=== PATIENT | male | born 1960 | race Caucasian/White ===

== ENCOUNTER 2017-05-22 03:53 | Emergency (ER) | payer MEDICAID, SELFPAY ==
[2017-05-22 03:54] VITALS: BP 126/88; PULSE 89; RESP 18; TEMP 36.8; O2SAT 95; BMI 26.9
--- NOTE | 2017-05-22 04:06 | CT_ITS ---
CT head/brain wo con HISTORY: Altered mental status, altered level consciousness, confusion ITS.REASON: ALTERED MENTAL STATUS ORDERING PHYSICIAN: Arthur Baker MD PATIENT AGE: 56 years COMPARISON: None TECHNIQUE: Axial images obtained without contrast. Brain and bone windows reviewed. FINDINGS: No midline shift, mass effect, intracranial hemorrhage, hydrocephalus, or extra-axial fluid collection is evident. The calvarium has an unremarkable appearance. No mastoid effusion. The visualized paranasal sinuses are unremarkable. IMPRESSION: Negative CT head without contrast. No acute finding.
--- NOTE | 2017-05-22 04:30 | PC.NURSE ---
PT TO CT
--- NOTE | 2017-05-22 05:09 | HMH.EDSEIZ ---
ED Disposition Clinical Impression: Mental status change resolved, Schizo-affective schizophrenia Disposition: Home, Self-Care Condition on Discharge: Good Instructions: DI for Seizure Disorder -- Adult Additional Instructions: resume meds Referrals: Arthur Baker MD [Primary Care Provider] - - Critical Care Critical Care Time: No Attestation: On 05/22/17, the high probability of a clinically significant, sudden or life threatening deterioration of the following system(s) required my full and direct attention, intervention and personal management. The time I documented below is in addition to time spent performing reported procedures but includes the following listed in this critical care notation. Medical Decision Making - Medical Records Medical records reviewed: Yes: I reviewed the patient's medical records. Vital Signs: 05/22/17 03:54 Temperature 98.2 F Temperature Source Oral Pulse Rate [Right Radial] 89 Respiratory Rate 18 Blood Pressure [Right Arm] 126/88 Blood Pressure Mean [Right Arm] 100 Blood Pressure Source [Right Arm] Automatic Cuff Blood Pressure Position [Right Arm] Supine 02 Sat by Pulse Oximetry 95 Oxygen Delivery Method Room Air - Lab Data Lab results reviewed: Yes: I reviewed the patient's lab results. Lab Results 05/22/17 04:06: Urine Color Yellow, Urine Appearance Clear, Urine pH 6.5, Ur Specific [place] 1.015, Urine Protein Negative, Urine Glucose (UA) Negative, Urine Ketones Trace, Urine Blood Negative, Urine Nitrate Negative, Urine Bilirubin Negative, Urine Urobilinogen 0.2, Ur Leukocyte Esterase Negative 05/22/17 05:15: WBC 4.9, RBC 4.37 L, Hgb 12.7 L, Hct 38.9 L, MCV 89.1, MCH 29.0, MCHC 32.5, RDW 13.9, Plt Count 238, MPV 7.4, Neut % (Auto) 51.5, Lymph % (Auto) 31.4, [place] % (Auto) 11.4 H, Eos % (Auto) 5.1, Baso % (Auto) 0.6, Neut # (Auto) 2.5, Lymph # (Auto) 1.6, [place] # (Auto) 0.6, Eos # (Auto) 0.3, Baso # (Auto) 0.0 05/22/17 05:15: Sodium 142, Potassium 3.5, Chloride 109 H, Carbon Dioxide 28, Anion Gap 8.5, BUN 11, Creatinine 0.77, Estimated Creat Clear 144, Estimated GFR > 60, Est GFR ( Amer) > 60, Glucose 92, Calcium 8.3 L, Total Bilirubin 0.4, AST 26, ALT 35, Alkaline Phosphatase 51, Total Protein 6.1 L, Albumin 2.6 L, Globulin 3.5 H, Albumin/Globulin Ratio 0.7 L 05/22/17 05:30: Urine Opiates Screen Negative, Ur Barbituates Screen Negative, Ur Phencyclidine Scrn Negative, Ur Amphetamines Screen Negative, U Methamphetamines Scrn Negative, U Benzodiazepines Scrn Positive H, Urine Cocaine Screen Negative, U Marijuana (THC) Screen Negative Result diagrams: 05/22/17 05:15 05/22/17 05:15 Orders (Tests/Meds): ED MEDICATIONS Generic Name Dose Route Start Last Admin Trade Name Freq PRN Reason Stop Dose Admin Sodium Chloride 10 ml 05/22/17 05:37 Saline Flush 10ml Syringe IV 06/21/17 05:36 NEEDED PRN Maintain IV Site ORDERS Category Date Time Status CMP [Comprehensive Metabolic Panel] Stat Lab 05/22/17 05:15 Results Urinalysis and Microscopic Stat Lab 05/22/17 04:06 Results Valproic Acid, (Depakene) Stat Lab 05/22/17 05:15 Results - CT Data CT Scan: Head Time Received: 06:[address] Reviewed: Yes: I have viewed the radiologist's interpretation Preliminary Findings: Normal/NAD - Garcia Inquiry Pt receiving controlled substance: No Seizures HPI - General Chief Complaint: Seizure Stated Complaint: seizure Time Seen by Provider: 05/22/17 05:09 Mode of Arrival: EMS Source of Information: Patient, EMS, Medical Record Limitations: Altered Mental Status Description of Symptoms (Recalled from ER Triage Doc. by RN): QIANA REPORTED ALTERED MENTAL STATUS S/P SEIZURE - History of Present Illness HPI Narrative: this pt was sent from halfway for eval as he had change in mental status with no fever/trauma and no observed sz MD complaint: possible seizure Onset (ago): hour(s) Witnessed: no Seizure History: known seiz
[2017-05-22 05:56] LABS: Microscopic, Urine URINE MICROSCOPIC (MICROSCOPIC)
[2017-05-22 05:58] LABS: Basophils % 0.6 % (0.1-2.0); Eosinophils # 0.3 K/mm3 (0.0-0.4); Eosinophils % 5.1 % (0.1-12.0); Hematocrit 38.9 % (42.0-52.0); Hemoglobin 12.7 g/dL (14.1-18.0); Lymphocytes # 1.6 K/mm3 (0.7-4.5); Lymphocytes % 31.4 K/mm3 (10-50); Mean Corpuscular HGB Conc 32.5 g/dL (31.8-35.4); Mean Corpuscular Volume 89.1 fl (80-94); Mean Platelet Volume 7.4 fl (7.4-10.4); Monocytes # 0.6 K/mm3 (0.1-1.0); Monocytes % 11.4 % (1.7-9.3); Neutrophils # 2.5 K/mm3 (1.8-7.8); Neutrophils % 51.5 % (37.0-80.0); Platelet Count 238 K/mm3 (142-424); Red Blood Count 4.37 M/mm3 (4.60-6.20); Red Cell Distribution Width 13.9 % (11.5-17.5); White Blood Count 4.9 K/mm3 (4.8-10.8)
[2017-05-22 06:08] LABS: Appearance,Urine CLEAR (Clear); Bilirubin,Urine Negative (Negative); Blood, Urine Negative (Negative); Color,Urine YELLOW (Yellow); Glucose,Urine (UA) Negative (Negative); Ketones,Urine TRACE (Negative); Leukocyte Esterase,Urine Negative (Negative); Nitrate,Urine Negative (Negative); PH,Urine 6.5 (5.0-8.5); Protein,Urine Negative (Negative); Specific Gravity, Urine 1.015 (1.005-1.030); Urobilinogen,Urine 0.2 EU/dl (0.2)
[2017-05-22 06:13] LABS: Alanine Aminotransferase 35 U/L (12-78); Albumin Level 2.6 gm/dL (3.4-5.0); Albumin/Globulin Ratio 0.7 (1.1-1.8); Alkaline Phosphatase 51 U/L (46-116); Anion Gap 8.5 mEq/L (5-15); Aspartate Amino Transferase 26 U/L (15-37); Bilirubin,Total 0.4 mg/dL (0.2-1.0); Blood Urea Nitrogen 11 mg/dL (7-18); Calcium 8.3 mg/dL (8.5-10.1); Carbon Dioxide 28 mmol/L (21.0-32.0); Chloride 109 mmol/L (98-107); Creatinine Clearance Estimated 144 mg/ml (0-300); Creatinine,Serum 0.77 mg/dL (0.70-1.30); Estimated Glomerular Filt Rate > 60 ml/min (>60); GFR (African American) > 60 ML/MIN (>60); Globulin 3.5 gm/dl (1.3-3.2); Glucose 92 mg/dL (74-106); Potassium 3.5 mmoL/L (3.5-5.1); Sodium 142 mmol/L (136-145); Total Protein,Serum 6.1 gm/dL (6.4-8.2)
--- NOTE | 2017-05-22 06:39 | PC.NURSE ---
F/C DC'D PER MD ORDER
[2017-05-22 06:41] LABS: Amphetamine/Metha Screen,Urine Negative ng/mL (<1000); Barbiturates Screen,Urine Negative ng/mL (<200); Benzodiazepines Screen,Urine Positive ng/mL (200); Cannabinoid Screen,Urine Negative ng/mL (<50); Cocaine Screen,Urine Negative ng/g (<300); Methadone Screen,Urine Negative ng/mL (<300); Opiate Screen,Urine Negative ng/mL (<300); Phencyclidine Screen,Urine Negative ng/mL (<25)
[2017-05-22 06:44] VITALS: BP 145/82; PULSE 86; RESP 18; TEMP 36.8; O2SAT 96
[2017-05-22 06:52] LABS: Bacteria,Urine Trace /lpf; Squamous Epithelial Cell,Urine Occasional #/hpf (0-5)
[2017-05-22 08:42] LABS: Valproic Acid, (Depakene) 45.4 ug/mL (50-100)
== END 2017-05-22 07:09 | disposition home or self-care (01) ==
PROVIDERS: Emergency Provider Emergency Medicine; PCP Emergency Medicine
DX: R56.9 Unspecified convulsions (principal); F25.0 Schizoaffective disorder, bipolar type; E11.9 Type 2 diabetes mellitus without complications; Z79.82 Long term (current) use of aspirin
CPT/HCPCS: 70450; 80053; 80164; 80305; 81001; 85025; 99284

== ENCOUNTER 2018-09-12 17:03 | Observation (INO) ==
--- NOTE | 2018-09-12 17:44 | Emergency Department Note ---
ED Disposition Clinical Impression: CAD (coronary artery disease), S/P CABG (coronary artery bypass graft), Venous stasis, Schizophrenia, Atypical chest pain Disposition: Still a Patient Condition on Discharge: Fair Referrals: Provider,Referral, [Referring] - - Critical Care Critical Care Time: No Attestation: On 09/12/18, the high probability of a clinically significant, sudden or life threatening deterioration of the following system(s) required my full and direct attention, intervention and personal management. The time I documented below is in addition to time spent performing reported procedures but includes the following listed in this critical care notation. Medical Decision Making - Medical Records Medical records reviewed: Yes: I reviewed the patient's medical records. - Garcia Inquiry Pt receiving controlled substance: No Garcia was queried for this patient: No Vital Signs: 09/12/18 17:03 09/12/18 17:49 09/12/18 18:52 Temperature 98 F Temperature Source Oral Pulse Rate [Left Radial] 85 122 H 77 Respiratory Rate 16 16 Blood Pressure [Right Arm] 106/62 L 118/66 121/77 Blood Pressure Mean [Right Arm] 76 83 91 Blood Pressure Source [Right Arm] Automatic Cuff Automatic Cuff Automatic Cuff Blood Pressure Position [Right Arm] Sitting Sitting Sitting 02 Sat by Pulse Oximetry 98 96 97 Oxygen Delivery Method Room Air Room Air Room Air 09/12/18 19:55 09/12/18 20:01 Temperature Temperature Source Pulse Rate [Left Radial] 118 H 72 Respiratory Rate 16 16 Blood Pressure [Right Arm] 135/74 130/70 Blood Pressure Mean [Right Arm] 94 90 Blood Pressure Source [Right Arm] Automatic Cuff Blood Pressure Position [Right Arm] Sitting 02 Sat by Pulse Oximetry 97 99 Oxygen Delivery Method Room Air Room Air - Lab Data Lab Results 09/12/18 17:43: WBC 7.3, RBC 4.60, Hgb 15.0, Hct 43.4, MCV 94.4 H, MCH 32.6 H, MCHC 34.5, RDW 12.7, Plt Count 203, MPV 7.2 L, Neut % (Auto) 59.7, Lymph % (Auto) 27.5, [place] % (Auto) 9.2, Eos % (Auto) 3.2, Baso % (Auto) 0.5, Neut # (Auto) 4.4, Lymph # (Auto) 2.0, [place] # (Auto) 0.7, Eos # (Auto) 0.2, Baso # (Auto) 0.0 09/12/18 17:43: Sodium 143, Potassium 4.1, Chloride 108 H, Carbon Dioxide 29, Anion Gap 10.1, BUN 13, Creatinine 1.03, Estimated Creat Clear 93, Estimated GFR 74, Est GFR ( Amer) 90, Glucose 89, Calcium 8.6, Troponin I < 0.02, Amylase 25 09/12/18 17:43: Total Bilirubin 0.3, Direct Bilirubin 0.1, Indirect Bilirubin 0. 2, AST 10 L, ALT 21, Alkaline Phosphatase 66, Total Protein 6.5, Albumin 3.1 L, Lipase 82 09/12/18 19:20: Troponin I < 0.02 Result diagrams: 09/12/18 17:43 09/12/18 17:43 Orders (Tests/Meds): ED MEDICATIONS Generic Name Dose Route Start Last Admin Trade Name Freq PRN Reason Stop Dose Admin Sodium Chloride 1,000 mls @ 999 mls/hr 09/12/18 19:15 09/12/18 19:04 Sod Chlor 0.9% 1000ml Bag IV 09/12/18 20:15 999 mls/hr .Q1H1M FERNANDA Administration Discontinued Medications Generic Name Dose Route Start Last Admin Trade Name Freq PRN Reason Stop Dose Admin Belladonna Alkaloids 60 ml 09/12/18 17:49 09/12/18 18:15 Gi Cocktail 60ml Udc PO 09/12/18 17:50 60 ml ONCE ONE Administration Diatrizoate Meglum/Diatrizoate Sod 30 ml 09/12/18 17:48 09/12/18 18:11 Gastrografin 66%-10% 30ml PO 09/12/18 17:49 30 ml ONCE ONE Administration Ioversol 100 ml 09/12/18 19:07 09/12/18 19:10 Rad-Optiray 350 100ml Vial IV 09/12/18 19:08 100 ml ONCE ONE Administration Protocol Nitroglycerin 0.4 mg 09/12/18 19:54 09/12/18 19:55 Nitrostat 0.4mg Sl Tablet SL 09/12/18 19:55 0.4 mg ONCE ONE Administration Sodium Chloride 50 ml 09/12/18 19:07 09/12/18 19:10 Rad-Ns 50ml Vial IV 09/12/18 19:08 50 ml ONCE ONE Administration ORDERS Category Date Time Status CT abdomen pelvis w con Stat Cat Scan 09/12/18 17:[address] chest w con Stat Cat Scan 09/12/18 17:48 Taken Chest XR -- portable [XR chest portable] Stat Exams 09/12/18 17:05 Taken - Radiology Data #1 Image(s): Chest Image Reviewed: Yes I reviewed the patient's radiology image Preliminary Findings: Normal/NAD Chest x-ray: Postop changes no acute findings. - CT Data CT Scan: Abdomen, Chest Time Received: 20:[address] Reviewed: Yes: I have viewed the radiologist's interpretation Preliminary Findings: Abnormal Findings Narrative: CT Chest and Abdomen: Copd and atlectasis negative for aneurysm. - ECG Data Tracing #1 Normal sinus rhythm 72/min baseline artifact, poor R wave progression, normal ST segments and T waves. No acute findings. ECG initial impression date: 09/12/18 ECG initial impression time: 17:05 Medical Decision Narrative: The patient was given GI cocktail and continued to have pain. He felt the pain is moving to his chest on the left side. He was given nitroglycerin with no relief. His second set of troponin was negative and a second EKG was a stable.. 1999 due to the patient ongoing chest pain I called Dr frausto for observation admission to rule out NC protocol. General Adult HPI - General Chief complaint: PAIN Stated complaint: chest pain Time Seen by Provider: 09/12/18 17:10 Mode of Arrival: EMS Limitations: No Limitations Description of Symptoms (Recalled from ER Triage Doc. by RN): to ed per squad reports of chest pain pt pointing to epigastric area starting approx 1hr ago c/o sob. denies any radiation of pain, nausea, vomiting, fever. cpta asa 324mg - History of Present Illness HPI narrative: 58 years old white male with a history of coronary artery disease, peripheral vascular disease and diabetes. He is from [facility] and he underwent a CABG in 2008. Today 30 minutes after he ate supper he developed sudden onset of sharp epigastric pain radiating to his back. EMS was called he was given aspirin with no relief. He denies vomiting or diarrhea. He denies having shortness of breath or palpitations. He denies having hematemesis coffee-ground emesis melanotic stool or bleeding per rectum. He denies having hemoptysis dysuria hematuria or frequency. Onset (ago): hour(s) Location: abdomen Radiation: back Severity: moderate Severity scale (1-10): 7 Quality: sharp Consistency: constant Relieving factors: none Exacerbating factors: none Associated symptoms: denies other symptoms Treatments prior to arrival: none - Related Data Home Medications Medication Instructions Recorded Confirmed Aspirin [Aspir 81] 81 mg PO DAILY 05/22/17 09/12/18 Atorvastatin Calcium [Atorvastatin 40 mg PO HS 05/22/17 09/12/18 40mg Tab] Divalproex Sodium [Depakote] 500 mg PO BID 05/22/17 09/12/18 Ipratropium/Albuterol Sulfate 1 puff IH DAILY 05/22/17 09/12/18 [Combivent Respimat Inh] Metoprolol Tartrate [Lopressor 25 mg PO DAILY 05/22/17 09/12/18 25mg tablet] Mometasone/Formoterol [Dulera 100 8.8 gm IH DAILY 05/22/17 09/12/18 Mcg/5 Mcg Inhaler] raNITIdine HCl [Ranitidine HCl] 150 mg PO BID 05/22/17 09/12/18 benzonatate 100 mg capsule 100 mg PO TID PRN 08/10/18 09/12/18 benztropine 0.5 mg tablet 0.5 mg PO BID 08/10/18 09/12/18 diazepam 5 mg tablet 5 mg PO BID tab 08/10/18 09/12/18 haloperidol 5 mg tablet 5 mg PO TID 08/10/18 09/12/18 lorazepam 1 mg tablet 1 mg PO Q6H PRN tab 08/10/18 09/12/18 sertraline 25 mg tablet 25 mg PO DAILY 08/10/18 09/12/18 Allergies Allergy/AdvReac Type Severity Reaction Status Date / Time No Known Allergies Allergy Verified 08/10/18 10:09 [facility] History - Hepatitis A Screen Drug use history?: No High risk sexual behaviors?: No History of sexually transmitted infection?: No Currently employed?: No Childcare worker?: No Do you have indoor plumbing?: Yes Do you have electricity?: Yes Attestation statement:: This patient has been screened for Hepatitis A risk factors. I have reviewed the patient's past medical history: Yes Medical History: Reports:: Diabetes Mellitus Type 2 Amputation: No Fractures: No - Social History Smoking Status: Current some day smoker Tobacco Type: cigars # Packs/Day (cigarettes): 0 Alcohol Intake: never Occupational Status: disabled Household Members: other - Psychiatric History Expresses thoughts of harming self/others: None Suicide Plan Description: No Plan ROS Obtained: Yes All systems reviewed & no additional complaints Physical Exam - General General appearance: alert, in no apparent distress - Head Head exam: atraumatic, normocephalic, normal inspection - Eye Eye exam: Present: normal appearance, PERRL, EOMI - ENT ENT exam: Present: normal exam, normal oropharynx, mucous membranes moist, TM's normal bilaterally, normal external ear exam - Neck Neck exam: Present: normal inspection, full ROM, trachea midline. Absent: tenderness, meningismus, lymphadenopathy - Chest Chest inspection: Present: normal inspection, symmetric chest wall rise. Absent: tenderness - Respiratory Respiratory exam: Present: normal lung sounds bilaterally. Absent: respiratory distress, wheezes - Cardiovascular Cardiovascular exam: Present: regular rate, normal rhythm, normal heart sounds. Absent: JVD - Abdominal Exam Abdominal exam: Present: soft, tenderness, normal bowel sounds, other (Abdomen is soft, with epigastric tenderness without rigidity, no guarding no cross tenderness, no rebound.). Absent: distention, guarding, rebound, rigidity, Navarro's sign, tenderness at McBurney's Point - Extremities Exam Extremities exam: Present: normal inspection, full ROM, normal capillary refill, other (Has venous stasis that is worse on the left leg.). Absent: tenderness, pedal edema, calf tenderness - Back Exam Back exam: Present: normal inspection. Absent: tenderness - Neurological Exam Neurological exam: Present: alert, oriented X3, CN II-XII intact, motor sensory deficit, reflexes normal - Psychiatric Psychiatric exam: Present: normal affect, normal mood - Skin Skin exam: Present: warm, dry, intact, normal color - Lymphatic Lymphatic Findings: no adenopathy
[2018-09-12 17:52] LABS: Basophils % 0.5 % (0.1-2.0); Eosinophils # 0.2 K/mm3 (0.0-0.4); Eosinophils % 3.2 % (0.1-12.0); Hematocrit 43.4 % (42.0-52.0); Lymphocytes % 27.5 % (10-50); Mean Corpuscular HGB Conc 34.5 g/dL (31.8-35.4); Mean Corpuscular Hemoglobin 32.6 pg (27.0-31.2); Mean Corpuscular Volume 94.4 fl (80-94); Mean Platelet Volume 7.2 fl (7.4-10.4); Monocytes # 0.7 K/mm3 (0.1-1.0); Monocytes % 9.2 % (1.7-9.3); Neutrophils # 4.4 K/mm3 (1.8-7.8); Neutrophils % 59.7 % (37.0-80.0); Platelet Count 203 K/mm3 (142-424); Red Cell Distribution Width 12.7 % (11.5-17.5); White Blood Count 7.3 K/mm3 (4.8-10.8)
[2018-09-12 18:10] LABS: Albumin Level 3.1 gm/dL (3.4-5.0); Bilirubin,Direct 0.1 mg/dL (0.0-0.2); Bilirubin,Indirect 0.2 mg/dL (0.0-0.9); Bilirubin,Total 0.3 mg/dL (0.2-1.0); Total Protein,Serum 6.5 gm/dL (6.4-8.2)
[2018-09-12 18:12] LABS: Amylase 25 U/L (25-115); Anion Gap 10.1 mEq/L (5-15); Blood Urea Nitrogen 13 mg/dL (7-18); Calcium 8.6 mg/dL (8.5-10.1); Carbon Dioxide 29 mmol/L (21.0-32.0); Chloride 108 mmol/L (98-107); Glucose 89 mg/dL (74-106); Potassium 4.1 mmoL/L (3.5-5.1); Sodium 143 mmol/L (136-145)
--- NOTE | 2018-09-13 12:03 | Pharmacy Consult Notes ---
[facility] Pharmacy VTE Monitoring - Patient Demographics Admission date: 09/13/18 Report Date: 09/13/18 Time: 12:03 Allergies/Adverse Reactions: Patient Allergies No Known Allergies Allergy (Verified 08/10/18 10:09) Height: 1.75 m Weight: 84.056 kg Patient Problems: Current Active Problems (Updated 09/12/18 @ 20:04 by Jovana Silva MD) CAD (coronary artery disease) (Acute) S/P CABG (coronary artery bypass graft) (Acute) Venous stasis (Acute) Schizophrenia (Acute) Atypical chest pain (Acute) - VTE Risk Labs: VTE Related Lab Results Hgb 15.0 g/dL (14.1-18.0) 09/12/18 17:43 Hct 43.4 % (42.0-52.0) 09/12/18 17:43 Plt Count 203 K/mm3 (142-424) 09/12/18 17:43 BUN 13 mg/dL (7-18) 09/12/18 17:43 Creatinine 1.03 mg/dL (0.70-1.30) 09/12/18 17:43 Estimated Creat Clear 93 mL/min (50-200) 09/12/18 17:43 VTE Score: 2 - Prophylaxis Types of VTE Prophylaxis: TEDS Knee High (HERNAN HOSE ORDER PLACED)
--- NOTE | 2018-09-13 12:13 | History & Physical Report ---
*Admission Date: 09/13/18 *Chief complaint: chest pain *History of present illness: 58 years old male with a history of cad, pvd and diabetes with CABG in 2008. pt presented to ed from personal [facility] with c/o after he ate supper he developed sudden onset of sharp epigastric pain radiating to his back. Asa given. He denies vomiting or diarrhea, shortness of breath or palpitations. Pt admitted for cardiology consult and work up. [facility] History I have reviewed the patient's past medical history: Yes Medical History: Reports:: Hyperlipidemia, Hypertension, Myocardial Infarction Denies:: Diabetes Mellitus Type 1, Diabetes Mellitus Type 2 *Have you ever received a pneumonia vaccine?: Yes *Have you received a flu vaccine this season?: Yes Other Surgeries: Yes: Appendectomy, Cholecystectomy Amputation: No Fractures: No - *Social History Smoking Status: Current every day smoker Tobacco Type: cigarettes, cigars # Packs/Day (cigarettes): 1 Alcohol Intake: never *Occupational Status:: disabled Housing: other Household Members: other *Travel in the last 8 weeks: None - Psychiatric History Expresses thoughts of harming self/others: None Suicide Plan Description: No Plan Family Hx:: Unable to obtain, No significant family history Review of Systems - Review of Systems Review of systems:: pertinent systems reviewed and negative unless documented below - Constitutional Denies fever(s) - Eyes Denies change in vision - ENT Denies change in voice - *Cardiovascular Reports chest pain, Reports chest pain at rest, Reports chest pain with activity, Denies shortness of breath with activity, Denies generalized swelling - *Respiratory Denies chest congestion - *Gastrointestinal Denies bloating - *Genitourinary Denies urinary frequency - *Musculoskeletal Denies body aches - Integumentary/Breasts Denies rash - *Neurologic Denies headache(s) - Psychiatric Denies anxiety - Endocrine Denies flushing - Hematologic/Lymphatic Denies enlarged lymph nodes - Allergic/Immunologic Denies itchy eyes Meds Home Medications Medication Instructions Recorded Confirmed Type Aspirin [Aspir 81] 81 mg PO DAILY 05/22/17 09/13/18 History Atorvastatin Calcium [Atorvastatin 40 mg PO HS 05/22/17 09/13/18 History 40mg Tab] Divalproex Sodium [Depakote] 500 mg PO BID 05/22/17 09/13/18 History Ipratropium/Albuterol Sulfate 1 puff IH QID 05/22/17 09/13/18 History [Combivent Respimat Inh] Metoprolol Tartrate [Lopressor 25 mg PO DAILY 05/22/17 09/13/18 History 25mg tablet] Mometasone/Formoterol [Dulera 100 8.8 gm IH BID 05/22/17 09/13/18 History Mcg/5 Mcg Inhaler] raNITIdine HCl [Ranitidine HCl] 150 mg PO BID 05/22/17 09/13/18 History benzonatate 100 mg capsule 100 mg PO TID PRN 08/10/18 09/13/18 History benztropine 0.5 mg tablet 0.5 mg PO BID 08/10/18 09/13/18 History diazepam 5 mg tablet 5 mg PO BID tab 08/10/18 09/13/18 History haloperidol 5 mg tablet 5 mg PO TID 08/10/18 09/13/18 History lorazepam 1 mg tablet 1 mg PO Q6HP PRN tab 08/10/18 09/13/18 History sertraline 25 mg tablet 25 mg PO DAILY 08/10/18 09/13/18 History Acetaminophen [Tylenol 325mg 650 mg PO Q6HP PRN 09/13/18 09/13/18 History Tablet] Ibuprofen [Ibuprofen 800mg 800 mg PO Q8HP PRN 09/13/18 09/13/18 History Tablet] Allergies Allergy/AdvReac Type Severity Reaction Status Date / Time No Known Allergies Allergy Verified 08/10/18 10:09 Exam Vital signs and Labs for Last 24 Hours: Temp Pulse Resp BP Pulse Ox 99.8 F H 51 L 17 107/66 L 93 L 09/13/18 08:00 09/13/18 08:35 09/13/18 08:35 09/13/18 08:00 09/13/18 08:35 Laboratory Results - last 24 hr 09/12/18 17:43: WBC 7.3, RBC 4.60, Hgb 15.0, Hct 43.4, MCV 94.4 H, MCH 32.6 H, MCHC 34.5, RDW 12.7, Plt Count 203, MPV 7.2 L, Neut % (Auto) 59.7, Lymph % (Auto) 27.5, [place] % (Auto) 9.2, Eos % (Auto) 3.2, Baso % (Auto) 0.5, Neut # (Auto) 4.4, Lymph # (Auto) 2.0, [place] # (Auto) 0.7, Eos # (Auto) 0.2, Baso # (Auto) 0.0 09/12/18 17:43: Sodium 143, Potassium 4.1, Chloride 108 H, Carbon Dioxide 29, Anion Gap 10.1, BUN 13, Creatinine 1.03, Estimated Creat Clear 93, Estimated GFR 74, Est GFR ( Amer) 90, Glucose 89, Calcium 8.6, Troponin I < 0.02, Amylase 25 09/12/18 17:43: Total Bilirubin 0.3, Direct Bilirubin 0.1, Indirect Bilirubin 0.2, AST 10 L, ALT 21, Alkaline Phosphatase 66, Total Protein 6.5, Albumin 3.1 L , Lipase 82 09/12/18 19:20: Troponin I < 0.02 09/12/18 23:50: Troponin I < 0.02 09/13/18 05:45: Troponin I 0.02 I & O for Last 24 hours: Intake & Output 09/11/18 09/12/18 09/13/18 09/14/18 11:59 11:59 11:59 11:59 Intake Total 313 / 313 Output Total 1100 / 1100 Balance -787 / -787 Weight 185 lb 5 oz - Constitutional no acute distress - *Routine HEENT Exam Head: Present: normocephalic Eye: Present: PERRL ENT: Present: mucous membranes moist - *Routine Neck Exam Present: supple. Absent: lymphadenopathy - *Routine Respiratory Exam Present: CTA bilaterally - *Routine Cardiovascular Exam Present: RRR Comments: scar to chest - *Routine Abdominal Exam Present: soft, normoactive bowel sounds. Absent: tenderness - *Routine Extremities Exam Absent: cyanosis, clubbing, edema - *Routine Skin Exam Present: warm. Absent: rash - *Routine Neurological Exam Present: alert, oriented X3 - Routine Psychiatric Exam Present: normal affect Assessment and Plan (1) Diabetes Current visit: Yes Status: Acute Qualifiers: Diabetes mellitus type: type 2 Diabetes mellitus shelter insulin use: without selling specialist use Diabetes mellitus complication status: with circulatory complication Diabetes mellitus complication detail: with other circulatory complications Qualified Code(s): E11.59 - Type 2 diabetes mellitus with other circulatory complications Category: Medical Code(s): E11.9 - Type 2 diabetes mellitus without complications (2) Diabetes Current visit: Yes Status: Acute Qualifiers: Diabetes mellitus type: type 2 Diabetes mellitus complication status: with circulatory complication Diabetes mellitus complication detail: with other circulatory complications Category: Medical Code(s): E11.9 - Type 2 diabetes mellitus without complications (3) Atypical chest pain Current visit: Yes Status: Acute Category: Medical Code(s): R07.89 - Other chest pain (4) CAD (coronary artery disease) Current visit: Yes Status: Acute Qualifiers: Coronary Disease-Associated Artery/Lesion type: bypass graft [place] vs. transplanted heart: [place] heart Associated angina: without angina Qualified Code(s): I25.810 - Atherosclerosis of coronary artery bypass graft(s) without angina pectoris Category: Medical Code(s): I25.10 - Atherosclerotic heart disease of [place] coronary artery without angina pectoris (5) S/P CABG (coronary artery bypass graft) Current visit: Yes Status: Acute Category: Surgical Code(s): Z95.1 - Presence of aortocoronary bypass graft (6) Schizophrenia Current visit: Yes Status: Acute Qualifiers: Schizophrenia type: other Qualified Code(s): F20.89 - Other schizophrenia; F20.8 - Other schizophrenia Category: Medical Code(s): F20.9 - Schizophrenia, unspecified (7) Schizo-affective schizophrenia Current visit: No Status: Acute Category: Medical Code(s): F25.0 - Schizoaffective disorder, bipolar type - Assessment and plan all Dx Assessment and Plan for all problems:: nina will round later discussed with nina all orders per nina cardology and echo in am
[2018-09-14 06:52] LABS: Basophils # 0.1 K/mm3 (0-0.2); Basophils % 0.7 % (0.1-2.0); Eosinophils # 0.2 K/mm3 (0.0-0.4); Eosinophils % 3.5 % (0.1-12.0); Hematocrit 45.1 % (42.0-52.0); Hemoglobin 15.6 g/dL (14.1-18.0); Lymphocytes # 2.3 K/mm3 (0.7-4.5); Lymphocytes % 35.3 % (10-50); Mean Corpuscular HGB Conc 34.5 g/dL (31.8-35.4); Mean Corpuscular Hemoglobin 32.4 pg (27.0-31.2); Mean Corpuscular Volume 93.8 fl (80-94); Mean Platelet Volume 8.1 fl (7.4-10.4); Monocytes # 0.7 K/mm3 (0.1-1.0); Monocytes % 10.6 % (1.7-9.3); Neutrophils # 3.3 K/mm3 (1.8-7.8); Platelet Count 167 K/mm3 (142-424); Red Blood Count 4.81 M/mm3 (4.60-6.20); Red Cell Distribution Width 12.5 % (11.5-17.5); White Blood Count 6.6 K/mm3 (4.8-10.8)
[2018-09-14 07:06] LABS: Albumin/Globulin Ratio 0.9 (1.1-1.8); Anion Gap 11.1 mEq/L (5-15); Bilirubin,Total 0.5 mg/dL (0.2-1.0); Calcium 8.8 mg/dL (8.5-10.1); Globulin 3.5 gm/dl (1.3-3.2); Potassium 4.1 mmoL/L (3.5-5.1); Total Protein,Serum 6.5 gm/dL (6.4-8.2)
--- NOTE | 2018-09-14 09:23 | Consult Report ---
History of Present Illness Consult date: 09/14/18 Requesting physician: Arthur Baker Consult reason: chest pain Chief complaint: chest pain Additional Medical History:: 1. Coronary artery disease A. Coronary artery bypass grafting, 2008 2. Diabetis mellitus 3. Hypertension 4. Hyperlipidemia 5. Poor historian 6. Schizophrenia and schizo-affective disorder History of present illness: 58 years old male with a history of cad, pvd and diabetes with CABG in 2008. pt presented [facility] ed from [facility] with c/o after he ate supper he developed sudden onset of sharp epigastric pain radiating to his back. Asa given. He denies vomiting or diarrhea, shortness of breath or palpitations. Pt admitted for cardiology consult and work up. The above per Carlos Walden APRN for Dr. Baker Difficult historian but relates impending concern for surrounding his chest pain over the weekend and last evening. Telemetry shows heart rates in the 40s on beta-hellen therapy. Blood pressure well controlled. Patient is now 10 years out from bypass surgery and relates his last cardiac cath is proximally 3 years ago with no need for intervention at that time. Troponins normal x3 and EKG is sinus with no acute ST segment changes. [facility] History Medical History: Reports:: Hyperlipidemia, Hypertension, Myocardial Infarction Denies:: Diabetes Mellitus Type 1, Diabetes Mellitus Type 2 *Have you ever received a pneumonia vaccine?: Yes *Have you received a flu vaccine this season?: Yes Other Surgeries: Yes: Appendectomy, Cholecystectomy Amputation: No Fractures: No - *Social History Smoking Status: Current every day smoker Tobacco Type: cigarettes, cigars # Packs/Day (cigarettes): 1 Alcohol Intake: never *Occupational Status:: disabled Housing: other Household Members: other *Travel in the last 8 weeks: None - Psychiatric History Expresses thoughts of harming self/others: None Suicide Plan Description: No Plan Family Hx:: Unable to obtain, No significant family history Meds Home Medications Medication Instructions Recorded Confirmed Type Aspirin [Aspir 81] 81 mg PO DAILY 05/22/17 09/13/18 History Atorvastatin Calcium [Atorvastatin 40 mg PO HS 05/22/17 09/13/18 History 40mg Tab] Divalproex Sodium [Depakote] 500 mg PO BID 05/22/17 09/13/18 History Ipratropium/Albuterol Sulfate 1 puff IH QID 05/22/17 09/13/18 History [Combivent Respimat Inh] Metoprolol Tartrate [Lopressor 25 mg PO DAILY 05/22/17 09/13/18 History 25mg tablet] Mometasone/Formoterol [Dulera 100 8.8 gm IH BID 05/22/17 09/13/18 History Mcg/5 Mcg Inhaler] raNITIdine HCl [Ranitidine HCl] 150 mg PO BID 05/22/17 09/13/18 History benzonatate 100 mg capsule 100 mg PO TID PRN 08/10/18 09/13/18 History benztropine 0.5 mg tablet 0.5 mg PO BID 08/10/18 09/13/18 History diazepam 5 mg tablet 5 mg PO BID tab 08/10/18 09/13/18 History haloperidol 5 mg tablet 5 mg PO TID 08/10/18 09/13/18 History lorazepam 1 mg tablet 1 mg PO Q6HP PRN tab 08/10/18 09/13/18 History sertraline 25 mg tablet 25 mg PO DAILY 08/10/18 09/13/18 History Acetaminophen [Tylenol 325mg 650 mg PO Q6HP PRN 09/13/18 09/13/18 History Tablet] Ibuprofen [Ibuprofen 800mg 800 mg PO Q8HP PRN 09/13/18 09/13/18 History Tablet] Allergies Allergy/AdvReac Type Severity Reaction Status Date / Time No Known Allergies Allergy Verified 08/10/18 10:09 Review of Systems - *Cardiovascular Reports chest pain, Reports shortness of breath with activity - *Respiratory Reports shortness of breath with activity, Denies cough - *Gastrointestinal Denies abdominal pain, Denies change in stools, Denies loose stools - *Genitourinary Denies side pain, Denies blood in urine - *Musculoskeletal Denies joint pain, Denies back pain - *Neurologic Denies headache(s) Exam Vital signs and Labs for Last 24 Hours: Temp Pulse Resp BP Pulse Ox 98.0 F 51 L 16 113/68 98 09/14/18 08:00 09/14/18 08:00 09/14/18 08:00 09/14/18 08:00 09/14/18 08:00 Laboratory Results - last 24 hr 09/14/18 05:46: WBC 6.6, RBC 4.81, Hgb 15.6, Hct 45.1, MCV 93.8, MCH 32.4 H, MCHC 34.5, RDW 12.5, Plt Count 167, MPV 8.1, Neut % (Auto) 50.0, Lymph % (Auto) 35.3, [place] % (Auto) 10.6 H, Eos % (Auto) 3.5, Baso % (Auto) 0.7, Neut # (Auto) 3.3, Lymph # (Auto) 2.3, [place] # (Auto) 0.7, Eos # (Auto) 0.2, Baso # (Auto) 0.1 09/14/18 05:46: Sodium 141, Potassium 4.1, Chloride 107, Carbon Dioxide 27, Anion Gap 11.1, BUN 10, Creatinine 0.79 D, Estimated Creat Clear 119, Estimated GFR 101, Est GFR ( Amer) 122 D, Glucose 77, Calcium 8.8, Total Bilirubin 0.5, AST 11 L, ALT 20, Alkaline Phosphatase 64, Total Protein 6.5, Albumin 3.0 L , Globulin 3.5 H, Albumin/Globulin Ratio 0.9 L I & O for Last 24 hours: Intake & Output 09/11/18 09/12/18 09/13/18 09/14/18 11:59 11:59 11:59 11:59 Intake Total 313 / 313 1954 / 1954 Output Total 1100 / 1100 700 / 700 Balance -787 / -787 1254 / 1254 Weight 185 lb 5 oz 181 lb 7 oz - *Routine HEENT Exam Head: Present: normocephalic Eye: Present: EOMI, PERRL ENT: Present: mucous membranes moist - *Routine Neck Exam Present: supple. Absent: JVD, carotid bruit - *Routine Respiratory Exam Present: decreased breath sounds, diminished air movement. Absent: accessory muscle use, rales, rhonchi, wheezes - *Routine Cardiovascular Exam Present: RRR. Absent: murmur, gallop, rubs - *Routine Abdominal Exam Present: soft. Absent: tenderness, distended, guarding - *Routine Extremities Exam Absent: edema, calf tenderness - *Routine Neurological Exam Present: alert, oriented X3, moving all extremities Assessment and Plan (1) Diabetes Current visit: Yes Status: Acute Qualifiers: Diabetes mellitus type: type 2 Diabetes mellitus complication status: with circulatory complication Diabetes mellitus complication detail: with other circulatory complications Category: Medical Code(s): E11.9 - Type 2 diabetes mellitus without complications (2) Atypical chest pain Current visit: Yes Status: Acute Category: Medical Code(s): R07.89 - Other chest pain (3) CAD (coronary artery disease) Current visit: Yes Status: Acute Qualifiers: Coronary Disease-Associated Artery/Lesion type: bypass graft [place] vs. transplanted heart: [place] heart Associated angina: without angina Qualified Code(s): I25.810 - Atherosclerosis of coronary artery bypass graft(s) without angina pectoris Category: Medical Code(s): I25.10 - Atherosclerotic heart disease of [place] coronary artery without angina pectoris (4) S/P CABG (coronary artery bypass graft) Current visit: Yes Status: Acute Category: Surgical Code(s): Z95.1 - Presence of aortocoronary bypass graft (5) Schizophrenia Current visit: Yes Status: Acute Qualifiers: Schizophrenia type: other Qualified Code(s): F20.89 - Other schizophrenia; F20.8 - Other schizophrenia Category: Medical Code(s): F20.9 - Schizophrenia, unspecified (6) Schizo-affective schizophrenia Current visit: No Status: Acute Category: Medical Code(s): F25.0 - Schizoaffective disorder, bipolar type - Assessment and plan all Dx Assessment and Plan for all problems:: 1. In light of the patient's chest pain, diabetes mellitus and 10 years out from bypass surgery, recommend proceeding with left heart catheterization today. We are unable to increase the patient's antianginal medication due to his borderline low blood pressure and significant bradycardia. He continues on aspirin therapy 2. Preliminary echocardiogram shows ejection fraction approximately 50% with no significant valvular abnormalities. 3. Further recommendations to follow pending above results.
--- NOTE | 2018-09-14 12:53 | Progress Note ---
Internal Medicine - PN: Subj *Date: 09/14/18 *Time: 12:50 Interval history: pt doing better but still with some chest pain - will see card today - Exam Vital signs and Labs for Last 24 Hours: Temp Pulse Resp BP Pulse Ox 98.0 F 78 18 143/77 H 96 09/14/18 08:00 09/14/18 12:20 09/14/18 12:20 09/14/18 12:20 09/14/18 12:20 Laboratory Results - last 24 hr 09/14/18 05:46: WBC 6.6, RBC 4.81, Hgb 15.6, Hct 45.1, MCV 93.8, MCH 32.4 H, MCHC 34.5, RDW 12.5, Plt Count 167, MPV 8.1, Neut % (Auto) 50.0, Lymph % (Auto) 35.3, [place] % (Auto) 10.6 H, Eos % (Auto) 3.5, Baso % (Auto) 0.7, Neut # (Auto) 3.3, Lymph # (Auto) 2.3, [place] # (Auto) 0.7, Eos # (Auto) 0.2, Baso # (Auto) 0.1 09/14/18 05:46: Sodium 141, Potassium 4.1, Chloride 107, Carbon Dioxide 27, Anion Gap 11.1, BUN 10, Creatinine 0.79 D, Estimated Creat Clear 119, Estimated GFR 101, Est GFR ( Amer) 122 D, Glucose 77, Calcium 8.8, Total Bilirubin 0.5, AST 11 L, ALT 20, Alkaline Phosphatase 64, Total Protein 6.5, Albumin 3.0 L , Globulin 3.5 H, Albumin/Globulin Ratio 0.9 L I & O for Last 24 hours: Intake & Output 09/12/18 09/13/18 09/14/18 09/15/18 11:59 11:59 11:59 11:59 Intake Total 313 / 313 1953 / 195 Output Total 1100 / 1100 700 / 700 Balance -787 / -787 1254 / 1254 Weight 185 lb 5 oz 181 lb 7 oz - Constitutional no acute distress - *Routine HEENT Exam Head: Present: normocephalic Eye: Present: EOMI, PERRL ENT: Present: mucous membranes dry - *Routine Neck Exam Absent: JVD - *Routine Respiratory Exam Present: CTA bilaterally - *Routine Cardiovascular Exam Present: RRR, murmur - *Routine Abdominal Exam Present: soft - *Routine Extremities Exam Absent: calf tenderness - *Routine Skin Exam Present: intact - *Routine Neurological Exam Present: alert, oriented X3, CN II-XII intact - Routine Psychiatric Exam Present: normal affect Assessment and Plan (1) Diabetes Current visit: Yes Status: Acute Qualifiers: Diabetes mellitus type: type 2 Diabetes mellitus complication status: with circulatory complication Diabetes mellitus complication detail: with other circulatory complications Category: Medical Code(s): E11.9 - Type 2 diabetes mellitus without complications (2) Atypical chest pain Current visit: Yes Status: Acute Category: Medical Code(s): R07.89 - Other chest pain (3) CAD (coronary artery disease) Current visit: Yes Status: Acute Qualifiers: Coronary Disease-Associated Artery/Lesion type: bypass graft [place] vs. transplanted heart: [place] heart Associated angina: without angina Qualified Code(s): I25.810 - Atherosclerosis of coronary artery bypass graft(s) without angina pectoris Category: Medical Code(s): I25.10 - Atherosclerotic heart disease of [place] coronary artery without angina pectoris (4) S/P CABG (coronary artery bypass graft) Current visit: Yes Status: Acute Category: Surgical Code(s): Z95.1 - Presence of aortocoronary bypass graft (5) Schizophrenia Current visit: Yes Status: Acute Qualifiers: Schizophrenia type: other Qualified Code(s): F20.89 - Other schizophrenia; F20.8 - Other schizophrenia Category: Medical Code(s): F20.9 - Schizophrenia, unspecified (6) Schizo-affective schizophrenia Current visit: No Status: Acute Category: Medical Code(s): F25.0 - Schizoaffective disorder, bipolar type (7) Coronary artery disease Current visit: Yes Status: Acute Qualifiers: Coronary Disease-Associated Artery/Lesion type: [place] artery [place] vs. transplanted heart: [place] heart Associated angina: with unstable angina Qualified Code(s): I25.110 - Atherosclerotic heart disease of [place] coronary artery with unstable angina pectoris Category: Medical Code(s): I25.10 - Atherosclerotic heart disease of [place] coronary artery without angina pectoris
--- NOTE | 2018-09-14 18:36 | Cardiology Report ---
PROCEDURE: 2-D M-mode and color Doppler study INDICATIONS FOR THE TEST: Chest pain COPD Heart Murmur Tobacco Smoking+ Palpitations Fatigue Syncope Edema Hypertension+Diabetes Mellitus+ Rheumatic Fever SOB HANNA Obesity Hyperlipidemia+ Family History HD Additional History cabg, old mi,pvd PATIENT INFORMATION HEIGHT: 69 WEIGHT:185 GENDER: Male B/P:107/66 2-D/M-MODE INTERPRETATION: 2-D MEASUREMENTS OBSERVED VALUES IN CMS Right Ventricular Dimension (RVDd) 3.5 Interventricular Septum (Thickness)(IVsd) 1.4 Left Ventricular Internal Dimensions(LVIDd) 5.6 Left Ventricular Posterior Wall (Thickness)(LVPWd) 0.7 Aortic Root 3.3 Aortic Cusp Separation 2.0 Left Atrial Dimensions (LAD) 3.3 2D 1. Left atrium is mildly enlarged, left ventricle is normal size, mild concentric hypertrophy, visually estimated ejection fraction of 55% with no regional wall motion abnormality, endocardial surfaces are poorly visualized. 2. The right atrium and right ventricle are mildly enlarged with normal contractility. 3. The aortic valve is thickened and calcified leaflet continue to display good mobility. 4. The mitral and tricuspid valve leaflets are minimally thickened. 5. The pulmonic valve is poorly visualized. 6. No significant pericardial effusion noted. DOPPLER INTERROGATION: Doppler interrogation of the aortic, mitral and tricuspid valvular presence of mild mitral and tricuspid regurgitation, tricuspid regurgitation jet velocity is inadequate for calculation of the right ventricular systolic pressure, grade 1 diastolic dysfunction seen without tissue Doppler evidence of raised left atrial pressure. CONCLUSION: 1. Mild biatrial enlargement, normal left ventricular size, mild concentric left ventricular hypertrophy, visually estimated ejection fraction 55% with no regional wall motion abnormality, endocardial subsequent poorly visualized. 2. Mildly enlarged right ventricle with normal contractility. 3. Thickened and calcified aortic valve without aortic stenosis aortic insufficiency. 4. Mild mitral and tricuspid regurgitation 5. No significant pericardial effusion noted.
[2018-09-15 07:16] LABS: Basophils # 0.1 K/mm3 (0-0.2); Basophils % 0.8 % (0.1-2.0); Eosinophils # 0.2 K/mm3 (0.0-0.4); Eosinophils % 3.2 % (0.1-12.0); Hematocrit 45.7 % (42.0-52.0); Hemoglobin 15.5 g/dL (14.1-18.0); Lymphocytes # 2.3 K/mm3 (0.7-4.5); Lymphocytes % 33.9 % (10-50); Mean Corpuscular HGB Conc 34.1 g/dL (31.8-35.4); Mean Corpuscular Hemoglobin 31.9 pg (27.0-31.2); Mean Corpuscular Volume 93.8 fl (80-94); Mean Platelet Volume 7.4 fl (7.4-10.4); Monocytes # 0.7 K/mm3 (0.1-1.0); Monocytes % 10.1 % (1.7-9.3); Neutrophils # 3.5 K/mm3 (1.8-7.8); Platelet Count 183 K/mm3 (142-424); Red Blood Count 4.87 M/mm3 (4.60-6.20); Red Cell Distribution Width 12.5 % (11.5-17.5); White Blood Count 6.7 K/mm3 (4.8-10.8)
[2018-09-15 07:27] LABS: Calcium 8.6 mg/dL (8.5-10.1)
[2018-09-15 07:52] VITALS: BP 112/65
--- NOTE | 2018-09-15 08:29 | Discharge Summary ---
General - General Admission date:: 09/12/18 Discharge date: 09/15/18 HPI HPI: 58 years old male with a history of cad, pvd and diabetes with CABG in 2008. pt presented to ed from [facility] [place] [facility] with c/o after he ate supper he developed sudden onset of sharp epigastric pain radiating to his back. Asa given. He denies vomiting or diarrhea, shortness of breath or palpitations. Pt admitted for cardiology consult and work up. Hospital Course Hospital Course: echo:DOPPLER INTERROGATION: Doppler interrogation of the aortic, mitral and tricuspid valvular presence of mild mitral and tricuspid regurgitation, tricuspid regurgitation jet velocity is inadequate for calculation of the right ventricular systolic pressure, grade 1 diastolic dysfunction seen without tissue Doppler evidence of raised left atrial pressure. CONCLUSION: 1. Mild biatrial enlargement, normal left ventricular size, mild concentric left ventricular hypertrophy, visually estimated ejection fraction 55% with no regional wall motion abnormality, endocardial subsequent poorly visualized. 2. Mildly enlarged right ventricle with normal contractility. 3. Thickened and calcified aortic valve without aortic stenosis aortic insufficiency. 4. Mild mitral and tricuspid regurgitation 5. No significant pericardial effusion noted. cardiology recommendations:1. In light of the patient's chest pain, diabetes mellitus and 10 years out from bypass surgery, recommend proceeding with left heart catheterization today. We are unable to increase the patient's antianginal medication due to his borderline low blood pressure and significant bradycardia. He continues on aspirin therapy 2. Preliminary echocardiogram shows ejection fraction approximately 50% with no significant valvular abnormalities. 3. Further recommendations to follow pending above results. . IMPRESSION: ... CT chest,/ abdomen/pelvis...... 1. No aortic dissection. No aneurysm.Very minor dilatation of lower abdominal aorta ( up to 2.3 cm from 1.8 above this.) Minimal atheromatous & calcified plaque distal aorta and common iliac arteries. No flow-limiting stenosis. Specifically note the left common and external iliac artery are widely patent 2. fairly pronounced Emphysematous changes at lungs. .... Bilateral bleb formation most evident along posterior lower lobes ... Linear scarring & atelectasis accounts for appearance lung lung bases bilateral.. Question scant wispy infiltrate left base but favor more likely is atelectasis .... GI observations:... 3.... Small hiatal hernia & likely GE reflux ( noting Enteric contrast within esophagus).. Upper normal wall thickness distal esophagus. 4. . Small fat-containing umbilical hernia. Small bowel bowel loop extends towards its mouth but there is no inflammation or significant bowel involvement 5. Mild constipation. - generous solid stool throughout the colon, most evident right colon and rectum Discharged today back to [place] with follow-up with Dr. Baker. Will follow up with Kirsten next week. Objective Vital signs: Temp Pulse Resp BP Pulse Ox 97.7 F 69 17 112/65 93 L 09/15/18 07:51 09/15/18 07:51 09/15/18 07:51 09/15/18 07:51 09/15/18 08:12 no acute distress - *Routine HEENT Exam Head: Present: normocephalic Eye: Present: PERRL ENT: Present: mucous membranes moist - *Routine Respiratory Exam Present: CTA bilaterally - *Routine Cardiovascular Exam Present: RRR Comments: scar to chest - *Routine Abdominal Exam Present: soft, normoactive bowel sounds - *Routine Extremities Exam Present: full ROM - *Routine Skin Exam Present: intact - *Routine Neurological Exam Present: alert, oriented X3 - Routine Psychiatric Exam Present: normal affect Results Labs on day of discharge: Labs from last 24 hours 09/15/18 09/15/18 05:45 05:45 WBC 6.7 RBC 4.87 Hgb 15.5 Hct 45.7 MCV 93.8 MCH 31.9 H MCHC 34.1 RDW 12.5 Plt Count 183 MPV 7.4 Neut % (Auto) 52.0 Lymph % (Auto) 33.9 [place] % (Auto) 10.1 H Eos % (Auto) 3.2 Baso % (Auto) 0.8 Neut # (Auto) 3.5 Lymph # (Auto) 2.3 [place] # (Auto) 0.7 Eos # (Auto) 0.2 Baso # (Auto) 0.1 Sodium 142 Potassium 4.0 Chloride 107 Carbon Dioxide 26 Anion Gap 13.0 BUN 15 D Creatinine 0.85 Estimated Creat Clear 109 Estimated GFR 93 Est GFR ( Amer) 112 Glucose 71 L Calcium 8.6 - Additional Comments Rounded with Dr. Baker all orders per Olivia DS: Diagnosis - Discharge Diagnosis (1) Diabetes Status: Acute (2) Atypical chest pain Status: Acute (3) CAD (coronary artery disease) Status: Acute (4) S/P CABG (coronary artery bypass graft) Status: Acute (5) Schizophrenia Status: Acute (6) Schizo-affective schizophrenia Status: Acute (7) Coronary artery disease Status: Acute Discharge Plan - Patient Discharge Instructions ACTIVITY: Continue current activity DIET: continue same diet - Follow up Plan Disposition: Home, Self-Prison Medications: Home Medications Medication Instructions Recorded Confirmed Type Aspirin [Aspir 81] 81 mg PO DAILY 05/22/17 09/13/18 History Divalproex Sodium [Depakote] 500 mg PO BID 05/22/17 09/13/18 History Ipratropium/Albuterol Sulfate 1 puff IH QID 05/22/17 09/13/18 History [Combivent Respimat Inh] Mometasone/Formoterol [Dulera 100 8.8 gm IH BID 05/22/17 09/13/18 History Mcg/5 Mcg Inhaler] raNITIdine HCl [Ranitidine HCl] 150 mg PO BID 05/22/17 09/13/18 History benzonatate 100 mg capsule 100 mg PO TID PRN 08/10/18 09/13/18 History benztropine 0.5 mg tablet 0.5 mg PO BID 08/10/18 09/13/18 History diazepam 5 mg tablet 5 mg PO BID tab 08/10/18 09/13/18 History haloperidol 5 mg tablet 5 mg PO TID 08/10/18 09/13/18 History lorazepam 1 mg tablet 1 mg PO Q6HP PRN tab 08/10/18 09/13/18 History sertraline 25 mg tablet 25 mg PO DAILY 08/10/18 09/13/18 History Acetaminophen [Tylenol 325mg 650 mg PO Q6HP PRN 09/13/18 09/13/18 History Tablet] Ibuprofen [Ibuprofen 800mg 800 mg PO Q8HP PRN 09/13/18 09/13/18 History Tablet] Atorvastatin Calcium [Atorvastatin 40 mg PO HS 30 Days #30 tab 09/15/18 Rx 40mg Tab] Isosorbide Mononitrate [Imdur 30mg 30 mg PO DAILY 30 Days #30 tab 09/15/18 Rx ER tablet] Metoprolol Tartrate [Lopressor 25 mg PO DAILY 30 Days #30 tab 09/15/18 Rx 25mg tablet] Prescriptions/Medication Reconciliation: New Isosorbide Mononitrate [Imdur 30mg ER tablet] 30 mg PO DAILY 30 Days #30 tab Atorvastatin Calcium [Atorvastatin 40mg Tab] 40 mg PO HS 30 Days #30 tab Metoprolol Tartrate [Lopressor 25mg tablet] 25 mg PO DAILY 30 Days #30 tab Continued diazepam 5 mg tablet 5 mg PO BID tab haloperidol 5 mg tablet 5 mg PO TID sertraline 25 mg tablet 25 mg PO DAILY benztropine 0.5 mg tablet 0.5 mg PO BID lorazepam 1 mg tablet 1 mg PO Q6HP PRN tab PRN Reason: anxiety benzonatate 100 mg capsule 100 mg PO TID PRN PRN Reason: Cough raNITIdine HCl [Ranitidine HCl] 150 mg PO BID Mometasone/Formoterol [Dulera 100 Mcg/5 Mcg Inhaler] 8.8 gm IH BID Ipratropium/Albuterol Sulfate [Combivent Respimat Inh] 1 puff IH QID Divalproex Sodium [Depakote] 500 mg PO BID Acetaminophen [Tylenol 325mg Tablet] 650 mg PO Q6HP PRN PRN Reason: As Needed For Fever Or Pain Aspirin [Aspir 81] 81 mg PO DAILY Ibuprofen [Ibuprofen 800mg Tablet] 800 mg PO Q8HP PRN PRN Reason: Moderate Pain
== END 2018-09-15 10:28 | disposition home or self-care (01) ==
LOC: ER 17:03 → 2ND 17:03
PROVIDERS: ADMIT Internal Medicine Adolescent Medicine; ATTEND Emergency Medicine
CPT/HCPCS: 36415; 71010; 71045; 71260; 74177; 80048; 80053; 80076; 82150; 83690; 84484; 85025; 93005; 93306; 93459; 94640; 96365; 99152; 99153; 99284; C1725; C1769; C1894; G0378; J1644; Q9967

== ENCOUNTER 2018-09-26 21:40 | Observation (INO) ==
--- NOTE | 2018-09-26 22:05 | Emergency Department Note ---
ED Disposition Clinical Impression: Cellulitis Qualifiers: Site of cellulitis: extremity Site of cellulitis of extremity: lower extremity Laterality: left Qualified Code(s): L03.116 - Cellulitis of left lower limb Disposition: Admitted as Observation Condition on Discharge: Fair - Critical Care Critical Care Time: No Attestation: On 09/26/18, the high probability of a clinically significant, sudden or life threatening deterioration of the following system(s) required my full and direct attention, intervention and personal management. The time I documented below is in addition to time spent performing reported procedures but includes the following listed in this critical care notation. Medical Decision Making - Garcia Inquiry Pt receiving controlled substance: No Vital Signs: 09/26/18 21:42 Temperature 97.8 F Temperature Source Oral Pulse Rate [Right Brachial] 72 Respiratory Rate 18 Blood Pressure [Right Arm] 106/69 L Blood Pressure Mean [Right Arm] 81 Blood Pressure Source [Right Arm] Automatic Cuff Blood Pressure Position [Right Arm] Sitting 02 Sat by Pulse Oximetry 97 Oxygen Delivery Method Room Air - Lab Data Lab Results 09/26/18 22:10: WBC 8.0, RBC 4.32 L, Hgb 14.1, Hct 40.8 L, MCV 94.4 H, MCH 32.6 H, MCHC 34.5, RDW 12.8, Plt Count 191, MPV 7.3 L, Neut % (Auto) 58.5, Lymph % (Auto) 29.6, [place] % (Auto) 9.5 H, Eos % (Auto) 2.0, Baso % (Auto) 0.5, Neut # (Auto) 4.7, Lymph # (Auto) 2.4, [place] # (Auto) 0.8, Eos # (Auto) 0.2, Baso # (Auto) 0.0 09/26/18 22:10: Sodium 138, Potassium 3.8, Chloride 103, Carbon Dioxide 26, Anion Gap 12.8, BUN 13, Creatinine 1.06, Estimated Creat Clear 90, Estimated GFR 72, Est GFR ( Amer) 87, Glucose 103, Calcium 8.1 L, Total Bilirubin 0.4, AST 11 L, ALT 21, Alkaline Phosphatase 64, C-Reactive Protein 0.9, Total Protein 6.6, Albumin 3.2 L, Globulin 3.4 H, Albumin/Globulin Ratio 0.9 L 09/26/18 22:10: ESR 10 09/26/18 22:10: D-Dimer 127 09/26/18 22:46: Lactate 1.1 Result diagrams: 09/26/18 22:10 09/26/18 22:10 Orders (Tests/Meds): ED MEDICATIONS Generic Name Dose Route Start Last Admin Trade Name Hermes PRN Reason Stop Dose Admin Clindamycin Phosphate 900 mg/ 106 mls @ 100 mls/hr 09/26/18 23:30 Sodium Chloride IV 10/10/18 23:29 Q8H [facility] Protocol Miscellaneous 1 each 09/26/18 23:30 Vancomycin Consult Request * 10/26/18 23:29 CONSULT PHARMACY [facility] - Physician Consults Physician Consulted: La Baker Time: 23:22 Reason -: Admission, Pt condition Comment/Response: We discussed the patient's clinical information, including history, exam, laboratory and radiology results and ED course. Prefers patient be admitted. Per hospital procedure, I will write temporary bridge inpatient orders on the patient. Specific orders requested by the admitting physician: IV vancomycin and clindamycin, elevate leg General Adult HPI - General Chief complaint: Extremity Problem,Nontraumatic Stated complaint: Leg Pain Time Seen by Provider: 09/26/18 22:04 Mode of Arrival: EMS Limitations: No Limitations Description of Symptoms (Recalled from ER Triage Doc. by RN): Pt states his left lower leg hurts, he states he had a heart cath 2 weeks ago, and it has been red and swollen since then. - History of Present Illness HPI narrative: Patient is a poor historian. Brought in from [facility] home for redness, pain, swelling left leg. Report is that he had a heart cath 2 weeks ago and has had the symptoms since then. Patient seems confused about having had a heart cath. When I questioned him about this he starts pointing to a scar on his left thigh which is obviously quite old. I informed him that the heart cath was accessed from his right groin. Initially he argues with me about that and says it was his left thigh where the scar is. He says that his left thigh scar is from "heart attack". Record indicates there is a history of leg surgery for "staph infection". He denies having a fever. He says he is not able to move his left foot. - Related Data Home Medications Medication Instructions Recorded Confirmed Aspirin [Aspir 81] 81 mg PO DAILY 05/22/17 09/26/18 Divalproex Sodium [Depakote] 500 mg PO BID 05/22/17 09/26/18 Ipratropium/Albuterol Sulfate 1 puff IH QID 05/22/17 09/26/18 [Combivent Respimat Inh] raNITIdine HCl [Ranitidine HCl] 150 mg PO BID 05/22/17 09/26/18 benzonatate 100 mg capsule 100 mg PO TID PRN 08/10/18 09/26/18 benztropine 0.5 mg tablet 0.5 mg PO BID 08/10/18 09/26/18 diazepam 5 mg tablet 5 mg PO BID tab 08/10/18 09/26/18 haloperidol 5 mg tablet 5 mg PO TID 08/10/18 09/26/18 lorazepam 1 mg tablet 1 mg PO Q6HP PRN tab 08/10/18 09/26/18 sertraline 25 mg tablet 25 mg PO DAILY 08/10/18 09/26/18 Acetaminophen [Tylenol 325mg 650 mg PO Q6HP PRN 09/13/18 09/26/18 Tablet] Ibuprofen [Ibuprofen 800mg 800 mg PO Q8HP PRN 09/13/18 09/26/18 Tablet] Isosorbide Mononitrate [Imdur 30mg 30 mg PO DAILY 09/26/18 09/26/18 ER tablet] Previous Rx's Medication Instructions Recorded Atorvastatin Calcium [Atorvastatin 40 mg PO HS 30 Days #30 tab 09/15/18 40mg Tab] Metoprolol Tartrate [Lopressor 25 mg PO DAILY 30 Days #30 tab 09/15/18 25mg tablet] Allergies Allergy/AdvReac Type Severity Reaction Status Date / Time No Known Allergies Allergy Verified 09/26/18 21:48 [facility] History - Hepatitis A Screen Drug use history?: No High risk sexual behaviors?: No History of sexually transmitted infection?: No Currently employed?: No Childcare worker?: No Do you have indoor plumbing?: Yes Do you have electricity?: Yes Attestation statement:: This patient has been screened for Hepatitis A risk factors. I have reviewed the patient's past medical history: Yes Medical History: Reports:: Hyperlipidemia, Hypertension, Myocardial Infarction Denies:: Diabetes Mellitus Type 1, Diabetes Mellitus Type 2 Other Surgeries: Yes: Appendectomy, Cholecystectomy Amputation: No Fractures: No - Social History Smoking Status: Current every day smoker Tobacco Type: cigarettes, cigars # Packs/Day (cigarettes): 1 Alcohol Intake: never Occupational Status: disabled Housing: other Household Members: other - Psychiatric History Expresses thoughts of harming self/others: None Suicide Plan Description: No Plan Family Hx:: Unable to obtain, No significant family history ROS Obtained: Yes unobtainable due to mental condition Physical Exam - General General appearance: alert, in no apparent distress - Head Head exam: atraumatic, normocephalic - Eye Eye exam: Present: normal appearance, EOMI - ENT ENT exam: Present: mucous membranes moist - Neck Neck exam: Present: normal inspection, trachea midline - Chest Chest inspection: Present: normal inspection, symmetric chest wall rise - Respiratory Respiratory exam: Present: normal lung sounds bilaterally. Absent: respiratory distress - Cardiovascular Cardiovascular exam: Present: regular rate, normal rhythm, normal heart sounds - Abdominal Exam Abdominal exam: Present: soft. Absent: distention, tenderness - Extremities Exam Extremities exam: Present: normal capillary refill - Neurological Exam Neurological exam: Present: alert - Psychiatric Psychiatric exam: Present: normal affect, normal mood - Skin Skin exam: Present: warm - Other Other exam information: Left lower extremity shows erythema, warmth, mild edema from the mid calf down to the tips of his toes. Tenderness of distal lower leg, ankle, foot. Normal pedal pulses and capillary refill. He is able to wiggle his toes. He has ve nous stasis changes of his pretibial area distally where the erythema is. There is a 2 cm diameter hyperkeratotic lesion on the plantar aspect of his forefoot which she says is a plantar wart. Findings are consistent with a plantar wart. It is not tender and there is no sign of abscess at that location. No other skin lesions seen.
[2018-09-26 22:22] LABS: Basophils % 0.5 % (0.1-2.0); Eosinophils # 0.2 K/mm3 (0.0-0.4); Hematocrit 40.8 % (42.0-52.0); Hemoglobin 14.1 g/dL (14.1-18.0); Lymphocytes # 2.4 K/mm3 (0.7-4.5); Lymphocytes % 29.6 % (10-50); Mean Corpuscular HGB Conc 34.5 g/dL (31.8-35.4); Mean Corpuscular Hemoglobin 32.6 pg (27.0-31.2); Mean Corpuscular Volume 94.4 fl (80-94); Mean Platelet Volume 7.3 fl (7.4-10.4); Monocytes # 0.8 K/mm3 (0.1-1.0); Monocytes % 9.5 % (1.7-9.3); Neutrophils # 4.7 K/mm3 (1.8-7.8); Neutrophils % 58.5 % (37.0-80.0); Platelet Count 191 K/mm3 (142-424); Red Blood Count 4.32 M/mm3 (4.60-6.20); Red Cell Distribution Width 12.8 % (11.5-17.5)
[2018-09-26 22:41] LABS: Albumin Level 3.2 gm/dL (3.4-5.0); Albumin/Globulin Ratio 0.9 (1.1-1.8); Anion Gap 12.8 mEq/L (5-15); Bilirubin,Total 0.4 mg/dL (0.2-1.0); C-Reactive Protein 0.9 mg/L (0.0-0.9); Calcium 8.1 mg/dL (8.5-10.1); Globulin 3.4 gm/dl (1.3-3.2); Potassium 3.8 mmoL/L (3.5-5.1); Total Protein,Serum 6.6 gm/dL (6.4-8.2)
--- NOTE | 2018-09-27 09:00 | Pharmacy Consult Notes ---
- Pharmacy Consult Date: 09/27/18 Time: 08:59 Referring provider: DR. ANAND Reason for Consult:: VANCOMYCIN DOSING Allergies and ADEs:: Allergies Allergy/AdvReac Type Severity Reaction Status Date / Time No Known Allergies Allergy Verified 09/26/18 21:48 Home Medications:: Home Medications Medication Instructions Recorded Confirmed Type Aspirin [Aspir 81] 81 mg PO DAILY 05/22/17 09/26/18 History Divalproex Sodium [Depakote] 500 mg PO BID 05/22/17 09/26/18 History Ipratropium/Albuterol Sulfate 1 puff IH QID 05/22/17 09/26/18 History [Combivent Respimat Inh] raNITIdine HCl [Ranitidine HCl] 150 mg PO BID 05/22/17 09/26/18 History benzonatate 100 mg capsule 100 mg PO TID PRN 08/10/18 09/26/18 History benztropine 0.5 mg tablet 0.5 mg PO BID 08/10/18 09/26/18 History diazepam 5 mg tablet 5 mg PO BID tab 08/10/18 09/26/18 History haloperidol 5 mg tablet 5 mg PO TID 08/10/18 09/26/18 History lorazepam 1 mg tablet 1 mg PO Q6HP PRN tab 08/10/18 09/26/18 History sertraline 25 mg tablet 25 mg PO DAILY 08/10/18 09/26/18 History Acetaminophen [Tylenol 325mg 650 mg PO Q6HP PRN 09/13/18 09/26/18 History Tablet] Ibuprofen [Ibuprofen 800mg 800 mg PO Q8HP PRN 09/13/18 09/26/18 History Tablet] Atorvastatin Calcium [Atorvastatin 40 mg PO HS 30 Days #30 tab 09/15/18 09/26/18 Rx 40mg Tab] Metoprolol Tartrate [Lopressor 25 mg PO DAILY 30 Days #30 tab 09/15/18 09/26/18 Rx 25mg tablet] Isosorbide Mononitrate [Imdur 30mg 30 mg PO DAILY 09/26/18 09/26/18 History ER tablet] Height: 1.75 m Weight: 84.595 kg Laboratory Results:: Laboratory Results - last 24 hr 09/26/18 22:10: WBC 8.0, RBC 4.32 L, Hgb 14.1, Hct 40.8 L, MCV 94.4 H, MCH 32.6 H, MCHC 34.5, RDW 12.8, Plt Count 191, MPV 7.3 L, Neut % (Auto) 58.5, Lymph % (Auto) 29.6, [place] % (Auto) 9.5 H, Eos % (Auto) 2.0, Baso % (Auto) 0.5, Neut # (Auto) 4.7, Lymph # (Auto) 2.4, [place] # (Auto) 0.8, Eos # (Auto) 0.2, Baso # (Auto) 0.0 09/26/18 22:10: Sodium 138, Potassium 3.8, Chloride 103, Carbon Dioxide 26, Anion Gap 12.8, BUN 13, Creatinine 1.06, Estimated Creat Clear 90, Estimated GFR 72, Est GFR ( Amer) 87, Glucose 103, Calcium 8.1 L, Total Bilirubin 0.4, AST 11 L, ALT 21, Alkaline Phosphatase 64, C-Reactive Protein 0.9, Total Protein 6.6, Albumin 3.2 L, Globulin 3.4 H, Albumin/Globulin Ratio 0.9 L 09/26/18 22:10: ESR 10 09/26/18 22:10: D-Dimer 127 09/26/18 22:46: Lactate 1.1 Medical History: Reports:: Hyperlipidemia, Hypertension, Myocardial Infarction Denies:: Diabetes Mellitus Type 1, Diabetes Mellitus Type 2 Assessment and Plan - Assessment and plan all Dx Assessment and Plan for all problems:: BASED ON PATIENT FACTORS, RECOMMEND VANCOMYCIN 1500 MG IV ONCE, FOLLOWED BY VANCOMYCIN 1250 MG IV Q12H. WILL OBTAIN VANCOMYCIN TROUGH LEVEL TOMORROW PRIOR TO 4TH DOSE. PHARMACY WILL FOLLOW DAILY AND ADJUST APPROPRIATE.
--- NOTE | 2018-09-27 09:33 | History & Physical Report ---
*Chief complaint: cellulitis *History of present illness: 58 yr old male presents to ed with c/o of infection to left leg.Patient is a poor historian. Brought in from personal snf [place] for redness, pain, swelling left leg. Report is that he had a heart cath 2 weeks ago and has had the symptoms since then. Patient seems confused about having had a heart cath but pointed to rt groin when asked. Pt talking about scar to left leg. Heart cath was accessed from his right groin bruising noted. Pt states his pain has increased over the last two days. Admitted for cellulitis and placed on IV antibiotics. [facility] History I have reviewed the patient's past medical history: Yes Medical History: Reports:: Hyperlipidemia, Hypertension, Myocardial Infarction Denies:: Diabetes Mellitus Type 1, Diabetes Mellitus Type 2 *Have you ever received a pneumonia vaccine?: No *Have you received a flu vaccine this season?: No Other Surgeries: Yes: Appendectomy, Cholecystectomy Amputation: No Fractures: No - *Social History Educational Level: Completed High School Smoking Status: Current every day smoker Tobacco Type: cigarettes # Packs/Day (cigarettes): 1 Alcohol Intake: never *Occupational Status:: disabled Housing: other Household Members: other *Travel in the last 8 weeks: None - Psychiatric History Expresses thoughts of harming self/others: None Suicide Plan Description: No Plan Family Hx:: Unable to obtain Review of Systems - Review of Systems Review of systems:: pertinent systems reviewed and negative unless documented below - Constitutional Denies chills - Eyes Denies change in vision - ENT Denies change in voice - *Cardiovascular Reports leg swelling, Denies chest pain with activity, Denies generalized swelling - *Respiratory Denies chest congestion - *Gastrointestinal Denies bloating - *Genitourinary Denies difficulty urinating, Denies difficulty with ejaculations - *Musculoskeletal Denies decreased muscle mass - Integumentary/Breasts Reports change in skin color, Reports redness, Reports wounds - *Neurologic Denies dizziness - Psychiatric Denies lack of enjoyment - Endocrine Denies excessive sweating - Hematologic/Lymphatic Denies enlarged lymph nodes - Allergic/Immunologic Denies lip swelling Meds Home Medications Medication Instructions Recorded Confirmed Type Aspirin [Aspir 81] 81 mg PO DAILY 05/22/17 09/26/18 History Divalproex Sodium [Depakote] 500 mg PO BID 05/22/17 09/26/18 History Ipratropium/Albuterol Sulfate 1 puff IH QID 05/22/17 09/26/18 History [Combivent Respimat Inh] raNITIdine HCl [Ranitidine HCl] 150 mg PO BID 05/22/17 09/26/18 History benzonatate 100 mg capsule 100 mg PO TID PRN 08/10/18 09/26/18 History benztropine 0.5 mg tablet 0.5 mg PO BID 08/10/18 09/26/18 History diazepam 5 mg tablet 5 mg PO BID tab 08/10/18 09/26/18 History haloperidol 5 mg tablet 5 mg PO TID 08/10/18 09/26/18 History lorazepam 1 mg tablet 1 mg PO Q6HP PRN tab 08/10/18 09/26/18 History sertraline 25 mg tablet 25 mg PO DAILY 08/10/18 09/26/18 History Acetaminophen [Tylenol 325mg 650 mg PO Q6HP PRN 09/13/18 09/26/18 History Tablet] Ibuprofen [Ibuprofen 800mg 800 mg PO Q8HP PRN 09/13/18 09/26/18 History Tablet] Atorvastatin Calcium [Atorvastatin 40 mg PO HS 30 Days #30 tab 09/15/18 09/26/18 Rx 40mg Tab] Metoprolol Tartrate [Lopressor 25 mg PO DAILY 30 Days #30 tab 09/15/18 09/26/18 Rx 25mg tablet] Isosorbide Mononitrate [Imdur 30mg 30 mg PO DAILY 09/26/18 09/26/18 History ER tablet] Allergies Allergy/AdvReac Type Severity Reaction Status Date / Time No Known Allergies Allergy Verified 09/26/18 21:48 Exam Vital signs and Labs for Last 24 Hours: Temp Pulse Resp BP Pulse Ox 98.4 F 59 L 16 118/79 95 09/27/18 07:53 09/27/18 07:53 09/27/18 07:53 09/27/18 07:53 09/27/18 07:53 Laboratory Results - last 24 hr 09/26/18 22:10: WBC 8.0, RBC 4.32 L, Hgb 14.1, Hct 40.8 L, MCV 94.4 H, MCH 32.6 H, MCHC 34.5, RDW 12.8, Plt Count 191, MPV 7.3 L, Neut % (Auto) 58.5, Lymph % (Auto) 29.6, [place] % (Auto) 9.5 H, Eos % (Auto) 2.0, Baso % (Auto) 0.5, Neut # (Auto) 4.7, Lymph # (Auto) 2.4, [place] # (Auto) 0.8, Eos # (Auto) 0.2, Baso # (Auto) 0.0 09/26/18 22:10: Sodium 138, Potassium 3.8, Chloride 103, Carbon Dioxide 26, Anion Gap 12.8, BUN 13, Creatinine 1.06, Estimated Creat Clear 90, Estimated GFR 72, Est GFR ( Amer) 87, Glucose 103, Calcium 8.1 L, Total Bilirubin 0.4, AST 11 L, ALT 21, Alkaline Phosphatase 64, C-Reactive Protein 0.9, Total Protein 6.6, Albumin 3.2 L, Globulin 3.4 H, Albumin/Globulin Ratio 0.9 L 09/26/18 22:10: ESR 10 09/26/18 22:10: D-Dimer 127 09/26/18 22:46: Lactate 1.1 I & O for Last 24 hours: Intake & Output 09/24/18 09/25/18 09/26/18 09/27/18 11:59 11:59 11:59 11:59 Intake Total 1370 / 1370 Balance 1370 / 1370 Weight 186 lb 8 oz - Constitutional no acute distress - *Routine HEENT Exam Head: Present: normocephalic Eye: Present: PERRL ENT: Present: mucous membranes moist - *Routine Neck Exam Present: supple. Absent: lymphadenopathy - *Routine Respiratory Exam Present: CTA bilaterally - *Routine Cardiovascular Exam Present: RRR - *Routine Abdominal Exam Present: soft, normoactive bowel sounds. Absent: tenderness - *Routine Extremities Exam Present: full ROM, normal capillary refill. Absent: cyanosis, clubbing, edema, calf tenderness, tenderness, extremity cold to touch - *Routine Skin Exam Present: warm. Absent: rash Comments: lower ext bee, slight redness, scabs present - *Routine Neurological Exam Present: alert - Routine Psychiatric Exam Present: cooperative Assessment and Plan (1) Cellulitis Current visit: Yes Status: Acute Qualifiers: Site of cellulitis: extremity Site of cellulitis of extremity: lower extremity Laterality: left Qualified Code(s): L03.116 - Cellulitis of left lower limb Category: Medical Code(s): L03.90 - Cellulitis, unspecified (2) CAD (coronary artery disease) Current visit: No Status: Acute Qualifiers: Coronary Disease-Associated Artery/Lesion type: bypass graft [place] vs. transplanted heart: [place] heart Associated angina: without angina Qualified Code(s): I25.810 - Atherosclerosis of coronary artery bypass graft(s) without angina pectoris Category: Medical Code(s): I25.10 - Atherosclerotic heart disease of [place] coronary artery without angina pectoris (3) Diabetes Current visit: No Status: Acute Qualifiers: Diabetes mellitus type: type 2 Diabetes mellitus [facility] insulin use: without [facility] use Diabetes mellitus complication status: with circulatory complication Diabetes mellitus complication detail: with other circulatory complications Qualified Code(s): E11.59 - Type 2 diabetes mellitus with other circulatory complications Category: Medical Code(s): E11.9 - Type 2 diabetes mellitus without complications (4) Venous stasis Current visit: No Status: Acute Category: Medical Code(s): I87.8 - Other specified disorders of veins - Assessment and plan all Dx Assessment and Plan for all problems:: discussed pt with , all orders per nina
--- NOTE | 2018-09-27 12:00 | Pharmacy Consult Notes ---
[facility] Pharmacy VTE Monitoring - Patient Demographics Admission date: 09/27/18 Report Date: 09/27/18 Time: 11:59 Allergies/Adverse Reactions: Patient Allergies No Known Allergies Allergy (Verified 09/26/18 21:48) Height: 1.75 m Weight: 84.595 kg Patient Problems: Current Active Problems (Updated 09/27/18 @ 09:00 by Lizett Banerjee, PHARMD) Cellulitis (Acute) - VTE Risk Labs: VTE Related Lab Results Hgb 14.1 g/dL (14.1-18.0) 09/26/18 22:10 Hct 40.8 % (42.0-52.0) L 09/26/18 22:10 Plt Count 191 K/mm3 (142-424) 09/26/18 22:10 BUN 13 mg/dL (7-18) 09/26/18 22:10 Creatinine 1.06 mg/dL (0.70-1.30) 09/26/18 22:10 Estimated Creat Clear 90 mL/min (50-200) 09/26/18 22:10 Was VTE Risk Assessment Performed: Yes VTE Score: 6 VTE Risk Level: Moderate Risk - Prophylaxis VTE Prophylaxis Ordered?: Yes Types of VTE Prophylaxis: TEDS Knee High Location of Applied Device: Bilateral Lower Extremeties
[2018-09-28 06:06] LABS: Basophils % 0.7 % (0.1-2.0); Eosinophils # 0.2 K/mm3 (0.0-0.4); Hematocrit 43.1 % (42.0-52.0); Hemoglobin 14.5 g/dL (14.1-18.0); Lymphocytes # 2.1 K/mm3 (0.7-4.5); Lymphocytes % 37.8 % (10-50); Mean Corpuscular HGB Conc 33.7 g/dL (31.8-35.4); Mean Corpuscular Hemoglobin 32.2 pg (27.0-31.2); Mean Corpuscular Volume 95.7 fl (80-94); Mean Platelet Volume 7.2 fl (7.4-10.4); Monocytes # 0.5 K/mm3 (0.1-1.0); Neutrophils # 2.7 K/mm3 (1.8-7.8); Neutrophils % 49.5 % (37.0-80.0); Platelet Count 162 K/mm3 (142-424); Red Cell Distribution Width 12.7 % (11.5-17.5); White Blood Count 5.5 K/mm3 (4.8-10.8)
[2018-09-28 06:20] LABS: Anion Gap 12.3 mEq/L (5-15); Calcium 8.3 mg/dL (8.5-10.1); Potassium 4.3 mmoL/L (3.5-5.1)
--- NOTE | 2018-09-28 07:14 | Non-Invasive Vascular Report ---
"Venous Exam Indications: 729.5 Pain in limb. IMPRESSIONS 1. There is no evidence of significant Reflux. 2. No evidence of deep or superficial vein thrombosis involving the left lower extremity History: Thrombophlebitis involving the left lower extremity. GSV harvested for CABG Risk factors: Current tobacco use. Left lower extremity venous duplex evaluation. Doppler flow study including spectral analysis, color and cuenca scale imaging. Tables: Venous flow and imaging: + + + + |Location |Overall |Flow properties | + + + + |Left common femoral |Patent |Normal phasicity; | | | |spontaneous; normal | | | |augmentation; compressible| + + + + |Left saphenofemoral junction|Patent |Compressible | + + + + |Left profunda femoral |Patent |Compressible | + + + + |Left femoral |Patent |Normal phasicity; | | | |spontaneous; normal | | | |augmentation; compressible| + + + + |Left greater saphenous |Patent |Normal phasicity; | | | |spontaneous; normal | | | |augmentation; compressible| + + + + |Left popliteal |Patent |Normal phasicity; | | | |spontaneous; normal | | | |augmentation; compressible| + + + + |Left posterior tibial |Patent |Compressible | + + + + |Left peroneal |Difficult study| | + + + + |Left gastrocnemius |Patent |Compressible | + + + + |Left soleal |Patent |Compressible | + + + + (Report amended ) Electronically signed by: Albino Lopez [id number]"
--- NOTE | 2018-09-28 11:20 | Progress Note ---
Internal Medicine - PN: Subj *Date: 09/28/18 *Time: 11:00 Interval history: pt laying in bed, cellulitis improving Exam Vital signs and Labs for Last 24 Hours: Temp Pulse Resp BP Pulse Ox 98.7 F 74 20 135/96 H 97 09/28/18 08:00 09/28/18 08:00 09/28/18 08:00 09/28/18 08:00 09/28/18 08:00 Laboratory Results - last 24 hr 09/28/18 05:35: WBC 5.5 D, RBC 4.50 L, Hgb 14.5, Hct 43.1, MCV 95.7 H, MCH 32.2 H, MCHC 33.7, RDW 12.7, Plt Count 162, MPV 7.2 L, Neut % (Auto) 49.5, Lymph % (Auto) 37.8, [place] % (Auto) 9.0, Eos % (Auto) 3.0, Baso % (Auto) 0.7, Neut # (Auto) 2.7, Lymph # (Auto) 2.1, [place] # (Auto) 0.5, Eos # (Auto) 0.2, Baso # (Auto) 0.0 09/28/18 05:35: Sodium 144, Potassium 4.3, Chloride 109 H, Carbon Dioxide 27, Anion Gap 12.3, BUN 10, Creatinine 0.95, Estimated Creat Clear 101, Estimated GFR 81, Est GFR ( Amer) 99, Glucose 78, Calcium 8.3 L I & O for Last 24 hours: Intake & Output 09/25/18 09/26/18 09/27/18 09/28/18 11:59 11:59 11:59 11:59 Intake Total 1370 / 1370 1080 / 1080 Output Total 300 / 300 1650 / 1650 Balance 1070 / 1070 -570 / -570 Weight 186 lb 8 oz 186 lb 9 oz - Constitutional no acute distress - *Routine HEENT Exam Head: Present: normocephalic Eye: Present: PERRL ENT: Present: mucous membranes moist - *Routine Neck Exam Present: supple. Absent: lymphadenopathy - *Routine Respiratory Exam Present: CTA bilaterally - *Routine Cardiovascular Exam Present: RRR - *Routine Abdominal Exam Present: soft, normoactive bowel sounds. Absent: tenderness - *Routine Extremities Exam Present: full ROM, pulses intact, normal capillary refill. Absent: cyanosis, clubbing, edema Comments: left lower ext bee noted, slight redness noted - *Routine Skin Exam Present: warm, wounds. Absent: rash Comments: redness to left lower ext with scattered scabbed areas - *Routine Neurological Exam Present: alert Assessment and Plan (1) Cellulitis Current visit: Yes Status: Acute Qualifiers: Site of cellulitis: extremity Site of cellulitis of extremity: lower extremity Laterality: left Qualified Code(s): L03.116 - Cellulitis of left lower limb Category: Medical Code(s): L03.90 - Cellulitis, unspecified (2) CAD (coronary artery disease) Current visit: No Status: Acute Qualifiers: Coronary Disease-Associated Artery/Lesion type: bypass graft [place] vs. 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: without shelter use Diabetes mellitus complication status: with circulatory complication Diabetes mellitus complication detail: with other circulatory complications Qualified Code(s): E11.59 - Type 2 diabetes mellitus with other circulatory complications Category: Medical Code(s): E11.9 - Type 2 diabetes mellitus without complications (4) Venous stasis Current visit: No Status: Acute Category: Medical Code(s): I87.8 - Other specified disorders of veins - Assessment and plan all Dx Assessment and Plan for all problems:: discussed pt with Dr wood,all orders per nina will have pt eval and dc home in am
--- NOTE | 2018-09-28 14:36 | Pharmacy Consult Notes ---
- Pharmacy Consult Date: 09/28/18 Time: 14:36 Referring provider: DR. ANAND Reason for Consult:: VANCOMYCIN LEVEL Allergies and ADEs:: Allergies Allergy/AdvReac Type Severity Reaction Status Date / Time No Known Allergies Allergy Verified 09/26/18 21:48 Home Medications:: Home Medications Medication Instructions Recorded Confirmed Type Aspirin [Aspir 81] 81 mg PO DAILY 05/22/17 09/26/18 History Divalproex Sodium [Depakote] 500 mg PO BID 05/22/17 09/26/18 History Ipratropium/Albuterol Sulfate 1 puff IH QID 05/22/17 09/26/18 History [Combivent Respimat Inh] raNITIdine HCl [Ranitidine HCl] 150 mg PO BID 05/22/17 09/26/18 History benzonatate 100 mg capsule 100 mg PO TID PRN 08/10/18 09/26/18 History benztropine 0.5 mg tablet 0.5 mg PO BID 08/10/18 09/26/18 History diazepam 5 mg tablet 5 mg PO BID tab 08/10/18 09/26/18 History haloperidol 5 mg tablet 5 mg PO TID 08/10/18 09/26/18 History lorazepam 1 mg tablet 1 mg PO Q6HP PRN tab 08/10/18 09/26/18 History sertraline 25 mg tablet 25 mg PO DAILY 08/10/18 09/26/18 History Acetaminophen [Tylenol 325mg 650 mg PO Q6HP PRN 09/13/18 09/26/18 History Tablet] Ibuprofen [Ibuprofen 800mg 800 mg PO Q8HP PRN 09/13/18 09/26/18 History Tablet] Atorvastatin Calcium [Atorvastatin 40 mg PO HS 30 Days #30 tab 09/15/18 09/26/18 Rx 40mg Tab] Metoprolol Tartrate [Lopressor 25 mg PO DAILY 30 Days #30 tab 09/15/18 09/26/18 Rx 25mg tablet] Isosorbide Mononitrate [Imdur 30mg 30 mg PO DAILY 09/26/18 09/26/18 History ER tablet] Height: 1.75 m Weight: 84.623 kg Laboratory Results:: Laboratory Results - last 24 hr 09/28/18 05:35: WBC 5.5 D, RBC 4.50 L, Hgb 14.5, Hct 43.1, MCV 95.7 H, MCH 32.2 H, MCHC 33.7, RDW 12.7, Plt Count 162, MPV 7.2 L, Neut % (Auto) 49.5, Lymph % (Auto) 37.8, [place] % (Auto) 9.0, Eos % (Auto) 3.0, Baso % (Auto) 0.7, Neut # (Auto) 2.7, Lymph # (Auto) 2.1, [place] # (Auto) 0.5, Eos # (Auto) 0.2, Baso # (Auto) 0.0 09/28/18 05:35: Sodium 144, Potassium 4.3, Chloride 109 H, Carbon Dioxide 27, Anion Gap 12.3, BUN 10, Creatinine 0.95, Estimated Creat Clear 101, Estimated GFR 81, Est GFR ( Amer) 99, Glucose 78, Calcium 8.3 L 09/28/18 12:25: Vancomycin Trough 12.7 Medical History: Reports:: Hyperlipidemia, Hypertension, Myocardial Infarction Denies:: Diabetes Mellitus Type 1, Diabetes Mellitus Type 2 Assessment and Plan (1) Cellulitis Current visit: Yes Status: Acute Qualifiers: Site of cellulitis: extremity Site of cellulitis of extremity: lower extremity Laterality: left Qualified Code(s): L03.116 - Cellulitis of left lower limb Category: Medical Code(s): L03.90 - Cellulitis, unspecified (2) CAD (coronary artery disease) Current visit: No Status: Acute Qualifiers: Coronary Disease-Associated Artery/Lesion type: bypass graft [place] vs. 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7 MCG/ML, RECOMMEND PATIENT CONTINUE AT THIS TIME WITH VANCOMYCIN 1250 MG Q12H AT THIS TIME. PHARMACY WILL FOLLOW DAILY AND ADJUST APPROPRIATE. LUCIA JENKINS, PHARMD
[2018-09-29 06:33] LABS: Hematocrit 45.4 % (42.0-52.0); Hemoglobin 15.4 g/dL (14.1-18.0); Mean Corpuscular Volume 95.4 fl (80-94); Red Blood Count 4.76 M/mm3 (4.60-6.20); White Blood Count 5.6 K/mm3 (4.8-10.8)
[2018-09-29 06:34] LABS: Basophils % 0.6 % (0.1-2.0); Lymphocytes % 37.7 % (10-50); Mean Corpuscular HGB Conc 33.9 g/dL (31.8-35.4); Mean Corpuscular Hemoglobin 32.3 pg (27.0-31.2); Mean Platelet Volume 7.2 fl (7.4-10.4); Monocytes % 9.6 % (1.7-9.3); Neutrophils # 2.7 K/mm3 (1.8-7.8); Neutrophils % 48.1 % (37.0-80.0); Platelet Count 193 K/mm3 (142-424); Red Cell Distribution Width 12.8 % (11.5-17.5)
[2018-09-29 06:35] LABS: Eosinophils # 0.2 K/mm3 (0.0-0.4); Lymphocytes # 2.1 K/mm3 (0.7-4.5); Monocytes # 0.5 K/mm3 (0.1-1.0)
[2018-09-29 06:38] LABS: Anion Gap 11.3 mEq/L (5-15); Calcium 8.4 mg/dL (8.5-10.1); Potassium 4.3 mmoL/L (3.5-5.1)
--- NOTE | 2018-09-29 08:39 | Discharge Summary ---
General - General Admission date:: 09/27/18 Discharge date: 09/29/18 HPI HPI: PT walking in room in no apparent distress. States he is ready to leave. Denies any concerns/needs. 58 yr old male presents to ed with c/o of infection to left leg.Patient is a poor historian. Brought in from personal assisted [facility] for redness, pain, swelling left leg. Report is that he had a heart cath 2 weeks ago and has had the symptoms since then. Patient seems confused about having had a heart cath but pointed to rt groin when asked. Pt talking about scar to left leg. Heart cath was accessed from his right groin bruising noted. Pt states his pain has i ncreased over the last two days. Admitted for cellulitis and placed on IV antibiotics. Hospital Course Hospital Course: 09/28 Venous Doppler: IMPRESSIONS 1. There is no evidence of significant Reflux. 2. No evidence of deep or superficial vein thrombosis involving the left lower extremity 09/29/2018 58-year-old male patient was brought in from [facility] for redness, pain, swelling left leg. Report is that he had a heart cath 2 weeks ago and has had the symptoms since then. During his stay he is been on clindamycin IV, he will be discharged back to [facility] on p.o. clindamycin. During his stay he has had negative venous Dopplers and also negative blood cultures x2. Outpatient he will need appointment with Dr. Curtis for venous insufficiency he will also need to be seen outpatient podiatry. Objective Vital signs: Temp Pulse Resp BP Pulse Ox 97.7 F 70 18 128/75 94 L 09/29/18 08:00 09/29/18 08:00 09/29/18 08:00 09/29/18 08:00 09/29/18 08:00 no acute distress - *Routine HEENT Exam Eye: Present: EOMI, PERRL ENT: Present: mucous membranes moist - *Routine Neck Exam Present: supple, full ROM - *Routine Respiratory Exam Present: decreased breath sounds, CTA bilaterally - *Routine Cardiovascular Exam Present: RRR, Normal S1 - *Routine Abdominal Exam Present: soft, normoactive bowel sounds. Absent: tenderness - *Routine Extremities Exam Present: edema, pulses intact - Routine Back/Spine/Pelvis Exam Back/Spine: Present: full ROM - *Routine Skin Exam Present: cyanosis, erythema, dry, scars, wounds - *Routine Neurological Exam Present: alert, oriented X3, CN II-XII intact - Routine Psychiatric Exam Present: normal affect, cooperative Results Labs on day of discharge: Labs from last 24 hours 09/29/18 09/29/18 09/28/18 06:04 06:04 12:25 WBC 5.6 RBC 4.76 Hgb 15.4 Hct 45.4 MCV 95.4 H MCH 32.3 H MCHC 33.9 RDW 12.8 Plt Count 193 MPV 7.2 L Neut % (Auto) 48.1 Lymph % (Auto) 37.7 [place] % (Auto) 9.6 H Eos % (Auto) 4.0 Baso % (Auto) 0.6 Neut # (Auto) 2.7 Lymph # (Auto) 2.1 [place] # (Auto) 0.5 Eos # (Auto) 0.2 Baso # (Auto) 0.0 Sodium 144 Potassium 4.3 Chloride 109 H Carbon Dioxide 28 Anion Gap 11.3 BUN 12 Creatinine 0.89 Estimated Creat Clear 106 Estimated GFR 88 Est GFR ( Amer) 106 Glucose 79 Calcium 8.4 L Vancomycin Trough 12.7 Preliminary micro results at discharge 09/27/18 02:50 Blood Culture - Preliminary Blood NO GROWTH AFTER 48 HOURS 09/27/18 02:45 Blood Culture - Preliminary Blood NO GROWTH AFTER 48 HOURS - Additional Comments Rounded with Dr. Baker all orders per Dr. Baker DS: Diagnosis - Discharge Diagnosis (1) Cellulitis Status: Acute (2) CAD (coronary artery disease) Status: Acute (3) Diabetes Status: Acute (4) Venous stasis Status: Acute Discharge Plan - Patient Discharge Instructions ACTIVITY: Continue current activity DIET: continue same diet Patient Instructions: Cellulitis, Coronary Artery Disease - Follow up Plan Follow up with: Arthur Baker MD [Primary Care Provider] - 1 week Rajesh Curtis MD [Staff Physician] - 2 weeks (Venous Insuff) Disposition: Home, [facility] Medications: Home Medications Medication Instructions Recorded Confirmed Type Aspirin [Aspir 81] 81 mg PO DAILY 05/22/17 09/26/18 History Divalproex Sodium [Depakote] 500 mg PO BID 05/22/17 09/26/18 History Ipratropium/Albuterol Sulfate 1 puff IH QID 05/22/17 09/26/18 History [Combivent Respimat Inh] raNITIdine HCl [Ranitidine HCl] 150 mg PO BID 05/22/17 09/26/18 History benzonatate 100 mg capsule 100 mg PO TID PRN 08/10/18 09/26/18 History benztropine 0.5 mg tablet 0.5 mg PO BID 08/10/18 09/26/18 History diazepam 5 mg tablet 5 mg PO BID tab 08/10/18 09/26/18 History haloperidol 5 mg tablet 5 mg PO TID 08/10/18 09/26/18 History lorazepam 1 mg tablet 1 mg PO Q6HP PRN tab 08/10/18 09/26/18 History sertraline 25 mg tablet 25 mg PO DAILY 08/10/18 09/26/18 History Acetaminophen [Tylenol 325mg 650 mg PO Q6HP PRN 09/13/18 09/26/18 History Tablet] Ibuprofen [Ibuprofen 800mg 800 mg PO Q8HP PRN 09/13/18 09/26/18 History Tablet] Atorvastatin Calcium [Atorvastatin 40 mg PO HS 30 Days #30 tab 09/15/18 09/26/18 Rx 40mg Tab] Metoprolol Tartrate [Lopressor 25 mg PO DAILY 30 Days #30 tab 09/15/18 09/26/18 Rx 25mg tablet] Isosorbide Mononitrate [Imdur 30mg 30 mg PO DAILY 09/26/18 09/26/18 History ER tablet] Clindamycin HCl [Clindamycin HCl 300 mg PO Q8 7 Days #21 cap 09/29/18 Rx 300mg Cap] Sulfamethoxazole/Trimethoprim 1 each PO BID 7 Days #14 tab 09/29/18 Rx [Bactrim DS tablet] Prescriptions/Medication Reconciliation: New Sulfamethoxazole/Trimethoprim [Bactrim DS tablet] 1 each PO BID 7 Days #14 tab Clindamycin HCl [Clindamycin HCl 300mg Cap] 300 mg PO Q8 7 Days #21 cap Continued diazepam 5 mg tablet 5 mg PO BID tab haloperidol 5 mg tablet 5 mg PO TID sertraline 25 mg tablet 25 mg PO DAILY benztropine 0.5 mg tablet 0.5 mg PO BID lorazepam 1 mg tablet 1 mg PO Q6HP PRN tab PRN Reason: anxiety benzonatate 100 mg capsule 100 mg PO TID PRN PRN Reason: Cough raNITIdine HCl [Ranitidine HCl] 150 mg PO BID Ipratropium/Albuterol Sulfate [Combivent Respimat Inh] 1 puff IH QID Divalproex Sodium [Depakote] 500 mg PO BID Acetaminophen [Tylenol 325mg Tablet] 650 mg PO Q6HP PRN PRN Reason: As Needed For Fever Or Pain Atorvastatin Calcium [Atorvastatin 40mg Tab] 40 mg PO HS 30 Days #30 tab Metoprolol Tartrate [Lopressor 25mg tablet] 25 mg PO DAILY 30 Days #30 tab Aspirin [Aspir 81] 81 mg PO DAILY Ibuprofen [Ibuprofen 800mg Tablet] 800 mg PO Q8HP PRN PRN Reason: Moderate Pain Isosorbide Mononitrate [Imdur 30mg ER tablet] 30 mg PO DAILY
== END 2018-09-29 11:02 | disposition home or self-care (01) ==
LOC: 2ND 21:40 → ER 21:40 → 2ND 09-27 00:54
PROVIDERS: ADMIT Emergency Medicine; ATTEND Emergency Medicine
CPT/HCPCS: 36415; 80048; 80053; 80202; 83605; 85025; 85378; 85651; 86140; 87040; 93971; 94640; 96365; 97161; 99284; G0378; J3370

== ENCOUNTER → 2019-03-19 11:18 | Outpatient (CLI) | payer BC, SELFPAY ==
--- NOTE | 2019-03-19 | CA_ITS ---
APPROVED REPORT Exam: Pharmacologic Technologist: Tonja Chávez, Ht: 5 ft 9 in Wt: 190 lbs BSA: 2.02 m2 HR: 65 bpm BP: 111/66 mmHg Rhythm: NSR,INF.NSSTW CHANGES Medical History Medical History: Hyperlipidemia, Hyperlipidemia, Smoking Medications: Metoprolol,,,,, Asa,,,,, Diazepam,,,,, Atorvastatin,,,,, Combivent,,,,, Dulera,,,,, BenzONATATE,,,,, HALoperidol,,,,, Cardiac Risk Factors: HTN, Hyperlipidemia, Smoking, Smoking Stress Test Details Test: LEXISCAN HR Resting HR: 64 bpm Max Heart Rate (APMHR): 162 bpm Max HR Achieved: 79 bpm Target HR (85% APMHR): 137 bpm % of APMHR: 48 Recovery HR: 75 bpm BP Resting BP: 111.0/66.0 mmHg Max BP: 127.0/1.0 mmHg Recovery BP: 118.0/69.0 mmHg ECG Resting ECG: NSR,INF NSSTW CHANGES Clinical Reason for Termination: Completed Protocol Exercise duration: 04:20 min Highest Stage Achieved: Exercise capacity: 1.0 METs Stress ECG Conclusion DURING INFUSION OF LEXISCAN PATIENT HAD NO SYMPTOMS. NO ARRHYTHMIAS/ECTOPY. <1.5MM ST SEGMENT CHANGES. NON-DIAGNOSTIC Electronically signed by : Rajesh Curtis, 03/19/2019 15:29:41
--- NOTE | 2019-03-19 11:19 | NM_ITS ---
APPROVED REPORT Exam: Nuclear Stress Test Indication: CAD, H/O DEE, CABG, HTN, HYPERLIPIDEMIA, TOB USE, C.P., SOB, SYNCOPE, FATIQUE Patient Location: Outpatient Stress Tech: Yelena Kyler [place] Tech:Chayo NanceANDRE lopez RT (R)(N)(M) Ht: 5 ft 9 in Wt: 190 lbs HR: 65 bpm BP: 111/66 mmHg BSA: 2.02 m2 BMI: 28.0 History: CAD, H/O DEE, CABG, HTN, HYPERLIPIDEMIA, TOB USE, C.P., SOB, SYNCOPE, FATIQUE Procedure: Patient received a 0.4 mg of intravenous Lexiscan, resting heart rate 65 bpm, resting blood pressure 111/66 mmHg, with Lexiscan maximum heart rate achived was 70 bpm which is % of the maximum predicted heart rate and blood pressure was 121/55 mmHg. With Lexiscan, patient denied any complaint of chest pain. Cardiac Stress and Resting SPECT Images: Cardiac Stress and Resting SPECT images were obtained using technetium 99m Myoview 30.6 mCi stress and 10.02 mCi at rest. EF very low at 24% with global hypokinesia Fixed defect at the apex consistent with an area of infarction Reversible defect at the lateral wall near rthe apex consistent with a small area of ischemia Conclusion: EF very low at 24% with global hypokinesia Fixed defect at the apex consistent with an area of infarction Reversible defect at the lateral wall near rthe apex consistent with a small area of ischemia Electronically signed by : Albino Lopez MD 03/19/2019 18:19:15
--- NOTE | 2019-03-19 13:21 | HMH.ITSHM ---
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 []
--- NOTE | 2019-03-19 13:21 | HMH.ITSHM ---
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 []asa, atorvastatin benzonatate benztropine combivent diazepam dulera diralproex haloperidol invega metoprolol ranitidine sertraline
== END ==
PROVIDERS: PCP Emergency Medicine; Visit Provider Urology
DX: I25.10 Atherosclerotic heart disease of native coronary artery without angina pectoris (principal); F25.0 Schizoaffective disorder, bipolar type; F17.200 Nicotine dependence, unspecified, uncomplicated; Z95.1 Presence of aortocoronary bypass graft
CPT/HCPCS: 78452; 93017; A9502; J2785

== ENCOUNTER 2019-04-10 15:02 | Observation (INO) ==
--- NOTE | 2019-04-10 15:16 | Emergency Department Note ---
ED Disposition Clinical Impression: ST elevation [place] (STEMI) Qualifiers: Involved coronary artery: unspecified coronary artery Qualified Code(s): I21.3 - ST elevation (STEMI) myocardial infarction of unspecified site Disposition: Still a Patient Condition on Discharge: Serious - Critical Care Critical Care Time: Yes Attestation: On , the high probability of a clinically significant, sudden or life threatening deterioration of the following system(s) required my full and direct attention, intervention and personal management. The time I documented below is in addition to time spent performing reported procedures but includes the following listed in this critical care notation. Total Critical Care Time: 20 Vital system(s) involved:: Circulatory Failure My critical care processes included: Assessment & monitoring of V/S, Initial and Re-exams, Data Review/Interpretation, Coordinating Care, Medication Orders and management, Documentation Medical Decision Making - Garcia Inquiry Pt receiving controlled substance: No Vital Signs: 04/10/19 15:02 04/10/19 15:56 04/10/19 16:01 Temperature 98.6 F Temperature Source Oral Pulse Rate Pulse Rate [Right Brachial] 79 130 H 134 H Respiratory Rate 15 23 Blood Pressure [Right Arm] 101/58 L 130/76 128/53 L Blood Pressure Mean [Right Arm] 72 94 78 Blood Pressure Source [Right Arm] Automatic Cuff Automatic Cuff Blood Pressure Position [Right Arm] Supine Sitting 02 Sat by Pulse Oximetry 98 97 96 Oxygen Delivery Method Room Air Nasal Cannula Room Air Oxygen Flow Rate (LPM) 2 04/10/19 16:40 04/10/19 16:43 04/10/19 16:45 Temperature 97.7 F Temperature Source Temporal Artery Scan Pulse Rate 75 Pulse Rate [Right Brachial] 75 70 75 Respiratory Rate 20 20 20 Blood Pressure [Right Arm] 101/63 L 101/63 L 108/70 L Blood Pressure Mean [Right Arm] 75 75 82 Blood Pressure Source [Right Arm] Automatic Cuff Automatic Cuff Automatic Cuff Blood Pressure Position [Right Arm] Supine Supine Supine 02 Sat by Pulse Oximetry 93 L 93 L 91 L Oxygen Delivery Method Room Air Room Air Room Air Oxygen Flow Rate (LPM) 04/10/19 16:50 04/10/19 17:04 04/10/19 17:16 Temperature 98.0 F Temperature Source Oral Pulse Rate Pulse Rate [Right Brachial] 70 63 Respiratory Rate 20 17 Blood Pressure [Right Arm] 109/66 L 102/65 L Blood Pressure Mean [Right Arm] 80 77 Blood Pressure Source [Right Arm] Automatic Cuff Automatic Cuff Blood Pressure Position [Right Arm] Supine Supine 02 Sat by Pulse Oximetry 91 L 93 L Oxygen Delivery Method Room Air Room Air Room Air Oxygen Flow Rate (LPM) - Lab Data Lab Results 04/10/19 15:30: WBC 8.2, RBC 4.50 L, Hgb 15.0, Hct 44.6, MCV 99.2 H, MCH 33.3 H, MCHC 33.6, RDW 12.2, Plt Count 128 L, MPV 9.4, Neut % (Auto) 62.5, Lymph % (Auto) 24.3, [place] % (Auto) 8.8, Eos % (Auto) 3.9, Baso % (Auto) 0.5, Neut # (Auto) 5.1, Lymph # (Auto) 2.0, [place] # (Auto) 0.7, Eos # (Auto) 0.3, Baso # (Auto) 0.0 04/10/19 15:30: Sodium 140, Potassium 4.5, Chloride 106, Carbon Dioxide 21, Anion Gap 17.5 H, BUN 13, Creatinine 0.94, Estimated Creat Clear 107, Estimated GFR 82, Est GFR ( Amer) 100, Glucose 97, Calcium 8.1 L, Troponin I < 0.02 Result diagrams: 04/10/19 15:30 04/10/19 15:30 Orders (Tests/Meds): ED MEDICATIONS Generic Name Dose Route Start Last Admin Trade Name Freq PRN Reason Stop Dose Admin Diphenhydramine HCl 50 mg 04/10/19 15:57 04/10/19 17:19 Benadryl 50mg/1ml Vial IV 04/10/19 15:58 Not Given ONCE ONE Fentanyl Citrate 50 mcg 04/10/19 15:57 04/10/19 16:30 Fentanyl 100mcg/2ml Vial IV 04/11/19 15:57 75 mcg Q3MINP PRN Administration Moderate to Severe Pain Fentanyl Citrate 25 mcg 04/10/19 15:57 Fentanyl 100mcg/2ml Vial IV 04/11/19 15:57 Q3MINP PRN Moderate to Severe Pain Flumazenil 0.2 mg 04/10/19 15:57 Romazicon 0.1mg/Ml 5ml Vial IV 04/10/19 23:00 NEEDED PRN Sedation Heparin Sodium (Porcine) 10,000 unit 04/10/19 15:57 Heparin 1,000 Units/Ml 10ml Vial (English Language Learner Tutor) IV 04/10/19 19:57 NEEDED PRN Emergency Box Pitching Coach Heparin Sodium/Sodium Chloride 3,000 unit 04/10/19 15:57 04/10/19 16:29 Heparin 1000 Units/500ml Ns (English Language Learner Tutor) IV 04/10/19 15:58 3,000 unit ONCE ONE Administration Sodium Chloride 1,000 mls @ 25 mls/hr 04/10/19 16:00 04/10/19 16:29 Sod Chlor 0.9% 1000ml Bag IV 04/11/19 15:57 25 mls/hr .Q25H FERNANDA Administration Ioversol 125 ml 04/10/19 16:46 04/10/19 17:19 Rad-Optiray 350 150ml Vial IV 04/10/19 16:47 Not Given ONCE ONE Lidocaine HCl 20 ml 04/10/19 15:57 04/10/19 17:07 Lidocaine 1% 5ml Pf Vial IJ 04/10/19 15:58 10 ml ONCE ONE Administration Midazolam HCl 1 mg 04/10/19 15:57 Midazolam 2mg/2ml Vial IV 04/11/19 15:57 Q3MINP PRN Sedation Midazolam HCl 1 mg 04/10/19 15:57 04/10/19 16:30 Midazolam 1mg/Ml 5ml Vial IV 04/11/19 15:57 3 mg Q3MINP PRN Administration Sedation Naloxone HCl 0.4 mg 04/10/19 15:57 Narcan 0.4mg/Ml Vial IV 04/11/19 15:57 Q5MINP PRN Decreased Respirations Nitroglycerin 800 mcg 04/10/19 15:57 Nitroglycerin 800mcg/8ml Syr (English Language Learner Tutor) IV 04/11/19 15:57 NEEDED PRN Emergency Box Pitching Coach Verapamil HCl 2.5 mg 04/10/19 15:57 04/10/19 17:19 Verapamil 2.5mg/Ml 2ml Vial IV 04/10/19 15:58 Not Given ONCE ONE Discontinued Medications Generic Name Dose Route Start Last Admin Trade Name Freq PRN Reason Stop Dose Admin Aspirin 324 mg 04/10/19 15:06 04/10/19 15:21 Aspirin 81mg Chewable Tablet PO 04/10/19 15:07 324 mg ONCE ONE Administration Morphine Sulfate 2 mg 04/10/19 15:48 04/10/19 15:49 Morphine 4mg/Ml Syringe IV 04/10/19 15:49 2 mg ONCE ONE Administration Ondansetron HCl 4 mg 04/10/19 15:48 04/10/19 15:49 Zofran 4mg/2ml Vial IV 04/10/19 15:49 4 mg ONCE ONE Administration ORDERS Category Date Time Status XR chest 2V Stat Exams 04/10/19 15:05 Taken Troponin I Q3H Lab 04/10/19 18:15 Ordered Troponin I Q3H Lab 04/10/19 21:15 Ordered - ECG Data Tracing #1 EKG interpreted by Henri Jeter MD: Rhythm: sinus Rate: 67 [place]: normal Ectopy: none Conduction: normal ST Segment Changes: ST elevation only in lead V2, but appearance is coved. Finding is new compared to previous EKG. T Wave Changes: none Q Waves: none Low voltage QRS - MECHE Score for Stemi Age of Patient: 50-59 years old Heart Rate: 70-89 bpm Systolic Blood Pressure: 140-159 mmHg Serum Creatinine: 0.80-1.19 mg/dl CHF [place] Class: I-No CHF Other Risk Factors: ST Segment Deviation Stemi Risk Score: 109 General Adult HPI - General Chief complaint: Chest Pain Stated complaint: chest pain Time Seen by Provider: 04/10/19 15:22 Mode of Arrival: EMS Limitations: No Limitations Description of Symptoms (Recalled from ER Triage Doc. by RN): Brought in by EMS for reports of chest pain that started this morning, but got worse an hour ago. Denies any other symptoms - History of Present Illness HPI narrative: The patient is a poor historian. Reportedly has schizophrenia. Complains of chest pain along with shortness of breath, nausea, diaphoresis, headache which she says has been coming and going all day today, but constant for the past 2 and half hours. Review of his records shows that he has been undergoing recent evaluation for chest pain. Had a stress test reported as abnormal. Appears to have been done on 03/19/2019. Was in the emergency room here on 04/06/2019 for chest pain. And there is a insole cementer visit yesterday at which time it appears that cardiac cath was going to be scheduled. Has a prior history of coronary artery disease, myocardial infarction, coronary artery bypass surgery. He does not remember when his bypass surgery was. He also does not remember when he is supposed to have a cardiac cath. - Related Data Home Medications Medication Instructions Recorded Confirmed Aspirin [Aspir 81] 81 mg PO DAILY 05/22/17 04/10/19 Divalproex Sodium [Depakote] 500 mg PO BID 05/22/17 04/10/19 Ipratropium/Albuterol Sulfate 1 puff IH QID 05/22/17 04/10/19 [Combivent Respimat Inh] raNITIdine HCl [Ranitidine HCl] 150 mg PO BID 05/22/17 04/10/19 benzonatate 100 mg capsule 100 mg PO TID PRN 08/10/18 04/10/19 benztropine 0.5 mg tablet 0.5 mg PO BID 08/10/18 04/10/19 diazepam 5 mg tablet 5 mg PO BID tab 08/10/18 04/10/19 haloperidol 5 mg tablet 5 mg PO TID 08/10/18 04/10/19 sertraline 25 mg tablet 25 mg PO DAILY 08/10/18 04/10/19 Acetaminophen [Tylenol 325mg 325 mg PO Q6HP PRN 09/13/18 04/10/19 Tablet] atorvastatin 40 mg tablet 40 mg PO DAILY 11/10/18 04/10/19 loperamide 2 mg capsule 2 mg PO Q4H PRN 02/10/19 04/10/19 metoprolol tartrate 25 mg tablet 12.5 mg PO BID tab 02/10/19 04/10/19 diphenhydramine 25 mg tablet 25 mg PO QHS PRN 03/08/19 04/10/19 ipratropium 20 mcg-albuterol 100 1 puff INHALATION Q6H 03/26/19 04/10/19 mcg/actuation mist for inhalation mometasone-formoterol HFA 100 2 puff INHALATION BID 03/26/19 04/10/19 mcg-5 mcg/actuation aerosol inhaler ondansetron HCl 4 mg tablet 4 mg PO TID PRN 04/09/19 04/10/19 paliperidone ER 6 mg 6 mg PO DAILY 04/09/19 04/10/19 tablet,extended release 24 hr Amlodipine Besylate 2.5 mg PO DAILY 04/10/19 04/10/19 Ranolazine [Ranolazine ER] 500 mg PO BID 04/10/19 04/10/19 Previous Rx's Medication Instructions Recorded Ibuprofen [Motrin 800mg Tab] 800 mg PO Q8HP PRN 5 Days #15 tab 04/06/19 Allergies Allergy/AdvReac Type Severity Reaction Status Date / Time No Known Allergies Allergy Verified 04/09/19 10:00 [facility] History - Hepatitis A Screen Drug use history?: No High risk sexual behaviors?: No History of sexually transmitted infection?: No Currently employed?: No Childcare worker?: No Do you have indoor plumbing?: Yes Do you have electricity?: Yes Attestation statement:: This patient has been screened for Hepatitis A risk factors. I have reviewed the patient's past medical history: Yes Medical History: Reports:: Coronary Artery Disease, Diabetes Mellitus Type 2, Hyperlipidemia, Hypertension, Myocardial Infarction Denies:: Diabetes Mellitus Type 1 Other Surgeries: Yes: No Previous Surgery, Appendectomy, CABG, Cardiac Catheterization, Cholecystectomy Amputation: No Fractures: No - Social History Smoking Status: Current every day smoker Tobacco Type: cigarettes # Packs/Day (cigarettes): 1 Alcohol Intake: never Substance Use Type: denies use Occupational Status: disabled Housing: assisted living facility Household Members: other Family Hx:: Unable to obtain ROS Obtained: Yes All systems reviewed & no additional complaints - Constitutional Constitutional: Denies fever(s) - Cardiovascular Cardiovascular: Reports chest pain, Reports diaphoresis - Respiratory Respiratory: Yes dyspnea - Gastrointestinal Gastrointestingal: Reports: nausea - Neurologic Neurologic: Reports headache(s) Physical Exam - General General appearance: alert, in no apparent distress - Head Head exam: atraumatic, normocephalic - Eye Eye exam: Present: normal appearance, EOMI - ENT ENT exam: Present: mucous membranes moist - Neck Neck exam: Present: normal inspection, trachea midline - Chest Chest inspection: Present: normal inspection, symmetric chest wall rise - Respiratory Respiratory exam: Present: normal lung sounds bilaterally. Absent: respiratory distress - Cardiovascular Cardiovascular exam: Present: regular rate, normal rhythm, normal heart sounds - Abdominal Exam Abdominal exam: Present: soft. Absent: distention - Extremities Exam Extremities exam: Present: normal inspection - Neurological Exam Neurological exam: Present: alert - Psychiatric Psychiatric exam: Present: normal affect, normal mood - Skin Skin exam: Present: warm, dry
[2019-04-10 15:36] LABS: Basophils % 0.5 % (0.1-2.0); Eosinophils # 0.3 K/mm3 (0.0-0.4); Eosinophils % 3.9 % (0.1-12.0); Hematocrit 44.6 % (42.0-52.0); Lymphocytes % 24.3 % (10-50); Mean Corpuscular HGB Conc 33.6 g/dL (31.8-35.4); Mean Corpuscular Volume 99.2 fl (80-94); Mean Platelet Volume 9.4 fl (7.4-10.4); Monocytes # 0.7 K/mm3 (0.1-1.0); Monocytes % 8.8 % (1.7-9.3); Neutrophils # 5.1 K/mm3 (1.8-7.8); Neutrophils % 62.5 % (37.0-80.0); Platelet Count 128 K/mm3 (142-424); Red Cell Distribution Width 12.2 % (11.5-17.5); White Blood Count 8.2 K/mm3 (4.8-10.8)
[2019-04-10 16:08] LABS: Anion Gap 17.5 mEq/L (5-15); Blood Urea Nitrogen 13 mg/dL (7-18); Calcium 8.1 mg/dL (8.5-10.1); Carbon Dioxide 21 mmol/L (21.0-32.0); Chloride 106 mmol/L (98-107); Glucose 97 mg/dL (74-106); Sodium 140 mmol/L (136-145)
[2019-04-11 06:42] LABS: Basophils % 0.5 % (0.1-2.0); Eosinophils # 0.3 K/mm3 (0.0-0.4); Eosinophils % 4.4 % (0.1-12.0); Hematocrit 47.7 % (42.0-52.0); Hemoglobin 15.7 g/dL (14.1-18.0); Lymphocytes # 2.3 K/mm3 (0.7-4.5); Lymphocytes % 30.2 % (10-50); Mean Corpuscular HGB Conc 32.9 g/dL (31.8-35.4); Mean Corpuscular Volume 100.3 fl (80-94); Monocytes # 0.6 K/mm3 (0.1-1.0); Monocytes % 8.3 % (1.7-9.3); Neutrophils # 4.2 K/mm3 (1.8-7.8); Neutrophils % 56.6 % (37.0-80.0); Platelet Count 170 K/mm3 (142-424); Red Blood Count 4.76 M/mm3 (4.60-6.20); Red Cell Distribution Width 12.5 % (11.5-17.5); White Blood Count 7.5 K/mm3 (4.8-10.8)
[2019-04-11 06:54] LABS: Anion Gap 15.7 mEq/L (5-15); Calcium 8.2 mg/dL (8.5-10.1)
--- NOTE | 2019-04-11 08:19 | Pharmacy Consult Notes ---
[facility] Pharmacy VTE Monitoring - Patient Demographics Admission date: 04/10/19 Report Date: 04/11/19 Time: 08:18 Allergies/Adverse Reactions: Patient Allergies No Known Allergies Allergy (Verified 04/09/19 10:00) Height: 1.73 m Weight: 89.074 kg Patient Problems: Current Active Problems ST elevation [place] (STEMI) (Acute) - VTE Risk Labs: VTE Related Lab Results Hgb 15.7 g/dL (14.1-18.0) 04/11/19 06:33 Hct 47.7 % (42.0-52.0) 04/11/19 06:33 Plt Count 170 K/mm3 (142-424) D 04/11/19 06:33 BUN 11 mg/dL (7-18) 04/11/19 06:33 Creatinine 0.89 mg/dL (0.70-1.30) 04/11/19 06:33 Estimated Creat Clear 114 mL/min (50-200) 04/11/19 06:33 VTE Score: 6 VTE Risk Level: Moderate Risk - Prophylaxis VTE Prophylaxis Ordered?: Yes Types of VTE Prophylaxis: TEDS Knee High Location of Applied Device: Bilateral Lower Extremeties - VTE Diagnosis Confirmed Treatment or plan recommended: Continue Current Treatment
--- NOTE | 2019-04-11 09:18 | History & Physical Report ---
*Admission Date: 04/10/19 *Chief complaint: chest pain *History of present illness: this wm who is resident of [facility] developed chest pain and has hx of cad - he was sent to the ed -rought in by EMS for reports of chest pain that started this morning, but got worse an hour ago The patient is a poor historian. Reportedly has schizophrenia. Complains of chest pain along with shortness of breath, nausea, diaphoresis, headache which she says has been coming and going all day today, but constant for the past 2 and half hours. Review of his records shows that he has been undergoing recent evaluation for chest pain. Had a stress test reported as abnormal. Appears to have been done on 03/19/2019. Was in the emergency room here on 04/06/2019 for chest pain. And there is a equine breeder visit yesterday at which time it appears that cardiac cath was going to be scheduled. Has a prior history of coronary artery disease, myocardial infarction, coronary artery bypass surgery. He does not remember when his bypass surgery was. he had abn ekg and was taken to oil laboratory analyst-he left main artery Is a small caliber vessel with no angiographic stenosis The left anterior descending artery Is proximally subtotally occluded. There is evidence of competitive flow from a vein graft The circumflex artery Is a nondominant vessel and has proximal and mid vessel 7050 and 70% stenoses. The first obtuse marginal artery has a vein graft which is patent and provides antegrade flow down the vein graft The right coronary artery Is a dominant vessel and occluded proximal The BURGESS ventriculogram reveals Normal ejection fraction 65% The left ventricular end-diastolic pressure Elevated at 20 mmHg Left internal mammary artery is proximally occluded The saphenous vein graft supplying the LAD is widely patent with mild 20 and 30% diffuse stenoses. The anastomosis appears to be at the junction of the proximal LAD and the first diagonal artery. Both diagonal artery and LAD receives excellent SHARRON-3 flow. The caliber of the vein graft is large while the caliber of the LAD and diagonal arteries are both approximately 2 mm in diameter The saphenous vein graft supplying the first obtuse marginal artery has an ostial proximal 30% [id number] stenosis. There is excellent retrograde filling from the first obtuse marginal artery back into the second obtuse marginal artery The saphenous vein graft supplying the right coronary artery has a mid vessel eccentric 30% stenosis. The vein graft makes its anastomosis onto the distal right coronary artery and then provides antegrade flow to the posterior lateral branch and posterior descending artery. The posterior descending artery has a long mid vessel diffuse 50% stenosis at an area less than 2 mm in diameter IMPRESSION Adequate coronary artery revascularization as described above Normal ejection fraction Mildly elevated LVEDP PLAN 1. Medical management. Patient does have an abnormal EKG with ST elevation in lead V2. This appears to be a false positive and patient is not experiencing an acute ST elevation myocardial infarction 2. Ongoing medical management 3. Evaluation of noncardiac chest pain 4. Risk factor modification Electronically signed by : Rajesh Curtis, 04/10/2019 16:35:52 pt was admitted for continued eval [facility] History I have reviewed the patient's past medical history: Yes Medical History: Reports:: Coronary Artery Disease, Diabetes Mellitus Type 2, Hyperlipidemia, Hypertension, Myocardial Infarction Denies:: Diabetes Mellitus Type 1 *Have you ever received a pneumonia vaccine?: Yes *Have you received a flu vaccine this season?: Yes Other Surgeries: Yes: No Previous Surgery, Appendectomy, CABG, Cardiac Cathete rization, Cholecystectomy Amputation: No Fractures: No - *Social History Educational Level: Completed High School Smoking Status: Current every day smoker Tobacco Type: cigarettes # Packs/Day (cigarettes): 1 Alcohol Intake: never Substance Use Type: denies use *Occupational Status:: disabled Housing: assisted living facility Household Members: other *Travel in the last 8 weeks: None Family Hx:: Unable to obtain Review of Systems - Review of Systems Review of systems:: pertinent systems reviewed and negative unless documented below - Constitutional Reports fatigue, Denies fever(s) - Eyes Denies change in vision - ENT Denies sore throat - *Cardiovascular Reports chest pain at rest, Reports shortness of breath - *Respiratory Reports shortness of breath, Denies cough, Denies coughing up blood - *Gastrointestinal Denies abdominal pain, Denies vomiting - *Genitourinary Denies blood in urine - *Musculoskeletal Denies joint pain, Denies joint swelling - Integumentary/Breasts Denies rash - *Neurologic Reports headache(s), Denies seizure-like activity - Psychiatric Denies anxiety Meds Home Medications Medication Instructions Recorded Confirmed Type Aspirin [Aspir 81] 81 mg PO DAILY 05/22/17 04/10/19 History Divalproex Sodium [Depakote] 500 mg PO BID 05/22/17 04/10/19 History Ipratropium/Albuterol Sulfate 1 puff IH QID 05/22/17 04/10/19 History [Combivent Respimat Inh] raNITIdine HCl [Ranitidine HCl] 150 mg PO BID 05/22/17 04/10/19 History benzonatate 100 mg capsule 100 mg PO TID PRN 08/10/18 04/10/19 History benztropine 0.5 mg tablet 0.5 mg PO BID 08/10/18 04/10/19 History diazepam 5 mg tablet 5 mg PO BID tab 08/10/18 04/10/19 History haloperidol 5 mg tablet 5 mg PO TID 08/10/18 04/10/19 History sertraline 25 mg tablet 25 mg PO DAILY 08/10/18 04/10/19 History Acetaminophen [Tylenol 325mg 325 mg PO Q6HP PRN 09/13/18 04/10/19 History Tablet] atorvastatin 40 mg tablet 40 mg PO HS 11/10/18 04/10/19 History loperamide 2 mg capsule 2 mg PO Q3H PRN 02/10/19 04/10/19 History metoprolol tartrate 25 mg tablet 12.5 mg PO BID tab 02/10/19 04/10/19 History diphenhydramine 25 mg tablet 25 mg PO Q8 PRN 03/08/19 04/10/19 History ipratropium 20 mcg-albuterol 100 1 puff INHALATION Q6H 03/26/19 04/10/19 History mcg/actuation mist for inhalation mometasone-formoterol HFA 100 2 puff INHALATION BID 03/26/19 04/10/19 History mcg-5 mcg/actuation aerosol inhaler Ibuprofen [Motrin 800mg Tab] 800 mg PO Q8HP PRN 5 Days #15 tab 04/06/19 04/10/19 Rx ondansetron HCl 4 mg tablet 4 mg PO QID PRN 04/09/19 04/10/19 History paliperidone ER 6 mg 6 mg PO DAILY 04/09/19 04/10/19 History tablet,extended release 24 hr Amlodipine Besylate 2.5 mg PO HS 04/10/19 04/10/19 History Ranolazine [Ranolazine ER] 500 mg PO BID 04/10/19 04/10/19 History guaiFENesin [Robafen] 10 ml PO Q4HP PRN 04/10/19 04/10/19 History Allergies Allergy/AdvReac Type Severity Reaction Status Date / Time No Known Allergies Allergy Verified 04/09/19 10:00 Exam Vital signs and Labs for Last 24 Hours: Temp Pulse Resp BP Pulse Ox 98.0 F 73 17 114/71 93 L 04/11/19 07:40 04/11/19 07:40 04/11/19 07:40 04/11/19 07:40 04/11/19 07:40 Laboratory Results - last 24 hr 04/10/19 15:30: WBC 8.2, RBC 4.50 L, Hgb 15.0, Hct 44.6, MCV 99.2 H, MCH 33.3 H, MCHC 33.6, RDW 12.2, Plt Count 128 L, MPV 9.4, Neut % (Auto) 62.5, Lymph % (Auto) 24.3, Adams % (Auto) 8.8, Eos % (Auto) 3.9, Baso % (Auto) 0.5, Neut # (Auto) 5.1, Lymph # (Auto) 2.0, Adams # (Auto) 0.7, Eos # (Auto) 0.3, Baso # (Auto) 0.0 04/10/19 15:30: Sodium 140, Potassium 4.5, Chloride 106, Carbon Dioxide 21, Anion Gap 17.5 H, BUN 13, Creatinine 0.94, Estimated Creat Clear 107, Estimated GFR 82, Est GFR ( Amer) 100, Glucose 97, Calcium 8.1 L, Troponin I < 0.02 04/10/19 18:15: Troponin I < 0.02 04/10/19 21:15: Troponin I < 0.02 04/11/19 06:33: WBC 7.5, RBC 4.76, Hgb 15.7, Hct 47.7, MCV 100.3 H, MCH 33.0 H, MCHC 32.9, RDW 12.5, Plt Count 170 D, MPV 9.0, Neut % (Auto) 56.6, Lymph % (Auto) 30.2, Adams % (Auto) 8.3, Eos % (Auto) 4.4, Baso % (Auto) 0.5, Neut # (Auto) 4.2, Lymph # (Auto) 2.3, Adams # (Auto) 0.6, Eos # (Auto) 0.3, Baso # (Auto) 0.0 04/11/19 06:33: Sodium 141, Potassium 4.7, Chloride 106, Carbon Dioxide 24, Anion Gap 15.7 H, BUN 11, Creatinine 0.89, Estimated Creat Clear 114, Estimated GFR 88, Est GFR ( Amer) 106, Glucose 92, Calcium 8.2 L I & O for Last 24 hours: Intake & Output 04/08/19 04/09/19 04/10/19 04/11/19 11:59 11:59 11:59 11:59 Intake Total 1810 / 1810 Output Total 2875 / 2875 Balance -1065 / -1065 Weight 196 lb 6 oz - Constitutional no acute distress, obese - *Routine HEENT Exam Head: Present: normocephalic Eye: Present: EOMI, PERRL ENT: Present: mucous membranes dry - *Routine Neck Exam Absent: JVD - *Routine Respiratory Exam Present: CTA bilaterally - *Routine Cardiovascular Exam Present: RRR, murmur, S4 - *Routine Abdominal Exam Present: soft - *Routine Extremities Exam Absent: calf tenderness - *Routine Skin Exam Present: intact - *Routine Neurological Exam Present: alert, CN II-XII intact. Absent: altered mental status - Routine Psychiatric Exam Absent: good insight Assessment and Plan (1) Abnormal stress test Current visit: No Status: Acute Category: Medical Code(s): R94.39 - Abnormal result of other cardiovascular function study (2) Schizophrenia Current visit: No Status: Acute Qualifiers: Schizophrenia type: other Qualified Code(s): F20.89 - Other schizophrenia; F20.8 - Other schizophrenia Category: Medical Code(s): F20.9 - Schizophrenia, unspecified (3) CAD (coronary artery disease) Current visit: No Status: Chronic Qualifiers: Coronary Disease-Associated Artery/Lesion type: bypass graft [place] vs. transplanted heart: [place] heart Associated angina: without angina Qualified Code(s): I25.810 - Atherosclerosis of coronary artery bypass graft(s) without angina pectoris Category: Medical Code(s): I25.10 - Atherosclerotic heart disease of [place] coronary artery without angina pectoris (4) S/P CABG (coronary artery bypass graft) Current visit: No Status: Chronic Category: Surgical Code(s): Z95.1 - Presence of aortocoronary bypass graft (5) Tobacco dependence syndrome Current visit: No Status: Chronic Category: Medical Code(s): F17.200 - Nicotine dependence, unspecified, uncomplicated (6) Overweight (BMI 25.0-29.9) Current visit: Yes Status: Acute Category: Medical Code(s): E66.3 - Overweight (7) HTN (hypertension) Current visit: Yes Status: Acute Qualifiers: Hypertension type: essential hypertension Qualified Code(s): I10 - Essential (primary) hypertension Category: Medical Code(s): I10 - Essential (primary) hypertension (8) Hypokinesia Current visit: Yes Status: Acute Category: Medical Code(s): R68.89 - Other general symptoms and signs
--- NOTE | 2019-04-12 07:22 | Consult Report ---
History of Present Illness Consult date: 04/12/19 Requesting physician: Arthur Baker Consult reason: chest pain Chief complaint: chest pain Additional Medical History:: 1. Coronary artery disease A. Coronary artery bypass grafting, 2008 B. [facility], 08/2018, adequately revascularized with normal LVEF. C. [facility], 03/2019, ANGIOGRAPHIC RESULTS The left main artery Is a small caliber vessel with no angiographic stenosis The left anterior descending artery Is proximally subtotally occluded. There is evidence of competitive flow from a vein graft The circumflex artery Is a nondominant vessel and has proximal and mid vessel 7050 and 70% stenoses. The first obtuse marginal artery has a vein graft which is patent and provides antegrade flow down the vein graft The right coronary artery Is a dominant vessel and occluded proximal The BURGESS ventriculogram reveals Normal ejection fraction 65% The left ventricular end-diastolic pressure Elevated at 20 mmHg Left internal mammary artery is proximally occluded The saphenous vein graft supplying the LAD is widely patent with mild 20 and 30% diffuse stenoses. The anastomosis appears to be at the junction of the proximal LAD and the first diagonal artery. Both diagonal artery and LAD receives excellent SHARRON-3 flow. The caliber of the vein graft is large while the caliber of the LAD and diagonal arteries are both approximately 2 mm in diameter The saphenous vein graft supplying the first obtuse marginal artery has an ostial proximal 30% [id number] stenosis. There is excellent retrograde filling from the first obtuse marginal artery back into the second obtuse marginal artery The saphenous vein graft supplying the right coronary artery has a mid vessel eccentric 30% stenosis. The vein graft makes its anastomosis onto the distal right coronary artery and then provides antegrade flow to the posterior lateral branch and posterior descending artery. The posterior descending artery has a long mid vessel diffuse 50% stenosis at an area less than 2 mm in diameter IMPRESSION Adequate coronary artery revascularization as described above Normal ejection fraction Mildly elevated LVEDP 2. Diabetis mellitus 3. Hypertension 4. Hyperlipidemia 5. Poor historian 6. Schizophrenia and schizo-affective disorder History of present illness: 58-year-old white male resident of [facility] who is history of coronary disease with history of bypass surgery and schizophrenia presented to for evaluation of chest pain. Patient is a poor historian and is states that the chest pain came on him but cannot elaborate on aggravating or alleviating factors. Patient had an abnormal EKG and was felt to be having a ST elevation [place]. He was seen in the cardiology clinic last week for abnormal stress test and was scheduled to have C this week. He was taken to the cardiac Press Reader over the weekend at which time his coronary arteries were found to be adequately revascularized through his bypass grafts with no need for intervention. It was felt that the EKG was a false positive. His troponins have returned normal x5 over the weekend. This a.m. patient is sitting in bed eating breakfast and anxious to go home. [facility] History Medical History: Reports:: Coronary Artery Disease, Diabetes Mellitus Type 2, Hyperlipidemia, Hypertension, Myocardial Infarction Denies:: Diabetes Mellitus Type 1 *Have you ever received a pneumonia vaccine?: Yes *Have you received a flu vaccine this season?: Yes Other Surgeries: Yes: No Previous Surgery, Appendectomy, CABG, Cardiac Catheterization, Cholecystectomy Amputation: No Fractures: No - *Social History Educational Level: Completed High School Smoking Status: Current every day smoker Tobacco Type: cigarettes # Packs/Day (cigarettes): 1 Alcohol Intake: never Substance Use Type: denies use *Occupational Status:: disabled Housing: assisted living facility Household Members: other *Travel in the last 8 weeks: None Family Hx:: Unable to obtain Med Home Medications Medication Instructions Recorded Confirmed Type Aspirin [Aspir 81] 81 mg PO DAILY 05/22/17 04/10/19 History Divalproex Sodium [Depakote] 500 mg PO BID 05/22/17 04/10/19 History raNITIdine HCl [Ranitidine HCl] 150 mg PO BID 05/22/17 04/10/19 History benzonatate 100 mg capsule 100 mg PO TID 08/10/18 04/10/19 History benztropine 0.5 mg tablet 0.5 mg PO BID 08/10/18 04/10/19 History diazepam 5 mg tablet 5 mg PO BID tab 08/10/18 04/10/19 History haloperidol 5 mg tablet 5 mg PO TID 08/10/18 04/10/19 History sertraline 25 mg tablet 25 mg PO DAILY 08/10/18 04/10/19 History Acetaminophen [Tylenol 325mg 325 mg PO Q6HP PRN 09/13/18 04/10/19 History Tablet] atorvastatin 40 mg tablet 40 mg PO HS 11/10/18 04/10/19 History loperamide 2 mg capsule 2 mg PO Q3HP PRN 02/10/19 04/11/19 History metoprolol tartrate 25 mg tablet 12.5 mg PO BID tab 02/10/19 04/10/19 History diphenhydramine 25 mg tablet 25 mg PO Q8HP PRN 03/08/19 04/11/19 History ipratropium 20 mcg-albuterol 100 1 puff INHALATION QID 03/26/19 04/11/19 History mcg/actuation mist for inhalation mometasone-formoterol HFA 100 2 puff INHALATION BID 03/26/19 04/10/19 History mcg-5 mcg/actuation aerosol inhaler Ibuprofen [Motrin 800mg Tab] 800 mg PO Q8HP PRN 5 Days #15 tab 04/06/19 04/10/19 Rx ondansetron HCl 4 mg tablet 4 mg PO Q6HP PRN 04/09/19 04/11/19 History paliperidone ER 6 mg 6 mg PO DAILY 04/09/19 04/10/19 History tablet,extended release 24 hr Amlodipine Besylate 2.5 mg PO HS 04/10/19 04/10/19 History Ranolazine [Ranolazine ER] 500 mg PO BID 04/10/19 04/10/19 History guaiFENesin [Robafen] 10 ml PO Q4HP PRN 04/10/19 04/10/19 History Allergies Allergy/AdvReac Type Severity Reaction Status Date / Time No Known Allergies Allergy Verified 04/09/19 10:00 Review of Systems - Review of Systems Review of systems:: pertinent systems reviewed and negative unless documented below - *Cardiovascular Reports chest pain, Denies shortness of breath - *Respiratory Denies cough, Denies shortness of breath - *Gastrointestinal Denies loose stools, Denies nausea, Denies vomiting - *Genitourinary Denies blood in urine - *Musculoskeletal Denies joint pain, Denies back pain - *Neurologic Reports headache(s), Denies seizure-like activity, Denies fainting, Denies tingling Exam Vital signs and Labs for Last 24 Hours: Temp Pulse Resp BP Pulse Ox 97.9 F 61 17 125/89 96 04/12/19 04:00 04/12/19 04:00 04/12/19 04:00 04/12/19 04:00 04/12/19 04:00 I & O for Last 24 hours: Intake & Output 04/09/19 04/10/19 04/11/19 04/12/19 11:59 11:59 11:59 11:59 Intake Total 1810 / 1810 1929 Output Total 2875 / 2875 Balance -1065 / -1065 1929 Weight 196 lb 6 oz 189 lb 9 oz - *Routine HEENT Exam Head: Present: normocephalic Eye: Present: EOMI, PERRL ENT: Present: mucous membranes moist - *Routine Neck Exam Present: supple. Absent: JVD, carotid bruit - *Routine Respiratory Exam Present: CTA bilaterally. Absent: accessory muscle use, rales, rhonchi, wheezes - *Routine Cardiovascular Exam Present: RRR. Absent: murmur, gallop, rubs - *Routine Abdominal Exam Present: soft. Absent: tenderness, distended, guarding - *Routine Extremities Exam Absent: edema, calf tenderness - *Routine Neurological Exam Present: alert, oriented X3, moving all extremities Assessment and Plan (1) Abnormal stress test Current visit: No Status: Acute Category: Medical Code(s): R94.39 - Abnormal result of other cardiovascular function study (2) Schizophrenia Current visit: No Status: Acute Qualifiers: Schizophrenia type: other Qualified Code(s): F20.89 - Other schizophrenia; F20.8 - Other schizophrenia Category: Medical Code(s): F20.9 - Schizophrenia, unspecified (3) CAD (coronary artery disease) Current visit: No Status: Chronic Qualifiers: Coronary Disease-Associated Artery/Lesion type: bypass graft [place] vs. transplanted heart: [place] heart Associated angina: without angina Qualified Code(s): I25.810 - Atherosclerosis of coronary artery bypass graft(s) without angina pectoris Category: Medical Code(s): I25.10 - Atherosclerotic heart disease of [place] coronary artery without angina pectoris (4) S/P CABG (coronary artery bypass graft) Current visit: No Status: Chronic Category: Surgical Code(s): Z95.1 - Presence of aortocoronary bypass graft (5) Tobacco dependence syndrome Current visit: No Status: Chronic Category: Medical Code(s): F17.200 - Nicotine dependence, unspecified, uncomplicated (6) Overweight (BMI 25.0-29.9) Current visit: Yes Status: Acute Category: Medical Code(s): E66.3 - Overweight (7) HTN (hypertension) Current visit: Yes Status: Acute Qualifiers: Hypertension type: essential hypertension Qualified Code(s): I10 - Essential (primary) hypertension Category: Medical Code(s): I10 - Essential (primary) hypertension (8) Hypokinesia Current visit: Yes Status: Acute Category: Medical Code(s): R68.89 - Other general symptoms and signs - Assessment and plan all Dx Assessment and Plan for all problems:: 1. Abnormal EKG in setting of chest pain and recent abnormal stress test. Patient did undergo cardiac catheterization with no need for intervention. He is adequately revascularized through his bypass grafts. Continue medical thera py with further evaluation of noncardiac chest pain recommended. 2. Patient clinically is stable from a cardiac standpoint for discharge home. Home medication recommendations: Aspirin 81 mg daily, atorvastatin 40 mg daily, Ranexa 500 mg twice daily for endothelial dysfunction, metoprolol 12.5 mg twice daily (as long as heart rate is consistently above 50 bpm and blood pressure systolic is above 100 mmHg). Would recommend stopping amlodipine at this time. 3. Follow up in our office in 1-2 wks.
--- NOTE | 2019-04-12 12:27 | Discharge Summary ---
General - General Admission date:: 04/10/19 Discharge date: 04/12/19 HPI HPI: this wm who is resident of [facility] developed chest pain and has hx of cad - he was sent to the ed -rought in by EMS for reports of chest pain that started this morning, but got worse an hour ago The patient is a poor historian. Reportedly has schizophrenia. Complains of chest pain along with shortness of breath, nausea, diaphoresis, headache which she says has been coming and going all day today, but constant for the past 2 and half hours. Review of his records shows that he has been undergoing recent evaluation for chest pain. Had a stress test reported as abnormal. Appears to have been done on 03/19/2019. Was in the emergency room here on 04/06/2019 for chest pain. And there is a sugar cane farm manager visit yesterday at which time it appears that cardiac cath was going to be scheduled. Has a prior history of coronary artery disease, myocardial infarction, coronary artery bypass surgery. He does not remember when his bypass surgery was. he had abn ekg and was taken to laborer tin can-he left main artery Is a small caliber vessel with no angiographic stenosis The left anterior descending artery Is proximally subtotally occluded. There is evidence of competitive flow from a vein graft The circumflex artery Is a nondominant vessel and has proximal and mid vessel 7050 and 70% stenoses. The first obtuse marginal artery has a vein graft which is patent and provides antegrade flow down the vein graft The right coronary artery Is a dominant vessel and occluded proximal The BURGESS ventriculogram reveals Normal ejection fraction 65% The left ventricular end-diastolic pressure Elevated at 20 mmHg Left internal mammary artery is proximally occluded The saphenous vein graft supplying the LAD is widely patent with mild 20 and 30% diffuse stenoses. The anastomosis appears to be at the junction of the proximal LAD and the first diagonal artery. Both diagonal artery and LAD receives excellent SHARRON-3 flow. The caliber of the vein graft is large while the caliber of the LAD and diagonal arteries are both approximately 2 mm in diameter The saphenous vein graft supplying the first obtuse marginal artery has an ostial proximal 30% hxo-tabs-twpairde stenosis. There is excellent retrograde filling from the first obtuse marginal artery back into the second obtuse marginal artery The saphenous vein graft supplying the right coronary artery has a mid vessel eccentric 30% stenosis. The vein graft makes its anastomosis onto the distal right coronary artery and then provides antegrade flow to the posterior lateral branch and posterior descending artery. The posterior descending artery has a long mid vessel diffuse 50% stenosis at an area less than 2 mm in diameter IMPRESSION Adequate coronary artery revascularization as described above Normal ejection fraction Mildly elevated LVEDP PLAN 1. Medical management. Patient does have an abnormal EKG with ST elevation in lead V2. This appears to be a false positive and patient is not experiencing an acute ST elevation myocardial infarction 2. Ongoing medical management 3. Evaluation of noncardiac chest pain 4. Risk factor modification Electronically signed by : Rajesh Curtis, 04/10/2019 16:35:52 pt was admitted for continued eval Hospital Course Hospital Course: pt has did well and had echo this am and was seen by card with no pain and tolerating diet and activity level- 1. Coronary artery disease A. Coronary artery bypass grafting, 2008 B. [facility], 08/2018, adequately revascularized with normal LVEF. C. [facility], 03/2019, ANGIOGRAPHIC RESULTS The left main artery Is a small caliber vessel with no angiographic stenosis The left anterior descending artery Is proximally subtotally occluded. There is evidence of competitive flow from a vein graft The circumflex artery Is a nondominant vessel and has proximal and mid vessel 7050 and 70% stenoses. The first obtuse marginal artery has a vein graft which is patent and provides antegrade flow down the vein graft The right coronary artery Is a dominant vessel and occluded proximal The BURGESS ventriculogram reveals Normal ejection fraction 65% The left ventricular end-diastolic pressure Elevated at 20 mmHg Left internal mammary artery is proximally occluded The saphenous vein graft supplying the LAD is widely patent with mild 20 and 30% diffuse stenoses. The anastomosis appears to be at the junction of the proximal LAD and the first diagonal artery. Both diagonal artery and LAD receives excellent SHARRON-3 flow. The caliber of the vein graft is large while the caliber of the LAD and diagonal arteries are both approximately 2 mm in diameter The saphenous vein graft supplying the first obtuse marginal artery has an ostial proximal 30% fem-bfgs-ighvrqza stenosis. There is excellent retrograde filling from the first obtuse marginal artery back into the second obtuse marginal artery The saphenous vein graft supplying the right coronary artery has a mid vessel eccentric 30% stenosis. The vein graft makes its anastomosis onto the distal right coronary artery and then provides antegrade flow to the posterior lateral branch and posterior descending artery. The posterior descending artery has a long mid vessel diffuse 50% stenosis at an area less than 2 mm in diameter IMPRESSION Adequate coronary artery revascularization as described above Normal ejection fraction Mildly elevated LVEDP 2. Diabetis mellitus 3. HypertensionHyperlipidemia 5. Poor historian 6. Schizophrenia and schizo-affective disorder History of present illness: 58-year-old white male resident of [facility] who is history of coronary disease with history of bypass surgery and schizophrenia presented to for evaluation of chest pain. Patient is a poor historian and is states that the chest pain came on him but cannot elaborate on aggravating or alleviating factors. Patient had an abnormal EKG and was felt to be having a ST elevation [place]. He was seen in the cardiology clinic last week for abnormal stress test and was scheduled to have LHC this week. He was taken to the cardiac Coding Clerk over the weekend at which time his coronary arteries were found to be adequately revascularized through his bypass grafts with no need for intervention. It was felt that the EKG was a false positive. His troponins have returned normal x5 over the weekend. This a.m. patient is sitting in bed eating breakfast and anxious to go home. card recommendations 1. Abnormal EKG in setting of chest pain and recent abnormal stress test. Patient did undergo cardiac catheterization with no need for intervention. He is adequately revascularized through his bypass grafts. Continue medical therapy with further evaluation of noncardiac chest pain recommended. 2. Patient clinically is stable from a cardiac standpoint for discharge home. Home medication recommendations: Aspirin 81 mg daily, atorvastatin 40 mg daily, Ranexa 500 mg twice daily for endothelial dysfunction, metoprolol 12.5 mg twice daily (as long as heart rate is consistently above 50 bpm and blood pressure systolic is above 100 mmHg). Would recommend stopping amlodipine at this time. 3. Follow up in our office in 1-2 wks. Objective Vital signs: Temp Pulse Resp BP Pulse Ox 97.4 F L 69 18 116/85 96 04/12/19 08:00 04/12/19 08:00 04/12/19 08:00 04/12/19 08:00 04/12/19 08:00 no acute distress - *Routine HEENT Exam Head: Present: normocephalic Eye: Present: EOMI, PERRL ENT: Present: mucous membranes moist - *Routine Neck Exam Present: supple. Absent: JVD - *Routine Respiratory Exam Present: CTA bilaterally - *Routine Cardiovascular Exam Present: RRR, murmur - *Routine Abdominal Exam Present: soft - *Routine Extremities Exam Absent: calf tenderness - *Routine Skin Exam Present: intact - *Routine Neurological Exam Present: alert, oriented X3, CN II-XII intact - Routine Psychiatric Exam Present: normal affect DS: Diagnosis - Discharge Diagnosis (1) Abnormal stress test Status: Acute (2) Schizophrenia Status: Acute (3) CAD (coronary artery disease) Status: Chronic (4) S/P CABG (coronary artery bypass graft) Status: Chronic (5) Tobacco dependence syndrome Status: Chronic (6) Overweight (BMI 25.0-29.9) Status: Acute (7) HTN (hypertension) Status: Acute (8) Hypokinesia Status: Acute Discharge Plan - Patient Discharge Instructions ACTIVITY: Continue current activity DIET: continue same diet Patient Instructions: Cardiac Catheterization, Heart-Healthy Diet, DI for Cardiac Catheterization, DI for Surgical Site Infection, How to Quit Smoking - Follow up Plan Follow up with: Arthur Baker MD [Staff Physician] - Rajesh Curtis MD [Staff Physician] - Provider,MD Mehrdad [Primary Care Provider] - Disposition: Home, Self-Alf Medications: Home Medications Medication Instructions Recorded Confirmed Type Aspirin [Aspir 81] 81 mg PO DAILY 05/22/17 04/10/19 History Divalproex Sodium [Depakote] 500 mg PO BID 05/22/17 04/10/19 History raNITIdine HCl [Ranitidine HCl] 150 mg PO BID 05/22/17 04/10/19 History benzonatate 100 mg capsule 100 mg PO TID 08/10/18 04/10/19 History benztropine 0.5 mg tablet 0.5 mg PO BID 08/10/18 04/10/19 History diazepam 5 mg tablet 5 mg PO BID tab 08/10/18 04/10/19 History haloperidol 5 mg tablet 5 mg PO TID 08/10/18 04/10/19 History sertraline 25 mg tablet 25 mg PO DAILY 08/10/18 04/10/19 History Acetaminophen [Tylenol 325mg 325 mg PO Q6HP PRN 09/13/18 04/10/19 History Tablet] atorvastatin 40 mg tablet 40 mg PO HS 11/10/18 04/10/19 History loperamide 2 mg capsule 2 mg PO Q3HP PRN 02/10/19 04/11/19 History metoprolol tartrate 25 mg tablet 12.5 mg PO BID tab 02/10/19 04/10/19 History diphenhydramine 25 mg tablet 25 mg PO Q8HP PRN 03/08/19 04/11/19 History ipratropium 20 mcg-albuterol 100 1 puff INHALATION QID 03/26/19 04/11/19 History mcg/actuation mist for inhalation mometasone-formoterol HFA 100 2 puff INHALATION BID 03/26/19 04/10/19 History mcg-5 mcg/actuation aerosol inhaler Ibuprofen [Motrin 800mg Tab] 800 mg PO Q8HP PRN 5 Days #15 tab 04/06/19 04/10/19 Rx ondansetron HCl 4 mg tablet 4 mg PO Q6HP PRN 04/09/19 04/11/19 History paliperidone ER 6 mg 6 mg PO DAILY 04/09/19 04/10/19 History tablet,extended release 24 hr Amlodipine Besylate 2.5 mg PO HS 04/10/19 04/10/19 History Ranolazine [Ranolazine ER] 500 mg PO BID 04/10/19 04/10/19 History guaiFENesin [Robafen] 10 ml PO Q4HP PRN 04/10/19 04/10/19 History Prescriptions/Medication Reconciliation: New Metoprolol Tartrate [Lopressor 25mg tablet] 12.5 mg PO BID tablet Continued diazepam 5 mg tablet 5 mg PO BID tab haloperidol 5 mg tablet 5 mg PO TID sertraline 25 mg tablet 25 mg PO DAILY benztropine 0.5 mg tablet 0.5 mg PO BID atorvastatin 40 mg tablet 40 mg PO HS loperamide 2 mg capsule 2 mg PO Q3HP PRN PRN Reason: Diarrhea ipratropium 20 mcg-albuterol 100 mcg/actuation mist for inhalation 1 puff INHALATION QID mometasone-formoterol HFA 100 mcg-5 mcg/actuation aerosol inhaler 2 puff INHALATION BID benzonatate 100 mg capsule 100 mg PO TID metoprolol tartrate 25 mg tablet 12.5 mg PO BID tab diphenhydramine 25 mg tablet 25 mg PO Q8HP PRN PRN Reason: Allergic Reaction ondansetron HCl 4 mg tablet 4 mg PO Q6HP PRN PRN Reason: Nausea raNITIdine HCl [Ranitidine HCl] 150 mg PO BID Divalproex Sodium [Depakote] 500 mg PO BID Acetaminophen [Tylenol 325mg Tablet] 325 mg PO Q6HP PRN PRN Reason: As Needed For Fever Or Pain Ranolazine [Ranolazine ER] 500 mg PO BID Aspirin [Aspir 81] 81 mg PO DAILY guaiFENesin [Robafen] 10 ml PO Q4HP PRN PRN Reason: Cough Discontinued paliperidone ER 6 mg tablet,extended release 24 hr 6 mg PO DAILY Amlodipine Besylate 2.5 mg PO HS Ibuprofen [Motrin 800mg Tab] 800 mg PO Q8HP PRN 5 Days #15 tab PRN Reason: Moderate Pain - Problem Reconciliation Problems Reviewed?: Yes
--- OUTSIDE RECORDS SUMMARY | 2019-04-12 15:25 | External Medical Summary | Continuity of Care Document ---
:1960 Author Organization [facility] Address [address] [facility] [address] ARMANI Rodriguez Phone Care Team Providers Name Role Phone John Baker Primary Care Provider John Baker Attending Provider Eneida Medina Attending Provider Provider Primary Care Provider Unavailable Sanjiv Attending Provider Kirsten Primary Care Provider Kirsten Attending Provider Lindsey Attending Provider Allergies, Adverse Reactions, Alerts No known allergies. Medications Medication Status Dose Units Route Sig Qty Days Start End Instruct ions Date Date Atorvastatin Active 40 MG Oral At October bedtime , nightly 2018 10:18am Loperamide Hcl Active 2 MG Oral Every 3 January, as 2019 needed 11:34am Metoprolol Active 12.5 MG Oral Twice a January Tartrate 2018 11:37am Ipratropium/Alb Active 1 PUFF Inhalatio March uterol Sulfate n times a 2018 day 9:34am Mometasone/Form Active 2 PUFF Inhalatio Twice a March oterol n 2018 9:35am Haloperidol Active 5 MG Oral Three July 10:33am Sertraline Hcl Active 25 MG Oral Daily August 10, 2018 10:33am Benzonatate Active 100 MG Oral Three July times 2018 10:33am Benztropine Active 0.5 MG Oral Twice a July Mesylate 2018 10:34am Diphenhydramine Active 25 MG Oral Every 8 February hours , 2018 needed 9:26am Ondansetron Hcl Active 4 MG Oral Every 6 March, 2018 needed 10:05am Acetaminophen Active 325 MG Oral Every 6 August, 2018 needed 6:40am Aspirin Active 81 MG Oral Daily May 22, 2017 4:25am Divalproex Active 500 MG Oral Twice a May Sodium 2017 4:25am Ranitidine Hcl Active 150 MG Oral Twice a May 4:25am Diazepam Active 5 MG Oral Twice a July 10:30am Ranolazine Active 500 MG Oral Twice a March 3:09pm Guaifenesin Active 10 ML Oral Every 4 March, 2018 needed 6:20pm Metoprolol Active 12.5 MG Oral Twice a March Tartrate 2018 12:31pm Problems Active Problems Medical Problem Onset Date Status Tobacco dependence syndrome Active Dizziness Active Diabetes Active Diabetes Active CAD (coronary artery disease) Active Coronary artery disease Active Cellulitis Active Dyspnea Active Headache Active Atypical chest pain Active ST elevation GA (STEMI) Active Abnormal stress test Active Schizophrenia Active S/P CABG (coronary artery bypass Active graft) Hypokinesia Active Typical angina Active Bilateral leg pain Active Overweight (BMI 25.0-29.9) Active Venous stasis Active Schizo-affective schizophrenia Active Chest pain Active HTN (hypertension) Active Mental status change resolved Active Pneumonia Active Procedures Procedure Date Performed Status XR chest 2V April 10, 2019 completed ECG initial Abelardo April 10, 2019 completed Cardiac Cath April 10, 2019 4:00pm completed XR chest portable April 06, 2019 completed ECG initial Besson April 06, 2019 completed NM romeo perf SPECT rest & str March 19, 2019 completed XR chest portable March 14, 2019 completed ECG initial Abelardo March 14, 2019 completed XR chest portable March 06, 2019 completed ECG initial Besson March 06, 2019 completed Relevant Diagnostic Tests and/or Laboratory Data Laboratory Results Test Date/Time Result Interpretation Reference Result Perfo rming Range Comment Site White Blood Count February 6.3 4.8-10.8 [facility], [address] [place] [address], 2019 K/mm3 Jennifer LOMELI [address] 4:00pm White Blood Count February 6.8 4.8-10.8 [facility], [address] [place] [address] E 2018 K/mm3 Jennifer LOM[place] [address]852 10:30am White Blood Count March 6.5 4.8-10.8 [facility], [address] [place] [address] 2018 K/mm3 Jennifer LOMELI 23404 3:13pm White Blood Count March 7.5 4.8-10.8 [facility], [address] [place] [address] 36 E 2018 K/mm3 Jennifer LOMELI [address]61 6:33am Red Blood Count February 4.47 4.60-6.20 [facility], [address] [place] [address] 2018 M/mm3 Jennifer LOMELI 10967 4:00pm Red Blood Count February 4.83 4.60-6.20 [facility], [address] [place] [address] 2018 M/mm3 Jennifer LOMELI 23953 10:30am Red Blood Count March 4.41 4.60-6.20 [facility], [address] [place] [address] 2018 M/mm3 Jennifer LOMELI 95368 3:13pm Red Blood Count March 4.76 4.60-6.20 [facility], [address] [place] [address] 2018 M/mm3 Jennifer LOMELI 96264 6:33am Hemoglobin February 14.7 14.1-18.0 [facility], [address] [place] [address] 2018 g/dL Jennifer LOMELI 43174 4:00pm Hemoglobin February 16.0 14.1-18.0 [facility], [address] [place] [address] 2018 g/[place] [address] 10:30am Hemoglobin March 14.9 14.1-18.0 [facility], [address] [place] [address] 2018 g/dL Jennifer LOMELI 99389 3:13pm Hemoglobin March 15.7 14.1-18.0 [facility], [address] [place] [address] 2018 g/[place] [address] 6:33am Hematocrit February 44.8 % 42.0-52.0 [facility], [address] [place] [address] 36 E 2018 [place] [address] 4:00pm Hematocrit October 48.1 % 42.0-52.0 [facility], [address] [place] [address] 36 E 2018 [place] [address] 10:30am Hematocrit November 44.9 % 42.0-52.0 [facility], [address] [place] [address] 36 E 2018 [place] [address] 3:13pm Hematocrit November 47.7 % 42.0-52.0 [facility], [address] [place] [address] 36 E 2018 [place] [address] 6:33am Mean Corpuscular October 100.2 80-94 [facility], [address] [place] [address] E Volume 2018 [place] [address] 4:00pm Mean Corpuscular October 99.6 fl 80-94 [facility], [address] [place] [address] E Volume 2018 [place] [address] 10:30am Mean Corpuscular November 101.8 80-94 [facility], [address] [place] [address] E Volume 2018 [place] [address] 3:13pm Mean Corpuscular November 100.3 80-94 [facility], [address] [place] [address] E Volume 2018 [place] [address] 6:33am Mean Corpuscular February 32.8 pg 27.0-31.2 [facility], [address] [place] [address] E Hemoglobin 2018 [place] [address] 4:00pm Mean Corpuscular February 33.1 pg 27.0-31.2 [facility], [address] [place] [address] 36 E Hemoglobin 2018 [place] [address] 10:30am Mean Corpuscular March 33.8 pg 27.0-31.2 [facility], [address] [place] [address] 36 E Hemoglobin 2018 [place] [address] 3:13pm Mean Corpuscular November 33.0 pg 27.0-31.2 [facility], [address] [place] [address] 36 E Hemoglobin 2018 [place] [address] 6:33am Mean Corpuscular October 32.7 31.8-35.4 [facility], [address] [place] [address] E Hemoglobin Concent 2018 g/[place] [address] 4:00pm Mean Corpuscular October 33.3 31.8-35.4 [facility], [address] [place] [address] 36 E Hemoglobin Concent 2018 g/[place] [address] 10:30am Mean Corpuscular November 33.2 31.8-35.4 [facility], [address] [place] [address] E Hemoglobin Concent 2018 g/[place] [address] 3:13pm Mean Corpuscular November 32.9 31.8-35.4 [facility], [address] [place] [address] E Hemoglobin Concent 2018 g/[place] [address] 6:33am Red Cell February 12.8 % 11.5-17.5 [facility], [address] [place] [address] E Distribution Width 2018 [place] [address] 4:00pm Red Cell February 13.0 % 11.5-17.5 [facility], [address] [place] [address] E Distribution Width 2018 [place] [address] 10:30am Red Cell March 12.9 % 11.5-17.5 [facility], [address] [place] [address] E Distribution Width 2018 [place] [address] 3:13pm Red Cell March 12.5 % 11.5-17.5 [facility], [address] [place] [address] E Distribution Width 2018 [place] [address] 6:33am Platelet Count February 156 142-424 [facility], [address] [place] [address] E 2018 K/[place] [address] 4:00pm Platelet Count February 193 142-424 [facility], [address] [place] [address] E 2018 K/[place] [address] 10:30am Platelet Count March 172 142-424 [facility], [address] [place] [address] 36 E 2018 K/[place] [address] 3:13pm Platelet Count March 170 142-424 Delta: 128 on [facility], [address] [place] [address] 36 E 2018 K/mm3 04/10/19-1530 Cyn silvestre LOMELI [address] 6:33am Mean Platelet February 7.9 fl 7.4-10.4 [facility], [address] [place] [address] E Volume 2018 [place] [address] 4:00pm Mean Platelet February 7.9 fl 7.4-10.4 [facility], [address] [place] [address] E Volume 2018 [place] [address] 10:30am Mean Platelet March 7.8 fl 7.4-10.4 [facility], [address] [place] [address] E Volume 2018 [place] [address] 3:13pm Mean Platelet March 9.0 fl 7.4-10.4 [facility], [address] [place] [address] E Volume 2018 Jennifer LOMELI 92804 6:33am Neutrophils (%) February 53.7 % 37.0-80.0 [facility], [address] [place] [address] E (Auto) 2018 Jennifer LOMELI 26836 4:00pm Neutrophils (%) February 59.7 % 37.0-80.0 [facility], [address] [place] [address] E (Auto) 2018 Jennifer LOMELI [address] 10:30am Neutrophils (%) March 52.8 % 37.0-80.0 [facility], [address] [place] [address] E (Auto) 2018 Jennifer LOMELI [address] 3:13pm Neutrophils (%) March 56.6 % 37.0-80.0 [facility], [address] [place] [address] E (Auto) 2018 [place] [address] 6:33am Lymphocytes (%) February 32.5 % 10-50 [facility], [address] [place] [address] E (Auto) 2018 [place] [address] 4:00pm Lymphocytes (%) February 25.9 % 10-50 [facility], [address] [place] [address] E (Auto) 2018 [place] [address] 10:30am Lymphocytes (%) March 36.2 % 10-50 [facility], [address] [place] [address] E (Auto) 2018 [place] [address] 3:13pm Lymphocytes (%) March 30.2 % 10-50 [facility], [address] [place] [address] E (Auto) 2018 [place] [address] 6:33am Monocytes (%) February 9.3 % 1.7-9.3 [place] [facility], [address] [place] [address] E (Auto) 2018 [place] [address] 4:00pm Monocytes (%) February 10.0 % 1.7-9.3 [place] [facility], [address] [place] [address] E (Auto) 2018 [place] [address] 10:30am Monocytes (%) March 7.9 % 1.7-9.3 [place] [facility], [address] [place] [address] E (Auto) 2018 [place] [address] 3:13pm Monocytes (%) March 8.3 % 1.7-9.3 [facility], [address] [place] [address] E (Auto) 2018 [place] [address] 6:33am Eosinophils (%) February 3.6 % 0.1-12.0 [facility], [address] [place] [address] E (Auto) 2018 [place] [address] 4:00pm Eosinophils (%) February 3.8 % 0.1-12.0 [facility], [address] [place] [address] E (Auto) 2018 [place] [address] 10:30am Eosinophils (%) March 2.5 % 0.1-12.0 [facility], [address] [place] [address] E (Auto) 2018 [place] [address] 3:13pm Eosinophils (%) March 4.4 % 0.1-12.0 [facility], [address] [place] [address] E (Auto) 2018 [place] [address] 6:33am Basophils (%) February 1.0 % 0.1-2.0 [facility], [address] [place] [address] E (Auto) 2018 [place] [address] 4:00pm Basophils (%) February 0.6 % 0.1-2.0 [facility], [address] [place] [address] E (Auto) 2018 [place] [address] 10:30am Basophils (%) March 0.7 % 0.1-2.0 [place] [facility], [address] [place] [address] 36 E (Auto) 2018 [place] [address] 3:13pm Basophils (%) March 0.5 % 0.1-2.0 [place] [facility], [address] [place] [address] 36 E (Auto) 2018 [place] [address] 6:33am Neutrophils # February 3.4 1.8-7.8 [place] [facility], [address] [place] [address] E (Auto) 2018 K/[place] [address] 4:00pm Neutrophils # February 4.0 1.8-7.8 [place] [facility], [address] [place] [address] E (Auto) 2018 K/mm3 Jennifer LOMELI [address] 10:30am Neutrophils # March 3.4 1.8-7.8 [place] [facility], [address] [place] [address] E (Auto) 2018 K/mm3 Jennifer LOMELI 75346 3:13pm Neutrophils # March 4.2 1.8-7.8 [place] [facility], [address] [place] [address] E (Auto) 2018 K/mm3 Jennifer LOMELI 64415 6:33am Lymphocytes # February 2.1 0.7-4.5 [place] [facility], [address] [place] [address] E (Auto) 2018 K/[place] [address] 4:00pm Lymphocytes # February 1.8 0.7-4.5 [place] [facility], [address] [place] [address] E (Auto) 2018 K/[place] [address] 10:30am Lymphocytes # March 2.4 0.7-4.5 [place] [facility], [address] [place] [address] 36 E (Auto) 2018 K/[place] [address] 3:13pm Lymphocytes # March 2.3 0.7-4.5 [place] [facility], [address] [place] [address] E (Auto) 2018 K/[place] [address] 6:33am Monocytes # (Auto) February 0.6 0.1-1.0 [facility], [address] [place] [address] 36 E 2018 K/[place] [address] 4:00pm Monocytes # (Auto) October 0.7 0.1-1.0 [facility], [address] [place] [address] 36 E 2018 K/mm3 [place] [address] 10:30am Monocytes # (Auto) November 0.5 0.1-1.0 [facility], [address] [place] [address] 36 E 2018 K/mm3 [place] [address] 3:13pm Monocytes # (Auto) November 0.6 0.1-1.0 [facility], [address] [place] [address] 36 E 2018 K/mm3 [place] [address] 6:33am Eosinophils # February 0.2 0.0-0.4 [facility], [address] [place] [address] E (Auto) 2018 K/mm3 [place] [address] 4:00pm Eosinophils # February 0.3 0.0-0.4 [facility], [address] [place] [address] E (Auto) 2018 K/mm3 [place] [address] 10:30am Eosinophils # March 0.2 0.0-0.4 [facility], [address] [place] [address] E (Auto) 2018 K/mm3 [place] [address] 3:13pm Eosinophils # November 0.3 0.0-0.4 [facility], [address] [place] [address] E (Auto) 2018 K/mm3 [place] [address] 6:33am Basophils # (Auto) February 0.1 0-0.2 [facility], [address] [place] [address] 36 E 2018 K/mm3 Jennifer LOMELI [address] 4:00pm Basophils # (Auto) October 0.0 0-0.2 [facility], [address] [place] [address] 36 E 2018 K/mm3 [place] [facility] 10:30am Basophils # (Auto) November 0.1 0-0.2 [facility], [address] [place] [address] 36 E 2018 K/mm3 [place] [address] 3:13pm Basophils # (Auto) November 0.0 0-0.2 [facility], [address] [place] [address] 36 E 2018 K/mm3 [place] [address] 6:33am Troponin I October < 0.02 0.00-0.06 *ALERT* [facility], [address] [place] [address] 36 E 2018 ng/[place] [address] 4:00pm Biotin can falsely depress Troponin results.Many dietary supplements promoted for hair,skin, and nail benefits contain biotin levels up to 650 times the recommended daily intake of biotin. In additon to dietary supplements, Biotin is occasionally prescribed for medical conditions. Troponin I February < 0.02 0.00-0.06 *ALERT* [facility], [address] [place] [address] 36 E 2018 ng/[place] [address] 12:41pm Biotin can falsely depress Troponin results.Many dietary supplements promoted for hair,skin, and nail benefits contain biotin levels up to 650 times the recommended daily intake of biotin. In additon to dietary supplements, Biotin is occasionally prescribed for medical conditions. Troponin I March 0.02 0.00-0.06 *ALERT* [facility], [address] [place] [address] 2018 ng/[place] [address] 5:20pm Biotin can falsely depress Troponin results.Many dietary supplements promoted for hair,skin, and nail benefits contain biotin levels up to 650 times the recommended daily intake of biotin. In additon to dietary supplements, Biotin is occasionally prescribed for medical conditions. Troponin I March < 0.02 0.00-0.06 *ALERT* [facility], [address] [place] [address] 36 E 2018 ng/[place] [address] 9:15pm Biotin can falsely depress Troponin results.Many dietary supplements promoted for hair,skin, and nail benefits contain biotin levels up to 650 times the recommended daily intake of biotin. In additon to dietary supplements, Biotin is occasionally prescribed for medical conditions. Sodium Level February 143 136-145 [facility], [address] [place] [address] 2018 mmol/[place] [address] 4:00pm Sodium Level February 140 136-145 [facility], [address] [place] [address] 2018 mmol/[place] [address] 10:30am Sodium Level March 140 136-145 [facility], [address] [place] [address] E 2018 mmol/[place] [address] 3:13pm Sodium Level March 141 136-145 [facility], [address] [place] [address] 36 E 2018 mmol/[place] [address] 6:33am Potassium Level February 4.1 3.5-5.1 [facility], [address] [place] [address] 36 E 2018 mmoL/[place] [address] 4:00pm Potassium Level February 4.4 3.5-5.1 [facility], [address] [place] [address] 36 E 2018 mmoL/[place] [address] 10:30am Potassium Level March 4.3 3.5-5.1 [facility], [address] [place] [address] 36 E 2018 mmoL/[place] [address] 3:13pm Potassium Level March 4.7 3.5-5.1 [facility], [address] [place] [address] 36 E 2018 mmoL/[place] [address] 6:33am Chloride Level February 110 98-107 [facility], [address] [place] [address] 36 E 2018 mmol/[place] [address] 4:00pm Chloride Level February 108 98-107 [facility], [address] [place] [address] 36 E 2018 mmol/[place] [address] 10:30am Chloride Level March 108 98-107 [facility], [address] [place] [address] 36 E 2018 mmol/[place] [address] 3:13pm Chloride Level March 106 98-107 [facility], [address] [place] [address] 36 E 2018 mmol/[place] [address] 6:33am Carbon Dioxide March 12 21.0-32.0 [facility], [address] [place] [address] E Level 2018 mmol/[place] [address] 4:00pm Carbon Dioxide March 13 21.0-32.0 [facility], [address] [place] [address] E Level 2018 mmol/[place] [address] 10:30am Carbon Dioxide April 14 21.0-32.0 [facility], [address] [place] [address] E Level 2018 mmol/[place] [address] 3:13pm Carbon Dioxide April 11 21.0-32.0 [facility], [address] [place] [address] 36 E Level , 2018 mmol/[place] [address] 6:33am Anion Gap February 12.1 09-30 [facility], [address] [place] [address] 36 E , 2018 mEq/[place] [address] 4:00pm Anion Gap February 10.4 09-30 [facility], [address] [place] [address] 36 E , 2018 mEq/[place] [address] 10:30am Anion Gap March 9.3 09-30 [facility], [address] [place] [address] 36 E , 2018 mEq/[place] [address] 3:13pm Anion Gap March 15.7 09-30 [facility], [address] [place] [address] 36 E , 2018 mEq/[place] [address] 6:33am Blood Urea February 16 12-03 [facility], [address] [place] [address] 36 E Nitrogen , 2018 mg/[place] [address] 4:00pm Blood Urea February 2612-03 [facility], [address] [place] [address] 36 E Nitrogen , 2018 mg/[place] [address] 10:30am Blood Urea March 3112-03 [facility], [address] [place] [address] 36 E Nitrogen 2018 mg/[place] [address] 3:13pm Blood Urea March 2912-03 [facility], [address] [place] [address] 36 E Nitrogen , 2018 mg/[place] [address] 6:33am Creatinine February 1.12 0.70-1.30 [facility], [address] [place] [address] 36 E 2018 mg/[place] [address] 4:00pm Creatinine February 0.93 0.70-1.30 [facility], [address] [place] [address] 36 E 2018 mg/[place] [address] 10:30am Creatinine March 0.88 0.70-1.30 [facility], [address] [place] [address] 36 E 2018 mg/[place] [address] 3:13pm Creatinine March 0.89 0.70-1.30 [facility], [address] [place] [address] 36 E 2018 mg/[place] [address] 6:33am Estimated February 0-300 [facility], [address] [facility] 36 E Creatinine 2018 mL/[place] [address] Clearance 4:00pm Estimated February 103 0-300 [facility], [address] [facility] 36 E Creatinine 2018 mL/[place] [address] Clearance 10:30am Estimated March 123 0-300 [facility], [address] [facility] 36 E Creatinine 2018 mL/[place] [address] Clearance 3:13pm Estimated March 114 0-300 [facility], [address] [facility] 36 E Creatinine 2018 mL/[place] [address] Clearance 6:33am Estimated GFR February 81 >59 [facility], [address] [place] [address] E () 2018 ML/[place] [address] 4:00pm Estimated GFR February 101 >59 [facility], [address] [place] [address] E () 2018 ML/[place] [address] 10:30am Estimated GFR March 108 >59 [facility], [address] [place] [address] E () 2018 ML/[place] [address] 3:13pm Estimated GFR March 106 >59 [facility], [address] [place] [address] E () 2018 ML/[place] [address] 6:33am Estimat Glomerular February 67 >59 [facility], [address] [place] [address] E Filtration Rate 2018 ml/[place] [address] 4:00pm Estimat Glomerular February 83 >59 [facility], [address] [place] [address] 36 E Filtration Rate 2018 ml/[place] [address] 10:30am Estimat Glomerular March >59 [facility], [address] [place] [address] E Filtration Rate 2018 ml/[place] [address] 3:13pm Estimat Glomerular March >59 [facility], [address] [place] [address] E Filtration Rate 2018 ml/[place] [address] 6:33am Glucose Level February 74-106 [facility], [address] [place] [address] 36 E 2018 mg/[place] [address] 4:00pm Glucose Level February 87 74-106 [facility], [address] [place] [address] 36 E 2018 mg/[place] [address] 10:30am Glucose Level March 124 74-106 [facility], [address] [place] [address] 36 E 2018 mg/[place] [address] 3:13pm Glucose Level March 74-106 [facility], [address] [place] [address] 36 E 2018 mg/[place] [address] 6:33am Calcium Level February 8.1 8.5-10.1 [facility], [address] [place] [address] 36 E 2018 mg/[place] [address] 4:00pm Calcium Level February 8.5 8.5-10.1 [facility], [address] [place] [address] 36 E 2018 mg/[place] [address] 10:30am Calcium Level March 8.6 8.5-10.1 [facility], [address] [place] [address] 36 E 2018 mg/[place] [address] 3:13pm Calcium Level March 8.2 8.5-10.1 [facility], [address] [place] [address] 36 E 2018 mg/[place] [address] 6:33am Total Bilirubin March 0.4 0.2-1.0 [facility], [address] [place] [address] 36 E 2018 mg/[place] [address] 3:13pm Aspartate Amino November 15 U/L 15-37 [facility], [address] [place] [address] 36 E Transf (AST/SGOT) 2018 [place] [address] 3:13pm Alanine March 20 U/L 12-78 [facility], [address] [place] [address] 36 E Aminotransferase 2018 [place] [address] (ALT/SGPT) 3:13pm Total Protein March 6.2 6.4-8.2 [facility], [address] [place] [address] 36 E 2018 gm/[place] [address] 3:13pm Albumin March 3.2 3.4-5.0 [facility], [address] [place] [address] 36 E 2018 gm/dL [place] [address] 3:13pm Globulin March 3.0 1.3-3.2 [facility], [address] [place] [address] E 2018 gm/dl [place] [address] 3:13pm Albumin/Globulin March 1.1 1.1-1.8 [facility], [address] Ratio 2018 [place] [address] 3:13pm Alkaline March 47 U/L 46-116 [facility], [facility] E Phosphatase 2018 Doris ovidio LOMELI [address] 3:13pm Lipase February 91 u/L 73-393 [facility], [address] [place], [place] [address]way 36 E 2018 [place] [address] 4:00pm Diagnostic Imaging Reports Report Dictated Date/Time Dictated By Status Radiology Report March 06, 2019 Hollis Mccray completed 4:10pm [address] [place] [address] XRay R eport Sig trinity Patient: Yaniv Muro MR#: [id number] : 1960 Acct:[id number] Age/Sex: 58 / M ADM Date: 9 Loc: ER Attending Dr: Ordering Physician: Arthur Vasquez MD Date of Service: 03/06/19 Procedure(s): XR chest portable Accession Number(s): [id number] cc: Hollis Mccray ; Provider,Cassie varghese MD~ PROCEDURE: XR CHEST PORTABLE CLINICAL HISTORY: CP COMPARISON: CXR1VP XR chest portable f rom 07/08/[address] chest w con from 09/12/2018 FINDINGS: The cardiomediastinal silhouette and pu lmonary vascularity are within normal limits. Sternal wire sutures an d surgical clips are seen from a previous CABG. The lungs are clear without infiltrates , suspicious nodules, or pleural effusions. No acute bony abnormalities. IMPRESSION: No acute findings. Dictated by: Dr. Ghassan Mccray MD 2018 17:[address] Austyn Mccray MD in [place] 03/06/2019 17:06 Radiology Report March 14, 2019 Albino Lopez MD completed 11:01am [facility] [address] [place] [facility] [address] [place] [address] XRay R eport Sig trinity Patient: Yaniv Muro MR#: [id number] : 1960 Acct:[id number] Age/Sex: 58 / M ADM Date: 9 Loc: ER Attending Dr: Ordering Physician: Brittany Morris MD Date of Service: 03/14/19 Procedure(s): XR chest portable Accession Number(s): [id number] cc: Albino Lopez MD; Arthur Baker MD~ PROCEDURE: XR CHEST PORTABLE CLINICAL HISTORY: chest pain Mid-sternal chest pain, smoker COMPARISON: CXR1VP XR chest portable f rom 07/08/[address] chest w con from 09/12/2018 XR CHEST PORTABLE from 03/06/2019 FINDINGS: Prior CABG. Left hemidiaphragm is elev ated. No lobar consolidation or collapse. There is some vascular cr owding in the lung bases. There is some patchy density in the rig ht lung base which could be due to an area of atelectasis or infilt rate. IMPRESSION: Right basilar atelectasis or infiltrate Dictated by: Albino Lopez MD 03/14/2019 14:19 Electronically signed by Albino Lopez in [place] 03/14/2019 14:19 Radiology Report March 19, 2019 Albino Lopez MD completed 2:37pm [place] [id number] [place] [facility] [address] [place] [address] Nuclear Medi cine Report Sig trinity Patient: Yaniv Muro MR#: [id number] : 1960 Acct:[id number] Age/Sex: 58 / M ADM Date: 9 Loc: RAD Attending Dr: Ruthann REGAN Ordering Physician: Raúl Medina Date of Service: 03/19/19 Procedure(s): NM romeo perf SPECT rest & s tr Accession Number(s): [id number] cc: Albino Lopez MD; Arthur Baker MD~ APPROVED REPORT -------- ------ Exam: Nuclear Stress Test Indication: CAD, H/O DEE, CABG, HTN, HY PERLIPIDEMIA, TOB USE, C.P., SOB, SYNCOPE, FATIQUE Patient Location: Outpatient Stress Tech: Yelena Kyler CT Tech:Chayo Stokes ENRIQUECecil RT (R)(N)(M) Ht: 5 ft 9 in Wt: 190 lbs HR: 65 bpm BP: 111/66 mmHg BSA: 2.02 m2 BMI: 28.0 History: CAD, H/O DEE, CABG, HTN, HYPERLIPIDEMIA , TOB USE, C.P., SOB, SYNCOPE, FATIQUE Procedure: Patient received a 0.4 mg of intravenou s Lexiscan, resting heart rate 65 bpm, resting blood pressure 111/66 m mHg, with Lexiscan maximum heart rate achived was 70 bpm which is % of the maximum predicted heart rate and blood pressure was 121/5 5 mmHg. With Lexiscan, patient denied any compl aint of chest pain. Cardiac Stress and Resting SPECT Images : Cardiac Stress and Resting SPECT images were obtained using technetium 99m Myoview 30.6 mCi stress and 10.02 mCi at rest. EF very low at 24% with global hypokine tao Fixed defect at the apex consistent wi th an area of infarction Reversible defect at the lateral wall n ear rthe apex consistent with a small area of ischemia Conclusion: EF very low at 24% with global hypokine tao Fixed defect at the apex consistent wi th an area of infarction Reversible defect at the lateral wall n ear rthe apex consistent with a small area of ischemia Electronically signed by : Albino Lopez MD 03/19/2019 18:19:15 Radiology Report April 06, 2019 Albino Lopez MD completed 3:17pm [facility] [address] [place] [facility] [address], [place] [address] XRay R eport Sig trinity Patient: Yaniv Muro MR#: [id number] : 1960 Acct:[id number] Age/Sex: 58 / M ADM Date: 9 Loc: ER Attending Dr: Ordering Physician: Arthur Vasquez MD Date of Service: 04/06/19 Procedure(s): XR chest portable Accession Number(s): [id number] cc: Albino Lopez MD; Arthur Baker MD~ PROCEDURE: XR CHEST PORTABLE CLINICAL HISTORY: chest pain Chest pain, current smoker COMPARISON: CXR1VP XR chest portable f rom 07/08/[address] chest w con from 09/12/2018 XR CHEST PORTABLE from 03/06/2019 XR CHEST PORTABLE from 03/14/2019 the FINDINGS: There has been a prior CABG with normal heart size. There is increased density in the lung bases on both sides suspicious for bibasilar atelectasis and/or infilt rate. Surgical clips are present in the left upper lobe. No acute bony abnormalities. IMPRESSION: Bibasilar atelectasis and/or infiltrate Dictated by: Albino Lopez MD 04/06/2019 15:40 Electronically signed by Albino Lopez in [place] 04/06/2019 15:40 Interventional Radiology April 10, 2019 Rajesh Curtis , completed Report 4:00pm [place] [address] [facility] [address] [address] Interventional Radiology Rpt Sig trinity Patient: Yaniv Muro MR#: [id number] : 1960 Acct:[id number] Age/Sex: 58 / M ADM Date: 9 Loc: ER Attending Dr: Ordering Physician: Rajesh Curtis MD Date of Service: 04/10/19 Procedure(s): CL c w ventricle and gra fts Accession Number(s): [id number] cc: Provider,Referral ; Bridgette Curtis MD~ APPROVED REPORT -------- ------ PROCEDURES Left heart catheterization Left ventric ulogram Selective coronary angiogram Left internal mammary angiogr aphy Selective engagement of the saphenous vein graft to the LAD Tanisha ective engagement of the saphenous vein graft to the right coron sandra artery Selective engagement of the saphenous vein graft to the circumflex artery INDICATION Suspected acute ST elevation myocardial infarction, Coronary artery disease, History of coronary bypass alla owen Informed consent was obtained prior to the procedure. COMPLICATIONS None Estimated Blood Loss: less than 10ml TECHNIQUE One percent lidocaine used to anestheti ze the right groin. The right femoral artery was accessed via the Tanisha mckay technique and a 6 Georgian sheath was placed in the right f emoral artery. A JL 4, JR4 catheter were used to perform left hear t catheterization, left ventriculogram selective coronary angio graphy as well as selective engagement of the 3 vein grafts and the left internal mammary artery. At the end of the procedure the groin w as reprepped gloves were changed the sheath was removed good hem ostasis was achieved using Perclose device patient was transferred to the postop holding her in stable condition ANGIOGRAPHIC RESULTS The left main artery Is a small caliber vessel with no angiographic stenosis The left anterior descending artery Is proximally subtotally occluded. There is evidence of competi tive flow from a vein graft The circumflex artery Is a nondominant vessel and has proximal and mid vessel 7050 and 70% stenoses. The first obtuse marginal artery has a vein graft which is patent and pr ovides antegrade flow down the vein graft The right coronary artery Is a dominant vessel and occluded proximal The BURGESS ventriculogram reveals Normal e jection fraction 65% The left ventricular end-diastolic pres sure Elevated at 20 mmHg Left internal mammary artery is proxima lly occluded The saphenous vein graft supplying the LAD is widely patent with mild 20 and 30% diffuse stenoses. The anast omosis appears to be at the junction of the proximal LAD and the fi rst diagonal artery. Both diagonal artery and LAD receives excell ent SHARRON-3 flow. The caliber of the vein graft is large while the ca liber of the LAD and diagonal arteries are both approximately 2 mm in diameter The saphenous vein graft supplying the first obtuse marginal artery has an ostial proximal 30% toi-monc-kdj iting stenosis. There is excellent retrograde filling from the f irst obtuse marginal artery back into the second obtuse marginal ar ravinder The saphenous vein graft supplying the right coronary artery has a mid vessel eccentric 30% stenosis. The vein graft makes its anastomosis onto the distal right coron sandra artery and then provides antegrade flow to the posterior lateral branch and posterior descending artery. The posterior desce nding artery has a long mid vessel diffuse 50% stenosis at an area less than 2 mm in diameter IMPRESSION Adequate coronary artery revascularizat ion as described above Normal ejection fraction Mildly elevated LVEDP PLAN 1. Medical management. Patient does boswell ve an abnormal EKG with ST elevation in lead V2. This appears to be a false positive and patient is not experiencing an acute ST elevation myocardial infarction 2. Ongoing medical management 3. Evaluation of noncardiac chest pain 4. Risk factor modification Electronically signed by : Rajesh Callahan esteban, 04/10/2019 16:35:52 Radiology Report April 10, 2019 Albino Lopez MD completed 3:33pm [place] [address] [facility] [address] [place] [address] XRay R eport Sig trinity Patient: Yaniv Muro MR#: [id number] : 1960 Acct:[id number] Age/Sex: 58 / M ADM Date: 9 Loc: 2ND 215-[address]: Arthur Baker MD Ordering Physician: Henri Jeter MD Date of Service: 04/10/19 Procedure(s): XR chest 2V Accession Number(s): [id number] cc: Albino Lopez MD; Provider,Referral MD~ PROCEDURE: XR CHEST 2V CLINICAL HISTORY: chest pain COMPARISON: CHESTW CT chest w con from 09/12/2018 XR CHEST PORTABLE from 03/06/2019 XR CHEST PORTABLE from 03/14/2019 XR CHEST PORTABLE from 04/06/2019 FINDINGS: Prior CABG. Normal heart size. Parenchymal opacity is present in both lower lobes and may be due to bibasilar atelectasis and/or infiltrate . This is slightly worse. Upper lobes are clear. No acute bony f indings. No acute bony abnormalities. IMPRESSION: Slight worsening bibasilar atelectasis and/or infiltrate Dictated by: Albino Lopez MD 04/11/2019 20:15 Electronically signed by Albino Lopez in [place] 04/11/2019 20:15 Health Concerns Concerns CHEST PAIN Chief Complaint and Reason for Visit Chief Complaint Monthly Check-up 3 mo fu chest pain er walk in chest pain CAD gxt test f/u Chest pain 2 weeks Acute Coronary Syndrome cath Reason for Visit HTN (hypertension) Hypokinesia Overweight (BMI 25.0-29.9) ST elevation [place] (STEMI) Encounters Encounter Location(s) Arrival/Admit Date Discharge/Depart Date Provider(s) Registered [facility] Physician January 15, 2019 Arthur Lopez Inpatient Group-Ambulatory 11:59pm MD Luis Baker Departed [facility] Physician February 10, February 10, 2019 Nithin Medina , Physician/[facility]-Cardiology 2018 11:21am 12:01pm [facility] Office -Cardinal Visit Departed [facility] Physician March 06, 2019 March 06, 2019 nu ll Emergency Group-Emergency 3:44pm 5:40pm Room Departed [facility] Physician March 08, 2019 March 08, 2019 Heidi Medina Physician/[facility]-Cardiology 9:14am 10:09am [facility] Office -Cardinal Visit Departed [facility] Physician March 14, 2019 March 14, 2019 nu ll Emergency Group-Emergency 10:33am 2:24pm Room Registered [facility] Physician March 19, 2019 Ruthann [facility]-Radiology 11:18am Juan Jose mc APRN Registered [facility] Physician March 19, 2019 Rajesh Inpatient Group-Cardiology 11:59pm MD Harriet Curtis Departed [facility] Physician March 26, 2019 March 26, 2019 Zaid Portillo Physician/[facility]-Cardiology 8:54am 9:44am MD short Office -Cardinal Visit Departed [facility] Physician April 06, April 06, 2019 aleksey Emergency Group-Emergency 2018 3:15pm 7:08pm Room Departed [facility] Physician April 09, April 09, 2019 Alex martinez Physician/[facility]-Cardiology 2018 9:50am 10:40am MD han Office -Cardinal Visit Discharged [facility] Physician April 10, April 12, 2019 Fidel Lopez Inpatient Group-Second 2019 4:47pm 2:03pm MD Olivia Floor Registered [facility] Physician April 10, Rajesh Inpatient Group-Cardiology 2018 11:59pm MD Kirsten -Jennifer Registered [facility] Physician April 12, Arthur Lopez Inpatient Group- 2018 3:18pm MD Olivia Recent Diagnosis Onset Date HTN (hypertension) Hypokinesia Overweight (BMI 25.0-29.9) ST elevation [place] (STEMI) Assessments See care plan goals Functional Status Observation Response Date Recorded Oral Care Ability Independent April 10, 2019 5:11pm Bathing Ability Assistance x1 April 12, 2019 5:15am Eating (Feeding) Ability Independent April 10, 2019 5:11pm Toileting Ability Independent April 10, 2019 5:11pm Ambulation Ability Independent April 12, 2019 1:14pm Functional status ambulatory April 09, 2019 1:41pm Functional status ambulatory March 08, 2019 1 1:21am Functional status ambulatory March 26, 2019 9 :52am Functional status ambulatory February 10, 2019 12:43pm Goals Acute Goals Nursing Diagnosis: Knowledge Deficit D isease/Condition Goal(s): Education of di sease process Instruction(s): Follow provider p wil/instructions (See attached discharge education) Follow/up with primary care provider as instructed in discharge packet Ambulatory Goals Patient verbalizes understanding of dise ase process/healthy behaviors. Patient to follow plan of care. Education provid ed. Immunizations Immunization Event Date Not Given Dose Paid Search Marketing Strategist Lot Vac cine Reason Number Number Informatio n Statement (VIS) Deta il Fluzone February High-Dose 65YR+ 2017 Mental Status Observation Response Date Recorded Comprehension Ability No Impairment April 12 9 1:00pm Able to Read Yes April 10, 2019 5:11pm Able to Write Yes April 10, 2019 5:11pm Ability to Follow Directions Good April 102018 5:11pm Oral Expression Ability Mild Impairment April 10 019 5:11pm Medical Equipment No Medical Equipment Information available Insurance Providers Guarantor Yaniv Muro Address [address] [place] Contact Info. Home Phone: Payer Policy Id Coverage Id Subscriber's Subscriber Effective Expi ration Name Id Date Date [place] Claims Medicaid [id number] Yaniv Muro [id number] Passport [id number] Yaniv Muro [id number] Health Plan Self Pay Self N/A Plan of Treatment Follow up as ordered by PCP Future Tests Future scheduled test information is unavailable Pending Tests Pending diagnostic test information is unavailable Future Visits Future appointment information is unavailable Referrals to Other Providers Reason for Referral Start Provider Provider Contact Provider Address Referral Date Information Admission to [facility] April 122018 [facility] Rajesh Curtis Work Phone: [phone] [place] Referral Provider Future Procedures Future procedure information is unavailable Future Medications Future medication information is unavailable Patient Instructions Coronary Artery Disease DI for Atypical Chest Pain Coronary Artery Disease DI for Chest Pain How to Quit Tobacco Products DI for Atypical Chest Pain Coronary Artery Disease DI for Shortness of Breath DI for Chest Pain DI for Atypical Chest Pain Type 2 Diabetes Coronary Artery Disease DI for Shortness of Breath DI for Chest Pain How to Quit Tobacco Products Cardiac Catheterization Heart-Healthy Diet DI for Cardiac Catheterization DI for Surgical Site Infection How to Quit Smoking Social History Assigned Sex Male Vital Signs Vital Reading Result Reference Range Collection Date/ Time Height 175.26 cm February 10, 2019 11:28am Weight 87.08 kg February 10, 2019 11:28am Heart Rate 69 /min 60-90 February 10, 2019 11:28am Oxygen saturation by 98 % 95-100 January 182018 Pulse oximetry 11:28am BP Systolic 121 mm[Hg] 110-140 February 10, 2019 11:28am BP Diastolic 73 mm[Hg] 60-90 February 10, 2019 11:28am BMI (Body Mass Index) 28.3 kg/m2 February 10, 2019 11:28am Height 172.72 cm March 06 3:07pm Weight 81.64 kg March 06 3:07pm Body Temperature 98.1 [degF] 97.6-99.6 March 06, 019 5:32pm Heart Rate 62 /min -March 06 5:32pm Respiratory rate 18 /min -March 06, 019 5:32pm Oxygen saturation by 97 % 95-100 February Pulse oximetry 5:17pm BP Systolic 126 mm[Hg] 110-140 March 06 5:32pm BP Diastolic 72 mm[Hg] 60-90 March 06 5:32pm BMI (Body Mass Index) 27.3 kg/m2 March 062018 3:07pm Height 175.26 cm March 08 9:19am Weight 87.99 kg March 08 9:19am Heart Rate 71 /min 60-90 March 08 9:19am Oxygen saturation by 97 % 95-100 February Pulse oximetry 9:19am BP Systolic 120 mm[Hg] 110-140 March 08 9:19am BP Diastolic 78 mm[Hg] 60-90 March 08 9:19am BMI (Body Mass Index) 28.6 kg/m2 March 082018 9:19am Height 172.72 cm March 14 10:35am Weight 83.91 kg March 14 10:35am Body Temperature 98.2 [degF] 97.6-99.6 March 14, 2 019 2:21pm Heart Rate 78 /min 60-90 March 14 2:21pm Respiratory rate 16 /min -March 14, 2 019 2:21pm Oxygen saturation by 98 % 95-100 February Pulse oximetry 11:28am BP Systolic 132 mm[Hg] 110-140 March 14 2:21pm BP Diastolic 87 mm[Hg] 60-90 March 14 2:21pm BMI (Body Mass Index) 28.1 kg/m2 March 142018 10:35am Height 175.26 cm March 26 9:10am Weight 87.99 kg March 26 9:10am Heart Rate 69 /min 60-90 March 26 9:10am Oxygen saturation by 97 % 95-100 March Pulse oximetry 9:10am BP Systolic 100 mm[Hg] 110-140 March 26 9:10am BP Diastolic 64 mm[Hg] 60-90 March 26 9:10am BMI (Body Mass Index) 28.6 kg/m2 March 262018 9:10am Height 182.88 cm April 06, 2 019 3:07pm Weight 95.25 kg April 06, 2 019 3:07pm Body Temperature 98 [degF] 97.6-99.6 April 06, 2019 7:07pm Heart Rate 74 /min 60-April 06, 2 019 7:07pm Respiratory rate 18 /min -April 06, 2019 7:07pm Oxygen saturation by 94 % 95-100 April 062018 Pulse oximetry 3:41pm BP Systolic 133 mm[Hg] 110-140 April 06, 2 019 7:07pm BP Diastolic 74 mm[Hg] 60-90 April 06, 2 019 7:07pm BMI (Body Mass Index) 28.5 kg/m2 March 192018 3:07pm Height 175.26 cm April 09, 2 019 10:03am Weight 87.99 kg April 09, 2 019 10:03am Heart Rate 66 /min 60-90 April 09, 2 019 10:03am Oxygen saturation by 96 % 95-100 April 092018 Pulse oximetry 10:03am BP Systolic 107 mm[Hg] 110-140 April 09, 2 019 10:03am BP Diastolic 74 mm[Hg] 60-90 April 09, 2 019 10:03am BMI (Body Mass Index) 28.6 kg/m2 March 202018 10:03am Height 173 cm April 12, 2 019 11:14am Weight 85.98 kg April 12, 2 019 11:14am Body Temperature 97.4 [degF] 97.6-99.6 April 12, 2019 8:00am Heart Rate 69 /min -April 12, 019 8:00am Respiratory rate 18 /min -April 12, 2019 8:00am Oxygen saturation by 96 % 95-100 April 122018 Pulse oximetry 8:00am BP Systolic 116 mm[Hg] 110-140 April 12, 019 8:00am BP Diastolic 85 mm[Hg] 60-90 April 12, 2 019 8:00am BMI (Body Mass Index) 28.7 kg/m2 March 202018 11:14am
--- NOTE | 2019-04-12 16:52 | Electrocardiograph Report ---
APPROVED REPORT Exam: Resting ECG HR:67 bpm ECG Measurements Heart Rate 67 AXES MI 148 P 48 QRSd 86 QRS -19 QT 378 T67 QTc 399 <Conclusion> Normal sinus rhythm Low voltage QRS Borderline ECG Electronically signed by : Julián Zhou, 04/12/2019 16:51:54
--- NOTE | 2019-04-12 20:02 | Cardiology Report ---
APPROVED REPORT EXAM: Comprehensive 2D, Doppler, and color-flow Echocardiogram [employer] Yard Worker: Rosaline Montoya RDCS Ht: 5 ft 8 in Wt: 196lbs BSA: 2.03 BP: 114/71 mmHg Indications: Chest Pain, CAD, Hyperlipidemia, Hypertension/HDD,CABG 2D Dimensions LVOT 2.10 cm (M/F) 1.5-2.5 M-Mode Dimensions RVDd 2.70 cm (0.9-2.6)LVDd 5.59 cm (3.5-5.7) LVDs 4.71 cm (3.5-5.7)IVSd 0.99 cm (0.6-1.1) PWd 1.48 cm (0.6-1.1)EF (Teich) 32.70% FS 15.70% EDV (Teich) 153.00 mL ESV (Teich) 102.90 mL LV Diastology E/A Ratio 0.87 Mitral Valve MV A Velocity 61.00 (40-130 cm/s) Left Ventricle Left atrium is mildly enlarged, left ventricle is normal size, mild concentric left ventricular hypertrophy, visually estimated ejection fraction 45%, there is moderate hypokinesis involving the distal septum and apical wall. Grade 1 diastolic dysfunction seen without tissue Doppler evidence of raise left atrial pressure. Right Ventricle Right atrium and right ventricular normal size and contractility. Aortic Valve Aortic valve is thickened and calcified leaflet continue to display good mobility. There is no aortic stenosis aortic insufficiency. Mitral Valve Mitral valve is grossly normal, there is mild mitral regurgitation. Tricuspid Valve Tricuspid valve is grossly normal, there is mild tricuspid regurgitation, tricuspid regurgitation jet velocity is inadequate for calculation of the right ventricular systolic pressure. Pulmonic Valve Pulmonic valve is poorly visualized. Great Vessels Aortic root is normal size. Pericardium No significant pericardial effusion noted. Conclusion 1. Mildly enlarged left atrium, normal left ventricular size, mild concentric left ventricular hypertrophy, visually estimated ejection fraction 45% with segmental wall motion abnormality described above, grade 1 diastolic dysfunction seen without tissue Doppler evidence of raise left atrial pressure. 2. Mild mitral and tricuspid regurgitation. 3. No significant pericardial effusion noted. Electronically signed by : Alex Portillo, 04/12/2019 20:02:14
== END 2019-04-12 14:03 | disposition home or self-care (01) ==
LOC: ER 15:02 → SDC 16:37 → INTOOBSV 16:47 → 2ND 16:47
PROVIDERS: ADMIT Emergency Medicine; ATTEND Emergency Medicine
CPT/HCPCS: 36415; 71020; 71046; 80048; 84484; 85025; 93005; 93306; 93459; 96374; 96375; 99152; 99284; C1725; C1760; C1769; C1894; G0378; J1644; J2405

== ENCOUNTER 2019-09-28 13:08 | Emergency (ER) | payer BC, SELFPAY ==
--- NOTE | 2019-09-28 13:05 | ECG_ITS ---
APPROVED REPORT Exam: Resting ECG HR:66 bpm ECG Measurements Heart Rate 66 AXES ID 154 P 74 QRSd 88 QRS -46 QT 402 T 44 QTc 421 <Conclusion> Normal sinus rhythm Left axis deviation Septal infarct, age undetermined Abnormal ECG Electronically signed by : Tenzin Tovar, 09/30/2019 05:56:48
[2019-09-28 13:09] VITALS: BP 117/69; PULSE 75; RESP 16; TEMP 37.3; O2SAT 94; BMI 27.1
--- NOTE | 2019-09-28 13:19 | XR_ITS ---
PROCEDURE: XR CHEST PORTABLE CLINICAL HISTORY: CP Chest pain and COMPARISON: CHESTW CT chest w con from 09/12/2018 XR CHEST PORTABLE from 04/17/2019 XR CHEST 2V from 05/12/2019 XR CHEST PORTABLE from 07/10/2019 FINDINGS: Prior CABG. Normal heart size. There remains increased density in the left lung base consistent with infiltrate similar to the previous exam. Right basilar airspace disease has shown some improvement with some residual in the right lung base.. Upper lobes are clear. No acute bony abnormalities. IMPRESSION: Persistent bibasilar airspace disease slightly improved on the right and unchanged on the left suggesting bibasilar infiltrates and/or chronic change Dictated by: Albino Lopez MD 09/28/2019 13:58 Electronically signed by Albino Lopez MD in [place] 09/28/2019 13:58
[2019-09-28 13:35] LABS: Chloride 109 mmol/L (98-107); Potassium 4.4 mmoL/L (3.5-5.1); Sodium 138 mmol/L (136-145)
[2019-09-28 13:38] LABS: Blood Urea Nitrogen 9 mg/dl (9-20); Creatinine Clearance Estimated 128 mL/min (50-200); Estimated Glomerular Filt Rate 99 ml/min (>60); GFR (African American) 120 ML/MIN (>60)
[2019-09-28 13:39] LABS: Anion Gap 6.4 mEq/L (5-15); Calcium 8.7 mg/dl (8.4-10.2); Carbon Dioxide 27 mmol/L (22.0-30.0); Glucose 101 mg/dl (74-100)
[2019-09-28 13:52] LABS: Troponin I < 0.01 ng/ml (0.00-0.034)
[2019-09-28 14:01] LABS: Basophils # 0.1 K/mm3 (0-0.2); Basophils % 2.2 % (0.1-2.0); Eosinophils # 0.2 K/mm3 (0.0-0.4); Eosinophils % 3.5 % (0.1-12.0); Hematocrit 48.1 % (42.0-52.0); Hemoglobin 15.9 g/dL (14.1-18.0); Lymphocytes # 1.8 K/mm3 (0.7-4.5); Lymphocytes % 27.6 % (10-50); Mean Corpuscular HGB Conc 32.9 g/dL (31.8-35.4); Mean Corpuscular Hemoglobin 32.3 pg (27.0-31.2); Mean Platelet Volume 8.5 fl (7.4-10.4); Monocytes # 0.7 K/mm3 (0.1-1.0); Monocytes % 10.1 % (1.7-9.3); Neutrophils # 3.7 K/mm3 (1.8-7.8); Neutrophils % 56.7 % (37.0-80.0); Platelet Count 169 K/mm3 (142-424); Red Blood Count 4.91 M/mm3 (4.60-6.20); Red Cell Distribution Width 13.2 % (11.5-17.5); White Blood Count 6.4 K/mm3 (4.8-10.8)
--- NOTE | 2019-09-28 14:37 | HMH.EDGENADL ---
ED Disposition Clinical Impression: Dehydration, Pneumonia Disposition: Home, Self-Care Condition on Discharge: Good Instructions: Pneumonia-Adult Prescriptions: Azithromycin 250 mg PO DAILY 5 Days #6 tab Prescription Printed Referrals: Arthur Baker MD [Primary Care Provider] - - Critical Care Critical Care Time: No Attestation: On 09/28/19, the high probability of a clinically significant, sudden or life threatening deterioration of the following system(s) required my full and direct attention, intervention and personal management. The time I documented below is in addition to time spent performing reported procedures but includes the following listed in this critical care notation. Medical Decision Making - Medical Records Medical records reviewed: Yes: I reviewed the patient's medical records. - Garcia Inquiry Pt receiving controlled substance: No Vital Signs: 09/28/19 13:09 Temperature 99.1 F Temperature Source Oral Pulse Rate [Right Radial] 75 Respiratory Rate 16 Blood Pressure [Right Arm] 117/69 Blood Pressure Mean [Right Arm] 85 Blood Pressure Source [Right Arm] Automatic Cuff Blood Pressure Position [Right Arm] Sitting 02 Sat by Pulse Oximetry 94 L Oxygen Delivery Method Room Air - Lab Data Lab results reviewed: Yes: I reviewed the patient's lab results. Lab Results 09/28/19 13:25: Sodium 138, Potassium 4.4, Chloride 109 H, Carbon Dioxide 27, Anion Gap 6.4, BUN 9, Creatinine 0.80, Estimated Creat Clear 128, Estimated GFR 99, Est GFR ( Amer) 120, Glucose 101 H, Calcium 8.7, Troponin I < 0.01 09/28/19 13:45: WBC 6.4, RBC 4.91, Hgb 15.9, Hct 48.1, MCV 98.0 H, MCH 32.3 H, MCHC 32.9, RDW 13.2, Plt Count 169, MPV 8.5, Neut % (Auto) 56.7, Lymph % (Auto) 27.6, [place] % (Auto) 10.1 H, Eos % (Auto) 3.5, Baso % (Auto) 2.2 H, Neut # (Auto) 3.7, Lymph # (Auto) 1.8, [place] # (Auto) 0.7, Eos # (Auto) 0.2, Baso # (Auto) 0.1 Result diagrams: 09/28/19 13:45 09/28/19 13:25 Orders (Tests/Meds): ORDERS Category Date Time Status Troponin I Q3H Lab 09/28/19 16:30 Ordered Troponin I Q3H Lab 09/28/19 19:30 Ordered - Radiology Data #2 Image(s): Chest Preliminary Findings: Normal/NAD (Possibly developing left lower lobe infiltrate nothing overt), Abnormal - ECG Data Tracing #1 I reviewed this ECG and interpreted as documented below: Normal Sinus Rhythm: Yes General Adult HPI - General Chief complaint: Weakness Stated complaint: ams/cp Time Seen by Provider: 09/28/19 14:37 Mode of Arrival: Ambulatory Source of Information: Patient Limitations: No Limitations Description of Symptoms (Recalled from ER Triage Doc. by RN): PT BROUGHT IN BY EMS AFTER FACILITY STAFF REPORTED PT WAS HAVING CP AND LETHARGY. UPON ARRIVAL TO ED, PT DENIES CP AT THIS TIME AND STATES THAT IT IS ONLY BODYACHES THAT HE HAS ALL OVER. PT IS LETHARGIC UPON ARRIVAL. - History of Present Illness HPI narrative: 59[facility] [place] Patient is complaining of just some generalized pain but otherwise has no other acute issues. He was sent over because they said he was unresponsive however here in the ED he answers questions appropriately he is he is overly tired he states he states that after he smoked a cigarette today he just 1 to go to bed but they called the EMS to come to get him evaluated. Patient denies any recent fever shakes or chills. Patient denies any cough or shortness of breath. Patient denies any chest pain. - Related Data Home Medications Medication Instructions Recorded Confirmed Aspirin [Aspir 81] 81 mg PO DAILY 05/22/17 04/26/19 Divalproex Sodium [Depakote] 500 mg PO BID 05/22/17 04/26/19 raNITIdine HCL [Ranitidine HCl] 150 mg PO BID 05/22/17 04/26/19 benzonatate 100 mg capsule 100 mg PO TID 08/10/18 04/26/19 benztropine 0.5 mg tablet 0.5 mg PO BID 08/10/18 04/26/19 diazepam 5 mg tablet 5 mg PO BID tab
[2019-09-28 15:44] VITALS: BP 117/69; PULSE 75; RESP 16; TEMP 37.3; O2SAT 94
[2019-10-20 15:41] LABS: POC Glucose,Bedside 92 (70-110)
== END 2019-09-28 15:46 | disposition home or self-care (01) ==
PROVIDERS: Emergency Provider Family Medicine; PCP Emergency Medicine
DX: E86.0 Dehydration (principal); J18.9 Pneumonia, unspecified organism; I25.10 Atherosclerotic heart disease of native coronary artery without angina pectoris; E11.9 Type 2 diabetes mellitus without complications; E78.5 Hyperlipidemia, unspecified; I10 Essential (primary) hypertension; I25.2 Old myocardial infarction; F17.210 Nicotine dependence, cigarettes, uncomplicated; Z79.899 Other long term (current) drug therapy
CPT/HCPCS: 36415; 71045; 80048; 82962; 84484; 85025; 93005; 99283

== ENCOUNTER 2019-12-01 13:40 | Emergency (ER) | payer BC, SELFPAY ==
[2019-12-01 13:24] VITALS: BP 100/59; PULSE 64; RESP 21; TEMP 36.7; O2SAT 99; BMI 35.9
--- NOTE | 2019-12-01 13:33 | XR_ITS ---
PROCEDURE: XR CHEST PORTABLE CLINICAL INDICATION: sob COMPARISON: CHESTW CT chest w con from 09/12/2018 XR CHEST 2V from 05/12/2019 XR CHEST PORTABLE from 07/10/2019 XR CHEST PORTABLE from 09/28/2019 FINDINGS: Prior CABG. Patchy density noted in the left lung base may be due to an area of atelectasis or infiltrate not significantly changed. Chronic changes noted on the right.. Upper lobes are clear. Mild thoracic curvature convex right IMPRESSION: No change mild left basilar airspace disease Dictated by: Albino Lopez MD 12/01/2019 16:22 Electronically signed by Albino Lopez MD in [place] 12/01/2019 16:22
[2019-12-01 13:44] LABS: Basophils % 0.5 % (0.1-2.0); Eosinophils # 0.2 K/mm3 (0.0-0.4); Eosinophils % 2.6 % (0.1-12.0); Hematocrit 41.6 % (42.0-52.0); Hemoglobin 14.2 g/dL (14.1-18.0); Lymphocytes # 2.4 K/mm3 (0.7-4.5); Lymphocytes % 30.3 % (10-50); Mean Corpuscular HGB Conc 34.2 g/dL (31.8-35.4); Mean Corpuscular Hemoglobin 33.9 pg (27.0-31.2); Mean Corpuscular Volume 99.1 fl (80-94); Mean Platelet Volume 8.1 fl (7.4-10.4); Monocytes # 0.5 K/mm3 (0.1-1.0); Monocytes % 6.6 % (1.7-9.3); Neutrophils # 4.7 K/mm3 (1.8-7.8); Platelet Count 188 K/mm3 (142-424); Red Cell Distribution Width 13.2 % (11.5-17.5); White Blood Count 7.8 K/mm3 (4.8-10.8)
[2019-12-01 13:46] LABS: Chloride 105 mmol/L (98-107); Potassium 4.2 mmoL/L (3.5-5.1); Sodium 137 mmol/L (136-145)
[2019-12-01 13:48] LABS: Alanine Aminotransferase 14 U/L (12-78); Blood Urea Nitrogen 11 mg/dl (9-20); Creatinine Clearance Estimated 128 mL/min (50-200); Estimated Glomerular Filt Rate 76 ml/min (>60); GFR (African American) 93 ML/MIN (>60)
[2019-12-01 13:49] LABS: Albumin Level 3.3 g/dl (3.5-5.0); Albumin/Globulin Ratio 1.3 (1.1-1.8); Alkaline Phosphatase 52 U/L (38-126); Anion Gap 11.2 mEq/L (5-15); Aspartate Amino Transferase 21 U/L (17-59); Bilirubin,Total 0.5 mg/dl (0.2-1.3); Calcium 8.2 mg/dl (8.4-10.2); Carbon Dioxide 25 mmol/L (22.0-30.0); Globulin 2.5 g/dL (1.3-3.2); Glucose 134 mg/dl (74-100); Total Protein,Serum 5.8 g/dl (6.3-8.2)
[2019-12-01 14:10] VITALS: BP 93/59; PULSE 63; O2SAT 96
--- NOTE | 2019-12-01 14:12 | CT_ITS ---
PROCEDURE: CT HEAD/BRAIN WO CON CLINICAL INDICATION: Altered mental status Altered mental status, altered level of consciousness, confusion, disorientation COMPARISON: HEADWO CT head/brain wo con from 05/22/2017 TECHNIQUE: Axial images obtained. All CT scans at the facility use one or more dose reduction, viz: automated exposure control, ma/kV adjustment per patient size (including targeted exams where dose is matched to indication, i.e. head), or iterative reconstruction technique. FINDINGS: No midline shift, mass effect, intracranial hemorrhage, hydrocephalus, or extra-axial fluid collection is evident. The calvarium has an unremarkable appearance. No mastoid effusion. No sinus air-fluid level. IMPRESSION: No acute intracranial finding Dictated by: Albino Lopez MD 12/01/2019 15:58 Electronically signed by Albino Lopez MD in [place] 12/01/2019 15:58
--- NOTE | 2019-12-01 14:13 | CT_ITS ---
PROCEDURE: CT CHEST WO CON CLINICAL INDICATION: Obtunded Weakness COMPARISON: CHESTW CT chest w con from 09/12/2018 TECHNIQUE: Axial images obtained with sagittal and coronal reformats. All CT scans at the facility use one or more dose reduction, viz: automated exposure control, ma/kV adjustment per patient size (including targeted exams where dose is matched to indication, i.e. head), or iterative reconstruction technique. FINDINGS: HEART AND MEDIASTINAL STRUCTURES: Prior CABG. Small nodes are present in the mediastinum with no dominant adenopathy. Precarinal node measures up to 1.5 cm. Coronary artery calcifications present. There is nonspecific thickening of the distal esophagus LUNGS AND PLEURAL SPACES: Fibronodular changes in the right lung apex. Atelectatic change in the right upper lobe laterally. Bilateral lower lobe atelectasis. There are paraseptal emphysematous changes in the lung bases posteriorly and in the perihilar regions on both sides with areas of pulmonary fibrosis. Stable 3 mm nodule left upper lobe posteriorly image 33 series 3. No change 4 mm nodule left lower lobe image 38 series 3 BONY STRUCTURES: No acute bony abnormalities apparent. UPPER ABDOMEN: Thickened distal esophagus ADDITIONAL FINDINGS: No other significant abnormalities. IMPRESSION: 1. Paraseptal emphysema in the lower lobes posteriorly appears somewhat worse with atelectasis or infiltrate in the lung bases posteriorly with pulmonary fibrotic change. Scattered atelectatic changes noted in the upper lobes and lingula 2. Stable pulmonary nodules. 3. Nonspecific thickening of the distal esophagus Dictated by: Albino Lopez MD 12/01/2019 16:06 Electronically signed by Albino Lopez MD in [place] 12/01/2019 16:06
--- NOTE | 2019-12-01 14:16 | ECG_ITS ---
APPROVED REPORT Exam: Resting ECG HR:60 bpm ECG Measurements Heart Rate 60 AXES GA 150 P 40 QRSd 84 QRS -26 QT 412 T 45 QTc 412 <Conclusion> Normal sinus rhythm Low voltage QRS Septal infarct, age undetermined Abnormal ECG Electronically signed by : Tenzin Tovar, 12/03/2019 17:08:55
[2019-12-01 14:57] VITALS: BP 98/60; PULSE 60; O2SAT 96
--- NOTE | 2019-12-01 15:22 | PC.NURSE ---
PT to rad.
[2019-12-01 16:01] VITALS: BP 112/76; PULSE 61; O2SAT 96
--- NOTE | 2019-12-01 16:35 | HMH.EDWEAK ---
ED Disposition Clinical Impression: Pneumonia Disposition: Home, Self-Care Condition on Discharge: Good Instructions: Pneumonia-Adult Additional Instructions: Please follow-up with Dr. Baker in the next 3 days. Prescriptions: Cefdinir [Omnicef 300mg Capsule] 300 mg PO BID 10 Days #20 cap Prescription Printed Referrals: Arthur Baker MD [Primary Care Provider] - - Critical Care Critical Care Time: No Attestation: On 12/01/19, the high probability of a clinically significant, sudden or life threatening deterioration of the following system(s) required my full and direct attention, intervention and personal management. The time I documented below is in addition to time spent performing reported procedures but includes the following listed in this critical care notation. Medical Decision Making - Medical Records Medical records reviewed: Yes: I reviewed the patient's medical records. - Garcia Inquiry Pt receiving controlled substance: No Vital Signs: 12/01/19 13:24 12/01/19 14:10 12/01/19 14:57 Temperature 98.1 F Temperature Source Oral Pulse Rate [Radial] 64 63 60 Respiratory Rate 21 Blood Pressure [Right Arm] 100/59 L 93/59 L 98/60 L Blood Pressure Mean [Right Arm] 72 70 72 Blood Pressure Source [Right Arm] Automatic Cuff Automatic Cuff Automatic Cuff Blood Pressure Position [Right Arm] Sitting Sitting Sitting 02 Sat by Pulse Oximetry 99 96 96 Oxygen Delivery Method Room Air Room Air 12/01/19 16:01 Temperature Temperature Source Pulse Rate [Radial] 61 Respiratory Rate Blood Pressure [Right Arm] 112/76 Blood Pressure Mean [Right Arm] 88 Blood Pressure Source [Right Arm] Automatic Cuff Blood Pressure Position [Right Arm] Sitting 02 Sat by Pulse Oximetry 96 Oxygen Delivery Method Room Air - Lab Data Lab results reviewed: Yes: I reviewed the patient's lab results. Lab Results 12/01/19 13:24: WBC 7.8, RBC 4.20 L, Hgb 14.2, Hct 41.6 L, MCV 99.1 H, MCH 33.9 H, MCHC 34.2, RDW 13.2, Plt Count 188, MPV 8.1, Neut % (Auto) 60.0, Lymph % (Auto) 30.3, [place] % (Auto) 6.6, Eos % (Auto) 2.6, Baso % (Auto) 0.5, Neut # (Auto) 4.7, Lymph # (Auto) 2.4, [place] # (Auto) 0.5, Eos # (Auto) 0.2, Baso # (Auto) 0.0 12/01/19 13:24: Sodium 137, Potassium 4.2, Chloride 105, Carbon Dioxide 25, Anion Gap 11.2, BUN 11, Creatinine 1.00, Estimated Creat Clear 128, Estimated GFR 76, Est GFR ( Amer) 93, Glucose 134 H, Calcium 8.2 L, Total Bilirubin 0.5, AST 21, ALT 14, Alkaline Phosphatase 52, Total Protein 5.8 L, Albumin 3.3 L, Globulin 2.5, Albumin/Globulin Ratio 1.3 Result diagrams: 12/01/19 13:24 12/01/19 13:24 Orders (Tests/Meds): ED MEDICATIONS Discontinued Medications Generic Name Dose Route Start Last Admin Trade Name Freq PRN Reason Stop Dose Admin Sodium Chloride 1,000 mls @ 999 mls/hr 12/01/19 13:45 12/01/19 14:15 Sod Chlor 0.9% 1000ml Bag IV 12/01/19 14:45 999 mls/hr .Q1H1M FERNANDA Administration ORDERS Category Date Time Status SARS-CoV-2, FERNANDO Stat Lab 12/01/19 13:30 Received - CT Data CT Scan: Head, Chest Time Received: 14:00 Preliminary Findings: Abnormal (CT the head is normal: Chest possible bilateral infiltrate lower lobes very small.) Weakness HPI - General Chief complaint: Weakness Stated complaint: weakness Time Seen by Provider: 12/01/19 16:00 Mode of Arrival: EMS Source of Information: Patient Limitations: No Limitations Description of Symptoms (Recalled from ER Triage Doc. by RN): Per EMS patient was on the floor unresponsive. States he came around when given ammonia. - History of Present Illness HPI Narrative: 59-year-old male was supposedly found at [facility] on the floor unresponsive. When EMS got there they did urine some moaning sounds patient became alert and oriented x3. Here in the ED he is alert answering questions appropriately he is alert and oriented x4. He states that he is hurting all over however this is his baselin
[2019-12-01 16:41] VITALS: BP 155/75; PULSE 93; O2SAT 99
[2019-12-01 17:29] VITALS: BP 117/79; PULSE 63; RESP 16; TEMP 36.6; O2SAT 100
[2019-12-02 14:41] LABS: Covid-19 Nasal PCR Sendout Lex Not Detected
== END 2019-12-01 17:30 | disposition home or self-care (01) ==
PROVIDERS: Emergency Provider Family Medicine; PCP Emergency Medicine
DX: R55 Syncope and collapse (principal); E11.9 Type 2 diabetes mellitus without complications; E78.5 Hyperlipidemia, unspecified; I10 Essential (primary) hypertension; I25.2 Old myocardial infarction; F17.210 Nicotine dependence, cigarettes, uncomplicated; Z79.899 Other long term (current) drug therapy
CPT/HCPCS: 70450; 71045; 71250; 80053; 85025; 93005; 96365; 99284; U0004

== ENCOUNTER 2019-12-23 12:51 | Emergency (ER) | payer BC, SELFPAY ==
[2019-12-23 12:53] VITALS: BP 92/63; PULSE 66; RESP 18; O2SAT 96; BMI 23.7
--- NOTE | 2019-12-23 13:19 | CT_ITS ---
PROCEDURE: CT HEAD/BRAIN WO CON CLINICAL INDICATION: weakness/lethargy COMPARISON: CT CT HEAD/BRAIN WO CON from 12/01/2019 TECHNIQUE: Axial images obtained. All CT scans at the facility use one or more dose reduction, viz: automated exposure control, ma/kV adjustment per patient size (including targeted exams where dose is matched to indication, i.e. head), or iterative reconstruction technique. FINDINGS: No midline shift, mass effect, intracranial hemorrhage, hydrocephalus, or extra-axial fluid collection is evident. There is generalized atrophy with periventricular ischemic gliotic change. The calvarium has an unremarkable appearance. No mastoid effusion. No sinus air-fluid level. IMPRESSION: No acute intracranial finding Dictated b Albino Lopez MD 12/23/2019 14:28 Albino Lopez MD in [place] 12/23/2019 14:28
[2019-12-23 13:22] VITALS: BP 143/72; PULSE 79; O2SAT 97
--- NOTE | 2019-12-23 13:24 | ECG_ITS ---
APPROVED REPORT Exam: Resting ECG HR:62 bpm ECG Measurements Heart Rate 62 AXES RI 148 P 53 QRSd 86 QRS -39 QT 418 T 62 QTc 424 <Conclusion> Normal sinus rhythm Left axis deviation Anteroseptal change previously noted Abnormal ECG Electronically signed by : Tenzin Tovar, 12/25/2019 08:28:55
[2019-12-23 13:39] VITALS: BP 94/67; PULSE 131; RESP 11; O2SAT 96
--- NOTE | 2019-12-23 13:39 | PC.NURSE ---
Pt IV started but would not draw blood. Notified lab to come draw blood.
[2019-12-23 14:10] LABS: Basophils # 0.1 K/mm3 (0-0.2); Eosinophils # 0.2 K/mm3 (0.0-0.4); Eosinophils % 3.4 % (0.1-12.0); Hematocrit 44.1 % (42.0-52.0); Hemoglobin 14.8 g/dL (14.1-18.0); Lymphocytes # 1.8 K/mm3 (0.7-4.5); Lymphocytes % 33.9 % (10-50); Mean Corpuscular HGB Conc 33.6 g/dL (31.8-35.4); Mean Corpuscular Hemoglobin 33.7 pg (27.0-31.2); Mean Corpuscular Volume 100.4 fl (80-94); Mean Platelet Volume 7.2 fl (7.4-10.4); Monocytes # 0.4 K/mm3 (0.1-1.0); Monocytes % 8.3 % (1.7-9.3); Neutrophils # 2.8 K/mm3 (1.8-7.8); Neutrophils % 53.4 % (37.0-80.0); Platelet Count 168 K/mm3 (142-424); Red Blood Count 4.39 M/mm3 (4.60-6.20); Red Cell Distribution Width 12.6 % (11.5-17.5); White Blood Count 5.3 K/mm3 (4.8-10.8)
[2019-12-23 14:17] LABS: Alanine Aminotransferase 13 U/L (12-78); Albumin Level 3.2 g/dl (3.5-5.0); Albumin/Globulin Ratio 1.2 (1.1-1.8); Alkaline Phosphatase 56 U/L (38-126); Anion Gap 10.3 mEq/L (5-15); Aspartate Amino Transferase 20 U/L (17-59); Bilirubin,Total 0.4 mg/dl (0.2-1.3); Blood Urea Nitrogen 9 mg/dl (9-20); Calcium 8.8 mg/dl (8.4-10.2); Carbon Dioxide 30 mmol/L (22.0-30.0); Chloride 105 mmol/L (98-107); Creatinine Clearance Estimated 102 mL/min (50-200); Estimated Glomerular Filt Rate 86 ml/min (>60); GFR (African American) 105 ML/MIN (>60); Globulin 2.6 g/dL (1.3-3.2); Glucose 125 mg/dl (74-100); Lactic Acid 0.9 mmol/L (0.7-2.1); Potassium 4.3 mmoL/L (3.5-5.1); Sodium 141 mmol/L (136-145); Total Protein,Serum 5.8 g/dl (6.3-8.2)
--- NOTE | 2019-12-23 14:21 | XR_ITS ---
PROCEDURE: XR CHEST PORTABLE CLINICAL HISTORY: ams Heart disease COMPARISON: CR XR CHEST PORTABLE from 07/10/2019 CR XR CHEST PORTABLE from 09/28/[address] CHEST WO CON from 12/01/2019 CR XR CHEST PORTABLE from 12/01/2019 FINDINGS: Prior CABG. The lungs are clear without infiltrates, suspicious nodules, or pleural effusions. No acute bony abnormalities. IMPRESSION: No acute findings. Dictated b Albino Lopez MD 12/23/2019 15:43 Albion Lopez MD in [place] 12/23/2019 15:43
[2019-12-23 14:29] LABS: Troponin I < 0.01 ng/ml (0.00-0.034)
[2019-12-23 14:49] VITALS: BP 123/83; PULSE 61; O2SAT 100
--- NOTE | 2019-12-23 16:26 | HMH.EDGENADL ---
ED Disposition Clinical Impression: Weakness Disposition: Home, Self-Care Condition on Discharge: Fair Instructions: DI for Muscle Weakness Referrals: PCP,No [Primary Care Provider] - Time of Disposition: 16:50 - Critical Care Critical Care Time: No Attestation: On 12/23/19, the high probability of a clinically significant, sudden or life threatening deterioration of the following system(s) required my full and direct attention, intervention and personal management. The time I documented below is in addition to time spent performing reported procedures but includes the following listed in this critical care notation. Medical Decision Making - Medical Records Medical records reviewed: Yes: I reviewed the patient's medical records. MR Comment: patient is from an assisted living facility; Has history of mental problems including mental retardation as well as schizophrenia. States he just came to be evaluated, no particular complaints today. We have evaluated patient and do not see any acute changes in CT of head, CXR, CBC or CMP. Will dc home - Garcia Inquiry Pt receiving controlled substance: No Vital Signs: 12/23/19 12:53 12/23/19 13:22 12/23/19 13:39 Pulse Rate [Radial] 66 79 131 H Respiratory Rate 18 11 L Blood Pressure [Right Arm] 92/63 L 143/72 H 94/67 L Blood Pressure Mean [Right Arm] 72 95 76 Blood Pressure Source [Right Arm] Automatic Cuff Automatic Cuff Automatic Cuff Blood Pressure Position [Right Arm] Sitting Supine Supine 02 Sat by Pulse Oximetry 96 97 96 Oxygen Delivery Method Room Air Room Air Room Air 12/23/19 14:49 Pulse Rate [Radial] 61 Respiratory Rate Blood Pressure [Right Arm] 123/83 Blood Pressure Mean [Right Arm] 96 Blood Pressure Source [Right Arm] Automatic Cuff Blood Pressure Position [Right Arm] Supine 02 Sat by Pulse Oximetry 100 Oxygen Delivery Method Room Air - Lab Data Lab results reviewed: Yes: I reviewed the patient's lab results. Lab Results 12/23/19 13:55: WBC 5.3, RBC 4.39 L, Hgb 14.8, Hct 44.1, MCV 100.4 H, MCH 33.7 H, MCHC 33.6, RDW 12.6, Plt Count 168, MPV 7.2 L, Neut % (Auto) 53.4, Lymph % (Auto) 33.9, [place] % (Auto) 8.3, Eos % (Auto) 3.4, Baso % (Auto) 1.0, Neut # (Auto) 2.8, Lymph # (Auto) 1.8, [place] # (Auto) 0.4, Eos # (Auto) 0.2, Baso # (Auto) 0.1 12/23/19 13:55: Sodium 141, Potassium 4.3, Chloride 105, Carbon Dioxide 30, Anion Gap 10.3, BUN 9, Creatinine 0.90, Estimated Creat Clear 102, Estimated GFR 86, Est GFR ( Amer) 105, Glucose 125 H, Calcium 8.8, Total Bilirubin 0.4, AST 20, ALT 13, Alkaline Phosphatase 56, Troponin I < 0.01, Total Protein 5.8 L, Albumin 3.2 L, Globulin 2.6, Albumin/Globulin Ratio 1.2 12/23/19 13:55: Lactate 0.9 Result diagrams: 12/23/19 13:55 12/23/19 13:55 Orders (Tests/Meds): ED MEDICATIONS Discontinued Medications Generic Name Dose Route Start Last Admin Trade Name Luis Angelq PRN Reason Stop Dose Admin Sodium Chloride 1,000 mls @ 999 mls/hr 12/23/19 13:45 12/23/19 13:40 Sod Chlor 0.9% 1000ml Bag IV 12/23/19 14:45 999 mls/hr .Q1H1M FERNANDA Administration ORDERS Category Date Time Status Troponin I Q3H Lab 12/23/19 16:30 Ordered Troponin I Q3H Lab 12/23/19 19:30 Ordered General Adult HPI - General Chief complaint: Weakness Stated complaint: lethargy Time Seen by Provider: 12/23/19 16:07 Mode of Arrival: EMS Limitations: No Limitations Description of Symptoms (Recalled from ER Triage Doc. by RN): lethargy. - History of Present Illness HPI narrative: patient is from an assisted living facility; Has history of mental problems including mental retardation as well as schizophrenia. States he just came to be evaluated, no particular complaints today Onset (ago): hour(s) Radiation: non-radiation Severity: moderate Severity scale (1-10): 3 Consistency: intermittent, now resolved Relieving factors: none Exacerbating factors: none Associated symptoms: denies other symptoms - Related
--- NOTE | 2019-12-23 17:11 | PC.NURSE ---
joseline notified for patient to be picked up
[2019-12-23 17:13] VITALS: BP 123/83; PULSE 61; RESP 12; TEMP 36.7; O2SAT 100
== END 2019-12-23 17:44 | disposition home or self-care (01) ==
PROVIDERS: Emergency Provider Emergency Medicine
DX: R53.1 Weakness (principal); I25.10 Atherosclerotic heart disease of native coronary artery without angina pectoris; E11.9 Type 2 diabetes mellitus without complications; E78.5 Hyperlipidemia, unspecified; I10 Essential (primary) hypertension; I25.2 Old myocardial infarction; F17.210 Nicotine dependence, cigarettes, uncomplicated; F25.0 Schizoaffective disorder, bipolar type; F79 Unspecified intellectual disabilities; Z79.899 Other long term (current) drug therapy
CPT/HCPCS: 70450; 71045; 80053; 83605; 84484; 85025; 93005; 96365; 99284

== ENCOUNTER 2020-07-17 13:05 | Observation (INO) | payer BC, SELFPAY ==
[2020-07-17] VITALS (9 sets, daily range): BP systolic 102–143; BP diastolic 54–94; PULSE 66–76; RESP 14–19; TEMP 36.7–36.8; O2SAT 94–99; BMI 23.6
--- NOTE | 2020-07-17 13:23 | HMH.EDGENADL ---
ED Disposition Clinical Impression: Encephalopathy acute Disposition: Admitted As Inpatient Condition on Discharge: Fair Instructions: DI for Altered Mental Status Time of Disposition: 16:18 - Critical Care Critical Care Time: No Attestation: On , the high probability of a clinically significant, sudden or life threatening deterioration of the following system(s) required my full and direct attention, intervention and personal management. The time I documented below is in addition to time spent performing reported procedures but includes the following listed in this critical care notation. Medical Decision Making - Medical Records Medical records reviewed: Yes: I reviewed the patient's medical records. - Garcia Inquiry Pt receiving controlled substance: No Vital Signs: 07/17/20 13:05 07/17/20 15:00 07/17/20 15:30 Temperature 98.2 F 98.1 F Temperature Source Oral Oral Pulse Rate [Left Radial] 66 76 70 Respiratory Rate 14 19 16 Blood Pressure [Left Arm] 102/54 L 129/85 122/78 Blood Pressure Mean [Left Arm] 70 99 92 Blood Pressure Source [Left Arm] Automatic Cuff Automatic Cuff Blood Pressure Position [Left Arm] Sitting 02 Sat by Pulse Oximetry 97 99 96 Oxygen Delivery Method Room Air 07/17/20 16:07 Temperature Temperature Source Pulse Rate [Left Radial] 68 Respiratory Rate 18 Blood Pressure [Left Arm] 118/78 Blood Pressure Mean [Left Arm] 91 Blood Pressure Source [Left Arm] Blood Pressure Position [Left Arm] 02 Sat by Pulse Oximetry 95 Oxygen Delivery Method - Lab Data Lab results reviewed: Yes: I reviewed the patient's lab results. Lab Results 07/17/20 13:10: WBC 6.1, RBC 4.02 L, Hgb 13.3 L, Hct 39.6 L, MCV 98.3 H, MCH 33.0 H, MCHC 33.6, RDW 12.5, Plt Count 190, MPV 7.6, Neut % (Auto) 63.6, Lymph % (Auto) 22.8, [place] % (Auto) 10.5 H, Eos % (Auto) 2.6, Baso % (Auto) 0.6, Neut # (Auto) 3.9, Lymph # (Auto) 1.4, [place] # (Auto) 0.6, Eos # (Auto) 0.2, Baso # (Auto) 0.0 07/17/20 13:10: Sodium 136, Potassium 4.2, Chloride 106, Carbon Dioxide 27, Anion Gap 7.2, BUN 10, Creatinine 0.80, Estimated Creat Clear 101, Estimated GFR 99, Est GFR ( Amer) 119, Glucose 100, Calcium 8.9, Total Bilirubin 0.5, AST 19, ALT 9 L, Alkaline Phosphatase 58, Total Protein 6.3, Albumin 3.6, Globulin 2.7, Albumin/Globulin Ratio 1.3 07/17/20 13:25: Specimen Source Left radial, O2 % 21%, ABG pH 7.43, ABG pCO2 35.2, ABG pO2 81.4, ABG HCO3 22.8, ABG Total CO2 23.9, ABG O2 Saturation 96, ABG Base Excess -1.5, Albino Test Patient unable 07/17/20 14:50: Urine Color Yellow, Urine Appearance Clear, Urine pH 6.5, Ur Specific [place] 1.010, Urine Protein Negative, Urine Glucose (UA) Negative, Urine Ketones Negative, Urine Blood Negative, Urine Nitrate Negative, Urine Bilirubin Negative, Urine Urobilinogen 0.2, Ur Leukocyte Esterase Negative, Urine WBC Occasional 07/17/20 14:50: Urine Opiates Screen Negative, Urine Methadone Screen Negative, Ur Barbituates Screen Negative, Ur Phencyclidine Scrn Negative, Ur Amphetamines Screen Negative, U Benzodiazepines Scrn Positive H, Urine Cocaine Screen Negative, U Marijuana (THC) Screen Negative Result diagrams: 07/17/20 13:10 07/17/20 13:10 Orders (Tests/Meds): ED MEDICATIONS Discontinued Medications Generic Name Dose Route Start Last Admin Trade Name Freq PRN Reason Stop Dose Admin Sodium Chloride 1,000 mls @ 999 mls/hr 07/17/20 13:45 07/17/20 13:20 Sod Chlor 0.9% 1000ml Bag IV 07/17/20 14:45 999 mls/hr .Q1H1M FERNANDA Administration Naloxone HCl 2 mg 07/17/20 13:29 07/17/20 13:20 Naloxone 2mg/2ml Syringe IV 07/17/20 13:30 2 mg ONCE ONE Administration ORDERS Category Date Time Status Covid-19 Nasal PCR ([facility]) Routine Lab 07/17/20 14:44 Received Trop I [Troponin I] Stat Lab 07/17/20 16:12 Ordered Troponin I Q3H Lab 03/01/21 19:15 Ordered Troponin I Q3H Lab 07/17/20 22:15 Ordered - CT Data CT Scan: Head Time Received: 13:[address] Reviewed:
--- NOTE | 2020-07-17 13:24 | CT_ITS ---
PROCEDURE: CT HEAD/BRAIN WO CON CLINICAL INDICATION: cva protocol Altered mental status, altered level of consciousness, confusion, disorientation, unresponsive COMPARISON: CT CT HEAD/BRAIN WO CON from 12/23/2019 TECHNIQUE: Axial images obtained. All CT scans at the facility use one or more dose reduction, viz: automated exposure control, ma/kV adjustment per patient size (including targeted exams where dose is matched to indication, i.e. head), or iterative reconstruction technique. FINDINGS: No midline shift, mass effect, intracranial hemorrhage, hydrocephalus, or extra-axial fluid collection is evident. There is generalized atrophy with hypoattenuation of the periventricular white matter consistent with microangiopathic changes. The calvarium has an unremarkable appearance. No mastoid effusion. No sinus air-fluid level. IMPRESSION: No acute intracranial finding Dictated by: Albino Lopez MD 07/17/2020 13:43 Albino Lopez MD in [place] 07/17/2020 13:43
--- NOTE | 2020-07-17 13:26 | PC.NURSE ---
rad notified of head Ct stroke protocol
[2020-07-17 13:30] LABS: ABG Base Excess -1.5 mmol/L (-2.4-2.3); ABG HCO3 22.8 mmhg (22.0-26.0); ABG Oxygen Saturation 96 % (90-100); ABG PCO2 35.2 mmhg (35.0-45.0); ABG PH 7.43 mmol/L (7.35-7.45); ABG PO2 81.4 mmhg (80-100); ABG TCO2 23.9 mmhg (23-27); Allen's Test Patient Unable; Oxygen 21% %; Source Left Radial
--- NOTE | 2020-07-17 13:32 | PC.NURSE ---
pt gone for head ct
[2020-07-17 13:35] LABS: Basophils % 0.6 % (0.1-2.0); Eosinophils # 0.2 K/mm3 (0.0-0.4); Eosinophils % 2.6 % (0.1-12.0); Hematocrit 39.6 % (42.0-52.0); Hemoglobin 13.3 g/dL (14.1-18.0); Lymphocytes # 1.4 K/mm3 (0.7-4.5); Lymphocytes % 22.8 % (10-50); Mean Corpuscular HGB Conc 33.6 g/dL (31.8-35.4); Mean Corpuscular Volume 98.3 fl (80-94); Mean Platelet Volume 7.6 fl (7.4-10.4); Monocytes # 0.6 K/mm3 (0.1-1.0); Monocytes % 10.5 % (1.7-9.3); Neutrophils # 3.9 K/mm3 (1.8-7.8); Neutrophils % 63.6 % (37.0-80.0); Platelet Count 190 K/mm3 (142-424); Red Blood Count 4.02 M/mm3 (4.60-6.20); Red Cell Distribution Width 12.5 % (11.5-17.5); White Blood Count 6.1 K/mm3 (4.8-10.8)
[2020-07-17 13:40] LABS: Chloride 106 mmol/L (98-107); Potassium 4.2 mmoL/L (3.5-5.1); Sodium 136 mmol/L (136-145)
[2020-07-17 13:43] LABS: Alanine Aminotransferase 9 U/L (12-78); Alkaline Phosphatase 58 U/L (38-126); Anion Gap 7.2 mEq/L (5-15); Aspartate Amino Transferase 19 U/L (17-59); Bilirubin,Total 0.5 mg/dl (0.2-1.3); Blood Urea Nitrogen 10 mg/dl (9-20); Calcium 8.9 mg/dl (8.4-10.2); Carbon Dioxide 27 mmol/L (22.0-30.0); Creatinine Clearance Estimated 101 mL/min (50-200); Estimated Glomerular Filt Rate 99 ml/min (>60); GFR (African American) 119 ML/MIN (>60); Glucose 100 mg/dl (74-100)
[2020-07-17 13:44] LABS: Albumin Level 3.6 g/dl (3.5-5.0); Albumin/Globulin Ratio 1.3 (1.1-1.8); Globulin 2.7 g/dL (1.3-3.2); Total Protein,Serum 6.3 g/dl (6.3-8.2)
[2020-07-17 14:57] LABS: Microscopic, Urine URINE MICROSCOPIC (MICROSCOPIC)
[2020-07-17 14:58] LABS: Appearance,Urine CLEAR (Clear); Bilirubin,Urine Negative (Negative); Blood, Urine Negative (Negative); Color,Urine YELLOW (Yellow); Glucose,Urine (UA) Negative (Negative); Ketones,Urine Negative (Negative); Leukocyte Esterase,Urine Negative (Negative); Nitrate,Urine Negative (Negative); PH,Urine 6.5 (5.0-8.5); Protein,Urine Negative (Negative); Urobilinogen,Urine 0.2 EU/dl (0.2)
[2020-07-17 15:10] LABS: Amphetamine/Metha Screen,Urine Negative ng/ml (<1000)
[2020-07-17 15:11] LABS: Barbiturates Screen,Urine Negative ng/ml (<200)
[2020-07-17 15:12] LABS: Benzodiazepines Screen,Urine Positive ng/ml (<200); Cannabinoid Screen,Urine Negative ng/ml (<50)
[2020-07-17 15:13] LABS: Cocaine Screen,Urine Negative ng/ml (<300); Methadone Screen,Urine Negative ng/ml (<300)
[2020-07-17 15:14] LABS: Opiate Screen,Urine Negative ng/ml (<300)
[2020-07-17 15:15] LABS: Phencyclidine Screen,Urine Negative ng/ml (<25)
[2020-07-17 15:41] LABS: WBC,Urine Occasional #/hpf (0-3)
[2020-07-17 16:46] LABS: Troponin I < 0.01 ng/ml (0.00-0.034)
--- NOTE | 2020-07-17 17:49 | PC.NURSE ---
CALLED LAB ABOUT COVID TEST SWAB HAS NOT GONE ON YET WILL STILL BE 3+ HOURS TO RESULT
--- NOTE | 2020-07-17 19:15 | PC.NURSE ---
received report from day nurse. covid swabs were obtained prior to this shift and put on at 1800. waiting on swab results for bed assignments
[2020-07-17 19:57] LABS: Troponin I < 0.01 ng/ml (0.00-0.034)
--- NOTE | 2020-07-17 20:25 | PC.NURSE ---
call placed per prince horta to check on swab status. she spoke with noni in lab. was told swabs weren't on . upon confirmation it was said that they were starting them now. when questioned, she said she didn't have any running at the time so there was no reason for delay. housekeeper home and nurse manager physical of ed notified. family updated.
--- NOTE | 2020-07-17 20:32 | PC.NURSE ---
WAS NOTIFIED COVID SWAB NOT BEING RUN EARLIER, I SPOKE WITH LAURIE IN LAB AND SHE SAID SHE WAS NOT AWARE OF THERE BEING ANY SWABS WAITING TO BE RAN DUE TO HER BEING IN DIFFERENT PART OF LAB AND WAS NOT MADE AWARE OF THE SWABS UNTIL FEW MINUTES AGO.SHE WAS PUTTING THEM ON WE SPOKE.
--- NOTE | 2020-07-17 21:15 | HMH.HP ---
*Admission Date: 07/17/20 *Chief complaint: altered mental status *History of present illness: this pt was sent from long-term with altered mental status -no reported chest pain or fever and no trauma - t sent from [place] r/t pt not acting his normal, states pt would not talk to them. Upon arrival pt is drowsy, will respond with verbal stimuli, pt can answer name, place orientation questions. 60yo M brought in by EMS after being found unresponsive. No way has any further history on the patient. No I saw any fall or witnessed an accident. Patient lives in a long-term and is administered his medication by staff. Patient will wait to his name and tapping on the shoulder but does not provide any further history. pt was admitted for eval and treatment [facility] History I have reviewed the patient's past medical history: Yes Medical History: Reports:: Coronary Artery Disease, Diabetes Mellitus Type 2, Hyperlipidemia, Hypertension, Myocardial Infarction Denies:: Diabetes Mellitus Type 1, Internal Pacemaker *Have you ever received a pneumonia vaccine?: No *Have you received a flu vaccine this season?: No Other Surgeries: Yes: No Previous Surgery, Appendectomy, CABG, Cardiac Catheterization, Cholecystectomy. No: Pacemaker Amputation: No Fractures: No - *Social History Smoking Status: Current every day smoker Tobacco Type: cigarettes # Packs/Day (cigarettes): 1 Alcohol Intake: never Substance Use Type: denies use *Occupational Status:: disabled Housing: house Household Members: other *Travel in the last 8 weeks: None Family Hx:: Unable to obtain Review of Systems - Review of Systems Review of systems:: pertinent systems reviewed and negative unless documented below - Constitutional Denies fever(s) - Eyes Denies change in vision - ENT Denies sore throat - *Cardiovascular Denies chest pain - *Respiratory Denies cough - *Gastrointestinal Denies abdominal pain - *Genitourinary Denies blood in urine - *Musculoskeletal Denies joint pain - Integumentary/Breasts Denies rash - *Neurologic Reports confusion, Denies localized weakness, Denies frequent falls, Denies tingling/numbness/burning sensations, Denies seizure-like activity - Psychiatric Reports confusion Meds Home Medications Medication Instructions Recorded Confirmed Type Aspirin [Aspir 81] 81 mg PO DAILY 05/22/17 07/17/20 History Divalproex Sodium [Depakote] 500 mg PO BID 05/22/17 07/17/20 History benztropine 0.5 mg tablet 1 mg PO BID 08/10/18 07/17/20 History haloperidol 5 mg tablet 5 mg PO TID 08/10/18 07/17/20 History sertraline 25 mg tablet 150 mg PO DAILY 08/10/18 07/17/20 History atorvastatin 40 mg tablet 40 mg PO HS 11/10/18 07/17/20 History ipratropium 20 mcg-albuterol 100 1 puff INHALATION QID 03/26/19 07/17/20 History mcg/actuation mist for inhalation mometasone-formoterol HFA 100 2 puff INHALATION BID 03/26/19 07/17/20 History mcg-5 mcg/actuation aerosol inhaler Ranolazine [Ranolazine ER] 500 mg PO BID 04/10/19 07/17/20 History Metoprolol Tartrate [Lopressor 12.5 mg PO BID 04/17/19 07/17/20 History 25mg tablet] Isosorbide Mononitrate [Imdur 30mg 30 mg PO DAILY #30 tab.er.24h 05/12/19 07/17/20 Rx ER tablet] diazepam 5 mg tablet 5 mg PO BID #60 tab 03/08/20 07/17/20 Rx Amlodipine Besylate 2.5 mg PO HS 07/17/20 07/17/20 History Famotidine [Acid Controller] 20 mg PO DAILY 07/17/20 07/17/20 History Allergies Allergy/AdvReac Type Severity Reaction Status Date / Time No Known Allergies Allergy Verified 04/26/19 12:21 Exam Vital signs and Labs for Last 24 Hours: Temp Pulse Resp BP Pulse Ox 98.1 F 71 16 140/94 H 96 07/17/20 15:00 07/17/20 19:58 07/17/20 19:32 07/17/20 19:58 07/17/20 19:58 Laboratory Results - last 24 hr 07/17/20 13:10: WBC 6.1, RBC 4.02 L, Hgb 13.3 L, Hct 39.6 L, MCV 98.3 H, MCH 33.0 H, MCHC 33.6, RDW 12.5, Plt Count 190, MPV 7.6, Neut % (Auto) 63.6, Lymph % (Auto) 22.8, [place] % (Au
--- NOTE | 2020-07-17 21:50 | PC.NURSE ---
pt sitting on the side of bed. pt voiced no complaints. call light within reach
--- NOTE | 2020-07-17 22:51 | PC.NURSE ---
patient up to floor via wheelchair.
[2020-07-17 22:59] LABS: Troponin I < 0.01 ng/ml (0.00-0.034)
[2020-07-18] VITALS: BP 124/70; PULSE 60; PULSE 67; PULSE 70; RESP 16; TEMP 37; O2SAT 99; BMI 22.0
--- NOTE | 2020-07-18 02:30 | PC.WOUNDNOTE ---
Wound Location: lower left leg Length: Width: Depth: Undermining Y/N: Tunneling cm: Granulation %: Slough/necrotic tissue %: Inflammation/swelling Y/N: Pain and/or tenderness Y/N: N Color: Red Consistency: Thick Thin Amount: None Scant Small Moderate Large Odor Y/N:
--- NOTE | 2020-07-18 02:32 | PC.WOUNDNOTE ---
Wound Location: bilateral feet Length: Width: Depth: Undermining Y/N: Tunneling cm: Granulation %: Slough/necrotic tissue %: Inflammation/swelling Y/N: Pain and/or tenderness Y/N: N Color: Clear Tonia Cloudy/milky [place] Red Green Yellow Brown Issa Blue Consistency: Thick Thin Amount: None Scant Small Moderate Large Odor Y/N:
[2020-07-18 03:51] VITALS: BP 130/81; PULSE 62; RESP 15; TEMP 36.6; O2SAT 97
[2020-07-18 04:00] VITALS: PULSE 70
--- NOTE | 2020-07-18 04:29 | PC.NURSE ---
Pt A&O x4 and slept well through the night. No c/o pain or discomfort. lungs CTA. IV patent, SL. Bowel sounds x4, abd soft and nontender. VSS, call light in reach, no concerns at this time.
[2020-07-18 05:04] VITALS: BMI 22.1
[2020-07-18 06:21] LABS: POC Glucose,Bedside 81 (70-110)
--- NOTE | 2020-07-18 07:15 | XR_ITS ---
PROCEDURE: XR CHEST 2V CLINICAL HISTORY: cough COMPARISON: CR XR CHEST PORTABLE from 09/28/2019 CR XR CHEST PORTABLE from 12/01/[address] CHEST WO CON from 12/01/2019 CR XR CHEST PORTABLE from 12/23/2019 FINDINGS: Prior CABG. Normal heart size. COPD changes. No lobar consolidation or collapse. Degenerative changes thoracic spine with mild kyphosis IMPRESSION: No acute findings. Dictated by: Albino Lopez MD 07/18/2020 08:34 Albino Lopez MD in [place] 07/18/2020 08:34
[2020-07-18 07:21] LABS: Basophils # 0.1 K/mm3 (0-0.2); Basophils % 0.9 % (0.1-2.0); Eosinophils # 0.2 K/mm3 (0.0-0.4); Eosinophils % 2.8 % (0.1-12.0); Hematocrit 39.8 % (42.0-52.0); Hemoglobin 13.4 g/dL (14.1-18.0); Lymphocytes # 2.1 K/mm3 (0.7-4.5); Lymphocytes % 32.3 % (10-50); Mean Corpuscular HGB Conc 33.7 g/dL (31.8-35.4); Mean Corpuscular Hemoglobin 33.3 pg (27.0-31.2); Mean Corpuscular Volume 98.9 fl (80-94); Mean Platelet Volume 7.3 fl (7.4-10.4); Monocytes # 0.8 K/mm3 (0.1-1.0); Monocytes % 11.3 % (1.7-9.3); Neutrophils # 3.5 K/mm3 (1.8-7.8); Neutrophils % 52.7 % (37.0-80.0); Platelet Count 182 K/mm3 (142-424); Red Blood Count 4.02 M/mm3 (4.60-6.20); Red Cell Distribution Width 12.6 % (11.5-17.5); White Blood Count 6.6 K/mm3 (4.8-10.8)
--- NOTE | 2020-07-18 07:32 | HMH.PHAVTE ---
[facility] Pharmacy VTE Monitoring - Patient Demographics Admission date: 07/17/20 Report Date: 07/18/20 Time: 07:33 Allergies/Adverse Reactions: Patient Allergies No Known Allergies Allergy (Verified 04/26/19 12:21) Height: 1.75 m Weight: 67.699 kg Patient Problems: Current Active Problems Encephalopathy acute (Acute) Acute delirium (Acute) HTN (hypertension) (Chronic) Tobacco dependence syndrome (Chronic) Schizo-affective schizophrenia (Chronic) S/P CABG (coronary artery bypass graft) (Chronic) - VTE Risk Labs: VTE Related Lab Results Hgb 13.4 g/dL (14.1-18.0) L 07/18/20 06:36 Hct 39.8 % (42.0-52.0) L 07/18/20 06:36 Plt Count 182 K/mm3 (142-424) 07/18/20 06:36 BUN 10 mg/dl (9-20) 07/17/20 13:10 Creatinine 0.80 mg/dl (0.66-1.25) 07/17/20 13:10 Estimated Creat Clear 101 mL/min (50-200) 07/17/20 13:10 Was VTE Risk Assessment Performed: Yes VTE Risk Level: Low Risk Clinical Trial Participant: No - Prophylaxis VTE Prophylaxis Ordered?: Yes Types of VTE Prophylaxis: IPCS Knee High, Pharmacological Pharmacologic Type: Enoxaparin
[2020-07-18 07:33] LABS: Anion Gap 4.9 mEq/L (5-15); Blood Urea Nitrogen 7 mg/dl (9-20); Calcium 8.8 mg/dl (8.4-10.2); Carbon Dioxide 28 mmol/L (22.0-30.0); Chloride 108 mmol/L (98-107); Creatinine Clearance Estimated 107 mL/min (50-200); Estimated Glomerular Filt Rate 115 ml/min (>60); GFR (African American) 139 ML/MIN (>60); Glucose 86 mg/dl (74-100); Potassium 3.9 mmoL/L (3.5-5.1); Sodium 137 mmol/L (136-145)
[2020-07-18 07:40] LABS: C-Reactive Protein 8.8 mg/L (0-4); Valproic Acid, (Depakene) 22.4 ug/ml (50-100)
[2020-07-18 07:51] LABS: T4 (Thyroxine) 6.9 ug/dl (5.53-11.0)
[2020-07-18 08:00] VITALS: BP 124/76; PULSE 70; RESP 18; TEMP 36.9; O2SAT 97
[2020-07-18 08:04] LABS: Thyroid Stimulating Hormone 0.86 uIU/mL (0.465-4.68)
--- NOTE | 2020-07-18 08:36 | HMH.ACPN2 ---
Internal Medicine - PN: Subj *Date: 07/18/20 *Time: 08:36 Exam Vital signs and Labs for Last 24 Hours: Temp Pulse Resp BP Pulse Ox 97.9 F 70 15 130/81 97 07/18/20 03:51 07/18/20 04:00 07/18/20 03:51 07/18/20 03:51 07/18/20 03:51 Laboratory Results - last 24 hr 07/17/20 13:10: WBC 6.1, RBC 4.02 L, Hgb 13.3 L, Hct 39.6 L, MCV 98.3 H, MCH 33.0 H, MCHC 33.6, RDW 12.5, Plt Count 190, MPV 7.6, Neut % (Auto) 63.6, Lymph % (Auto) 22.8, [place] % (Auto) 10.5 H, Eos % (Auto) 2.6, Baso % (Auto) 0.6, Neut # (Auto) 3.9, Lymph # (Auto) 1.4, [place] # (Auto) 0.6, Eos # (Auto) 0.2, Baso # (Auto) 0.0 07/17/20 13:10: Sodium 136, Potassium 4.2, Chloride 106, Carbon Dioxide 27, Anion Gap 7.2, BUN 10, Creatinine 0.80, Estimated Creat Clear 101, Estimated GFR 99, Est GFR ( Amer) 119, Glucose 100, Calcium 8.9, Total Bilirubin 0.5, AST 19, ALT 9 L, Alkaline Phosphatase 58, Total Protein 6.3, Albumin 3.6, Globulin 2.7, Albumin/Globulin Ratio 1.3 07/17/20 13:10: Troponin I < 0.01 07/17/20 13:25: Specimen Source Left radial, O2 % 21%, ABG pH 7.43, ABG pCO2 35.2, ABG pO2 81.4, ABG HCO3 22.8, ABG Total CO2 23.9, ABG O2 Saturation 96, ABG Base Excess -1.5, Albino Test Patient unable 07/17/20 14:50: Urine Color Yellow, Urine Appearance Clear, Urine pH 6.5, Ur Specific [place] 1.010, Urine Protein Negative, Urine Glucose (UA) Negative, Urine Ketones Negative, Urine Blood Negative, Urine Nitrate Negative, Urine Bilirubin Negative, Urine Urobilinogen 0.2, Ur Leukocyte Esterase Negative, Urine WBC Occasional 07/17/20 14:50: Urine Opiates Screen Negative, Urine Methadone Screen Negative, Ur Barbituates Screen Negative, Ur Phencyclidine Scrn Negative, Ur Amphetamines Screen Negative, U Benzodiazepines Scrn Positive H, Urine Cocaine Screen Negative, U Marijuana (THC) Screen Negative 07/17/20 19:23: Troponin I < 0.01 07/17/20 22:25: Troponin I < 0.01 07/18/20 06:05: POC Glucose 81 07/18/20 06:36: WBC 6.6, RBC 4.02 L, Hgb 13.4 L, Hct 39.8 L, MCV 98.9 H, MCH 33.3 H, MCHC 33.7, RDW 12.6, Plt Count 182, MPV 7.3 L, Neut % (Auto) 52.7, Lymph % (Auto) 32.3, [place] % (Auto) 11.3 H, Eos % (Auto) 2.8, Baso % (Auto) 0.9, Neut # (Auto) 3.5, Lymph # (Auto) 2.1, [place] # (Auto) 0.8, Eos # (Auto) 0.2, Baso # (Auto) 0.1 07/18/20 06:36: Sodium 137, Potassium 3.9, Chloride 108 H, Carbon Dioxide 28, Anion Gap 4.9 L, BUN 7 L D, Creatinine 0.70, Estimated Creat Clear 107, Estimated GFR 115, Est GFR ( Amer) 139, Glucose 86, Calcium 8.8 07/18/20 06:36: C-Reactive Protein 8.8 H, TSH 0.86, Thyroxine (T4) 6.9, Total Valproic Acid 22.4 L I & O for Last 24 hours: Intake & Output 07/15/20 07/16/20 07/17/20 07/18/20 23:59 23:59 23:59 23:59 Intake Total 1000 / 1000 Output Total 2250 / 2250 Balance 1000 / -500 -2250 / -2250 Weight 160 lb 149 lb 4 oz Microbiology Reports for the Last 24 Hours: Microbiology 07/17/20 14:44 Nasopharyngeal Coronavirus COVID-19 PCR - Final Assessment and Plan (1) Acute delirium Status: Acute Category: Medical Code(s): R41.0 - Disorientation, unspecified (2) HTN (hypertension) Status: Chronic Qualifiers: Hypertension type: essential hypertension Qualified Code(s): I10 - Essential (primary) hypertension Category: Medical Code(s): I10 - Essential (primary) hypertension (3) Tobacco dependence syndrome Status: Chronic Category: Medical Code(s): F17.200 - Nicotine dependence, unspecified, uncomplicated (4) Schizo-affective schizophrenia Status: Chronic Category: Medical Code(s): F25.0 - Schizoaffective disorder, bipolar type (5) S/P CABG (coronary artery bypass graft) Status: Chronic Category: Surgical Code(s): Z95.1 - Presence of aortocoronary bypass graft
--- NOTE | 2020-07-18 08:41 | HMH.DCSUM ---
General - General Admission date:: 07/17/20 Discharge date: 07/18/20 HPI HPI: this pt was sent from [facility] with altered mental status -no reported chest pain or fever and no trauma - t sent from [facility] r/t pt not acting his normal, states pt would not talk to them. Upon arrival pt is drowsy, will respond with verbal stimuli, pt can answer name, place orientation questions. 60yo M brought in by EMS after being found unresponsive. No way has any further history on the patient. No I saw any fall or witnessed an accident. Patient lives in a [facility] and is administered his medication by staff. Patient will wait to his name and tapping on the shoulder but does not provide any further history. pt was admitted for eval and treatment Hospital Course Hospital Course: this pt was sent from [facility] with altered mental status -no reported chest pain or fever and no trauma - t sent from [facility] r/t pt not acting his normal, states pt would not talk to them. Upon arrival pt is drowsy, will respond with verbal stimuli, pt can answer name, place orientation questions. 60yo M brought in by EMS after being found unresponsive. No way has any further history on the patient. No I saw any fall or witnessed an accident. Patient lives in a [facility] and is administered his medication by staff. Patient will wait to his name and tapping on the shoulder but does not provide any further history. pt was admitted for eval and treatment 07/17/[address]: FINDINGS: No midline shift, mass effect, intracranial hemorrhage, hydrocephalus, or extra-axial fluid collection is evident. There is generalized atrophy with hypoattenuation of the periventricular white matter consistent with microangiopathic changes. The calvarium has an unremarkable appearance. No mastoid effusion. No sinus air-fluid level. IMPRESSION: No acute intracranial finding Dictated by: John 07/18/20 CXR: FINDINGS: Prior CABG. Normal heart size. COPD changes. No lobar consolidation or collapse. Degenerative changes thoracic spine with mild kyphosis IMPRESSION: No acute findings. Dictated by: John, Lab work this a.m. CBC unremarkable, BMP unremarkable UA negative Covid-19 PCR negative This morning patient sitting up in bed, alert and oriented x3. He denies any shortness of breath or chest pain, oxygen saturation 97% on room air, vital signs have been stable and he has been afebrile all night. Patient reports he is feeling good discussed discharge back to [facility] he is agreement with this Plan: We will discharge back to [facility] today We will decrease psych medication dosage by one half PT/OT to see today Objective Vital signs: Temp Pulse Resp BP Pulse Ox 97.9 F 70 15 130/81 97 07/18/20 03:51 07/18/20 04:00 07/18/20 03:51 07/18/20 03:51 07/18/20 03:51 no acute distress, disheveled - *Routine HEENT Exam Head: Present: normocephalic Eye: Present: EOMI ENT: Present: mucous membranes moist - *Routine Neck Exam Present: full ROM, trachea midline. Absent: tracheal deviation - *Routine Respiratory Exam Present: CTA bilaterally. Absent: accessory muscle use - *Routine Cardiovascular Exam Present: RRR, murmur - *Routine Abdominal Exam Present: soft, normoactive bowel sounds. Absent: tenderness, rigid - *Routine Extremities Exam Present: full ROM, pulses intact. Absent: edema, calf tenderness - *Routine Skin Exam Present: intact, dry, warm. Absent: cyanosis - *Routine Neurological Exam Present: alert, oriented X3, hearing grossly intact. Absent: altered mental status - Routine Psychiatric Exam Present: normal affect, normal thought process. Absent: auditory hallucinations, visual hallucinations Results Labs on day of discharge: Labs from last 24 hours 07/18/20 07/18/20 07/18/20 06:36 06:36 06:36 WBC 6.6 RBC 4.02 L Hgb 13.4 L Hct 39.8 L MCV 98.9
--- NOTE | 2020-07-18 08:46 | HMH.PHAINT ---
home medication list completed using donta trev[employer]
--- NOTE | 2020-07-18 09:45 | SW/DCPLANNER ---
Addendum entered by Emily Ortega 07/18/20 11:05: Per [facility] they can NOT transport this patient due to address not changing from [facility] and exceeding the number of times requesting permission from [facility] to transport. I have notified Ale of situation and she has stated that she will send an employee from [facility] to transport this patient. Original Note: This patient currently resides at [facility]. I have spoke with Reynaldo/Ale from [facility] this morning regarding patients status: alert and oriented x 4. Reynaldo/Ale have stated that patient can return today, I will need to set up FTSB and since patient has a NEGATIVE COVID swab last night no further COVID testing is required. This patient will discharge today: I will set up FTSB once ready for discharge per nurse (Reynaldo).
[2020-07-18 09:47] LABS: Erythrocyte Sedimentation Rate 11 mm/hr (0-20)
--- NOTE | 2020-07-18 09:56 | HMH.OTEV ---
OT Inpatient Evaluation Rehab OT IP Evaluation Start: 07/18/20 08:49 Freq: ONCE Status: Complete Protocol: Document 07/18/20 09:43 [facility] (Rec: 07/18/20 09:56 [facility] [id number]) Rehab OT IP Assessment Subjective History Pt was seen this date for skilled OT eval. Pt is a 60 yo male who was admitted 07/17/20 due to altered mental state. Pt lives in [facility]. Pt was found unresponsive in nursing home prior to admission. Pt claims he was independent with ADLs prior to being admitted to the hospital. He did use a cane at times during ambulation. Pt demonstrated independence w/ donning shoes, seating self on toilet and standing from toilet. Pt was able to participate in functional mobility w/ independence, the length of the room and back to bed, as well as to the toilet and back . Pt's past medical Hx includes: CAD, Diabeted mellitus type 2 , hyperlipidemia, HTN, and UT. Subjective I could walk all day! Objective Patient Orientation Person,Place,Birthday Upper Extremity Gross ROM WFL Bed Mobility bed mobility-scooting,bed mobility - supine/sit,bed mobility - rolling Assist Level Independent Transfer Training Sit/Stand Transfer Assist Level Independent Chair Transfer Ability Independent Chair Transfer Technique Sit to/from Ambulatory Chair Transfer Assistive Devices None Feeding Ability Independent Lower Body Dressing Ability Independent Overall Commode/Toilet Transfer Ability Independent Commode/Toilet Transfer Technique Sit to/from Ambulatory Rehab OT IP prob,goals,plan Problems Date of Evaluation: 07/18/20 Rehab Potential Rehab Potential Innapropriate for Skilled Therapy Discharge Plan OT Discharge Plan Pt appears to be at baseline. Pt is safe to return to personal care once physician deems pt medically stable. Eval Complexity Eval Charge Codes
--- NOTE | 2020-07-18 11:18 | HMH.PTEV ---
Physical Therapy Evaluation Rehab PT IP Evaluation Start: 07/18/20 08:49 Freq: ONCE Status: Active Protocol: Document 07/18/20 11:16 [facility] (Rec: 07/18/20 11:18 [facility] [id number]) Subjective/History History History This si a pt admitted thru ED for AMS. Pt is a resident of local home and was previously I w/ all ADL's. Subjective Subjective Pt reports he can walk all day Rehab PT IP Eval Objective Appearance Patient Behavior Appropriate,Cooperative Patient Orientation Person,Place,Time Difficulty following instructions none Speech Pattern Appropriate Ambulation Patient Able to Ambulate Yes Ambulation Observation IP General Gait Pattern Observation No Deviations/Normal Ambulation Distance (feet) 50 Ambulation Assistive Device None Ambulation Ability Independent Balance Ability to Arise Able, uses arms to help Sitting Balance Steady, safe Standing Balance Narrow stance w/o support Dynamic Sitting Balance Ability Good Dynamic Standing Balance Ability Good Transfers Bed Transfer Ability Independent Chair Transfer Ability Independent Sit to Stand Bed Transfer Ability Independent Sit to Stand Chair Transfer Ability Independent Rehab PT IP prob,goals,plan Problems Date of Evaluation: 07/18/20 Rehab Potential Rehab Potential Innapropriate for Skilled Therapy Discharge Plan PT Discharge Plan pt safe to dc back to [facility] G -code Required Yes Eval Complexity Eval Charge Codes 13461 - Low Complexity G Codes PT Current Status Mobility PT Current Status Modifier CI-At least 1% but less than 20% impaired, limited or restricted PT Goal Status Mobility PT Goal Status Modifer CI-At least 1% but less than 20% impaired, limited or restricted PHYSICIAN CERTIFICATION: I certify the specified therapy services for Yaniv Muro are required, authorized, and reviewed every 30 days.
[2020-07-18 12:00] VITALS: BP 126/71; PULSE 60; RESP 18; TEMP 36.6; O2SAT 99
== END 2020-07-18 12:23 | disposition home or self-care (01) ==
LOC: ER 16:18 → 2ND 22:56
PROVIDERS: Admitting Provider Emergency Medicine; Emergency Provider Family Medicine; PCP Emergency Medicine; Visit Provider Emergency Medicine
DX: R41.0 Disorientation, unspecified (principal); I10 Essential (primary) hypertension; Z72.0 Tobacco use; F25.0 Schizoaffective disorder, bipolar type; Z95.1 Presence of aortocoronary bypass graft; I25.2 Old myocardial infarction; J44.9 Chronic obstructive pulmonary disease, unspecified; I25.10 Atherosclerotic heart disease of native coronary artery without angina pectoris; E11.9 Type 2 diabetes mellitus without complications; Z79.899 Other long term (current) drug therapy; Z79.82 Long term (current) use of aspirin; Z79.51 Long term (current) use of inhaled steroids
CPT/HCPCS: 36415; 70450; 71046; 80048; 80053; 80164; 80305; 81001; 82803; 82962; 84436; 84443; 84484; 85025; 85651; 86140; 96365; 96375; 97161; 97166; 99284; G0378; J2310; U0003

== ENCOUNTER 2020-09-15 12:10 | Emergency (ER) | payer BC, SELFPAY ==
[2020-09-15] VITALS (9 sets, daily range): BP systolic 101–122; BP diastolic 67–77; PULSE 57–80; RESP 16–18; TEMP 36.5; O2SAT 96–99; BMI 22.7
--- NOTE | 2020-09-15 12:19 | HMH.EDGENADL ---
ED Disposition Clinical Impression: Altered mental status Qualifiers: Altered mental status type: somnolence Qualified Code(s): R40.0 - Somnolence Disposition: Home, Self-Care Condition on Discharge: Good Additional Instructions: Dr. Baker will see on Friday at 11 AM at lunch. Call Dr. Baker for further problems Referrals: Arthur Baker MD [Primary Care Provider] - - Critical Care Critical Care Time: No Attestation: On , the high probability of a clinically significant, sudden or life threatening deterioration of the following system(s) required my full and direct attention, intervention and personal management. The time I documented below is in addition to time spent performing reported procedures but includes the following listed in this critical care notation. Medical Decision Making - Medical Records Medical records reviewed: Yes: I reviewed the patient's medical records. MR Comment: Admit at this facility 08/05/2020 for altered mental status, encephalopathy. Presentation sounds similar to today. Reviewed admission from 2019 for cellulitis of leg. Review of my emergency department record from that stay shows that his venous stasis changes of his leg are chronic. He had a Doppler of his leg at that time which was negative. - Garcia Inquiry Pt receiving controlled substance: No Vital Signs: 09/15/20 12:10 09/15/20 12:37 09/15/20 13:30 Temperature 97.7 F Temperature Source Oral Pulse Rate 80 68 Pulse Rate [Right Radial] 57 L Respiratory Rate 16 Blood Pressure 119/77 Blood Pressure [Right Arm] 122/74 Blood Pressure Mean 90 Blood Pressure Mean [Right Arm] 90 Blood Pressure Source [Right Arm] Automatic Cuff Blood Pressure Position [Right Arm] Sitting 02 Sat by Pulse Oximetry 98 98 99 Oxygen Delivery Method Room Air 09/15/20 14:29 09/15/20 14:30 09/15/20 14:45 Temperature Temperature Source Pulse Rate 70 64 68 Pulse Rate [Right Radial] Respiratory Rate Blood Pressure 119/76 Blood Pressure [Right Arm] Blood Pressure Mean 99 Blood Pressure Mean [Right Arm] Blood Pressure Source [Right Arm] Blood Pressure Position [Right Arm] 02 Sat by Pulse Oximetry 99 99 98 Oxygen Delivery Method 09/15/20 15:00 09/15/20 15:02 Temperature Temperature Source Pulse Rate 67 62 Pulse Rate [Right Radial] Respiratory Rate Blood Pressure 114/77 Blood Pressure [Right Arm] Blood Pressure Mean 93 Blood Pressure Mean [Right Arm] Blood Pressure Source [Right Arm] Blood Pressure Position [Right Arm] 02 Sat by Pulse Oximetry 99 96 Oxygen Delivery Method - Lab Data Lab Results 09/15/20 12:30: Specimen Source Right radial, O2 % room air, ABG pH 7.40, ABG pCO2 41.8, ABG pO2 83.3, ABG HCO3 25.0, ABG Total CO2 26.3, ABG O2 Saturation 96, ABG Base Excess 0.1, Albino Test Patient unable 09/15/20 13:48: WBC 5.5, RBC 4.18 L, Hgb 13.5 L, Hct 41.5 L, MCV 99.4 H, MCH 32.4 H, MCHC 32.6, RDW 12.5, Plt Count 200, MPV 7.3 L, Neut % (Auto) 57.1, Lymph % (Auto) 30.9, [place] % (Auto) 7.1, Eos % (Auto) 3.9, Baso % (Auto) 1.1, Neut # (Auto) 3.1, Lymph # (Auto) 1.7, [place] # (Auto) 0.4, Eos # (Auto) 0.2, Baso # (Auto) 0.1 09/15/20 13:48: Sodium 137, Potassium 4.6, Chloride 104, Carbon Dioxide 29, Anion Gap 8.6, BUN 9, Creatinine 0.80, Estimated Creat Clear 97, Estimated GFR 99, Est GFR ( Amer) 119, Glucose 81, Calcium 8.9, Total Bilirubin 0.4, AST 20, ALT 12, Alkaline Phosphatase 57, Troponin I < 0.01, Total Protein 6.3, Albumin 3.9, Globulin 2.4, Albumin/Globulin Ratio 1.6, Lipase 37 09/15/20 13:48: Ammonia < 9 L 09/15/20 14:29: Urine Color Yellow, Urine Appearance Clear, Urine pH 6.0, Ur Specific [place] <= 1.005, Urine Protein Negative, Urine Glucose (UA) Negative, Urine Ketones Negative, Urine Blood Negative, Urine Nitrate Negative, Urine Bilirubin Negative, Urine Urobilinogen 1.0, Ur Leukocyte Esterase Negative, Urine RBC Occasional, Urine WBC 3-5, Ur Squamous
--- NOTE | 2020-09-15 12:30 | CT_ITS ---
PROCEDURE: CT HEAD/BRAIN WO CON CLINICAL INDICATION: AMS Altered mental status, altered level of consciousness, confusion, disorientation COMPARISON: CT CT HEAD/BRAIN WO CON from 07/17/2020 TECHNIQUE: Axial images obtained. All CT scans at the facility use one or more dose reduction, viz: automated exposure control, ma/kV adjustment per patient size (including targeted exams where dose is matched to indication, i.e. head), or iterative reconstruction technique. FINDINGS: No midline shift, mass effect, intracranial hemorrhage, hydrocephalus, or extra-axial fluid collection is evident. There is generalized atrophy with hypoattenuation of the periventricular white matter consistent with microangiopathic changes. There is mild dilatation at the basilar tip bifurcation not significantly changed. No acute intracranial hemorrhage evident. The basilar tip measures approximately 4-5 mm. The calvarium has an unremarkable appearance. No mastoid effusion. No sinus air-fluid level. IMPRESSION: 1. No acute intracranial findings. 2. Stable mild dilatation of the basilar tip Dictated by: Albino Lopez MD 09/15/2020 13:06 Albino Lopez MD in [facility] 09/15/2020 13:06
--- NOTE | 2020-09-15 12:31 | XR_ITS ---
PROCEDURE: XR CHEST PORTABLE CLINICAL HISTORY: AMS Shortness of breath COMPARISON: CR XR CHEST PORTABLE from 12/01/[address] CHEST WO CON from 12/01/2019 CR XR CHEST PORTABLE from 12/23/2019 CR XR CHEST 2V from 07/18/2020 FINDINGS: CABG. Normal heart size. No evidence of CHF. Atelectatic change left lower lobe. No acute bony anomalies. IMPRESSION: Minimal left basilar atelectasis. Dictated by: Albino Lopez MD 09/15/2020 14:06 Albino Lopez MD in OV 09/15/2020 14:06
--- NOTE | 2020-09-15 12:40 | PC.NURSE ---
Respiratory called about ABG collection
--- NOTE | 2020-09-15 12:41 | PC.NURSE ---
Pt attempting to urinate
--- NOTE | 2020-09-15 13:00 | PC.NURSE ---
pt in rad.
[2020-09-15 13:04] LABS: ABG Base Excess 0.1 mmol/L (-2.4-2.3); ABG Oxygen Saturation 96 % (90-100); ABG PCO2 41.8 mmhg (35.0-45.0); ABG PO2 83.3 mmhg (80-100); ABG TCO2 26.3 mmhg (23-27)
--- NOTE | 2020-09-15 13:05 | PC.NURSE ---
pt returning from rad.
[2020-09-15 13:09] LABS: Allen's Test Patient Unable; Oxygen room air %; Source Right Radial
[2020-09-15 14:07] LABS: Chloride 104 mmol/L (98-107); Potassium 4.6 mmoL/L (3.5-5.1); Sodium 137 mmol/L (136-145)
[2020-09-15 14:09] LABS: Alanine Aminotransferase 12 U/L (12-78); Aspartate Amino Transferase 20 U/L (17-59); Blood Urea Nitrogen 9 mg/dl (9-20); Creatinine Clearance Estimated 97 mL/min (50-200); Estimated Glomerular Filt Rate 99 ml/min (>60); GFR (African American) 119 ML/MIN (>60)
[2020-09-15 14:10] LABS: Albumin Level 3.9 g/dl (3.5-5.0); Albumin/Globulin Ratio 1.6 (1.1-1.8); Alkaline Phosphatase 57 U/L (38-126); Anion Gap 8.6 mEq/L (5-15); Basophils # 0.1 K/mm3 (0-0.2); Basophils % 1.1 % (0.1-2.0); Bilirubin,Total 0.4 mg/dl (0.2-1.3); Calcium 8.9 mg/dl (8.4-10.2); Carbon Dioxide 29 mmol/L (22.0-30.0); Eosinophils # 0.2 K/mm3 (0.0-0.4); Eosinophils % 3.9 % (0.1-12.0); Globulin 2.4 g/dL (1.3-3.2); Glucose 81 mg/dl (74-100); Hematocrit 41.5 % (42.0-52.0); Hemoglobin 13.5 g/dL (14.1-18.0); Lipase 37 U/L (23-300); Lymphocytes # 1.7 K/mm3 (0.7-4.5); Lymphocytes % 30.9 % (10-50); Mean Corpuscular HGB Conc 32.6 g/dL (31.8-35.4); Mean Corpuscular Hemoglobin 32.4 pg (27.0-31.2); Mean Corpuscular Volume 99.4 fl (80-94); Mean Platelet Volume 7.3 fl (7.4-10.4); Monocytes # 0.4 K/mm3 (0.1-1.0); Monocytes % 7.1 % (1.7-9.3); Neutrophils # 3.1 K/mm3 (1.8-7.8); Neutrophils % 57.1 % (37.0-80.0); Platelet Count 200 K/mm3 (142-424); Red Blood Count 4.18 M/mm3 (4.60-6.20); Red Cell Distribution Width 12.5 % (11.5-17.5); Total Protein,Serum 6.3 g/dl (6.3-8.2); White Blood Count 5.5 K/mm3 (4.8-10.8)
[2020-09-15 14:11] LABS: Ammonia < 9 umol/L (9-30)
--- NOTE | 2020-09-15 14:21 | ECG_ITS ---
APPROVED REPORT Exam: Resting ECG HR:63 bpm ECG Measurements Heart Rate 63 AXES HI 158 P 69 QRSd 88 QRS 7 QT 404 T 58 QTc 413 Conclusion Normal sinus rhythm Normal ECG Electronically signed by : Tenzin Tovar, 09/16/2020 08:45:42
[2020-09-15 14:23] LABS: Troponin I < 0.01 ng/ml (0.00-0.034)
[2020-09-15 14:34] LABS: Microscopic, Urine URINE MICROSCOPIC (MICROSCOPIC)
[2020-09-15 14:36] LABS: Appearance,Urine CLEAR (Clear); Bilirubin,Urine Negative (Negative); Blood, Urine Negative (Negative); Color,Urine YELLOW (Yellow); Glucose,Urine (UA) Negative (Negative); Ketones,Urine Negative (Negative); Leukocyte Esterase,Urine Negative (Negative); Nitrate,Urine Negative (Negative); Protein,Urine Negative (Negative); Specific Gravity, Urine <= 1.005 (1.005-1.030)
[2020-09-15 14:44] LABS: RBC,Urine Occasional #/hpf (0-3); Squamous Epithelial Cell,Urine Occasional #/hpf (0-5)
--- NOTE | 2020-09-15 14:55 | PC.NURSE ---
HALLEY SNOWDEN speaking with Dr. Baker
--- NOTE | 2020-09-15 15:12 | PC.NURSE ---
Notified joseline that pt was ready to return to their facility
== END 2020-09-15 15:49 | disposition home or self-care (01) ==
PROVIDERS: Emergency Provider Emergency Medicine; PCP Emergency Medicine
DX: R41.82 Altered mental status, unspecified (principal); I25.10 Atherosclerotic heart disease of native coronary artery without angina pectoris; E11.9 Type 2 diabetes mellitus without complications; I10 Essential (primary) hypertension; E78.5 Hyperlipidemia, unspecified; Z95.0 Presence of cardiac pacemaker; F17.210 Nicotine dependence, cigarettes, uncomplicated; Z79.899 Other long term (current) drug therapy
CPT/HCPCS: 70450; 71045; 80053; 81001; 82140; 82803; 83690; 84484; 85025; 93005; 99283

== ENCOUNTER 2021-03-13 02:11 | Observation (INO) | payer BC, SELFPAY ==
[2021-03-13] VITALS (22 sets, daily range): BP systolic 79–155; BP diastolic 44–91; PULSE 52–100; RESP 10–26; TEMP 36–36.8; O2SAT 95–100; BMI 22.3; BMI 21.8; BMI 16.6
--- NOTE | 2021-03-13 | IR_ITS ---
APPROVED REPORT Patient Location: Inpatient PROCEDURES Left heart catheterization Left ventriculogram Selective coronary angiogram Selective engagement of saphenous vein graft to the right coronary artery Drug-eluting stent deployment to the saphenous vein graft supplying the dominant right coronary Selective engage of the the saphenous vein graft to the circumflex artery Selective engagement of the saphenous vein graft to the left anterior descending artery Informed consent was obtained prior to the procedure. COMPLICATIONS NONE Estimated Blood Loss: LESS THAN 10 ML TECHNIQUE One percent lidocaine used to anesthetize the right anterior aspect of the wrist. The right radial artery was accessed via the Seldinger technique. A 6 Bulgarian sheath was placed in the right radial artery. 2.5 mg of verapamil, 800 mcg of nitroglycerin, 1mg Lidocaine and 5000 U Heparin were given through the arterial sheath. The AetherPal 1 catheter was also used to selective engagement of 3 saphenous vein grafts, 1 to the LAD 1 to the dominant right coronary artery 1 to the circumflex artery as well as choctaw selective coronary angiogram. At the end the diagnostic angiogram therapeutic heparin was administered giving a therapeutic ACT and the guide catheter was placed in the saphenous vein graft to the right coronary artery where a BMW wire was placed distally. 3.5 x 12 mm resolute [place] stent was placed in the proximal saphenous vein graft at 20 ralph reducing the eccentric stenosis to 0%. At the end of the procedure the sheath was removed good hemostasis was achieved using Traclet band, patient was transferred to the postop holding area in stable condition. ANGIOGRAPHIC RESULTS The left main artery Normal The left anterior descending artery Is proximally occluded after a first septal lead cytogenetic technologist The circumflex artery Is a nondominant vessel and has proximal and mid vessel 50% stenoses with a 70% stenosis just proximal to the first large first obtuse marginal artery. Competitive flow from the saphenous vein graft to the circumflex artery is identified. The second obtuse marginal artery which is also the terminal obtuse marginal artery has a proximal 50% stenosis The right coronary artery Is dominant with an ostial 70% stenosis and severe subtotal occlusion throughout the mid segment. Competitive flow is identified distally. 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 Dual antiplatelet therapy 2. Risk factor modification 3. Cardiac rehabilitation 4. Avoidance of tobacco products Electronically signed by : Rajesh Curtis MD 03/13/2021 13:09:18
--- NOTE | 2021-03-13 02:09 | ECG_ITS ---
APPROVED REPORT Exam: Resting ECG HR:60 bpm ECG Measurements Heart Rate 60 AXES WV 124 P 30 QRSd 86 QRS 6 QT 414 T 60 QTc 414 Conclusion Normal sinus rhythm Cannot rule out Anterior infarct, age undetermined Inferior injury pattern ACUTE MT Abnormal ECG Electronically signed by : Tenzin Tovar MD 03/16/2021 14:33:09
--- NOTE | 2021-03-13 02:13 | XR_ITS ---
PROCEDURE INFORMATION: Exam: XR Chest Exam date and time: 03/13/2021 2:13 AM Age: 60 years old Clinical indication: Pain; Chest pressure; Prior surgery; Surgery type: Stents; Additional info: Cp TECHNIQUE: Imaging protocol: XR of the chest. Views: 1 view. COMPARISON: CR XR CHEST PORTABLE 09/15/2020 12:59 PM FINDINGS: Lungs: No focal airspace consolidation. Pleural spaces: Unremarkable. No pleural effusion. No pneumothorax. Heart/Mediastinum: Cardiac mediastinal silhouette are stable in configuration with no significant change in pulmonary vascularity. Postoperative mediastinal changes are again noted. Bones/joints: Unremarkable. IMPRESSION: No new focal airspace consolidation, pneumothorax, or pleural effusion.
[2021-03-13 02:29] LABS: Coronavirus 19, PCR Not Detected (NotDetected); Influenza A, PCR Not Detected (NotDetected); Influenza B, PCR Not Detected (NotDetected)
[2021-03-13 02:32] LABS: Basophils # 0.1 K/mm3 (0-0.2); Basophils % 1.3 % (0.1-2.0); Eosinophils # 0.2 K/mm3 (0.0-0.4); Eosinophils % 2.9 % (0.1-12.0); Hematocrit 44.6 % (42.0-52.0); Hemoglobin 14.9 g/dL (14.1-18.0); Lymphocytes # 2.3 K/mm3 (0.7-4.5); Mean Corpuscular HGB Conc 33.3 g/dL (31.8-35.4); Mean Corpuscular Hemoglobin 33.5 pg (27.0-31.2); Mean Corpuscular Volume 100.5 fl (80-94); Mean Platelet Volume 8.2 fl (7.4-10.4); Monocytes # 0.5 K/mm3 (0.1-1.0); Monocytes % 7.5 % (1.7-9.3); Neutrophils # 3.9 K/mm3 (1.8-7.8); Neutrophils % 55.3 % (37.0-80.0); Platelet Count 191 K/mm3 (142-424); Red Blood Count 4.44 M/mm3 (4.60-6.20); Red Cell Distribution Width 13.1 % (11.5-17.5); White Blood Count 7.1 K/mm3 (4.8-10.8)
[2021-03-13 02:38] LABS: Alanine Aminotransferase 10 U/L (12-78); Albumin Level 3.8 g/dl (3.5-5.0); Albumin/Globulin Ratio 1.5 (1.1-1.8); Alkaline Phosphatase 48 U/L (38-126); Anion Gap 9.1 mEq/L (5-15); Aspartate Amino Transferase 16 U/L (17-59); Bilirubin,Total 0.4 mg/dl (0.2-1.3); Blood Urea Nitrogen 7 mg/dl (9-20); Calcium 8.9 mg/dl (8.4-10.2); Carbon Dioxide 26 mmol/L (22.0-30.0); Chloride 105 mmol/L (98-107); Creatinine Clearance Estimated 107 mL/min (50-200); Estimated Glomerular Filt Rate 99 ml/min (>60); GFR (African American) 119 ML/MIN (>60); Globulin 2.6 g/dL (1.3-3.2); Glucose 99 mg/dl (74-100); Potassium 4.1 mmoL/L (3.5-5.1); Sodium 136 mmol/L (136-145); Total Protein,Serum 6.4 g/dl (6.3-8.2)
[2021-03-13 02:43] LABS: C-Reactive Protein 0.5 mg/L (0-4)
[2021-03-13 02:53] LABS: Troponin I < 0.01 ng/ml (0.00-0.034)
[2021-03-13 02:58] LABS: Procalcitonin < 0.030 ng/mL (0.0-2.0)
[2021-03-13 03:04] LABS: Erythrocyte Sedimentation Rate 8 mm/hr (0-20)
[2021-03-13 03:11] LABS: Amylase 31 U/L (30-110); Lipase 31 U/L (23-300)
[2021-03-13 03:17] LABS: Valproic Acid, (Depakene) 48.6 ug/ml (50-100)
--- NOTE | 2021-03-13 03:59 | HMH.EDCP ---
ED Disposition Clinical Impression: S/P CABG (coronary artery bypass graft), Schizo-affective schizophrenia, Angina pectoris, Tobacco dependence syndrome COPD (chronic obstructive pulmonary disease) Qualifiers: COPD type: unspecified COPD Qualified Code(s): J44.9 - Chronic obstructive pulmonary disease, unspecified Disposition: Admitted as Observation Condition on Discharge: Good Referrals: Arthur Baker MD [Primary Care Provider] - - Critical Care Critical Care Time: No Attestation: On 03/13/21, the high probability of a clinically significant, sudden or life threatening deterioration of the following system(s) required my full and direct attention, intervention and personal management. The time I documented below is in addition to time spent performing reported procedures but includes the following listed in this critical care notation. Medical Decision Making - Medical Records Medical records reviewed: Yes: I reviewed the patient's medical records. - Garcia Inquiry Pt receiving controlled substance: No Vital Signs: 03/13/21 02:11 03/13/21 02:30 Temperature 97.5 F L Temperature Source Oral Pulse Rate 62 Pulse Rate [Right] 62 Respiratory Rate 19 15 Blood Pressure 111/75 Blood Pressure [Right Arm] 127/83 Blood Pressure Mean 87 Blood Pressure Mean [Right Arm] 97 Blood Pressure Source [Right Arm] Automatic Cuff 02 Sat by Pulse Oximetry 99 99 Oxygen Delivery Method Room Air Room Air - Lab Data Lab results reviewed: Yes: I reviewed the patient's lab results. Lab Results 03/13/21 02:02: Amylase 31, Lipase 31, Total Valproic Acid 48.6 L 03/13/21 02:18: WBC 7.1, RBC 4.44 L, Hgb 14.9, Hct 44.6, MCV 100.5 H, MCH 33.5 H, MCHC 33.3, RDW 13.1, Plt Count 191, MPV 8.2, Neut % (Auto) 55.3, Lymph % (Auto) 33.0, [place] % (Auto) 7.5, Eos % (Auto) 2.9, Baso % (Auto) 1.3, Neut # (Auto) 3.9, Lymph # (Auto) 2.3, [place] # (Auto) 0.5, Eos # (Auto) 0.2, Baso # (Auto) 0.1, ESR 8 03/13/21 02:18: Sodium 136, Potassium 4.1, Chloride 105, Carbon Dioxide 26, Anion Gap 9.1, BUN 7 L, Creatinine 0.80, Estimated Creat Clear 107, Estimated GFR 99, Est GFR ( Amer) 119, Glucose 99, Calcium 8.9, Total Bilirubin 0.4, AST 16 L, ALT 10 L, Alkaline Phosphatase 48, Troponin I < 0.01, C-Reactive Protein 0.5, Total Protein 6.4, Albumin 3.8, Globulin 2.6, Albumin/Globulin Ratio 1.5, Procalcitonin < 0.030 03/13/21 02:18: SARS-CoV-2 (PCR) Not detected, Influenza A Untype (PCR) Not detected, Influenza Type B (PCR) Not detected Result diagrams: 03/13/21 02:18 03/13/21 02:18 Orders (Tests/Meds): ED MEDICATIONS Generic Name Dose Route Start Last Admin Trade Name Freq PRN Reason Stop Dose Admin Sodium Chloride 1,000 mls @ 999 mls/hr 03/13/21 02:15 03/13/21 02:19 Sod Chlor 0.9% 1000ml Bag IV 03/13/21 03:15 999 mls/hr .Q1H1M FERNANDA Administration Discontinued Medications Generic Name Dose Route Start Last Admin Trade Name Freq PRN Reason Stop Dose Admin Nitroglycerin 0.4 mg 03/13/21 02:14 03/13/21 02:19 Nitroglycerin 0.4mg Sl Tablet SL 03/13/21 02:15 0.4 mg ONCE ONE Administration Nitroglycerin 1 gm 03/13/21 02:19 03/13/21 02:19 Nitroglycerin 1 Gm Ointment TD 03/13/21 02:20 1 gm ONCE ONE Administration ORDERS Category Date Time Status Troponin I Q3H Lab 03/13/21 05:15 Ordered Troponin I Q3H Lab 03/13/21 08:15 Ordered UA [Urinalysis and Microscopic] Stat Lab 03/13/21 02:35 Ordered - Radiology Data #1 Image(s): Chest Image Reviewed: Yes I have reviewed radiologist's interpretation Preliminary Findings: Normal/NAD - ECG Data Tracing #1 Normal Sinus Rhythm: Yes Ischemic changes: non-specific ST-T wave changes ECG compared to prior tracings: there are no significant changes Medical Decision Narrative: pt has chest pain with hx of cad with progressive chest pain over the last 2 days Chest Pain HPI - General Chief Complaint: Chest Pain Stated Complain
--- NOTE | 2021-03-13 05:37 | PC.NURSE ---
patient up to floor via wheelchair @ this time.
--- NOTE | 2021-03-13 07:22 | P.CONPHA_ITS ---
[facility] Pharmacy VTE Monitoring - Patient Demographics Admission date: 03/13/21 Report Date: 03/13/21 Time: 07:22 Allergies/Adverse Reactions: Patient Allergies No Known Allergies Allergy (Verified 04/26/19 12:21) Height: 1.88 m Weight: 58.876 kg Patient Problems: Current Active Problems Angina pectoris (Acute) COPD (chronic obstructive pulmonary disease) (Acute) Tobacco dependence syndrome (Chronic) Schizo-affective schizophrenia (Chronic) S/P CABG (coronary artery bypass graft) (Chronic) - VTE Risk Labs: VTE Related Lab Results Hgb 14.9 g/dL (14.1-18.0) 03/13/21 02:18 Hct 44.6 % (42.0-52.0) 03/13/21 02:18 Plt Count 191 K/mm3 (142-424) 03/13/21 02:18 BUN 7 mg/dl (9-20) L 03/13/21 02:18 Creatinine 0.80 mg/dl (0.66-1.25) 03/13/21 02:18 Estimated Creat Clear 107 mL/min (50-200) 03/13/21 02:18 - Prophylaxis VTE Prophylaxis Ordered?: Yes Types of VTE Prophylaxis: TEDS Knee High Location of Applied Device: Bilateral Lower Extremeties
[2021-03-13 07:36] LABS: Troponin I 0.03 ng/ml (0.00-0.034)
--- NOTE | 2021-03-13 08:22 | HMH.CNCARD ---
History of Present Illness Consult date: 03/13/21 Requesting physician: Arthur Baker Consult reason: chest pain Chief complaint: chest pain Additional Medical History:: 1. Coronary artery disease A. Coronary artery bypass grafting, [address] [facility], 08/2018, adequately revascularized with normal LVEF. [facility], 03/2019, ANGIOGRAPHIC RESULTS The left main artery Is a small caliber vessel with no angiographic stenosis The left anterior descending artery Is proximally subtotally occluded. There is evidence of competitive flow from a vein graft The circumflex artery Is a nondominant vessel and has proximal and mid vessel 7050 and 70% stenoses. The first obtuse marginal artery has a vein graft which is patent and provides antegrade flow down the vein graft The right coronary artery Is a dominant vessel and occluded proximal The BURGESS ventriculogram reveals Normal ejection fraction 65% The left ventricular end-diastolic pressure Elevated at 20 mmHg Left internal mammary artery is proximally occluded The saphenous vein graft supplying the LAD is widely patent with mild 20 and 30% diffuse stenoses. The anastomosis appears to be at the junction of the proximal LAD and the first diagonal artery. Both diagonal artery and LAD receives excellent SHARRON-3 flow. The caliber of the vein graft is large while the caliber of the LAD and diagonal arteries are both approximately 2 mm in diameter The saphenous vein graft supplying the first obtuse marginal artery has an ostial proximal 30% [id number] stenosis. There is excellent retrograde filling from the first obtuse marginal artery back into the second obtuse marginal artery The saphenous vein graft supplying the right coronary artery has a mid vessel eccentric 30% stenosis. The vein graft makes its anastomosis onto the distal right coronary artery and then provides antegrade flow to the posterior lateral branch and posterior descending artery. The posterior descending artery has a long mid vessel diffuse 50% stenosis at an area less than 2 mm in diameter IMPRESSION Adequate coronary artery revascularization as described above Normal ejection fraction Mildly elevated LVEDP 2. Diabetis mellitus 3. Hypertension 4. Hyperlipidemia 5. Poor historian 6. Schizophrenia and schizo-affective disorder History of present illness: 60-year-old white male with known history of coronary artery disease and prior bypass surgery presented to the emergency department for for chest pain. Patient lives in extended-care facility and has schizoaffective disorder which makes history difficult. Patient points to the left side of his chest and upper abdominal area when complaining of chest pain. He denies any nausea, vomiting, diarrhea or cough. Chest x-ray is negative for acute infiltrate. EKG is sinus rhythm with chronic mild ST T abnormalities that are unchanged from prior tracings. Troponins have returned normal. Cardiology consulted for evaluation recommendations. [facility] History Medical History: Reports:: Coronary Artery Disease, Diabetes Mellitus Type 1, Diabetes Mellitus Type 2, Hyperlipidemia, Hypertension, Internal Pacemaker, Myocardial Infarction *Have you ever received a pneumonia vaccine?: No *Have you received a flu vaccine this season?: No Other Surgeries: Yes: No Previous Surgery, Appendectomy, CABG, Cardiac Catheterization, Cardiac Surgery, Cholecystectomy, Open Heart Surgery (cabg), Pacemaker Amputation: No Fractures: No - *Social History Smoking Status: Current every day smoker Tobacco Type: cigarettes # Packs/Day (cigarettes): 1 Alcohol Intake: never Substance Use Type: denies use *Occupational Status:: unemployed Housing: assisted living facility Household Members: other *Travel in the last 8 weeks: None Family Hx:: Unable to obtain Meds Home Medications Medication Instructions Recorded Confirmed Type Aspirin [Aspir 81] 81 mg PO DAILY 05/22/17
[2021-03-13 09:15] LABS: Troponin I < 0.01 ng/ml (0.00-0.034)
--- NOTE | 2021-03-13 09:21 | HMH.PHAINT ---
MEDICATION RECONCILIATION COMPLETE USING [facility]
--- NOTE | 2021-03-13 13:36 | HMH.HP ---
*Admission Date: 03/13/21 *Chief complaint: chest pain *History of present illness: this patient presented to the ed with chest pain - [facility]. On eval, pt told EMS this pain began 03/12/21 at 2 pm after lunch. EMS gave Aspirin 324mg PO in route, no nitro. Pt denies any n/v/d. Pt denies any cough, fever, or sob. Pt does have a h/x of CABG pt with chest pain which has been intermittent since friday - has hx of cad with [facility] have reviewed the patient's past medical history: Yes Medical History: Reports:: Coronary Artery Disease, Diabetes Mellitus Type 1, Diabetes Mellitus Type 2, Hyperlipidemia, Hypertension, Internal Pacemaker, Myocardial Infarction *Have you ever received a pneumonia vaccine?: No *Have you received a flu vaccine this season?: No Other Surgeries: Yes: No Previous Surgery, Appendectomy, CABG, Cardiac Catheterization, Cardiac Surgery, Cholecystectomy, Open Heart Surgery (cabg), Pacemaker Amputation: No Fractures: No - *Social History Smoking Status: Current every day smoker Tobacco Type: cigarettes # Packs/Day (cigarettes): 1 Alcohol Intake: never Substance Use Type: denies use *Occupational Status:: unemployed Housing: assisted living facility Household Members: other *Travel in the last 8 weeks: None Family Hx:: Unable to obtain Review of Systems - Review of Systems Review of systems:: pertinent systems reviewed and negative unless documented below - Constitutional Denies fever(s) - Eyes Denies change in vision - ENT Denies headache(s), Denies sore throat - *Cardiovascular Reports chest pain, Reports chest pain at rest, Denies shortness of breath - *Respiratory Denies cough - *Gastrointestinal Denies abdominal pain - *Genitourinary Denies blood in urine - *Musculoskeletal Denies joint pain - Integumentary/Breasts Denies rash - *Neurologic Denies headache(s), Denies seizure-like activity - Psychiatric Denies depression Meds Home Medications Medication Instructions Recorded Confirmed Type Divalproex Sodium [Depakote] 500 mg PO BID 05/22/17 03/13/21 History haloperidol 5 mg tablet 10 mg PO BID 08/10/18 03/13/21 History atorvastatin 40 mg tablet 40 mg PO HS 11/10/18 03/13/21 History ipratropium 20 mcg-albuterol 100 1 puff INHALATION QID 03/26/19 03/13/21 History mcg/actuation mist for inhalation mometasone-formoterol HFA 100 2 puff INHALATION BID 03/26/19 03/13/21 History mcg-5 mcg/actuation aerosol inhaler Ranolazine [Ranolazine ER] 500 mg PO BID 04/10/19 03/13/21 History Metoprolol Tartrate [Lopressor 12.5 mg PO BID 04/17/19 03/13/21 History 25mg tablet] Amlodipine Besylate 2.5 mg PO HS 07/17/20 03/13/21 History Sertraline HCl 150 mg PO DAILY 07/18/20 03/13/21 History diazepam 5 mg tablet 5 mg PO BID #60 tab 09/08/20 03/13/21 Rx Acetaminophen [Acetaminophen 325mg 325 mg PO Q6HP PRN 03/13/21 03/13/21 History tab] Aspirin [Aspirin 81mg chewable 81 mg PO DAILY 03/13/21 03/13/21 History tab] Benzonatate [Tessalon Perle 100mg 100 mg PO TID 03/13/21 03/13/21 History Cap*] Benztropine Mesylate [Cogentin 1mg 1 mg PO BID 03/13/21 03/13/21 History tablet] Famotidine [Acid Day Care Worker] 20 mg PO BID 03/13/21 03/13/21 History Isosorbide Mononitrate [Imdur 30mg 30 mg PO DAILY 03/13/21 03/13/21 History ER tablet] Paliperidone [Paliperidone ER] 12 mg PO DAILY 03/13/21 03/13/21 History Allergies Allergy/AdvReac Type Severity Reaction Status Date / Time No Known Allergies Allergy Verified 04/26/19 12:21 Exam Vital signs and Labs for Last 24 Hours: Temp Pulse Resp BP Pulse Ox 97.7 F 59 L 21 119/61 95 03/13/21 12:00 03/13/21 12:00 03/13/21 12:00 03/13/21 12:00 03/13/21 12:00 Laboratory Results - last 24 hr 03/13/21 02:02: Amylase 31, Lipase 31, Total Valproic Acid 48.6 L 03/13/21 02:18: WBC 7.1, RBC 4.44 L, Hgb 14.9, Hct 44.6
[2021-03-13 13:59] LABS: CATHL Activated Clotting Time 261 SEC (74-125)
[2021-03-13 14:00] LABS: CATHL Activated Clotting Time 156 SEC (74-125)
[2021-03-13 14:30] LABS: Microscopic, Urine URINE MICROSCOPIC (MICROSCOPIC)
[2021-03-13 14:34] LABS: Appearance,Urine SL CLOUDY (Clear); Bilirubin,Urine Negative (Negative); Blood, Urine Negative (Negative); Color,Urine YELLOW (Yellow); Glucose,Urine (UA) Negative (Negative); Ketones,Urine Negative (Negative); Leukocyte Esterase,Urine Negative (Negative); Nitrate,Urine Negative (Negative); Protein,Urine Negative (Negative); Urobilinogen,Urine 0.2 EU/dl (0.2)
[2021-03-13 14:54] LABS: Squamous Epithelial Cell,Urine Occasional #/hpf (0-5); WBC,Urine Occasional #/hpf (0-3)
--- NOTE | 2021-03-13 17:06 | PC.NURSE ---
POst cath cuff deflation as follows: (18mL initially) 1500: 16mL present 1515: 14mL present 1530: 12mL present 1545: 10mL present 1600: 8mL present 1615: 6mL present 1630: 4mL present 1645: 2mL present 1700: 0ML left; cuff deflated and removed. Site is WDL. No hematoma present
--- NOTE | 2021-03-13 19:11 | PC.NURSE ---
Patient was sent to concrete mixing plant laborer today with one stent placed; right radial site is wdl- RN placed board on wrist to limit mobility for the rest of the shift- this was passed on to health policy nurse. Patient was confused post concrete mixing plant laborer following administration of Fentanyl in the concrete mixing plant laborer. Around 1700 patient became more alert and returned to baseline.
[2021-03-14] VITALS: BP 130/94; PULSE 59; PULSE 63; RESP 18; TEMP 36.7; O2SAT 99
[2021-03-14 04:00] VITALS: BP 143/86; PULSE 53; PULSE 60; RESP 14; TEMP 36.7; O2SAT 98
[2021-03-14 05:06] VITALS: BMI 19.6
[2021-03-14 08:00] VITALS: BP 132/71; PULSE 58; RESP 18; TEMP 36.4; O2SAT 98
[2021-03-14 08:38] LABS: Chloride 105 mmol/L (98-107); Potassium 3.9 mmoL/L (3.5-5.1); Sodium 141 mmol/L (136-145)
[2021-03-14 08:40] LABS: Basophils # 0.1 K/mm3 (0-0.2); Eosinophils # 0.1 K/mm3 (0.0-0.4); Eosinophils % 2.5 % (0.1-12.0); Hematocrit 46.6 % (42.0-52.0); Hemoglobin 15.5 g/dL (14.1-18.0); Lymphocytes # 1.5 K/mm3 (0.7-4.5); Lymphocytes % 26.3 % (10-50); Mean Corpuscular HGB Conc 33.2 g/dL (31.8-35.4); Mean Corpuscular Hemoglobin 33.3 pg (27.0-31.2); Mean Corpuscular Volume 100.4 fl (80-94); Mean Platelet Volume 7.8 fl (7.4-10.4); Monocytes # 0.4 K/mm3 (0.1-1.0); Monocytes % 7.8 % (1.7-9.3); Neutrophils # 3.5 K/mm3 (1.8-7.8); Neutrophils % 62.3 % (37.0-80.0); Platelet Count 190 K/mm3 (142-424); Red Blood Count 4.64 M/mm3 (4.60-6.20); Red Cell Distribution Width 13.2 % (11.5-17.5); White Blood Count 5.5 K/mm3 (4.8-10.8)
[2021-03-14 08:41] LABS: Anion Gap 11.9 mEq/L (5-15); Blood Urea Nitrogen 7 mg/dl (9-20); Calcium 8.8 mg/dl (8.4-10.2); Carbon Dioxide 28 mmol/L (22.0-30.0); Creatinine Clearance Estimated 110 mL/min (50-200); Estimated Glomerular Filt Rate 115 ml/min (>60); GFR (African American) 139 ML/MIN (>60); Glucose 138 mg/dl (74-100)
--- NOTE | 2021-03-14 09:24 | SW/DCPLANNER ---
Addendum entered by Emily Ortega 03/14/21 13:34: I spoke with [employer] regarding this patient: they have stated that they can not transport this patient due to address going to [facility]. [facility] stated that they have been sending reminders to [facility] since 2018 with no change. I notified Ale with [facility]: Ale has stated that this resident has been at [facility] for awhile, she is unaware of making any changes and she will arrange transportation for this patient. Original Note: This patient currently resides at [facility]. I spoke with Dylan and updated on plan of care for this patient: cath yesterday w/ stent placed, PT/OT eval then will discharge this afternoon. Ale/Reynaldo has stated that patient will not require a COVID swab prior to discharge and that patient will need to be set up with [facility] [employer].
--- NOTE | 2021-03-14 09:53 | HMH.OTEV ---
OT Inpatient Evaluation Rehab OT IP Evaluation Start: 03/14/21 08:51 Freq: ONCE Status: Complete Protocol: Document 03/14/21 09:50 [facility] (Rec: 03/14/21 09:53 [facility] [id number]) Rehab OT IP Assessment Subjective History Pt oriented x 3 on arrival. Pt agreeable to engage in thearpy evaluation. Pt was admitted via ED on 03/13/21 due to chest pain. Pt has a past medical history of Coronary Artery Disease, Diabetes Mellitus Type 1, Diabetes Mellitus Type 2, Hyperlipidemia, Hypertension, Internal Pacemaker, Myocardial Infarction. Pt reports prior to coming to hospital he lived at [place]. Pt claims he was independent with all ADLs. He did use a walker/ cane at times during ambulation. He was dependent upon staff for IADLs. Subjective I need new shoes, my feet hurt. Objective Patient Orientation Person,Place,Birthday Upper Extremity Gross ROM WFL Bed Mobility bed mobility-scooting,bed mobility - supine/sit,bed mobility - rolling Assist Level Supervision/Stand by Transfer Training Sit/Stand Transfer Assist Level Supervision/Stand by Chair Transfer Ability Supervision/Stand by Chair Transfer Technique Sit to/from Ambulatory Performing Toilet Hygiene Ability Standby Assistance Overall Commode/Toilet Transfer Ability Standby Assistance Commode/Toilet Transfer Technique Sit to/from Ambulatory Rehab OT IP prob,goals,plan Problems Date of Evaluation: 03/14/21 Rehab Potential Rehab Potential Innapropriate for Skilled Therapy Discharge Plan OT Discharge Plan Pt appears to be at his baseline with functional ability. Pt is safe to return back to [place] once medically stable per physician . Eval Complexity Eval Charge Codes 47890 - Moderate Complexity G Codes G -code Required No PHYSICIAN CERTIFICATION: I certify the specified therapy services for Yaniv Muro are required, a
--- NOTE | 2021-03-14 11:56 | HMH.PTEV ---
Physical Therapy Evaluation Rehab PT IP Evaluation Start: 03/14/21 08:50 Freq: ONCE Status: Active Protocol: Document 03/14/21 11:46 TIAN (Rec: 03/14/21 11:56 TIAN [id number]) Subjective/History History History This is the initial evaluation for Yaniv Muro. Pt is a 60 y/o male admitted for chest pain. Pt denied any SOA, fever , or chills. Pt does hae hx of CABG. - note done by Suma Hankins, SPT Subjective Subjective Pt reports he was living in a personal care facility for two years prior to [facility] admission. Pt reports he was independent in most his ADL's prior to this medically episode. Pt states he only used a 4-point cane to walk around with. Pt stated he was dizzy when walking around the room. Rehab PT IP Eval Objective Appearance Patient Behavior Appropriate,Cooperative Patient Orientation Person,Place,Name,Birthday, Situation Speech Pattern Clear,Appropriate,Coherent, Mumbled Ambulation Patient Able to Ambulate Yes Ambulation Observation IP General Gait Pattern Observation No Deviations/Normal Ambulation Distance (feet) 20 Ambulation Assistive Device None Ambulation Ability Contact Guard/Hand Hold Balance Ability to Arise Able, w/o using arms Sitting Balance Steady, safe Standing Balance Narrow stance w/o support Dynamic Sitting Balance Ability Normal Dynamic Standing Balance Ability Good Transfers Bed Transfer Ability Supervision/Stand by Chair Transfer Ability Supervision/Stand by Sit to Stand Bed Transfer Ability Supervision/Stand by Sit to Stand Chair Transfer Ability Supervision/Stand by Rehab PT IP prob,goals,plan Problems Date of Evaluation: 03/14/21 PT IP Problems Other Other Pt Problem cardiovascular Rehab Potential Rehab Potential Innapropriate for Skilled Therapy Discharge Plan PT Discharge Plan Pt has returned to prior level of function. Once medically stable, Pt will benefit from return to personal care facility. G -code Required Yes Eval Complexity Eval Charge
[2021-03-14 12:00] VITALS: BP 90/68; PULSE 105; RESP 17; TEMP 36.7; O2SAT 99
--- NOTE | 2021-03-14 12:25 | HMH.DCSUM ---
General - General Admission date:: 03/13/21 Discharge date: 03/14/21 HPI HPI: this patient presented to the ed with chest pain - ems called out to [facility] for pt c/o chest pain. On eval, pt told EMS this pain began 03/12/21 at 2 pm after lunch. EMS gave Aspirin 324mg PO in route, no nitro. Pt denies any n/v/d. Pt denies any cough, fever, or sob. Pt does have a h/x of CABG pt with chest pain which has been intermittent since friday - has hx of cad with prev cabg and was admitted for eval and [facility] Course Hospital Course: Laboratory Tests 03/13/21 03/13/21 03/13/21 02:02 02:18 02:18 WBC 7.1 RBC 4.44 L Hgb 14.9 Hct 44.6 MCV 100.5 H MCH 33.5 H MCHC 33.3 RDW 13.1 Plt Count 191 MPV 8.2 Neut % (Auto) 55.3 Lymph % (Auto) 33.0 [place] % (Auto) 7.5 Eos % (Auto) 2.9 Baso % (Auto) 1.3 Neut # (Auto) 3.9 Lymph # (Auto) 2.3 [place] # (Auto) 0.5 Eos # (Auto) 0.2 Baso # (Auto) 0.1 ESR 8 Activated Clotting Time Sodium 136 Potassium 4.1 Chloride 105 Carbon Dioxide 26 Anion Gap 9.1 BUN 7 L Creatinine 0.80 Estimated Creat Clear 107 Estimated GFR 99 Est GFR ( Amer) 119 Glucose 99 Calcium 8.9 Total Bilirubin 0.4 AST 16 L ALT 10 L Alkaline Phosphatase 48 Troponin I < 0.01 C-Reactive Protein 0.5 Total Protein 6.4 Albumin 3.8 Globulin 2.6 Albumin/Globulin Ratio 1.5 Amylase 31 Lipase 31 Procalcitonin < 0.030 Urine Color Urine Appearance Urine pH Ur Specific [place] Urine Protein Urine Glucose (UA) Urine Ketones Urine Blood Urine Nitrate Urine Bilirubin Urine Urobilinogen Ur Leukocyte Esterase Urine RBC Urine WBC Ur Squamous Epith Cells Urine Bacteria Total Valproic Acid 48.6 L SARS-CoV-2 (PCR) Influenza A Untype (PCR) Influenza Type B (PCR) 03/13/21 03/13/21 03/13/21 02:18 05:50 08:35 WBC RBC Hgb Hct MCV MCH MCHC RDW Plt Count MPV Neut % (Auto) Lymph % (Auto) [place] % (Auto) Eos % (Auto) Baso % (Auto) Neut # (Auto) Lymph # (Auto) [place] # (Auto) Eos # (Auto) Baso # (Auto) ESR Activated Clotting Time Sodium Potassium Chloride Carbon Dioxide Anion Gap BUN Creatinine Estimated Creat Clear Estimated GFR Est GFR ( Amer) Glucose Calcium Total Bilirubin AST ALT Alkaline Phosphatase Troponin I 0.03 < 0.01 C-Reactive Protein Total Protein Albumin Globulin Albumin/Globulin Ratio Amylase Lipase Procalcitonin Urine Color Urine Appearance Urine pH Ur Specific [place] Urine Protein Urine Glucose (UA) Urine Ketones Urine Blood Urine Nitrate Urine Bilirubin Urine Urobilinogen Ur Leukocyte Esterase Urine RBC Urine WBC Ur Squamous Epith Cells Urine Bacteria Total Valproic Acid SARS-CoV-2 (PCR) Not detected Influenza A Untype (PCR) Not detected Influenza Type B (PCR) Not detected 03/13/21 03/13/21 03/13/21 12:57 13:06 14:20 WBC RBC Hgb Hct MCV MCH MCHC RDW Plt Count MPV Neut % (Auto) Lymph % (Auto) [place] % (Auto) Eos % (Auto) Baso % (Auto) Neut # (Auto) Lymph # (Auto) [place] # (Auto) Eos # (Auto) Baso # (Auto) ESR Activated Clotting Time 156 H* 261 H* D Sodium Potassium Chloride Carbon Dioxide Anion Gap BUN Creatinine Estimated Creat Clear Estimated GFR Est GFR ( Amer) Glucose Calcium Total Bilirubin AST ALT Alkaline Phosphatase Troponin I C-Reactive Protein Total Protein Albumin Globulin Albumin/Globulin Ratio Amylase Lipase Procalcitonin Urine Color Yellow Urine Appearan
== END 2021-03-14 14:10 | disposition home or self-care (01) ==
LOC: ER 04:11 → 2ND 04:49
PROVIDERS: Internal Medicine; Admitting Provider Emergency Medicine; Emergency Provider Emergency Medicine; PCP Emergency Medicine; Visit Provider Emergency Medicine
DX: I25.110 Atherosclerotic heart disease of native coronary artery with unstable angina pectoris (principal); I25.82 Chronic total occlusion of coronary artery; I25.700 Atherosclerosis of coronary artery bypass graft(s), unspecified, with unstable angina pectoris; E11.9 Type 2 diabetes mellitus without complications; I10 Essential (primary) hypertension; F25.0 Schizoaffective disorder, bipolar type; Z95.1 Presence of aortocoronary bypass graft; F17.210 Nicotine dependence, cigarettes, uncomplicated; J44.9 Chronic obstructive pulmonary disease, unspecified; Z79.899 Other long term (current) drug therapy; Z20.822 Contact with and (suspected) exposure to COVID-19
CPT/HCPCS: 36415; 71045; 80048; 80053; 80164; 81001; 82150; 83690; 84145; 84484; 85025; 85347; 85651; 86140; 92937; 93005; 93306; 93459; 96365; 97161; 97166; 99152; 99285; C1725; C1769; C1876; C9604; C9803; G0378; J1644; Q9967; U0003; U0005

== ENCOUNTER → 2021-04-03 11:12 | Outpatient (CLI) | payer BC, SELFPAY ==
--- NOTE | 2021-04-03 11:16 | US_ITS ---
APPROVED REPORT Exam Type: Ankle to Brachial Index Undercutter Operator: Nany Costa RT(R) Indications Claudication: Bilaterally Rest Pain: Bilaterally Current Smoker CAD bilateral claudication Risk Factors Hypertension Hyperlipidemia Diabetes Current Smoker Pressures/Indices Right Indices Left Indices Brachial 94.00 mmHg Brachial 100.00 mmHg Low Thigh 108.00 mmHg 1.08 Low Thigh 122.00 mmHg 1.22 Calf 101.00 mmHg 1.01 Calf 109.00 mmHg 1.09 Ankle(PT) 109.00 mmHg 1.09 Ankle(PT) 134.00 mmHg 1.34 Ankle(DP) 88.00 mmHg 0.88 Ankle(DP) 125.00 mmHg 1.25 Digit 75.00 mmHg 0.75 Digit 86.00 mmHg 0.86 Findings RT DAMON=1.09 LT DAMON=1.34 RT TBI=0.75 LT TBI=0.86 Normal waveforms Normal pulses Conclusion RT DAMON=1.09 LT DAMON=1.34 RT TBI=0.75 LT TBI=0.86 Normal waveforms Normal pulses Normal appearing resting noninvasive lower extremity arterial study. Electronically signed by : Albino Lopez MD 04/04/2021 19:38:31
== END ==
PROVIDERS: PCP Internal Medicine; Visit Provider Urology
DX: I73.9 Peripheral vascular disease, unspecified (principal)
CPT/HCPCS: 93923

== ENCOUNTER 2021-12-16 07:59 | Observation (INO) | payer BC, SELFPAY ==
[2021-12-16] VITALS (11 sets, daily range): BP systolic 112–191; BP diastolic 62–99; PULSE 45–65; RESP 11–17; TEMP 36.5–37.4; O2SAT 98–100; BMI 23.6; BMI 21.8
--- NOTE | 2021-12-16 07:55 | ECG_ITS ---
APPROVED REPORT Exam: Resting ECG HR:45 bpm ECG Measurements Heart Rate 45 AXES PA 162 P 54 QRSd 106 QRS 7 QT 470 T 56 QTc 424 Conclusion SINUS BRADYCARDIA WITH SINUS ARRHYTHMIA Late R wave progression ABNORMAL ECG UNCONFIRMED REPORT Electronically signed by : Tenzin Tovar MD 12/17/2021 20:38:27
--- NOTE | 2021-12-16 08:08 | XR_ITS ---
PROCEDURE INFORMATION: Exam: XR Chest Exam date and time: 12/16/2021 8:32 AM Age: 61 years old Clinical indication: Other: Low heart rate; Additional info: Low hr TECHNIQUE: Imaging protocol: Radiologic exam of the chest. Views: 1 view. COMPARISON: CR XR CHEST PORTABLE 03/13/2021 2:26 AM FINDINGS: Lungs: Unremarkable. No consolidation. Pleural spaces: Unremarkable. No pleural effusion. No pneumothorax. Heart/Mediastinum: Unremarkable. No cardiomegaly. Bones/joints: Median sternotomy wires. IMPRESSION: No acute findings.
[2021-12-16 08:20] LABS: Basophils # 0.1 K/mm3 (0-0.2); Eosinophils # 0.2 K/mm3 (0.0-0.4); Eosinophils % 4.3 % (0.1-12.0); Hematocrit 41.8 % (42.0-52.0); Hemoglobin 13.9 g/dL (14.1-18.0); Lymphocytes # 1.7 K/mm3 (0.7-4.5); Lymphocytes % 30.8 % (10-50); Mean Corpuscular HGB Conc 33.4 g/dL (31.8-35.4); Mean Corpuscular Hemoglobin 34.9 pg (27.0-31.2); Mean Corpuscular Volume 104.7 fl (80-94); Mean Platelet Volume 8.4 fl (7.4-10.4); Monocytes # 0.6 K/mm3 (0.1-1.0); Neutrophils # 2.9 K/mm3 (1.8-7.8); Neutrophils % 52.9 % (37.0-80.0); Platelet Count 160 K/mm3 (142-424); Red Blood Count 3.99 M/mm3 (4.60-6.20); White Blood Count 5.5 K/mm3 (4.8-10.8)
--- NOTE | 2021-12-16 08:23 | HMH.EDGENADL ---
ED Disposition Clinical Impression: Hyponatremia Disposition: Admitted As Inpatient Condition on Discharge: Good - Critical Care Critical Care Time: No Attestation: On 12/16/21, the high probability of a clinically significant, sudden or life threatening deterioration of the following system(s) required my full and direct attention, intervention and personal management. The time I documented below is in addition to time spent performing reported procedures but includes the following listed in this critical care notation. Medical Decision Making - Garcia Inquiry Pt receiving controlled substance: No Vital Signs: 12/16/21 07:51 12/16/21 08:01 Temperature 98.4 F Temperature Source Oral Pulse Rate 45 L Pulse Rate [Right Radial] 46 L Respiratory Rate 11 L 16 Blood Pressure 151/84 H Blood Pressure [Right Arm] 143/85 H Blood Pressure Mean 111 Blood Pressure Mean [Right Arm] 104 Blood Pressure Source [Right Arm] Automatic Cuff Blood Pressure Position [Right Arm] Sitting 02 Sat by Pulse Oximetry 100 100 Oxygen Delivery Method Room Air - Lab Data Lab Results 12/16/21 07:50: WBC 5.5, RBC 3.99 L, Hgb 13.9 L, Hct 41.8 L, MCV 104.7 H, MCH 34.9 H, MCHC 33.4, RDW 13.0, Plt Count 160, MPV 8.4, Neut % (Auto) 52.9, Lymph % (Auto) 30.8, [place] % (Auto) 10.0 H, Eos % (Auto) 4.3, Baso % (Auto) 2.0, Neut # (Auto) 2.9, Lymph # (Auto) 1.7, [place] # (Auto) 0.6, Eos # (Auto) 0.2, Baso # (Auto) 0.1 12/16/21 07:50: Sodium 127 L, Potassium 4.2, Chloride 99, Carbon Dioxide 25, Anion Gap 7.2, BUN 10, Creatinine 0.80, Estimated Creat Clear 80, Estimated GFR 98, Est GFR ( Amer) 119, Glucose 83, Calcium 8.4, Troponin I < 0.01 12/16/21 09:15: SARS-CoV-2 (PCR) Not detected, Influenza A Untype (PCR) Not detected, Influenza Type B (PCR) Not detected Result diagrams: 12/16/21 07:50 12/16/21 07:50 Orders (Tests/Meds): ED MEDICATIONS Generic Name Dose Route Start Last Admin Trade Name Hermes PRN Reason Stop Dose Admin Sodium Chloride 1,000 mls @ 100 mls/hr 12/16/21 09:30 Sod Chlor 0.9% 1000ml Bag IV 01/15/22 09:29 .Q10H FERNANDA Sodium Chloride 10 ml 12/16/21 08:08 Sodium Chloride 0.9% 10ml Flush Syringe IV 01/15/22 08:07 NEEDED PRN Maintain IV Site Discontinued Medications Generic Name Dose Route Start Last Admin Trade Name Freq PRN Reason Stop Dose Admin Aspirin 325 mg 12/16/21 08:21 12/16/21 08:23 Aspirin 325mg Tablet PO 12/16/21 08:22 325 mg ONCE ONE Administration ORDERS Category Date Time Status Troponin I Q3H Lab 12/16/21 11:15 Ordered Troponin I Q3H Lab 12/16/21 14:15 Ordered - ECG Data Tracing #1 Normal Sinus Rhythm: Yes Arrhythmias present: sinus fernandez (45 bpm) ECG compared to prior tracings: there are no significant changes Medical Decision Narrative: This is a 61-year-old male with history of diabetes, hyperlipidemia, CAD status post CABG presenting with general malaise. Patient complaining of general malaise, but denies shortness of breath, chest pain, nausea, vomiting, diaphoresis, back pain, neurologic deficits, or any other concerning history at this time. He states that he is having chronic chest and lower extremity swelling, but denies any acute symptoms at this time. On arrival, patient hemodynamically stable, alert, oriented, moving all extremities spontaneously, pupils equal and reactive to light. Visible exam significant for tachycardia pale male in no acute distress. Bradycardic and hypertensive in room. Work-up significant for hyponatremia from patient's baseline 127. Advised largely unremarkable work-up. Given patient's general malaise, bradycardia, he was started on maintenance IV fluids with normal saline. Hospital medicine was consulted for evaluation for admission -mentally, patient to be admitted for further definitive management of symptomatic hyponatremia. Results were relayed to patient who voiced understanding and were agre
--- NOTE | 2021-12-16 08:23 | PC.NURSE ---
XR AT BEDSIDE
[2021-12-16 08:25] LABS: Anion Gap 7.2 mEq/L (5-15); Blood Urea Nitrogen 10 mg/dl (9-20); Calcium 8.4 mg/dl (8.4-10.2); Carbon Dioxide 25 mmol/L (22.0-30.0); Chloride 99 mmol/L (98-107); Creatinine Clearance Estimated 80 mL/min (50-200); Estimated Glomerular Filt Rate 98 ml/min (>60); GFR (African American) 119 ML/MIN (>60); Glucose 83 mg/dl (74-100); Potassium 4.2 mmoL/L (3.5-5.1); Sodium 127 mmol/L (136-145)
--- NOTE | 2021-12-16 08:38 | CT_ITS ---
PROCEDURE INFORMATION: Exam: CT Head Without Contrast Exam date and time: 12/16/2021 8:54 AM Age: 61 years old Clinical indication: Other: Brachycardia; Additional info: Fall, bradycardia and HTN TECHNIQUE: Imaging protocol: Computed tomography of the head without contrast. Radiation optimization: All CT scans at this facility use at least one of these dose optimization techniques: automated exposure control; mA and/or kV adjustment per patient size (includes targeted exams where dose is matched to clinical indication); or iterative reconstruction. COMPARISON: CT HEAD/BRAIN WO CON 09/15/2020 12:50 PM FINDINGS: Brain: Central and cortical brain atrophy evident, appropriate for patient age. There is nonspecific periventricular low attenuation, likely microangiopathic disease. No acute intracranial hemorrhage. Cerebral ventricles: No ventriculomegaly. Paranasal sinuses: Visualized sinuses are unremarkable. No fluid levels. Mastoid air cells: Visualized mastoid air cells are well aerated. Bones/joints: Unremarkable. No acute fracture. Soft tissues: Unremarkable. IMPRESSION: No acute intracranial abnormality.
[2021-12-16 08:44] LABS: Troponin I < 0.01 ng/ml (0.00-0.034)
--- NOTE | 2021-12-16 09:18 | PC.NURSE ---
COVID swab sent to lab
[2021-12-16 09:22] LABS: Coronavirus 19, PCR Not Detected (NotDetected); Influenza A, PCR Not Detected (NotDetected); Influenza B, PCR Not Detected (NotDetected)
--- NOTE | 2021-12-16 09:31 | PC.NURSE ---
Paging Dr Brewer, who is occupational safety and health manager for Dr Baker.
--- NOTE | 2021-12-16 09:50 | PC.NURSE ---
[address] WOODS [address] DR. WOODS WILL ADMIT PT
--- NOTE | 2021-12-16 09:51 | PC.NURSE ---
SEARCH CONSULTANT NOTIFIED OF ADMISSION FOR BED ASSIGNMENT
--- NOTE | 2021-12-16 10:24 | PC.NURSE ---
Called report to Fifi Locke
--- NOTE | 2021-12-16 11:02 | PC.NURSE ---
Pt arrived to the floor at this time
--- NOTE | 2021-12-16 18:12 | PC.NURSE ---
Pt alert and oriented w/episodes of appearing confused. Has been incontinent, and ambulated to bathroom with assist x 1. CB in reach. Bed alarm in use for safety. IVF's infusing per mar. VSS. No complaints. Did have a med sized bm this shift as well. Non skid socks in use as well.
[2021-12-17 04:00] VITALS: BP 125/73; PULSE 57; RESP 16; TEMP 36.9; O2SAT 98
[2021-12-17 04:28] VITALS: BMI 20.8
--- NOTE | 2021-12-17 04:39 | PC.NURSE ---
Pt alert and oriented x 3. Pt has periods of confusion. Pt has sat up to chair multiple times this shift. Pt has had episodes of incontinence, but using urinal and BSC at times. Pt had a BM this shift (medium, soft, brown). Pt has had good urine output. IVF infusing per order. Heart rate this shift has been 50s-60s. Pt did ask for tylenol at beginning of my shift - contacted fiction and nonfiction prose writer MD. New orders received. Medicated per JUL. Chair and bed alarm in use for safety. Call more in reach. No needs voiced at this time.
--- NOTE | 2021-12-17 07:50 | P.CONPHA_ITS ---
[facility] Pharmacy VTE Monitoring - Patient Demographics Admission date: 12/17/21 Report Date: 12/17/21 Time: 07:50 Allergies/Adverse Reactions: Patient Allergies No Known Allergies Allergy (Verified 03/28/21 09:44) Height: 1.73 m Weight: 62.397 kg Patient Problems: Current Active Problems Hyponatremia (Acute) - VTE Risk Labs: VTE Related Lab Results Hgb 13.9 g/dL (14.1-18.0) L 12/16/21 07:50 Hct 41.8 % (42.0-52.0) L 12/16/21 07:50 Plt Count 160 K/mm3 (142-424) 12/16/21 07:50 BUN 10 mg/dl (9-20) 12/16/21 07:50 Creatinine 0.80 mg/dl (0.66-1.25) 12/16/21 07:50 Estimated Creat Clear 80 mL/min (50-200) 12/16/21 07:50 Clinical Trial Participant: No - Prophylaxis VTE Prophylaxis Ordered?: Yes Types of VTE Prophylaxis: TEDS Knee High
[2021-12-17 08:00] VITALS: BP 138/72; PULSE 56; RESP 16; TEMP 36.6; O2SAT 99
--- NOTE | 2021-12-17 08:21 | HMH.PHAINT ---
HOME MEDICATION LIST VERIFIED USING LIST FROM QIANA SOLORZANO
[2021-12-17 08:22] LABS: Chloride 112 mmol/L (98-107); Sodium 137 mmol/L (136-145)
[2021-12-17 08:23] LABS: Basophils % 0.8 % (0.1-2.0); Eosinophils # 0.1 K/mm3 (0.0-0.4); Eosinophils % 2.3 % (0.1-12.0); Hematocrit 43.2 % (42.0-52.0); Hemoglobin 14.3 g/dL (14.1-18.0); Lymphocytes # 1.5 K/mm3 (0.7-4.5); Lymphocytes % 26.7 % (10-50); Mean Corpuscular Hemoglobin 33.6 pg (27.0-31.2); Mean Corpuscular Volume 101.8 fl (80-94); Mean Platelet Volume 8.5 fl (7.4-10.4); Monocytes # 0.7 K/mm3 (0.1-1.0); Monocytes % 11.8 % (1.7-9.3); Neutrophils # 3.3 K/mm3 (1.8-7.8); Neutrophils % 58.6 % (37.0-80.0); Platelet Count 188 K/mm3 (142-424); Potassium 4.8 mmoL/L (3.5-5.1); Red Blood Count 4.24 M/mm3 (4.60-6.20); White Blood Count 5.6 K/mm3 (4.8-10.8)
[2021-12-17 08:25] LABS: Alanine Aminotransferase 17 U/L (12-78); Albumin Level 3.7 g/dl (3.5-5.0); Albumin/Globulin Ratio 1.6 (1.1-1.8); Alkaline Phosphatase 43 U/L (38-126); Anion Gap 6.8 mEq/L (5-15); Aspartate Amino Transferase 26 U/L (17-59); Bilirubin,Total 0.4 mg/dl (0.2-1.3); Blood Urea Nitrogen 8 mg/dl (9-20); Calcium 8.8 mg/dl (8.4-10.2); Carbon Dioxide 23 mmol/L (22.0-30.0); Creatinine Clearance Estimated 68 mL/min (50-200); Estimated Glomerular Filt Rate 137 ml/min (>60); GFR (African American) 166 ML/MIN (>60); Globulin 2.3 g/dL (1.3-3.2); Glucose 94 mg/dl (74-100)
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
--- NOTE | 2021-12-17 09:17 | SW/DCPLANNER ---
This patient currently resides at [facility]. The plan for this patient is to return to [place] today pending PT/OT evaluation. Ale fam/ Luis stated that [employer] will need to be arranged and patient will NOT require an additional COVID swab.
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
--- NOTE | 2021-12-17 09:45 | HMH.PTEV ---
Physical Therapy Evaluation Rehab PT IP Evaluation Start: 12/17/21 08:39 Freq: ONCE Status: Active Protocol: Document 12/17/21 09:43 TIAN (Rec: 12/17/21 09:45 TIAN [id number]) Subjective/History History History Patient is a 61-year-old white male, did not at [place], was seen in the emergency room after experiencing 2 to 3 days of general malaise. Noted to have some confusion in the emergency room, was hyponatremic at 127 was felt to be symptomatic from his hyponatremia. Subjective Subjective Pt reports he wants to leave and will [place] if [place]. Rehab PT IP Eval Objective Appearance Patient Behavior Appropriate Patient Orientation Place,Name,Birthday,Year Difficulty following instructions none Speech Pattern Appropriate Ambulation Patient Able to Ambulate Yes Ambulation Observation IP General Gait Pattern Observation Shuffling Step Ambulation Distance (feet) 65 Ambulation Assistive Device None Ambulation Ability Supervision/Stand by,Contact Guard/Hand Hold Balance Ability to Arise Able, uses arms to help Sitting Balance Steady, safe Standing Balance Narrow stance w/o support Dynamic Sitting Balance Ability Good Dynamic Standing Balance Ability Fair Transfers Bed Transfer Ability Independent Chair Transfer Ability Independent Sit to Stand Bed Transfer Ability Supervision/Stand by Sit to Stand Chair Transfer Ability Supervision/Stand by Rehab PT IP prob,goals,plan Problems Date of Evaluation: 12/17/21 Rehab Potential Rehab Potential Innapropriate for Skilled Therapy Discharge Plan PT Discharge Plan Pt to dc back to home - no skilled therapy needs at this time G -code Required No Eval Complexity Eval Charge Codes 87729 - Low Complexity PHYSICIAN CERTIFICATION: I certify the specified therapy services for Yaniv Muro are required, authorized, and reviewed every 30 days.
--- NOTE | 2021-12-18 15:13 | CARE MANAGER ---
Called and spoke with Flor @ [facility], who states that patient is doing well after discharge and has no known needs at this time.
== END 2021-12-17 10:44 | disposition home or self-care (01) ==
LOC: ER 09:44 → 2ND 09:59
PROVIDERS: Family Medicine; Admitting Provider Internal Medicine Adolescent Medicine; Emergency Provider Emergency Medicine; PCP Emergency Medicine; Visit Provider Emergency Medicine
DX: E87.0 Hyperosmolality and hypernatremia (principal); Z79.899 Other long term (current) drug therapy; Z79.01 Long term (current) use of anticoagulants; E11.9 Type 2 diabetes mellitus without complications; I25.10 Atherosclerotic heart disease of native coronary artery without angina pectoris; Z95.1 Presence of aortocoronary bypass graft; F17.210 Nicotine dependence, cigarettes, uncomplicated; I87.8 Other specified disorders of veins; Z20.822 Contact with and (suspected) exposure to COVID-19
CPT/HCPCS: 36415; 70450; 71045; 80048; 80053; 84484; 85025; 93005; 97161; 97166; 99285; C9803; G0378; U0003; U0005

== ENCOUNTER 2022-02-02 11:55 | Observation (INO) | payer BC, SELFPAY ==
[2022-02-02] VITALS (13 sets, daily range): BP systolic 92–142; BP diastolic 56–82; PULSE 48–74; RESP 16–20; TEMP 36.4–36.6; O2SAT 95–100; BMI 23.6; BMI 20.5
[2022-02-02 12:29] LABS: Basophils # 0.1 K/mm3 (0-0.2); Eosinophils # 0.1 K/mm3 (0.0-0.4); Eosinophils % 2.1 % (0.1-12.0); Hematocrit 40.7 % (42.0-52.0); Hemoglobin 13.8 g/dL (14.1-18.0); Lymphocytes # 1.2 K/mm3 (0.7-4.5); Lymphocytes % 22.7 % (10-50); Mean Corpuscular HGB Conc 33.9 g/dL (31.8-35.4); Mean Corpuscular Hemoglobin 34.3 pg (27.0-31.2); Mean Corpuscular Volume 101.5 fl (80-94); Mean Platelet Volume 7.8 fl (7.4-10.4); Monocytes # 0.5 K/mm3 (0.1-1.0); Monocytes % 9.1 % (1.7-9.3); Neutrophils # 3.3 K/mm3 (1.8-7.8); Neutrophils % 64.1 % (37.0-80.0); Platelet Count 220 K/mm3 (142-424); Red Blood Count 4.01 M/mm3 (4.60-6.20); Red Cell Distribution Width 12.8 % (11.5-17.5); White Blood Count 5.1 K/mm3 (4.8-10.8)
--- NOTE | 2022-02-02 12:32 | CT_ITS ---
PROCEDURE INFORMATION: Exam: CTA Neck With Contrast Exam date and time: 02/02/2022 1:06 PM Age: 61 years old Clinical indication: Cognitive deficit; Altered mental status; Additional info: Left sided facial droop-- ams-- did repeat scan due to lack of contrast in the brain-- TECHNIQUE: Imaging protocol: Computed tomographic angiography of the neck with contrast. 3D rendering (Not supervised by radiologist): MIP and/or 3D reconstructed images were created by the technologist. Radiation optimization: All CT scans at this facility use at least one of these dose optimization techniques: automated exposure control; mA and/or kV adjustment per patient size (includes targeted exams where dose is matched to clinical indication); or iterative reconstruction. Contrast material: ISOVUE; Contrast volume: 100 ml; Contrast route: INTRAVENOUS (IV); COMPARISON: CT HEAD/BRAIN WO CON 02/02/2022 1:02 PM FINDINGS: Right common carotid artery: No stenosis. No dissection or occlusion. Right internal carotid artery: Calcific plaque results in less than 5% stenosis of origin of right internal carotid artery. Right external carotid artery: No occlusion or stenosis of the origin. Left common carotid artery: No stenosis. No dissection or occlusion. Left internal carotid artery: No evidence for left internal carotid artery stenosis. Left external carotid artery: No occlusion or stenosis of the origin. Right vertebral artery: No stenosis. No dissection or occlusion. Left vertebral artery: No stenosis. No dissection or occlusion. Aorta: No evidence of aortic dissection. Pulmonary arteries: No evidence of filling defect within the pulmonary arterial tree. Thyroid: Thyroid gland is negative for evidence of nodule. Soft tissues: Normal. No significant soft tissue swelling. Bones/joints: Diffuse bone demineralization. Diffuse degenerative disc and facet disease result in multilevel central and foraminal stenosis within the cervical spine. Lungs: Minimal dependent atelectasis and scarring. A few tiny noncalcified nodules in the lung apices. Although no prior CT of the chest is available for comparison, the prior reports did mention a few of these tiny nodularities in the may be stable. Follow-up CT chest may be warranted. Small cystic spaces in the lung apices suggest mild emphysematous change or other underlying process such as lymphangioleiomyomatosis. Calcifications in the right hilum, few mm in size with old healed granulomatous disease. There are tiny calcified granulomas within the lung parenchyma. Heart: Prior median sternotomy wires and pericardial clips. Heart is not enlarged. No evidence of pericardial fluid. IMPRESSION: 1. No evidence for stenosis, aneurysm, dissection or rupture on CTA the aortic arch, the innominate artery, the subclavian arteries, the vertebral arteries, the common carotid arteries, the internal carotid arteries, the external carotid arteries or the respective visualized branches. 2. A few tiny noncalcified nodules in the lung apices. Although no prior CT of the chest is available for comparison, the prior reports did mention a few of these tiny nodularities in the may be stable. Follow-up CT chest may be warranted. 3. Small cystic spaces in the lung apices suggest mild emphysematous change or other underlying process such as lymphangioleiomyomatosis. 4. Diffuse degenerative disc and facet disease result in multilevel central and foraminal stenosis within the cervical spine. REFERENCES: NASCET CRITERIA. The degree of stenosis in the cervical segment of the internal carotid artery is based on NASCET criteria. Deborah
--- NOTE | 2022-02-02 12:32 | CT_ITS ---
PROCEDURE INFORMATION: Exam: CTA Head With Contrast, Arteriography Exam date and time: 02/02/2022 1:06 PM Age: 61 years old Clinical indication: Cognitive deficit; Altered mental status; Additional info: Left sided facial droop-- ams-- did repeat scan due to lack of contrast in the brain-- TECHNIQUE: Imaging protocol: Computed tomographic angiography of the head with contrast. Exam focused on the arteries. 3D rendering (Not supervised by radiologist): MIP and/or 3D reconstructed images were created by the technologist. Radiation optimization: All CT scans at this facility use at least one of these dose optimization techniques: automated exposure control; mA and/or kV adjustment per patient size (includes targeted exams where dose is matched to clinical indication); or iterative reconstruction. Contrast material: ISOVUE; Contrast volume: 100 ml; Contrast route: INTRAVENOUS (IV); COMPARISON: CT HEAD/BRAIN WO CON 02/02/2022 1:02 PM FINDINGS: ANTERIOR CIRCULATION: Right internal carotid artery: Mild calcification in the right carotid siphon without high-grade stenosis. Right middle cerebral artery: No occlusion or significant stenosis. No aneurysm. Right anterior cerebral artery: No occlusion or significant stenosis. No aneurysm. Left internal carotid artery: Mild calcification of left carotid siphon without high-grade stenosis. Left middle cerebral artery: No occlusion or significant stenosis. No aneurysm. Left anterior cerebral artery: Hypoplasia A1 segment left anterior cerebral artery. Bilateral anterior cerebral circulation is supplied by the right ICA, JOSE and anterior communicator. POSTERIOR CIRCULATION: Right vertebral artery: No occlusion or significant stenosis. No aneurysm. Left vertebral artery: No occlusion or significant stenosis. No aneurysm. Basilar artery: No occlusion or significant stenosis. No aneurysm. Right posterior cerebral artery: No occlusion or significant stenosis. No aneurysm. Left posterior cerebral artery: No occlusion or significant stenosis. No aneurysm. Veins: Filling defects within the left transverse venous sinus probably arachnoid granulations although nonocclusive thrombus cannot be excluded by this exam. Brain: Patchy hypoattenuation in the periventricular deep white matter bilaterally. Cerebral ventricles: Enlargement of the ventricles, sulci and cisterns bilaterally. Paranasal sinuses: Mucosal thickening within the paranasal sinuses. No fluid levels are evident. Bones/joints: Unremarkable. No acute fracture. Soft tissues: Unremarkable. IMPRESSION: 1. No evidence for aneurysm, dissection, stenosis or rupture on CTA of the distal internal carotid, distal vertebral, basilar, anterior, middle, and posterior cerebral arteries and their respective visualized branches. 2. Filling defects within the left transverse venous sinus probably arachnoid granulations although nonocclusive thrombus cannot be excluded by this exam. 3. Hypoplasia A1 segment left anterior cerebral artery. Bilateral anterior cerebral circulation is supplied by the right ICA, JOSE and anterior communicator. 4. Cortical atrophy and chronic periventricular microangiopathy. 5. Mucosal thickening within the paranasal sinuses. No fluid levels are evident.
--- NOTE | 2022-02-02 12:32 | CA_ITS ---
FINAL REPORT TECHNIQUE: Ultrasound images of the deep venous system were obtained from the left groin to the calf veins. CLINICAL HISTORY: LLE swelling concern for DVT FINDINGS: The deep venous system is normally compressible. Normal flow is identified. IMPRESSION: No evidence of left lower extremity DVT. Reviewed, Interpreted and Dictated by Felipe Mcallister MD Transcribed by Lance Fishman Authenticated and [facility]
--- NOTE | 2022-02-02 12:32 | CT_ITS ---
PROCEDURE INFORMATION: Exam: CT Head Without Contrast Exam date and time: 02/02/2022 1:02 PM Age: 61 years old Clinical indication: Altered mental status/memory loss; Confusion or disorientation; Additional info: L facial droop and slurred speech TECHNIQUE: Imaging protocol: Computed tomography of the head without contrast. Radiation optimization: All CT scans at this facility use at least one of these dose optimization techniques: automated exposure control; mA and/or kV adjustment per patient size (includes targeted exams where dose is matched to clinical indication); or iterative reconstruction. COMPARISON: CT HEAD/BRAIN WO CON 12/16/2021 8:54 AM FINDINGS: Brain: Patchy hypoattenuation in the periventricular deep white matter bilaterally. Cerebral ventricles: Enlargement of ventricles, sulci and cisterns bilaterally. Paranasal sinuses: Mucosal thickening within paranasal sinuses but no fluid levels are evident. Mastoid air cells: Visualized mastoid air cells are well aerated. Bones/joints: Unremarkable. No acute fracture. Soft tissues: Unremarkable. Vasculature: Calcification of carotid siphons and vertebrobasilar arterial systems. IMPRESSION: 1. No evidence for acute intracranial hemorrhage, midline shift or mass effect. 2. Cortical atrophy and chronic periventricular microangiopathy.
--- NOTE | 2022-02-02 12:32 | XR_ITS ---
PROCEDURE INFORMATION: Exam: XR Chest Exam date and time: 02/02/2022 1:29 PM Age: 61 years old Clinical indication: Other: AMS TECHNIQUE: Imaging protocol: Radiologic exam of the chest. Views: 1 view. COMPARISON: CR XR CHEST PORTABLE 12/16/2021 8:32 AM FINDINGS: Lungs: Asymmetric density of the left hemithorax appears to be technical with underlying effusion not excluded. Pleural spaces: Unremarkable. No pleural effusion. No pneumothorax. Heart/Mediastinum: Heart is enlarged. Vasculature: Calcification of thoracic aorta. Bones/joints: Prior median sternotomy wires and pericardial clips. Rotoscoliosis of the spine. Degenerative changes of the shoulders. Osteopenia. IMPRESSION: 1. Asymmetric density of the left hemithorax appears to be technical with underlying effusion not excluded. 2. Cardiomegaly.
--- NOTE | 2022-02-02 12:36 | HMH.EDGENADL ---
Discharge Plan Disposition Patient Disposition: Admitted As Inpatient Condition: Good Chief Complaint: Weakness Clinical Impressions Clinical Impression: Altered mental status Discharge ED Provider: Zhen Garcia General Adult HPI General Chief complaint: Weakness Stated complaint: ams Time Seen by Provider: 02/02/22 12:00 Mode of Arrival: EMS Source of Information: Patient and EMS Limitations: Altered Mental Status History of Present Illness HPI narrative: This is a 61-year-old male with history of psychosis, ACS, schizophrenia, hypertension, type 2 diabetes, on Brilinta who is presenting with altered mental status and weakness. Per EMS, patient appeared weak at living facility and EMS was called to take him to the ED. other history unable to be obtained secondary to altered mental status Related Data Home Medications Medication Instructions Recorded Confirmed divalproex 500 mg tablet,delayed 500 mg PO BID Seizures 05/22/17 02/02/22 release haloperidol 5 mg tablet 10 mg PO BID MOOD 08/10/18 02/02/22 atorvastatin 40 mg tablet 40 mg PO HS Cholesterol 11/10/18 02/02/22 ipratropium 20 mcg-albuterol 100 1 puff INHALATION QID Breathing 03/26/19 02/02/22 mcg/actuation mist for inhalation problems (Combivent Respimat) mometasone-formoterol HFA 100 2 puff INHALATION BID Breathing 03/26/19 02/02/22 mcg-5 mcg/actuation aerosol problems inhaler (Dulera) ranolazine 500 mg tablet,extended 500 mg PO BID Chest pain 04/10/19 02/02/22 release,12 hr metoprolol tartrate 25 mg tablet 12.5 mg PO BID Hypertension 04/17/19 02/02/22 sertraline 100 mg tablet 150 mg PO DAILY Depression 07/18/20 02/02/22 acetaminophen 325 mg tablet 325 mg PO Q6HP PRN As Needed For 03/13/21 02/02/22 Fever Or Pain aspirin 81 mg chewable tablet 81 mg PO DAILY heart health 03/13/21 02/02/22 benztropine 1 mg tablet 1 mg PO BID Tremors 03/13/21 02/02/22 famotidine 20 mg tablet 20 mg PO BID acid reflux 03/13/21 02/02/22 isosorbide mononitrate 30 mg 30 mg PO DAILY High blood pressure 03/13/21 02/02/22 tablet,extended release 24 hr paliperidone 6 mg tablet,extended 12 mg PO DAILY MOOD 03/13/21 02/02/22 release 24 hr diphenhydramine HCl 25 mg capsule 25 mg PO Q6H PRN allergies 03/28/21 02/02/22 (Banophen) hydroxyzine HCl 50 mg tablet 50 mg PO Q6H PRN Anxiety 03/28/21 02/02/22 ibuprofen 800 mg tablet 800 mg PO Q8H PRN pain 03/28/21 02/02/22 loperamide 2 mg capsule 2 mg PO Q4H PRN Diarrhea 03/28/21 02/02/22 promethazine 25 mg tablet 25 mg PO Q6H PRN Nausea 03/28/21 02/02/22 ticagrelor 90 mg tablet 90 mg PO BID Blood thinner 12/16/21 02/02/22 Previous Rx's Medication Instructions Recorded diazepam 5 mg tablet 5 mg PO BID Anxiety #60 tabs 10/01/21 Allergies Allergy/AdvReac Type Severity Reaction Status Date / Time No Known Allergies Allergy Verified 03/28/21 09:44 [facility] Medical History (Updated 02/02/22 @ 15:22 by Zhen Garcia MD) Abnormal stress test Dizziness Social History Smoking Status: Former smoker second hand exposure: No alcohol intake: never substance use type: denies use current occupational status: retired Travel in the last 8 weeks: None household members: other housing: assisted living facility caffeine: Yes ROS Obtained: Yes unobtainable due to mental status Physical Exam General General appearance: alert and in no apparent distress Head Head exam: atraumatic, normocephalic and normal inspection Eye Eye exam: Present normal appearance, PERRL and EOMI ENT ENT exam: Present normal exam, normal oropharynx, mucous membranes moist, TM's normal bilaterally and normal external ear exam Neck Neck exam: Present normal inspection, full ROM and trachea midline; Absent meningismus or lymphadenopathy Chest Chest inspection: Present normal inspection and symmetric chest wall rise; Absent tenderness Respiratory Respiratory exam: Present normal lung sounds bilaterally; Absent respirato
[2022-02-02 12:38] LABS: Lactic Acid 1.3 mmol/L (0.7-2.1)
[2022-02-02 12:39] LABS: Alanine Aminotransferase 31 U/L (12-78); Albumin Level 3.5 g/dl (3.5-5.0); Albumin/Globulin Ratio 1.3 (1.1-1.8); Alkaline Phosphatase 60 U/L (38-126); Anion Gap 10.7 mEq/L (5-15); Aspartate Amino Transferase 41 U/L (17-59); Bilirubin,Total 0.4 mg/dl (0.2-1.3); Blood Urea Nitrogen 9 mg/dl (9-20); Calcium 8.6 mg/dl (8.4-10.2); Carbon Dioxide 30 mmol/L (22.0-30.0); Chloride 100 mmol/L (98-107); Creatinine Clearance Estimated 80 mL/min (50-200); Estimated Glomerular Filt Rate 98 ml/min (>60); GFR (African American) 119 ML/MIN (>60); Globulin 2.6 g/dL (1.3-3.2); Glucose 68 mg/dl (74-100); Potassium 3.7 mmoL/L (3.5-5.1); Sodium 137 mmol/L (136-145); Total Protein,Serum 6.1 g/dl (6.3-8.2)
--- NOTE | 2022-02-02 13:00 | PC.NURSE ---
pt continues to be confused. follows commands
[2022-02-02 13:37] LABS: Coronavirus 19, PCR Not Detected (NotDetected); Influenza A, PCR Not Detected (NotDetected); Influenza B, PCR Not Detected (NotDetected)
--- NOTE | 2022-02-02 14:05 | PC.NURSE ---
spoke with staff at [facility] regarding pt's possible admission
--- NOTE | 2022-02-02 15:04 | PC.NURSE ---
dr nina magana
--- NOTE | 2022-02-02 15:11 | PC.NURSE ---
Dr Garcia spoke with dr Baker, pt to be admitted
[2022-02-02 16:10] LABS: VBG Base Excess -1.7 mmol/L (-2.4-2.3); VBG HCO3 24.9 mmol/L (23-30); VBG Oxygen Saturation 80.2 % (50-70); VBG PCO2 52.8 mmol/L (35-51); VBG PH 7.29 mmol/L (7.31-7.41); VBG PO2 50.3 mmol/L (28-40); VBG Total CO2 26.5 mmol/L (23-27)
--- NOTE | 2022-02-02 16:21 | PC.NURSE ---
straight cath urine obtained and sent to lab
--- NOTE | 2022-02-02 16:45 | PC.NURSE ---
report called to floor
--- NOTE | 2022-02-02 17:00 | PC.NURSE ---
pt given grape juice. pt evangelina.
[2022-02-02 17:20] LABS: Microscopic, Urine URINE MICROSCOPIC (MICROSCOPIC)
[2022-02-02 17:34] LABS: POC Glucose,Bedside 78 (70-110)
[2022-02-02 17:47] LABS: Barbiturates Screen,Urine Negative ng/ml (<200); Benzodiazepines Screen,Urine Positive ng/ml (<200)
[2022-02-02 17:48] LABS: Amphetamine/Metha Screen,Urine Negative ng/ml (<1000); Appearance,Urine CLEAR (Clear); Bilirubin,Urine Negative (Negative); Blood, Urine Negative (Negative); Color,Urine YELLOW (Yellow); Glucose,Urine (UA) Negative (Negative); Ketones,Urine Negative (Negative); Leukocyte Esterase,Urine Negative (Negative); Nitrate,Urine Negative (Negative); Protein,Urine Negative (Negative); Specific Gravity, Urine <= 1.005 (1.005-1.030)
[2022-02-02 17:49] LABS: Cannabinoid Screen,Urine Negative ng/ml (<50); Cocaine Screen,Urine Negative ng/ml (<300)
--- NOTE | 2022-02-02 17:49 | PC.NURSE ---
patient arrived by stretcher from ED
[2022-02-02 17:50] LABS: Methadone Screen,Urine Negative ng/ml (<300)
[2022-02-02 17:51] LABS: Opiate Screen,Urine Negative ng/ml (<300); Phencyclidine Screen,Urine Negative ng/ml (<25)
[2022-02-02 17:59] LABS: Bacteria,Urine Trace /lpf; WBC,Urine Occasional #/hpf (0-3)
[2022-02-03] VITALS: BP 136/80; PULSE 58; RESP 18; TEMP 36.6; O2SAT 100
[2022-02-03 04:00] VITALS: BP 155/58; PULSE 57; RESP 16; TEMP 36.7; O2SAT 96
--- NOTE | 2022-02-03 04:52 | PC.NURSE ---
pt has been A&Ox4, has been up to chair t/o most of shift, LLE reddened and weeping, LLE has been kept elevated, has ambulated to BR with SB assist, no complaints of pain or SOA,
[2022-02-03 05:00] VITALS: BMI 20.5
[2022-02-03 08:00] VITALS: BP 146/64; PULSE 63; RESP 18; TEMP 36.4; O2SAT 100
--- NOTE | 2022-02-03 10:17 | EXP.HP ---
History of Present Illness *Admission Date: 02/02/22 *Reason for visit:: altered mental status *History of present illness: [facility] with [facility] mental status - a 61-year-old male with history of psychosis, ACS, schizophrenia, hypertension, type 2 diabetes, on Brilinta who is presenting with altered mental status and weakness.? Per EMS, patient appeared weak at living facility and EMS was called to take him to the ED. other history unable to be obtained secondary to altered mental status is is a 61-year-old male with history of psychosis, ACS, schizophrenia, hypertension, type 2 diabetes, on Brilinta who is presenting with altered mental status and weakness.? On arrival, patient hemodynamically stable, GCS 13, moving all extremities spontaneously, pupils equal and reactive to light.? Differential includes seizure, stroke, metabolic disturbance, infection, overdose, intoxication, withdrawal, psychosis, among others.? Patient was given home medications upon admission for symptomatic management[ and correction of underlying abnormalities].? Hematologic workup significant for mild megaloblastic anemia, otherwise unremarkable hematologic work-up.? No acute intracranial hemorrhage or other intracranial abnormality.? CTA head and neck demonstrated likely arachnoid granulations versus nonocclusive left cerebral sinus.? Given patient presentation, workup, history, this most likely represents acute idiopathic altered mental status.? Patient's primary care provider, Dr. Baker, was contacted regarding inpatient admission and further characterization of altered mental status.? Recommended VBG and UDS as well.? These were ordered.? Results were relayed to patient, although altered.? Patient was admitted to the hospital for further definitive management, and hemodynamically stable during entire stay in the emergency department. [facility] Medical History (Updated 02/04/22 @ 05:53 by Arthur Baker MD) Abnormal stress test Dizziness Social History Smoking Status: Former smoker second hand exposure: No alcohol intake: never substance use type: denies use current occupational status: retired Travel in the last 8 weeks: None household members: other housing: assisted living facility caffeine: Yes Review of Systems Review of Systems Review of systems:: pertinent systems reviewed and negative unless documented below Constitutional Constitutional: Reports fatigue and Reports poor appetite Eyes Eyes: Denies eye discharge ENT Ears, Nose, Mouth, and Throat: Denies change in voice and Denies throat swelling *Cardiovascular Cardiovascular: Denies chest pain with activity and Denies dyspnea *Respiratory Respiratory: Denies dyspnea *Gastrointestinal Gastrointestinal: Denies coffee ground emesis *Genitourinary Genitourinary: Denies dysuria Integumentary/Breasts Skin/Breast: Reports as per HPI and Denies rash Comments: changes lt lower leg *Neurologic Neurologic: Reports confusion, Denies localized weakness and Denies seizure-like activity Psychiatric Psychiatric: Reports confusion Endocrine Endocrine: Reports fatigue Allergic/Immunologic Allergic/Immunologic: Denies throat swelling Meds Home Medications and Allergies Home Medications Medication Instructions Recorded Confirmed Type divalproex 500 mg tablet,delayed 500 mg PO BID Seizures 05/22/17 02/02/22 History release haloperidol 5 mg tablet 10 mg PO TID MOOD 08/10/18 02/03/22 History atorvastatin 40 mg tablet 40 mg PO HS Cholesterol 11/10/18 02/02/22 History ipratropium 20 mcg-albuterol 100 1 puff INHALATION QID Breathing 03/26/19 02/02/22 History mcg/actuation mist for inhalation problems (Combivent Respimat) mometasone-formoterol HFA 100 2 puff INHALATION BID Breathing 03/26/19 02/02/22 History mcg-5 mcg/actuation aerosol problems inhaler (Dulera) ranolazine 500 mg tablet,extended 500 mg PO BID Chest pain 04/10/19 02/02/22 Hi
--- NOTE | 2022-02-03 10:25 | PC.WOUNDNOTE ---
Photos taken by Airam Larkin RN upon admission, uploaded by myself for Aiarm Larkin RN
--- NOTE | 2022-02-03 10:31 | EXP.PHA.CONS ---
Pharmacy Consult Date: 02/03/22 Time: 10:31 Referring provider: DR. ANAND Reason for Consult:: VANCOMYCIN DOSING Allergies Allergy/AdvReac Type Severity Reaction Status Date / Time No Known Allergies Allergy Verified 03/28/21 09:44 Home Medications Medication Instructions Recorded Confirmed Type divalproex 500 mg tablet,delayed 500 mg PO BID Seizures 05/22/17 02/02/22 History release haloperidol 5 mg tablet 10 mg PO BID MOOD 08/10/18 02/02/22 History atorvastatin 40 mg tablet 40 mg PO HS Cholesterol 11/10/18 02/02/22 History ipratropium 20 mcg-albuterol 100 1 puff INHALATION QID Breathing 03/26/19 02/02/22 History mcg/actuation mist for inhalation problems (Combivent Respimat) mometasone-formoterol HFA 100 2 puff INHALATION BID Breathing 03/26/19 02/02/22 History mcg-5 mcg/actuation aerosol problems inhaler (Dulera) ranolazine 500 mg tablet,extended 500 mg PO BID Chest pain 04/10/19 02/02/22 History release,12 hr metoprolol tartrate 25 mg tablet 12.5 mg PO BID Hypertension 04/17/19 02/02/22 History sertraline 100 mg tablet 150 mg PO DAILY Depression 07/18/20 02/02/22 History acetaminophen 325 mg tablet 325 mg PO Q6HP PRN As Needed For 03/13/21 02/02/22 History Fever Or Pain aspirin 81 mg chewable tablet 81 mg PO DAILY heart health 03/13/21 02/02/22 History benztropine 1 mg tablet 1 mg PO BID Tremors 03/13/21 02/02/22 History famotidine 20 mg tablet 20 mg PO BID acid reflux 03/13/21 02/02/22 History isosorbide mononitrate 30 mg 30 mg PO DAILY High blood pressure 03/13/21 02/02/22 History tablet,extended release 24 hr paliperidone 6 mg tablet,extended 12 mg PO DAILY MOOD 03/13/21 02/02/22 History release 24 hr diphenhydramine HCl 25 mg capsule 25 mg PO Q6H PRN allergies 03/28/21 02/02/22 History (Banophen) hydroxyzine HCl 50 mg tablet 50 mg PO Q6H PRN Anxiety 03/28/21 02/02/22 History ibuprofen 800 mg tablet 800 mg PO Q8H PRN pain 03/28/21 02/02/22 History loperamide 2 mg capsule 2 mg PO Q4H PRN Diarrhea 03/28/21 02/02/22 History promethazine 25 mg tablet 25 mg PO Q6H PRN Nausea 03/28/21 02/02/22 History diazepam 5 mg tablet 5 mg PO BID Anxiety #60 tabs 10/01/21 02/02/22 Rx ticagrelor 90 mg tablet 90 mg PO BID Blood thinner 12/16/21 02/02/22 History New Prescriptions to Start Prescriptions: Height: 1.73 m Weight: 61.45 kg Laboratory Results:: Laboratory Results - last 24 hr 02/02/22 12:20: WBC 5.1, RBC 4.01 L, Hgb 13.8 L, Hct 40.7 L, MCV 101.5 H, MCH 34.3 H, MCHC 33.9, RDW 12.8, Plt Count 220, MPV 7.8, Neut % (Auto) 64.1, Lymph % (Auto) 22.7, [place] % (Auto) 9.1, Eos % (Auto) 2.1, Baso % (Auto) 2.0, Neut # (Auto) 3.3, Lymph # (Auto) 1.2, [place] # (Auto) 0.5, Eos # (Auto) 0.1, Baso # (Auto) 0.1 02/02/22 12:20: Sodium 137, Potassium 3.7, Chloride 100, Carbon Dioxide 30, Anion Gap 10.7, BUN 9, Creatinine 0.80, Estimated Creat Clear 80, Estimated GFR 98, Est GFR ( Amer) 119, Glucose 68 L, Calcium 8.6, Total Bilirubin 0.4, AST 41, ALT 31, Alkaline Phosphatase 60, Total Protein 6.1 L, Albumin 3.5, Globulin 2.6, Albumin/Globulin Ratio 1.3 02/02/22 12:20: Lactate 1.3 02/02/22 13:30: SARS-CoV-2 (PCR) Not detected, Influenza A Untype (PCR) Not detected, Influenza Type B (PCR) Not detected 02/02/22 15:08: VBG pH 7.29 L, VBG pCO2 52.8 H, VBG pO2 50.3 H, VBG HCO3 24.9, VBG Total CO2 26.5, VBG O2 Saturation 80.2 H, VBG Base Excess -1.7 02/02/22 16:20: Urine Opiates Screen Negative, Urine Methadone Screen Negative, Ur Barbituates Screen Negative, Ur Phencyclidine Scrn Negative, Ur Amphetamines Screen Negative, U Benzodiazepines Scrn Positive H, Urine Cocaine Screen Negative, U Marijuana (THC) Screen Negative 02/02/22 16:20: Urine Color Yellow, Urine Appearance Clear, Urine pH 7.0, Ur Specific [place] <= 1.005, Urine Protein Negative, Urine Glucose (UA) Negative, Urine Ketones Negative, Urine Blood Negative, Urine Nitrate Negative, Urine Bilirubin Negative, Urine Urobilinogen 1.0, Ur Leukocyte Esterase Negative,
--- NOTE | 2022-02-03 10:58 | PC.NURSE ---
Pt had 1 unmeasured void
--- NOTE | 2022-02-03 11:16 | P.CONPHA_ITS ---
[facility] Pharmacy VTE Monitoring Patient Demographics Admission date: 02/03/22 Report Date: 02/03/22 Time: 11:16 Patient Allergies No Known Allergies Allergy (Verified 03/28/21 09:44) Height: 1.73 m Weight: 61.45 kg Current Active Problems (Updated 02/02/22 @ 15:22 by Zhen Garcia MD) Altered mental status (Acute) VTE Risk Labs: VTE Related Lab Results Hgb 13.8 g/dL (14.1-18.0) L 02/02/22 12:20 Hct 40.7 % (42.0-52.0) L 02/02/22 12:20 Plt Count 220 K/mm3 (142-424) 02/02/22 12:20 BUN 9 mg/dl (9-20) 02/02/22 12:20 Creatinine 0.80 mg/dl (0.66-1.25) 02/02/22 12:20 Estimated Creat Clear 80 mL/min (50-200) 02/02/22 12:20 VTE Risk Level: Low Risk Prophylaxis Types of VTE Prophylaxis: Pharmacological Location of Applied Device: Not Applicable Pharmacologic Type: Enoxaparin
[2022-02-03 16:00] VITALS: BP 120/73; PULSE 54; RESP 16; TEMP 36.4; O2SAT 100
--- NOTE | 2022-02-03 18:10 | PC.NURSE ---
no changes from previous shift. pt pleasant. rested most of day. vss. alert x4. no c/o pain. LT leg +3 pitting edema. excoriation to bottom LT foot. pt can walk with standby assist to br. lungs clear/diminished. cb and personal items within reach. no concerns at this time.
[2022-02-03 19:48] VITALS: BP 139/77; PULSE 62; RESP 16; TEMP 36.7; O2SAT 100
[2022-02-03 20:00] VITALS: PULSE 62; O2SAT 100
[2022-02-04 03:55] VITALS: BP 135/67; PULSE 68; RESP 19; TEMP 36.7; O2SAT 98
--- NOTE | 2022-02-04 04:04 | PC.NURSE ---
Pt is alert and oriented x4, pt has had no complaints this shift. Pt receiving IV antibiotics. LLE has edema and redness noted. Lung sounds clear, bowel sounds active, abdomen soft and nontender. O2 sat >90% on room air. Pt has been incontinent of urine in the bed, also used the urinal this shift. Call light in and working.
[2022-02-04 05:06] VITALS: BMI 20.7
[2022-02-04 07:00] LABS: Basophils # 0.1 K/mm3 (0-0.2); Basophils % 1.6 % (0.1-2.0); Eosinophils # 0.2 K/mm3 (0.0-0.4); Eosinophils % 5.5 % (0.1-12.0); Hemoglobin 14.5 g/dL (14.1-18.0); Lymphocytes # 1.4 K/mm3 (0.7-4.5); Lymphocytes % 32.1 % (10-50); Mean Corpuscular HGB Conc 33.8 g/dL (31.8-35.4); Mean Corpuscular Hemoglobin 34.3 pg (27.0-31.2); Mean Corpuscular Volume 101.7 fl (80-94); Mean Platelet Volume 7.8 fl (7.4-10.4); Monocytes # 0.5 K/mm3 (0.1-1.0); Monocytes % 11.8 % (1.7-9.3); Neutrophils # 2.1 K/mm3 (1.8-7.8); Neutrophils % 48.9 % (37.0-80.0); Platelet Count 223 K/mm3 (142-424); Red Blood Count 4.23 M/mm3 (4.60-6.20); Red Cell Distribution Width 12.6 % (11.5-17.5); White Blood Count 4.3 K/mm3 (4.8-10.8)
[2022-02-04 07:18] LABS: Anion Gap 11.4 mEq/L (5-15); Blood Urea Nitrogen 9 mg/dl (9-20); Calcium 8.3 mg/dl (8.4-10.2); Carbon Dioxide 25 mmol/L (22.0-30.0); Chloride 102 mmol/L (98-107); Creatinine Clearance Estimated 68 mL/min (50-200); Estimated Glomerular Filt Rate 137 ml/min (>60); GFR (African American) 166 ML/MIN (>60); Glucose 83 mg/dl (74-100); Potassium 4.4 mmoL/L (3.5-5.1); Sodium 134 mmol/L (136-145)
[2022-02-04 08:00] VITALS: BP 116/66; PULSE 62; RESP 20; TEMP 36.6; O2SAT 100
--- NOTE | 2022-02-04 08:32 | XR_ITS ---
FINAL REPORT CLINICAL HISTORY: Left foot cellulitis FINDINGS: LEFT FOOT Three views of the left foot demonstrate no acute fracture or dislocation. There is osteopenia. Hammertoe defect is noted. The visualized joint spaces are normally aligned. The soft tissues are unremarkable. IMPRESSION: No acute bony abnormality. Reviewed, Interpreted and Dictated by Felipe Mcallister MD Transcribed by Sherri Ledesma Authenticated and [facility]
--- NOTE | 2022-02-04 08:44 | XR_ITS ---
FINAL REPORT CLINICAL HISTORY: RF pre-ulcerative calluses FINDINGS: RIGHT FOOT 3 views of the right foot were obtained. There is osteopenia. An old healed fracture is seen of the distal tibial metaphysis and distal fibula. There is no acute fracture or dislocation. Visualized joint spaces are normally aligned. Soft tissues are unremarkable. IMPRESSION: No acute bony abnormality. Reviewed, Interpreted and Dictated by Felipe Mcallister MD Transcribed by Sherri Ledesma Authenticated and [facility]
[2022-02-04 08:45] LABS: C-Reactive Protein 6.9 mg/L (0-4)
[2022-02-04 08:59] LABS: Erythrocyte Sedimentation Rate 14 mm/hr (0-20)
--- NOTE | 2022-02-04 09:17 | EXP.ORTH.CON ---
Documented by User: Clarita Keenan, SUNIL 02/04/22 11:56 History of Present Illness *Admission Date: 02/03/22 *History of present illness: The patient is a 61 year-old male, resident of a local assisted who was admitted to hospital for altered mental status and weakness. PCP team consulted podiatry for evaluation and treatment of left foot cellulitis. Patient currently sitting up in chair, alert, and oriented to name only. No acute distress noted. Left lower leg and foot with mild cellulitis, skin hemosiderin deposition and plantar forefoot skin breakdown noted. Right foot with callus x 2 noted. We will obtain b/l foot 3 view x-ray, and labs and treat accordingly. For more detailed HPI see Dr. Olivia Ribera&P. [facility] Medical History (Updated 02/04/22 @ 11:43 by Joan Brown DPM) Abnormal stress test Dizziness Social History Smoking Status: Former smoker second hand exposure: No alcohol intake: never substance use type: denies use current occupational status: retired Travel in the last 8 weeks: None household members: other housing: assisted living facility caffeine: Yes Review of Systems *Neurologic Neurologic: Reports confusion, Denies localized weakness and Denies seizure-like activity Psychiatric Psychiatric: Reports confusion Meds Home Medications and Allergies Home Medications Medication Instructions Recorded Confirmed Type divalproex 500 mg tablet,delayed 500 mg PO BID Seizures 05/22/17 02/02/22 History release haloperidol 5 mg tablet 10 mg PO TID MOOD 08/10/18 02/03/22 History atorvastatin 40 mg tablet 40 mg PO HS Cholesterol 11/10/18 02/02/22 History ipratropium 20 mcg-albuterol 100 1 puff INHALATION QID Breathing 03/26/19 02/02/22 History mcg/actuation mist for inhalation problems (Combivent Respimat) mometasone-formoterol HFA 100 2 puff INHALATION BID Breathing 03/26/19 02/02/22 History mcg-5 mcg/actuation aerosol problems inhaler (Dulera) ranolazine 500 mg tablet,extended 500 mg PO BID Chest pain 04/10/19 02/02/22 History release,12 hr metoprolol tartrate 25 mg tablet 12.5 mg PO BID Hypertension 04/17/19 02/02/22 History sertraline 100 mg tablet 150 mg PO DAILY Depression 07/18/20 02/02/22 History acetaminophen 325 mg tablet 325 mg PO Q6HP PRN As Needed For 03/13/21 02/02/22 History Fever Or Pain aspirin 81 mg chewable tablet 81 mg PO DAILY heart health 03/13/21 02/02/22 History benztropine 1 mg tablet 1 mg PO BID Tremors 03/13/21 02/02/22 History famotidine 20 mg tablet 20 mg PO BID acid reflux 03/13/21 02/02/22 History isosorbide mononitrate 30 mg 30 mg PO DAILY High blood pressure 03/13/21 02/02/22 History tablet,extended release 24 hr paliperidone 6 mg tablet,extended 12 mg PO DAILY MOOD 03/13/21 02/02/22 History release 24 hr diphenhydramine HCl 25 mg capsule 25 mg PO Q6H PRN allergies 03/28/21 02/02/22 History (Banophen) hydroxyzine HCl 50 mg tablet 50 mg PO Q6H PRN Anxiety 03/28/21 02/02/22 History ibuprofen 800 mg tablet 800 mg PO Q8H PRN pain 03/28/21 02/02/22 History loperamide 2 mg capsule 2 mg PO Q4H PRN Diarrhea 03/28/21 02/02/22 History promethazine 25 mg tablet 25 mg PO Q6H PRN Nausea 03/28/21 02/02/22 History diazepam 5 mg tablet 5 mg PO BID Anxiety #60 tabs 10/01/21 02/02/22 Rx ticagrelor 90 mg tablet 90 mg PO BID Blood thinner 12/16/21 02/02/22 History New Prescriptions to Start Prescriptions: Allergies Allergy/AdvReac Type Severity Reaction Status Date / Time No Known Allergies Allergy Verified 03/28/21 09:44 Ortho Exam (Inpt) Vital signs and Labs for Last 24 Hours: Temp Pulse Resp BP Pulse Ox 98 F 62 20 116/66 100 02/04/22 08:00 02/04/22 08:00 02/04/22 08:00 02/04/22 08:00 02/04/22 08:00 Laboratory Results - last 24 hr 02/04/22 06:20: WBC 4.3 L, RBC 4.23 L, Hgb 14.5, Hct 43.0, MCV 101.7 H, MCH 34.3 H, MCHC 33.8, RDW 12.6, Plt Count 223, MPV 7.8, Neut % (Auto) 48.9, Lymph % (Auto) 32.1,
[2022-02-04 09:27] LABS: Hemoglobin A1C 4.8 % (4.0-6.0)
--- NOTE | 2022-02-04 11:02 | HMH.PTEV ---
Physical Therapy Evaluation Rehab PT IP Evaluation Start: 02/04/22 10:25 Freq: ONCE Status: Active Protocol: Document 02/04/22 10:59 MARCUS (Rec: 02/04/22 11:02 PHOPATRICIO [id number]) Subjective/History History History 61 yowm adm to [facility] with general weakness and AMS. He has hx of Schizoaffective dsorder and lives at a personal fpc. He reports being independent with all mobility prior to adm. Subjective Subjective Pt with no c/o this am. Rehab PT IP Eval Objective Appearance Patient Behavior Appropriate Patient Orientation Person,Place Difficulty following instructions none Speech Pattern Clear Ambulation Patient Able to Ambulate Yes Ambulation Observation IP General Gait Pattern Observation Shuffling Step Ambulation Distance (feet) 30 Ambulation Assistive Device None Ambulation Ability Supervision/Stand by Balance Ability to Arise Able, uses arms to help Sitting Balance Steady, safe Standing Balance Steady, wide stance Dynamic Sitting Balance Ability Good Dynamic Standing Balance Ability Good Transfers Bed Transfer Ability Supervision/Stand by Chair Transfer Ability Supervision/Stand by Sit to Stand Bed Transfer Ability Supervision/Stand by Sit to Stand Chair Transfer Ability Supervision/Stand by ROM All Extremities PT ROM Status WFL MMT All Extremities PT MMT WFL Rehab PT IP prob,goals,plan Problems Date of Evaluation: 02/04/22 Discharge Plan PT Discharge Plan Pt appears to be at baseline for all mobility at this time. No current inpatient therapy needs and he is appropriate to return to personal fpc once medically stable. G -code Required No Eval Complexity Eval Charge Codes 36192 - Moderate Complexity PHYSICIAN CERTIFICATION: I certify the specified therapy services for Yaniv Muro are required, authorized, and reviewed every 30 days.
--- NOTE | 2022-02-04 13:18 | EXP.DC.SUM ---
General Admission date:: 02/02/22 Discharge date: 02/04/22 HPI HPI HPI: The patient is a 61 year-old male, resident of a local skilled nursing who was admitted to hospital for altered mental status and weakness. PCP team consulted podiatry for evaluation and treatment of left foot cellulitis. Patient currently sitting up in chair, alert, and oriented to name only. No acute distress noted. Left lower leg and foot with mild cellulitis, skin hemosiderin deposition and plantar forefoot skin breakdown noted. Right foot with callus x 2 noted. We will obtain b/l foot 3 view x-ray, and labs and treat accordingly. For more detailed HPI see Dr. Baker H&P. Hospital Course Hospital Course Hospital Course: pt has improved with his cognition and and labs after ivf and abx - pt was seen by podiatry-assessment and plan (1) Ulcer of left foot, limited to breakdown of skin: ?Status:?Acute ?Category:?Medical ?Code(s): L97.521 - Non-pressure chronic ulcer of other part of left foot limited to breakdown of skin (2) Pre-ulcerative calluses: ?Status:?Acute ?Category:?Medical ?Code(s): L84 - Corns and callosities (3) Callus of foot: ?Status:?Acute ?Category:?Medical ?Code(s): L84 - Corns and callosities (4) Pain in both feet: ?Status:?Acute ?Category:?Medical ?Code(s): M79.671 - Pain in right foot; M79.672 - Pain in left foot (5) Cellulitis of extremity: ?Status:?Acute ?Qualifiers: ?Laterality:?left??Site of cellulitis of extremity:?lower extremity? Qualified Code(s):?L03.116 - Cellulitis of left lower limb ?Category:?Medical ?Code(s): L03.119 - Cellulitis of unspecified part of limb (6) Acquired hammer toes of both feet: ?Status:?Acute ?Category:?Medical ?Code(s): M20.41 - Other hammer toe(s) (acquired), right foot; M20.42 - Other hammer toe(s) (acquired), left foot (7) Onychomycosis: ?Status:?Acute ?Category:?Medical ?Code(s): B35.1 - Tinea unguium Assessment and plan all Dx Assessment and Plan All Dx:: Date of Service: 02/04/22. Procedure(s): XR foot LT min 3V. FINDINGS: LEFT FOOT? Three views of the left foot demonstrate no acute fracture or dislocation.? There is osteopenia.? Hammertoe defect is noted.? The visualized joint spaces are normally aligned. The soft tissues are unremarkable. IMPRESSION: No acute bony abnormality. Date of Service: 02/04/22. Procedure(s): XR foot RT min 3V. FINDINGS: RIGHT FOOT? 3 views of the right foot were obtained.? There is osteopenia.? An old healed fracture is seen of the distal tibial metaphysis and distal fibula.? There is no acute fracture or dislocation. Visualized joint spaces are normally aligned. Soft tissues are unremarkable. IMPRESSION: No acute bony abnormality. 02/04/22 labs: WBC: 5.6, ESR: 14, CRP: 6.9, GLUCOSE:83, HA1C: 4.8, BUN: 9 , Cr: 0.60, GFR: 137.. Patient seen and evaluated by and Clarita Keenan MEDICAL CLERICAL ASSISTANT: pt was doing better and will be returned to [facility] -on po abx Exam Data for Last 24 hours Vital signs and Labs for Last 24 Hours: Temp Pulse Resp BP Pulse Ox 98 F 62 20 116/66 100 02/04/22 08:00 02/04/22 08:00 02/04/22 08:00 02/04/22 08:00 02/04/22 08:00 Laboratory Results - last 24 hr 02/04/22 06:20: WBC 4.3 L, RBC 4.23 L, Hgb 14.5, Hct 43.0, MCV 101.7 H, MCH 34.3 H, MCHC 33.8, RDW 12.6, Plt Count 223, MPV 7.8, Neut % (Auto) 48.9, Lymph % (Auto) 32.1, [place] % (Auto) 11.8 H, Eos % (Auto) 5.5, Baso % (Auto) 1.6, Neut # (Auto) 2.1, Lymph # (Auto) 1.4, [place] # (Auto) 0.5, Eos # (Auto) 0.2, Baso # (Auto) 0.1 02/04/22 06:20: Sodium 134 L, Potassium 4.4, Chloride 102, Carbon Dioxide 25, Anion Gap 11.4, BUN 9, Creatinine 0.60 L D, Estimated Creat Clear 68, Estimated GFR 137, Est GFR ( Amer) 166 D, Glucose 83, Calcium 8.3 L 02/04/22 06:20: ESR 14 02/04/22 06:20: C-Reactive Protein 6.9 H 02/04/22 06:20: Hemoglobin A1c 4.8 I & O for Last 24 hours: Inta
--- NOTE | 2022-02-04 13:31 | HMH.OTEV ---
OT Inpatient Evaluation Rehab OT IP Evaluation Start: 02/04/22 10:26 Freq: ONCE Status: Complete Protocol: Document 02/04/22 13:25 [facility] (Rec: 02/04/22 13:31 [facility] [id number]) Rehab OT IP Assessment Subjective History Pt oriented x 3 on arrival. Pt agreeable to engage in therapy evaluation. Pt was admitted via ED on 02/02/22 due altered mental status. Prior to being in the hosptial, pt lived at a personal alf. Pt claims he was independent with all ADLs and functional transfers. However, he was depenent upon staff to complete IADLs. The following information was copied from history and physical report: this pt presented from local [facility] with altered mental status - a 61-year-old male with history of psychosis, ACS, schizophrenia, hypertension, type 2 diabetes, on Brilinta who is presenting with altered mental status and weakness.? Per EMS, patient appeared weak at living facility and EMS was called to take him to the ED. other history unable to be obtained secondary to altered mental status is is a 61-year -old male with history of psychosis, ACS, schizophrenia, hypertension, type 2 diabetes , on Brilinta who is presenting with altered mental status and weakness.? On arrival, patient hemodynamically stable, GCS 13 , moving all extremities spontaneously, pupils equal and reactive to light.? Differential includes seizure, stroke, metabolic disturbance , infection, overdose, intoxication, withdrawal, psychosis, among others.? Pat
--- NOTE | 2022-02-04 13:53 | SW/DCPLANNER ---
Addendum entered by Emily Ortega 02/04/22 15:26: [facility] is unable to transport this patient due to [facility] not changing county coding to [facility] since 2018. Ale is aware this county code needs to be changed and patient can not transport till change. Ale stated [employer] vehicle is going to [place] but will transport this patient once it returns. I will update patient's nurse regarding situation. Original Note: The plan for this patient is to return to [facility] today. I have called and updated Ale fam/ Luis and I will arrange [employer] once ready for discharge.
--- NOTE | 2022-02-04 14:27 | PC.NURSE ---
REPORT CALLED TO QIANA
[2022-02-04 14:36] VITALS: BMI 20.7
[2022-02-04 16:00] VITALS: BP 128/68; PULSE 65; RESP 19; TEMP 36.6; O2SAT 99
--- NOTE | 2022-02-05 13:24 | CARE MANAGER ---
Spoke with Luis for post-discharge phone interview. Staff says patient is good and does well.
== END 2022-02-04 17:32 | disposition home or self-care (01) ==
LOC: ER 12:30 → 2ND 15:22
PROVIDERS: Podiatrist; Admitting Provider Emergency Medicine; Emergency Provider Emergency Medicine; PCP Emergency Medicine; Visit Provider Emergency Medicine
DX: I10 Essential (primary) hypertension (principal); Z79.899 Other long term (current) drug therapy; E11.9 Type 2 diabetes mellitus without complications; L97.521 Non-pressure chronic ulcer of other part of left foot limited to breakdown of skin; M79.672 Pain in left foot; L03.116 Cellulitis of left lower limb; I25.10 Atherosclerotic heart disease of native coronary artery without angina pectoris; F17.210 Nicotine dependence, cigarettes, uncomplicated; L84 Corns and callosities; J44.9 Chronic obstructive pulmonary disease, unspecified; F25.0 Schizoaffective disorder, bipolar type; L02.416 Cutaneous abscess of left lower limb
CPT/HCPCS: 36415; 70450; 70496; 70498; 71045; 73630; 80048; 80053; 80305; 81001; 82803; 82962; 83036; 83605; 85025; 85651; 86140; 87040; 93971; 94640; 97162; 97165; 99285; C9803; G0378; J3370; Q9967; U0003; U0005

== ENCOUNTER 2022-03-07 12:51 | Emergency (ER) | payer BC, SELFPAY ==
[2022-03-07] VITALS (10 sets, daily range): BP systolic 102–155; BP diastolic 58–83; PULSE 66–84; RESP 16–20; TEMP 36.3–36.6; O2SAT 94–98; BMI 25.1
[2022-03-07 13:25] LABS: Basophils % 0.8 % (0.1-2.0); Eosinophils % 0.7 % (0.1-12.0); Hematocrit 35.6 % (42.0-52.0); Hemoglobin 11.6 g/dL (14.1-18.0); Lymphocytes # 0.7 K/mm3 (0.7-4.5); Lymphocytes % 25.9 % (10-50); Mean Corpuscular HGB Conc 32.6 g/dL (31.8-35.4); Mean Corpuscular Hemoglobin 32.8 pg (27.0-31.2); Mean Corpuscular Volume 100.5 fl (80-94); Monocytes # 0.2 K/mm3 (0.1-1.0); Monocytes % 8.6 % (1.7-9.3); Neutrophils # 1.8 K/mm3 (1.8-7.8); Platelet Count 154 K/mm3 (142-424); Red Blood Count 3.54 M/mm3 (4.60-6.20); Red Cell Distribution Width 13.7 % (11.5-17.5); White Blood Count 2.7 K/mm3 (4.8-10.8)
--- NOTE | 2022-03-07 13:30 | CT_ITS ---
FINAL REPORT TECHNIQUE: After the administration of oral and intravenous contrast, axial images were obtained through the abdomen and pelvis by computed tomography. The study was performed with techniques to keep radiation dose as low as reasonably achievable, (ALARA). Individual dose reduction techniques using automated exposure control or adjustment of mA and/or kV according to the patient's size were employed. CLINICAL HISTORY: abdo pain, AMS FINDINGS: Abdomen: There is moderate emphysema. There is a small hiatal hernia. The liver is normal in size and attenuation. The patient is status post cholecystectomy. Moderate vascular calcification is identified. The spleen is unremarkable. The adrenals are normal. The pancreas is unremarkable. The kidneys enhance appropriately. The aorta is normal in caliber. There is no free fluid or adenopathy. Pelvis: The appendix is not identified. There is a large amount of stool throughout the colon. The urinary bladder is unremarkable. There is no free fluid or adenopathy. There is postoperative change in the left femur. IMPRESSION: Large stool burden. Reviewed, Interpreted and Dictated by Crow Hannon III, MD Transcribed by Paz Elkins Authenticated and . [facility]
--- NOTE | 2022-03-07 13:31 | XR_ITS ---
FINAL REPORT CLINICAL HISTORY: CP, AMS COMPARISON: 02/02/2022 FINDINGS: TWO-VIEW CHEST The heart size is normal. The patient is status post median sternotomy. There is left base opacity, may represent atelectasis or pneumonia. There is no pneumothorax. IMPRESSION: Left base atelectasis or pneumonia. Reviewed, Interpreted and Dictated by Crow Hannon III, MD Transcribed by Paz Elkins Authenticated and [facility]
[2022-03-07 13:32] LABS: Chloride 97 mmol/L (98-107); Potassium 4.1 mmoL/L (3.5-5.1); Sodium 133 mmol/L (136-145)
--- NOTE | 2022-03-07 13:32 | HMH.EDGENADL ---
Discharge Plan Disposition Patient Disposition: Home, Self-Care Condition: Good Prescriptions Prescriptions: New polyethylene glycol 3350 [Miralax] 17 gram powder in packet 17 g PO DAILY Qty: 5 0RF No Action atorvastatin 40 mg tablet 40 mg PO HS Combivent Respimat 20-100 mcg/actuation mist 1 puff INHALATION QID Dulera 100-5 mcg/actuation HFA aerosol inhaler 2 puff INHALATION BID haloperidol 5 mg tablet 10 mg PO TID hydroxyzine HCl 50 mg tablet 50 mg PO Q6H PRN (Reason: Anxiety) loperamide 2 mg capsule 2 mg PO Q4H PRN (Reason: Diarrhea) Rx Instructions: administer after each loose stool until symptoms controlled; do not exceed 8 mg per 24 hrs promethazine 25 mg tablet 25 mg PO Q6H PRN (Reason: Nausea) diazepam 5 mg tablet 5 mg PO BID Qty: 60 5RF divalproex 500 MG tablet,delayed release (DR/EC) 500 mg PO BID ranolazine 500 MG tablet extended release 12 hr 500 mg PO BID metoprolol tartrate 25 MG tablet 12.5 mg PO BID sertraline 100 MG tablet 150 mg PO DAILY isosorbide mononitrate 30 MG tablet 30 mg PO DAILY famotidine 20 MG tablet 20 mg PO BID acetaminophen 325 MG tablet 325 mg PO Q6HP PRN (Reason: As Needed For Fever Or Pain) benztropine 1 MG tablet 1 mg PO BID aspirin 81 MG tablet,chewable 81 mg PO DAILY paliperidone 6 MG tablet extended release 24 hr 12 mg PO DAILY ticagrelor 90 MG tablet 90 mg PO BID sulfamethoxazole-trimethoprim [Bactrim DS] 800-160 mg Tablet 1 tab PO Q12H Qty: 14 0RF cephalexin [cephalexin] 500 mg capsule 500 mg PO TID Qty: 30 0RF Referrals Follow up/Referrals: Arthur Baker MD [Primary Care Provider] - See instructions Activity Restrictions/Add. Instructions Additional Instructions/Restrictions: MiraLAX for 5 days. Additional instructions for ABDOMINAL PAIN: See your physician as soon as possible for further evaluation. Return immediately if worsening abdominal pain, vomiting, shortness of breath, fever, vomiting of blood or abdominal distention. Clinical Impressions Clinical Impression: Abdominal pain, Acute constipation Instructions Patient Instructions: DI for Acute Abdominal Pain Discharge ED Provider: Henri Jeter General Adult HPI General Chief complaint: Abdominal Pain Stated complaint: ABD PAIN Time Seen by Provider: 03/07/22 13:20 Mode of Arrival: EMS Source of Information: Patient and EMS Limitations: No Limitations Description of Symptoms (Recalled from ER Triage Doc. by RN): Pt to ED per EMS c/o lower abd pain with urination. EMS states that facility reported pt experiencing weakness this AM. History of Present Illness HPI narrative: Patient is brought in by EMS from [facility]. He is a poor historian and complaints seem to be changing frequently. Reportedly, staff at [facility] was concerned that he was weak and had trouble holding his coffee. When EMS arrived, they reported that the patient was eating and drinking on his own, able to hold his coffee cup and able to walk to their stretcher on his own, but complained of abdominal pain with urination during transport. The patient tells me that he does not feel very good, when asked what is bothering him he says my chest . When asked where his chest hurts, he points to his umbilicus. He denies vomiting. He thinks that he had 2 episodes of diarrhea. He denies fever. Denies trouble breathing. He denies any trouble urinating to me. Related Data Home Medications Medication Instructions Recorded Confirmed divalproex 500 mg tablet,delayed 500 mg PO BID Seizures 05/22/17 02/02/22 release haloperidol 5 mg tablet 10 mg PO TID MOOD 08/10/18 02/03/22 atorvastatin 40 mg tablet 40 mg PO HS Cholesterol 11/10/18 02/02/22 ipratropium 20 mcg-albuterol 100 1 puff INHALATION QID Breathing 03/26/19 02/02/22 mcg/actuation mist for inhalation problems (Combive
[2022-03-07 13:35] LABS: Alanine Aminotransferase 14 U/L (12-78); Albumin Level 3.4 g/dl (3.5-5.0); Albumin/Globulin Ratio 1.4 (1.1-1.8); Alkaline Phosphatase 55 U/L (38-126); Anion Gap 12.1 mEq/L (5-15); Aspartate Amino Transferase 22 U/L (17-59); Bilirubin,Total 0.4 mg/dl (0.2-1.3); Blood Urea Nitrogen 14 mg/dl (9-20); Carbon Dioxide 28 mmol/L (22.0-30.0); Creatinine Clearance Estimated 90 mL/min (50-200); Estimated Glomerular Filt Rate 86 ml/min (>60); GFR (African American) 104 ML/MIN (>60); Globulin 2.5 g/dL (1.3-3.2); Total Protein,Serum 5.9 g/dl (6.3-8.2)
[2022-03-07 13:36] LABS: Calcium 7.8 mg/dl (8.4-10.2); Glucose 97 mg/dl (74-100)
--- NOTE | 2022-03-07 13:38 | ECG_ITS ---
APPROVED REPORT Exam: Resting ECG HR:59 bpm ECG Measurements Heart Rate 59 AXES WI 151 P 61 QRSd 98 QRS 3 QT 394 T 54 QTc 394 Conclusion SINUS BRADYCARDIA BORDERLINE ECG UNCONFIRMED REPORT Electronically signed by : Tenzin Tovar MD 03/07/2022 17:13:05
[2022-03-07 13:41] LABS: Lipase 40 U/L (23-300)
[2022-03-07 13:54] LABS: Troponin I < 0.01 ng/ml (0.00-0.034)
[2022-03-07 15:00] LABS: Microscopic, Urine URINE MICROSCOPIC (MICROSCOPIC)
[2022-03-07 15:05] LABS: Appearance,Urine CLEAR (Clear); Bilirubin,Urine Negative (Negative); Blood, Urine TRACE-I (Negative); Color,Urine YELLOW (Yellow); Glucose,Urine (UA) Negative (Negative); Ketones,Urine Negative (Negative); Leukocyte Esterase,Urine Negative (Negative); Nitrate,Urine Negative (Negative); Protein,Urine Negative (Negative); Specific Gravity, Urine <= 1.005 (1.005-1.030)
[2022-03-07 15:28] LABS: RBC,Urine Occasional #/hpf (0-3)
== END 2022-03-07 17:05 | disposition home or self-care (01) ==
PROVIDERS: Emergency Provider Emergency Medicine; PCP Emergency Medicine
DX: K59.09 Other constipation (principal); Z79.82 Long term (current) use of aspirin; Z79.899 Other long term (current) drug therapy; I10 Essential (primary) hypertension; F32.A Depression, unspecified; K21.9 Gastro-esophageal reflux disease without esophagitis; F41.9 Anxiety disorder, unspecified; R56.9 Unspecified convulsions
CPT/HCPCS: 51702; 71046; 74177; 80053; 81001; 83690; 84484; 85025; 93005; 99284; Q9967

== ENCOUNTER 2022-03-08 12:23 | Emergency (ER) | payer BC, SELFPAY ==
[2022-03-08] VITALS (10 sets, daily range): BP systolic 96–168; BP diastolic 53–89; PULSE 51–64; RESP 16–18; TEMP 36.7; O2SAT 95–100; BMI 22.9
--- NOTE | 2022-03-08 12:42 | XR_ITS ---
FINAL REPORT CLINICAL HISTORY: abd pain COMPARISON: 03/07/2022 FINDINGS: SINGLE-VIEW CHEST The heart size is normal. The patient is status post median sternotomy. The lungs are clear. There is no pneumothorax. IMPRESSION: No acute cardiopulmonary process. Reviewed, Interpreted and Dictated by Crow Hannon III, MD Transcribed by Paz Elkins Authenticated and [facility]
--- NOTE | 2022-03-08 12:44 | XR_ITS ---
FINAL REPORT CLINICAL HISTORY: severe constipation FINDINGS: ABDOMEN SINGLE VIEW There is a nonspecific, nonobstructive bowel gas pattern. No bowel dilation is identified. No abnormal calcification is seen. There is a large amount of retained stool throughout the colon. There are postoperative changes in the right upper quadrant and left femur. IMPRESSION: Large stool burden. Reviewed, Interpreted and Dictated by Crow Hannon III, MD Transcribed by Paz Elkins Authenticated and . [facility]
--- NOTE | 2022-03-08 12:58 | PC.NURSE ---
rad at BS for portable xray
--- NOTE | 2022-03-08 13:05 | PC.NURSE ---
pt arrived to ED with a depends on with underwear over top of it and pants on. All 3 layers were saturated in urine upon arrival to ED. Pt cleaned up, new depends place, gilman catheter placed per ER MD verbal order and warm blanket layed over pt. will continue to monitor
--- NOTE | 2022-03-08 13:22 | HMH.EDGENADL ---
Discharge Plan Disposition Patient Disposition: Home, Self-Care Condition: Good Prescriptions Prescriptions: New polyethylene glycol 3350 17 gram/dose powder 17 g PO BID Qty: 850 5RF sennosides [senna] 8.6 mg tablet 8.6 mg PO DAILY Qty: 30 0RF No Action atorvastatin 40 mg tablet 40 mg PO HS Combivent Respimat 20-100 mcg/actuation mist 1 puff INHALATION QID Dulera 100-5 mcg/actuation HFA aerosol inhaler 2 puff INHALATION BID haloperidol 5 mg tablet 10 mg PO TID hydroxyzine HCl 50 mg tablet 50 mg PO Q6H PRN (Reason: Anxiety) loperamide 2 mg capsule 2 mg PO Q4H PRN (Reason: Diarrhea) Rx Instructions: administer after each loose stool until symptoms controlled; do not exceed 8 mg per 24 hrs promethazine 25 mg tablet 25 mg PO Q6H PRN (Reason: Nausea) diazepam 5 mg tablet 5 mg PO BID Qty: 60 5RF divalproex 500 MG tablet,delayed release (DR/EC) 500 mg PO BID ranolazine 500 MG tablet extended release 12 hr 500 mg PO BID metoprolol tartrate 25 MG tablet 12.5 mg PO BID sertraline 100 MG tablet 150 mg PO DAILY isosorbide mononitrate 30 MG tablet 30 mg PO DAILY famotidine 20 MG tablet 20 mg PO BID acetaminophen 325 MG tablet 325 mg PO Q6HP PRN (Reason: As Needed For Fever Or Pain) benztropine 1 MG tablet 1 mg PO BID aspirin 81 MG tablet,chewable 81 mg PO DAILY paliperidone 6 MG tablet extended release 24 hr 12 mg PO DAILY ticagrelor 90 MG tablet 90 mg PO BID sulfamethoxazole-trimethoprim [Bactrim DS] 800-160 mg Tablet 1 tab PO Q12H Qty: 14 0RF cephalexin [cephalexin] 500 mg capsule 500 mg PO TID Qty: 30 0RF polyethylene glycol 3350 [Miralax] 17 gram powder in packet 17 g PO DAILY Qty: 5 0RF Clinical Impressions Clinical Impression: Constipation Discharge ED Provider: Zhen Garcia General Adult HPI General Chief complaint: Weakness Stated complaint: weakness Time Seen by Provider: 03/08/22 12:30 Mode of Arrival: EMS Limitations: No Limitations Description of Symptoms (Recalled from ER Triage Doc. by RN): pt sent to ER for evaluation for decline per [facility] staff. Pt seen in ER yesterday and diagnosed with constipation. Pt arrived to reports pain in lower abd when asked if having pain anywhere. Pt reports not feeling well. History of Present Illness HPI narrative: This is a 61-year-old male with history of constipation, difficulty urinating, chronic abdominal pain, ACS, schizophrenia who is presenting with abdominal pain. Patient was here 1 day prior to arrival and found to have large colonic stool burden and urinary retention. He was catheterized, passed voiding trial, able to be discharged. He is returning with EMS today with complaint of abdominal pain. Patient denies nausea, vomiting, dysuria, hematuria, diarrhea, constipation, fevers, chills. He denies any other concerning history, but is a poor historian. Alert and oriented only to person. Patient is unsure why EMS brought him to the emergency department Related Data Home Medications Medication Instructions Recorded Confirmed divalproex 500 mg tablet,delayed 500 mg PO BID Seizures 05/22/17 02/02/22 release haloperidol 5 mg tablet 10 mg PO TID MOOD 08/10/18 02/03/22 atorvastatin 40 mg tablet 40 mg PO HS Cholesterol 11/10/18 02/02/22 ipratropium 20 mcg-albuterol 100 1 puff INHALATION QID Breathing 03/26/19 02/02/22 mcg/actuation mist for inhalation problems (Combivent Respimat) mometasone-formoterol HFA 100 2 puff INHALATION BID Breathing 03/26/19 02/02/22 mcg-5 mcg/actuation aerosol problems inhaler (Dulera) ranolazine 500 mg tablet,extended 500 mg PO BID Chest pain 04/10/19 02/02/22 release,12 hr metoprolol tartrate 25 mg tablet 12.5 mg PO BID Hypertension 04/17/19 02/02/22 sertraline 100 mg tablet 150 mg PO DAILY Depression 07/18/20 02/02/22 acetaminophen 325 mg tablet
[2022-03-08 13:46] LABS: Chloride 102 mmol/L (98-107); Sodium 138 mmol/L (136-145)
[2022-03-08 13:47] LABS: Potassium 4.2 mmoL/L (3.5-5.1)
[2022-03-08 13:49] LABS: Alanine Aminotransferase 15 U/L (12-78); Albumin Level 3.6 g/dl (3.5-5.0); Albumin/Globulin Ratio 1.3 (1.1-1.8); Alkaline Phosphatase 55 U/L (38-126); Anion Gap 11.2 mEq/L (5-15); Aspartate Amino Transferase 28 U/L (17-59); Bilirubin,Total 0.4 mg/dl (0.2-1.3); Blood Urea Nitrogen 14 mg/dl (9-20); Calcium 8.2 mg/dl (8.4-10.2); Carbon Dioxide 29 mmol/L (22.0-30.0); Creatinine Clearance Estimated 80 mL/min (50-200); Estimated Glomerular Filt Rate 76 ml/min (>60); GFR (African American) 92 ML/MIN (>60); Globulin 2.7 g/dL (1.3-3.2); Glucose 82 mg/dl (74-100); Lactic Acid 0.6 mmol/L (0.7-2.1); Lipase 39 U/L (23-300); Total Protein,Serum 6.3 g/dl (6.3-8.2)
[2022-03-08 14:02] LABS: Troponin I < 0.01 ng/ml (0.00-0.034)
[2022-03-08 14:03] LABS: Basophils % 1.5 % (0.1-2.0); Eosinophils % 1.1 % (0.1-12.0); Hematocrit 40.1 % (42.0-52.0); Hemoglobin 13.4 g/dL (14.1-18.0); Lymphocytes # 0.8 K/mm3 (0.7-4.5); Lymphocytes % 34.9 % (10-50); Mean Corpuscular HGB Conc 33.3 g/dL (31.8-35.4); Mean Corpuscular Hemoglobin 33.3 pg (27.0-31.2); Mean Corpuscular Volume 99.9 fl (80-94); Mean Platelet Volume 8.3 fl (7.4-10.4); Monocytes # 0.2 K/mm3 (0.1-1.0); Monocytes % 10.1 % (1.7-9.3); Neutrophils # 1.2 K/mm3 (1.8-7.8); Neutrophils % 52.4 % (37.0-80.0); Platelet Count 152 K/mm3 (142-424); Red Blood Count 4.02 M/mm3 (4.60-6.20); Red Cell Distribution Width 13.5 % (11.5-17.5); White Blood Count 2.4 K/mm3 (4.8-10.8)
--- NOTE | 2022-03-08 15:35 | PC.NURSE ---
soap suds enema done per ER MD request. Pt having difficulty holding enema fluid, pt able to hold some in and is on bedpan now. ER MD is aware
--- NOTE | 2022-03-08 17:07 | PC.NURSE ---
no result from soap suds enema
--- NOTE | 2022-03-08 17:41 | PC.NURSE ---
notified [facility] staff pt is ready for discharge
--- NOTE | 2022-03-08 17:56 | PC.NURSE ---
gilman catheter removed, pt ambulated to restroom with standby assist, report he wanted to try to have a BM
== END 2022-03-08 18:44 | disposition home or self-care (01) ==
PROVIDERS: Emergency Provider Emergency Medicine; PCP Emergency Medicine
DX: K59.00 Constipation, unspecified (principal); Z79.02 Long term (current) use of antithrombotics/antiplatelets; Z79.899 Other long term (current) drug therapy; I10 Essential (primary) hypertension; K21.9 Gastro-esophageal reflux disease without esophagitis; F41.9 Anxiety disorder, unspecified; E11.9 Type 2 diabetes mellitus without complications; Z95.1 Presence of aortocoronary bypass graft; J44.9 Chronic obstructive pulmonary disease, unspecified; F25.0 Schizoaffective disorder, bipolar type; I25.10 Atherosclerotic heart disease of native coronary artery without angina pectoris
CPT/HCPCS: 51702; 71045; 74018; 80053; 83605; 83690; 84484; 85025; 96365; 99284

== ENCOUNTER 2022-03-13 13:04 | Observation (INO) | payer BC, SELFPAY ==
[2022-03-13] VITALS (9 sets, daily range): BP systolic 81–165; BP diastolic 55–94; PULSE 49–62; RESP 16–18; TEMP 36.4–37.1; O2SAT 93–99; BMI 25.1; BMI 18.8
--- NOTE | 2022-03-13 13:03 | HMH.EDGENADL ---
Discharge Plan Disposition Patient Disposition: Admitted As Inpatient Condition: Fair Prescriptions Prescriptions: No Action atorvastatin 40 mg tablet 40 mg PO HS Combivent Respimat 20-100 mcg/actuation mist 1 puff INHALATION QID Dulera 100-5 mcg/actuation HFA aerosol inhaler 2 puff INHALATION BID haloperidol 5 mg tablet 10 mg PO TID hydroxyzine HCl 50 mg tablet 50 mg PO Q6H PRN (Reason: Anxiety) loperamide 2 mg capsule 2 mg PO Q4H PRN (Reason: Diarrhea) Rx Instructions: administer after each loose stool until symptoms controlled; do not exceed 8 mg per 24 hrs promethazine 25 mg tablet 25 mg PO Q6H PRN (Reason: Nausea) diazepam 5 mg tablet 5 mg PO BID Qty: 60 5RF divalproex 500 MG tablet,delayed release (DR/EC) 500 mg PO BID ranolazine 500 MG tablet extended release 12 hr 500 mg PO BID metoprolol tartrate 25 MG tablet 12.5 mg PO BID sertraline 100 MG tablet 150 mg PO DAILY isosorbide mononitrate 30 MG tablet 30 mg PO DAILY famotidine 20 MG tablet 20 mg PO BID acetaminophen 325 MG tablet 325 mg PO Q6HP PRN (Reason: As Needed For Fever Or Pain) benztropine 1 MG tablet 1 mg PO BID aspirin 81 MG tablet,chewable 81 mg PO DAILY paliperidone 6 MG tablet extended release 24 hr 12 mg PO DAILY ticagrelor 90 MG tablet 90 mg PO BID polyethylene glycol 3350 [Miralax] 17 gram powder in packet 17 g PO DAILY sennosides [senna] 8.6 mg tablet 8.6 mg PO DAILY Referrals Follow up/Referrals: Provider,Referral, [Primary Care Provider] - See instructions Clinical Impressions Clinical Impression: Generalized weakness, Altered mental status Discharge ED Provider: Taina Roadrte Adult HPI General Chief complaint: Weakness Stated complaint: weakness Time Seen by Provider: 03/13/22 13:06 Mode of Arrival: EMS Source of Information: Patient and EMS History of Present Illness HPI narrative: 61-year-old male presenting to the emergency department with weakness, urinary incontinence, stool incontinence. Says he feels generally unwell, fatigued. Further history obtained from EMS and [facility]. He resides at [facility], usually able to care for himself. He has been evaluated in our emergency department for constipation. Today, staff noticed he was too weak to stand and walk. He was able to walk to the [facility] for EMS, but required help. He denies any numbness, weakness, tingling in his legs. No abdominal pain. Says he is not been eating or drinking much, simply does not have an appetite. No fevers or chills. No falls or injuries Related Data Home Medications Medication Instructions Recorded Confirmed divalproex 500 mg tablet,delayed 500 mg PO BID Seizures 05/22/17 03/13/22 release haloperidol 5 mg tablet 10 mg PO TID MOOD 08/10/18 03/13/22 atorvastatin 40 mg tablet 40 mg PO HS Cholesterol 11/10/18 03/13/22 ipratropium 20 mcg-albuterol 100 1 puff INHALATION QID Breathing 03/26/19 03/13/22 mcg/actuation mist for inhalation problems (Combivent Respimat) mometasone-formoterol HFA 100 2 puff INHALATION BID Breathing 03/26/19 03/13/22 mcg-5 mcg/actuation aerosol problems inhaler (Dulera) ranolazine 500 mg tablet,extended 500 mg PO BID Chest pain 04/10/19 03/13/22 release,12 hr metoprolol tartrate 25 mg tablet 12.5 mg PO BID Hypertension 04/17/19 03/13/22 sertraline 100 mg tablet 150 mg PO DAILY Depression 07/18/20 03/13/22 acetaminophen 325 mg tablet 325 mg PO Q6HP PRN As Needed For 03/13/21 03/13/22 Fever Or Pain aspirin 81 mg chewable tablet 81 mg PO DAILY heart health 03/13/21 03/13/22 benztropine 1 mg tablet 1 mg PO BID Tremors 03/13/21 03/13/22 famotidine 20 mg tablet 20 mg PO BID acid reflux 03/13/21 03/13/22 isosorbide mononitrate 30 mg 30 mg PO DAILY High blood pressure 03/13/21 03/13/22 tablet,extended release 24 hr paliperidone 6 mg tablet,extended
[2022-03-13 13:29] LABS: Basophils % 0.8 % (0.1-2.0); Eosinophils # 0.1 K/mm3 (0.0-0.4); Hematocrit 34.2 % (42.0-52.0); Hemoglobin 11.6 g/dL (14.1-18.0); Lymphocytes # 1.1 K/mm3 (0.7-4.5); Lymphocytes % 20.9 % (10-50); Mean Corpuscular HGB Conc 33.8 g/dL (31.8-35.4); Mean Corpuscular Hemoglobin 33.5 pg (27.0-31.2); Mean Platelet Volume 8.7 fl (7.4-10.4); Monocytes # 0.5 K/mm3 (0.1-1.0); Neutrophils # 3.7 K/mm3 (1.8-7.8); Neutrophils % 68.2 % (37.0-80.0); Platelet Count 227 K/mm3 (142-424); Red Blood Count 3.46 M/mm3 (4.60-6.20); Red Cell Distribution Width 13.4 % (11.5-17.5); White Blood Count 5.4 K/mm3 (4.8-10.8)
[2022-03-13 13:36] LABS: Chloride 106 mmol/L (98-107); Potassium 4.1 mmoL/L (3.5-5.1); Sodium 142 mmol/L (136-145)
[2022-03-13 13:39] LABS: Alanine Aminotransferase 13 U/L (12-78); Alkaline Phosphatase 54 U/L (38-126); Anion Gap 11.1 mEq/L (5-15); Aspartate Amino Transferase 21 U/L (17-59); Bilirubin,Total 0.7 mg/dl (0.2-1.3); Blood Urea Nitrogen 11 mg/dl (9-20); Calcium 8.4 mg/dl (8.4-10.2); Carbon Dioxide 29 mmol/L (22.0-30.0); Creatinine Clearance Estimated 85 mL/min (50-200); Estimated Glomerular Filt Rate 98 ml/min (>60); GFR (African American) 119 ML/MIN (>60); Glucose 105 mg/dl (74-100); Lipase 18 U/L (23-300); Total Protein,Serum 6.4 g/dl (6.3-8.2)
[2022-03-13 13:54] LABS: Albumin Level 3.3 g/dl (3.5-5.0); Albumin/Globulin Ratio 1.1 (1.1-1.8); Globulin 3.1 g/dL (1.3-3.2)
[2022-03-13 14:48] LABS: VBG Base Excess 0.1 mmol/L (-2.4-2.3); VBG HCO3 25.2 mmol/L (23-30); VBG Oxygen Saturation 98.6 % (50-70); VBG PCO2 43.8 mmol/L (35-51); VBG PH 7.38 mmol/L (7.31-7.41); VBG PO2 141.1 mmol/L (28-40); VBG Total CO2 26.6 mmol/L (23-27)
--- NOTE | 2022-03-13 15:12 | CT_ITS ---
FINAL REPORT TECHNIQUE: After the administration of intravenous contrast, axial images were obtained through the abdomen and pelvis by computed tomography. The study was performed with techniques to keep radiation dose as low as reasonably achievable, (ALARA). Individual dose reduction techniques using automated exposure control or adjustment of mA and/or kV according to the patient's size were employed. CLINICAL HISTORY: abd pain, nonlocalized COMPARISON: 03/07/2022 FINDINGS: Abdomen: Motion artifact is identified on many of the images. There is moderate emphysema in the lung bases with mild scarring. The liver is normal in size and attenuation. The patient is status post cholecystectomy. There is mild biliary ductal dilatation, likely represents post cholecystectomy change. The spleen is unremarkable. The adrenals are normal. The pancreas is unremarkable. There are 2, less than 1 cm cysts in the right kidney. There is moderate vascular calcification. The aorta is normal in caliber. There is no free fluid or adenopathy. Pelvis: The appendix is not well visualized. There is a moderate amount of stool throughout the colon, partially improved since previous. The urinary bladder is unremarkable. There is a small amount of free fluid in the pelvis, likely reactive. There is no evidence of adenopathy. There are postoperative changes in the left femur. IMPRESSION: Small amount of pelvic free fluid, likely reactive. Moderate stool burden, partially improved. Reviewed, Interpreted and Dictated by Crow Hannon III, MD Transcribed by Paz Elkins Authenticated and [facility]
--- NOTE | 2022-03-13 15:29 | PC.NURSE ---
PT TO CT AT THIS TIME
--- NOTE | 2022-03-13 15:41 | PC.NURSE ---
PT RETURNED FROM CT
--- NOTE | 2022-03-13 16:37 | PC.NURSE ---
LARGE AMOUNT OF URINE NOTED TO ATTENDS, STATES TO ANCHOR ABDALLA CATH AT THIS TIME TO MONITOR OUTPUT. EXPLAINED TO PT, ABDALLA PLACED WITHOUT DIFFICULTY
[2022-03-13 16:41] LABS: Microscopic, Urine URINE MICROSCOPIC (MICROSCOPIC)
[2022-03-13 16:42] LABS: Appearance,Urine CLEAR (Clear); Bilirubin,Urine Negative (Negative); Blood, Urine Negative (Negative); Color,Urine YELLOW (Yellow); Glucose,Urine (UA) Negative (Negative); Ketones,Urine Negative (Negative); Leukocyte Esterase,Urine Negative (Negative); Nitrate,Urine Negative (Negative); Protein,Urine Negative (Negative); Urobilinogen,Urine >=8.0 EU/dl (0.2)
[2022-03-13 17:09] LABS: Bacteria,Urine 2+ /lpf; RBC,Urine Occasional #/hpf (0-3); Sperm,Urine 1+ /lpf; Squamous Epithelial Cell,Urine Occasional #/hpf (0-5)
--- NOTE | 2022-03-13 17:50 | CT_ITS ---
PROCEDURE INFORMATION: Exam: CT Head Without Contrast Exam date and time: 03/13/2022 6:00 PM Age: 61 years old Clinical indication: Altered mental status/memory loss; Additional info: AMS TECHNIQUE: Imaging protocol: Computed tomography of the head without contrast. Radiation optimization: All CT scans at this facility use at least one of these dose optimization techniques: automated exposure control; mA and/or kV adjustment per patient size (includes targeted exams where dose is matched to clinical indication); or iterative reconstruction. COMPARISON: CT HEAD/BRAIN WO CON 02/02/2022 1:02 PM FINDINGS: Brain: No acute intracranial findings compared with 02/02/2022. There are some motion artifacts and streak artifacts, the technologist has repeated images for better visualization. No intracranial hemorrhage. No edema, swelling or mass-effect. There is moderate generalized cerebral atrophy, prominent for age. Chronic white matter disease in both cerebral hemispheres, likely microvascular ischemic changes. Cerebral ventricles: Ventricles are unchanged, mild prominence likely due to central atrophy. No significant hydrocephalus. Paranasal sinuses: Sinus disease has significantly worsened in the interval, with jsgp-fj-wuyklant bilateral maxillary sinus mucosal thickening and some new air-fluid levels in the maxillary sinuses, worsened mucosal thickening and partial opacification of ethmoid air cells bilaterally, mild chronic inferior frontal sinus disease. Mastoid air cells: Mastoids are unremarkable as visualized, no effusions. Auditory system: Chronic cerumen in the external auditory canals. Orbital cavities: No acute intraorbital findings, as visualized. Bones/joints: No acute skull fracture. No lytic lesions. Chronic nasal bone deformities unchanged. Soft tissues: There are no soft tissue masses or fluid collections. Vasculature: Atherosclerotic calcified plaques in the internal carotid arteries. IMPRESSION: 1. Tmrzl-zk-ruvazfm sinusitis, significantly worsened maxillary and ethmoid sinusitis compared with 02/02/2022, with bilateral maxillary air-fluid levels. 2. There is no CT evidence of intracranial mass, intracranial hemorrhage, or acute infarct. 3. Senescent changes are prominent for age, with cerebral atrophy, microvascular ischemic changes, and there are a few atherosclerotic calcified plaques. 4. Additional nonemergency and chronic findings as above.
--- NOTE | 2022-03-13 18:04 | PC.NURSE ---
PT TO CT AT THIS TIME VIA STRETCHER
--- NOTE | 2022-03-13 18:14 | PC.NURSE ---
PT RETURNED FROM CT
--- NOTE | 2022-03-13 18:25 | PC.NURSE ---
HALLEY SNOWDEN speaking with [facility] staff
--- NOTE | 2022-03-13 18:41 | PC.NURSE ---
covid swab sent to lab
--- NOTE | 2022-03-13 18:41 | PC.NURSE ---
Called for hospitalist to call at 1900 for admission of patient.
[2022-03-13 18:50] LABS: Coronavirus 19, PCR Not Detected (NotDetected); Influenza A, PCR Not Detected (NotDetected); Influenza B, PCR Not Detected (NotDetected)
[2022-03-13 19:00] LABS: Lactic Acid 1.8 mmol/L (0.7-2.1)
--- NOTE | 2022-03-13 19:20 | XR_ITS ---
PROCEDURE INFORMATION: Exam: XR Lumbosacral Spine Exam date and time: 03/13/2022 7:30 PM Age: 61 years old Clinical indication: Other: Urinary/stool incontinence; Additional info: Urinary and stool incontinence, unable to ambulate TECHNIQUE: Imaging protocol: Radiologic exam of the lumbosacral spine. Views: 2 or 3 views. COMPARISON: CT ABDOMEN PELVIS W CON 03/13/2022 3:29 PM FINDINGS: Bones/joints: Bones appear diffusely demineralized.There is a normal count of 5 qeh-ryx-aligary lumbar type vertebrae. Mild roto levo scoliotic curvature. No acute fracture; some upper lumbar vertebral deformities suggested on earlier CT appear to be reconstruction artifacts due to motion. No corresponding fractures are seen on this exam. Mild lower lumbar facet arthropathy. Minimal degenerative grade 1 anterolisthesis L4-L5; no high-grade listhesis. Lumbar disc spaces are well preserved. No significant spondylosis. Mild bilateral sacroiliitis. Soft tissues: No acute findings in the paraspinous soft tissues, as visualized. Organs: Cholecystectomy clips noted in the right upper quadrant. Residual excreted contrast material noted within kidneys, ureters and bladder from earlier CT. IMPRESSION: 1. No acute fracture or high-grade listhesis. 2. Mild roto levo scoliotic curvature. 3. Lumbar facet arthropathy. 4. Additional nonemergency and chronic findings as above.
[2022-03-13 19:45] LABS: Amphetamine/Metha Screen,Urine Negative ng/ml (<1000)
[2022-03-13 19:46] LABS: Barbiturates Screen,Urine Negative ng/ml (<200); Benzodiazepines Screen,Urine Positive ng/ml (<200)
[2022-03-13 19:50] LABS: Cannabinoid Screen,Urine Negative ng/ml (<50)
[2022-03-13 19:51] LABS: Cocaine Screen,Urine Negative ng/ml (<300); Methadone Screen,Urine Negative ng/ml (<300)
[2022-03-13 19:52] LABS: Opiate Screen,Urine Negative ng/ml (<300)
[2022-03-13 19:53] LABS: Phencyclidine Screen,Urine Negative ng/ml (<25)
--- NOTE | 2022-03-13 20:45 | PC.NURSE ---
Bed assignment obtained, admissions notified
--- NOTE | 2022-03-13 21:33 | EXP.HP ---
History of Present Illness *Admission Date: 03/13/22 *Reason for visit:: Urinary and Fecal Incontinence, Inability to ambulate *History of present illness: Mr. Muro is a 61-year-old male with a past medical history per chart review that is positive for history of Psychosis, Schizophrenia, Anxiety Disorder, COPD and Hyperlipidemia. He presents to [facility] from an Assisted Living Facility secondary to acute onset of urinary and fecal incontinence associated with inability to walk and change in mental status outside his normal, last known normal unknown. Work-up in the ER included a CT of the head that showed no acute findings concerning for mass or hemorrhage or acute infarction. X-ray of the Lumbar spine that showed no high grade lithesisis. CT of the abdomen and pelvis that showed a moderate stool burden with improvement from prior CT and urinary bladder that was unremarkable. Urinalysis showed 2 plus bacteria, but was negative for nitrates or leukoesterase. Urine drug screen was positive for benzodiazpines and CBC and CMP were unremarkable. On exam of the patient he is oriented to person only and does not follow commands well. In the ER the patient was given iv fluids. The patient will be admitted with initial impression: Failure to Thrive and Acute Encephalopathy, neuro checks will be ordered, cultures will be ordered. We will hold Benzodiazepines overnight. Will give Thiamine to cover for Werneike's. Medication as possible cause and cultures will be evaluated. [facility] Medical History (Updated 03/13/22 @ 22:50 by Jessica De Leon RN) Abnormal stress test Acquired hammer toes of both feet COPD (chronic obstructive pulmonary disease) Diabetes mellitus, type 2 Dizziness History of chest pain History of heart attack Hyperlipidemia Onychomycosis Pain in both feet Psychosis Schizophrenia Surgical History (Updated 03/13/22 @ 22:50 by Jessica De Leon RN) Hx of CABG Family History Other No significant family history Social History Smoking Status: Current every day smoker tobacco type: cigarettes packs per day: 1 second hand exposure: No alcohol intake: never substance use type: denies use current occupational status: retired Travel in the last 8 weeks: None household members: other housing: assisted living facility caffeine: Yes Review of Systems Review of Systems Review of systems:: unable to obtain Constitutional Constitutional: Denies headache(s) and Reports weakness ENT Ears, Nose, Mouth, and Throat: Denies dizziness and Denies headache(s) *Cardiovascular Cardiovascular: Reports system reviewed and no additional complaints, except as documented *Respiratory Respiratory: Reports system reviewed and no additional complaints, except as documented *Gastrointestinal Comments: Fecal Incontinence *Genitourinary Comments: Urinary incontinence *Musculoskeletal Musculoskeletal: Denies numbness *Neurologic Neurologic: Denies dizziness, Denies headache(s), Denies numbness and Reports weakness Meds Home Medications and Allergies Home Medications Medication Instructions Recorded Confirmed Type divalproex 500 mg tablet,delayed 500 mg PO BID Seizures 05/22/17 03/13/22 History release haloperidol 5 mg tablet 10 mg PO TID MOOD 08/10/18 03/13/22 History atorvastatin 40 mg tablet 40 mg PO HS Cholesterol 11/10/18 03/13/22 History ipratropium 20 mcg-albuterol 100 1 puff INHALATION QID Breathing 03/26/19 03/13/22 History mcg/actuation mist for inhalation problems (Combivent Respimat) mometasone-formoterol HFA 100 2 puff INHALATION BID Breathing 03/26/19 03/13/22 History mcg-5 mcg/actuation aerosol problems inhaler (Dulera) ranolazine 500 mg tablet,extended 500 mg PO BID Chest pain 04/10/19 03/13/22 History release,12 hr metoprolol tartrate 25
--- NOTE | 2022-03-13 22:13 | PC.NURSE ---
PT ARRIVED TO FLOOR VIA STRETCHER AT 21:58
[2022-03-14 04:00] VITALS: BP 142/76; PULSE 60; RESP 16; TEMP 37.1; O2SAT 96
--- NOTE | 2022-03-14 05:20 | PC.NURSE ---
NO ACUTE CHANGES SINCE PREVIOUS ASSESSMENT. PT HAS RESTED WELL SINCE ARRIVING TO THE FLOOR. LUNG SOUNDS ARE DIMINISHED. HAS HAD A NON-PRODUCTIVE, INTERMITTENT COUGH THIS SHIFT. NO C/O N/V/D OR SOB. ABDALLA IN PLACE DRAINING ADEQUATE AMOUNTS OF DARK YELLOW URINE. TURNING IN BED INDEPENDENTLY. BED ALARM IN PLACE FOR PT SAFETY.
[2022-03-14 05:47] LABS: POC Glucose,Bedside 93 (70-110)
--- NOTE | 2022-03-14 07:00 | CT_ITS ---
FINAL REPORT TECHNIQUE: Axial imaging of the lumbar spine was obtained without contrast. Sagittal and coronal reformatted images were also obtained and reviewed. This study was performed with techniques to keep radiation doses as low as reasonably achievable (ALARA). Individualized dose reduction techniques using automated exposure control or adjustment of mA and/or kV according to the patient''s size were employed. CLINICAL HISTORY: inability to walk, fecal and urinary incontinence FINDINGS: There is no fracture. The vertebral alignment is normal. There is no evidence of significant central canal stenosis. L1-L2: No evidence of central canal stenosis or neural foraminal narrowing. L2-L3: No evidence of central canal stenosis or neural foraminal narrowing. L3-L4: There is an annular bulge and facet arthropathy. There is mild bilateral neural foraminal narrowing. L4-L5: There is an annular bulge and facet arthropathy. There is mild bilateral neural foraminal narrowing. L5-S1: There is an annular bulge and facet arthropathy. No evidence of central canal stenosis or neural foraminal narrowing. There is a small amount of free fluid in the lower pelvis of uncertain etiology. IMPRESSION: Multilevel degenerative change without acute bony abnormality. Small amount of pelvic free fluid. Reviewed, Interpreted and Dictated by Crow Hannon III, MD Transcribed by Lance Fishman Authenticated and . [facility]
[2022-03-14 07:21] LABS: Basophils % 0.4 % (0.1-2.0); Eosinophils # 0.1 K/mm3 (0.0-0.4); Eosinophils % 1.2 % (0.1-12.0); Hematocrit 34.3 % (42.0-52.0); Hemoglobin 11.4 g/dL (14.1-18.0); Lymphocytes # 1.1 K/mm3 (0.7-4.5); Lymphocytes % 19.6 % (10-50); Mean Corpuscular HGB Conc 33.4 g/dL (31.8-35.4); Mean Corpuscular Hemoglobin 33.2 pg (27.0-31.2); Mean Corpuscular Volume 99.5 fl (80-94); Mean Platelet Volume 8.4 fl (7.4-10.4); Monocytes # 0.7 K/mm3 (0.1-1.0); Monocytes % 11.4 % (1.7-9.3); Neutrophils # 3.9 K/mm3 (1.8-7.8); Neutrophils % 67.4 % (37.0-80.0); Platelet Count 244 K/mm3 (142-424); Red Blood Count 3.45 M/mm3 (4.60-6.20); Red Cell Distribution Width 13.4 % (11.5-17.5); White Blood Count 5.7 K/mm3 (4.8-10.8)
[2022-03-14 07:36] LABS: Chloride 107 mmol/L (98-107); Potassium 3.6 mmoL/L (3.5-5.1); Sodium 140 mmol/L (136-145)
[2022-03-14 07:39] LABS: Alanine Aminotransferase 11 U/L (12-78); Albumin/Globulin Ratio 1.1 (1.1-1.8); Alkaline Phosphatase 57 U/L (38-126); Anion Gap 12.6 mEq/L (5-15); Aspartate Amino Transferase 17 U/L (17-59); Bilirubin,Total 0.7 mg/dl (0.2-1.3); Blood Urea Nitrogen 6 mg/dl (9-20); Carbon Dioxide 24 mmol/L (22.0-30.0); Creatinine Clearance Estimated 63 mL/min (50-200); Estimated Glomerular Filt Rate 137 ml/min (>60); GFR (African American) 166 ML/MIN (>60); Globulin 2.7 g/dL (1.3-3.2); Total Protein,Serum 5.7 g/dl (6.3-8.2)
[2022-03-14 07:40] LABS: Calcium 7.9 mg/dl (8.4-10.2); Glucose 78 mg/dl (74-100)
[2022-03-14 08:00] VITALS: BP 132/61; PULSE 54; RESP 16; TEMP 36.6; O2SAT 99
--- NOTE | 2022-03-14 08:30 | P.CONPHA_ITS ---
Pharmacy Intervention Comments: MEDICATION RECONCILIATION COMPLETED ON PATIENT USING MAR FROM [facility]. -NEREIDA HAMILTON, RIOSD
--- NOTE | 2022-03-14 08:30 | HMH.PHAINT1 ---
Pharmacy Intervention Comments: MEDICATION RECONCILIATION COMPLETED ON PATIENT USING MAR FROM [facility]. -NEREIDA HAMILTON, RIOSD
--- NOTE | 2022-03-14 11:49 | HMH.PTEV ---
Physical Therapy Evaluation Rehab PT IP Evaluation Start: 03/14/22 08:18 Freq: ONCE Status: Active Protocol: Document 03/14/22 11:44 PHORNE (Rec: 03/14/22 11:49 PHORNE [id number]) Subjective/History History History 61 yowm adm to [facility] with failure to thrive and acute encephalopathy. He reports he lievs at a personal snf and is generally independent with all mobility without AD. Past hx includes schizophrenia . Subjective Subjective Pt with no c/o this am. He does state, I would like to have a cane. Rehab PT IP Eval Objective Appearance Patient Behavior Appropriate,Confused,Patient Baseline Patient Orientation Person,Month Difficulty following instructions none Speech Pattern Clear,Delayed,Patient Baseline Ambulation Patient Able to Ambulate Yes Ambulation Observation IP General Gait Pattern Observation Decrease Stride Lngth (R), Decrease Stride Lngth (L) Ambulation Distance (feet) 30 Ambulation Assistive Device None Ambulation Ability Supervision/Stand by Balance Ability to Arise Able, uses arms to help Sitting Balance Steady, safe Standing Balance Narrow stance w/o support Dynamic Sitting Balance Ability Good Dynamic Standing Balance Ability Good Transfers Bed Transfer Ability Supervision/Stand by Chair Transfer Ability Supervision/Stand by Sit to Stand Bed Transfer Ability Supervision/Stand by Sit to Stand Chair Transfer Ability Supervision/Stand by MMT All Extremities PT MMT WFL Rehab PT IP prob,goals,plan Problems Date of Evaluation: 03/14/22 PT IP Problems Bed Mobility,Transfers,Gait Rehab Potential Rehab Potential Good Plan PT Intervention Plan Bed Mobility,Transfers,Gait, Therapeutic Exercise PT Plan Frequency BID Duration LOS Discharge Goals Bed Transfer Ability Independent Sit to Stand Chair Transfer Ability Independent Ambulation Assistive Device None Ambulation Distance (feet) 50 Discharge Plan PT Discharge Plan Pt is appropriate to return to personal snf once medically stable from a rehab standpoint. Recommend [facility] therapy. G -code Required
--- NOTE | 2022-03-14 12:51 | SW/DCPLANNER ---
This patient currently resides at [facility]. PT/OT evaluated patient and stated that patient is independent and could return back. MD is fine with patient returning today. Ale fam/Luis did evaluate this patient and stated that he can return. I have informed Ale that patient may need a Guardian and I will provide Ale fam/ information to start process. Ale has also stated that patient will transport [facility]
[2022-03-14 13:13] VITALS: BMI 18.8
--- NOTE | 2022-03-14 13:18 | EXP.DC.SUM ---
General Admission date:: 03/13/22 Discharge date: 03/14/22 HPI HPI HPI: Mr. Muro is a 61-year-old male with a past medical history per chart review that is positive for history of Psychosis, Schizophrenia, Anxiety Disorder, COPD and Hyperlipidemia. He presents to [facility] from an Assisted Living Facility secondary to acute onset of urinary and fecal incontinence associated with inability to walk and change in mental status outside his normal, last known normal unknown. Work-up in the ER included a CT of the head that showed no acute findings concerning for mass or hemorrhage or acute infarction. X-ray of the Lumbar spine that showed no high grade lithesisis. CT of the abdomen and pelvis that showed a moderate stool burden with improvement from prior CT and urinary bladder that was unremarkable. Urinalysis showed 2 plus bacteria, but was negative for nitrates or leukoesterase. Urine drug screen was positive for benzodiazpines and CBC and CMP were unremarkable. On exam of the patient he is oriented to person only and does not follow commands well. In the ER the patient was given iv fluids. The patient will be admitted with initial impression: Failure to Thrive and Acute Encephalopathy, neuro checks will be ordered, cultures will be ordered. We will hold Benzodiazepines overnight. Will give Thiamine to cover for Werneike's. Medication as possible cause and cultures will be evaluated. Hospital Course Hospital Course Hospital Course: The patient was admitted to the medical floor with routine nursing interaction. His laboratory studies were trended and I identified normal creatinine and stable CBC with normal white blood cell count. His benzodiazepine therapy was held and an improvement in his interaction with staff was noted. Physical therapy evaluated the patient and the patient ambulated well. He tolerated his diet and nutrition recommended supplementation after assessing him with protein calorie malnutrition. Case management assisting with reaching out to his personal care facility and they came over to the hospital to evaluate the patient and found that he was improved. We have recommended to avoid any further benzodiazepine therapy for this patient. He will be discharged back to his personal care facility at [facility]. We have recommended routine follow-up with his PCP and evaluation in 3 to 5 days. Exam Data for Last 24 hours Vital signs and Labs for Last 24 Hours: Temp Pulse Resp BP Pulse Ox 97.9 F 54 L 16 132/61 99 03/14/22 08:00 03/14/22 08:00 03/14/22 08:00 03/14/22 08:00 03/14/22 08:00 Laboratory Results - last 24 hr 03/13/22 13:00: VBG pH 7.38, VBG pCO2 43.8, VBG pO2 141.1 H, VBG HCO3 25.2, VBG Total CO2 26.6, VBG O2 Saturation 98.6 H, VBG Base Excess 0.1 03/13/22 13:10: WBC 5.4, RBC 3.46 L, Hgb 11.6 L, Hct 34.2 L, MCV 99.0 H, MCH 33.5 H, MCHC 33.8, RDW 13.4, Plt Count 227, MPV 8.7, Neut % (Auto) 68.2, Lymph % (Auto) 20.9, [place] % (Auto) 9.0, Eos % (Auto) 1.0, Baso % (Auto) 0.8, Neut # (Auto) 3.7, Lymph # (Auto) 1.1, [place] # (Auto) 0.5, Eos # (Auto) 0.1, Baso # (Auto) 0.0 03/13/22 13:10: Sodium 142, Potassium 4.1, Chloride 106, Carbon Dioxide 29, Anion Gap 11.1, BUN 11, Creatinine 0.80, Estimated Creat Clear 85, Estimated GFR 98, Est GFR ( Amer) 119, Glucose 105 H, Calcium 8.4, Total Bilirubin 0.7, AST 21, ALT 13, Alkaline Phosphatase 54, Total Protein 6.4, Albumin 3.3 L, Globulin 3.1, Albumin/Globulin Ratio 1.1, Lipase 18 L 03/13/22 16:35: Urine Color Yellow, Urine Appearance Clear, Urine pH 6.0, Ur Specific [place] 1.010, Urine Protein Negative, Urine Glucose (UA) Negative, Urine Ketones Negative, Urine Blood Negative, Urine Nitrate Negative, Urine Bilirubin Negative, Urine Urobilinogen >=8.0, Ur Leukocyte Esterase Negative, Urine RBC Occasional, Urine WBC 3-5, Ur Squamous Epith Cells Occasional, Urine Bacteria 2+, Urine Sperm 1+ 03/13/22 16:35: Urine Opiates Screen Negative, U
--- NOTE | 2022-03-14 13:20 | DIET.NUTRFU ---
Patient triggers for severe PCM secondary to significant wt loss of 20# in 90 days, provider aware. Today at lunch his meal intake was good and able to feed self. Will start ensure with dinner to provider additional kcal and protein. Plan is to discharge back to [facility].
== END 2022-03-14 15:35 | disposition home or self-care (01) ==
LOC: ER 19:20 → 2ND 20:55
PROVIDERS: Nurse Practitioner Family; Admitting Provider Family Medicine; Emergency Provider Emergency Medicine; Visit Provider Family Medicine
DX: G93.40 Encephalopathy, unspecified (principal); F20.9 Schizophrenia, unspecified; J44.9 Chronic obstructive pulmonary disease, unspecified; I25.10 Atherosclerotic heart disease of native coronary artery without angina pectoris; E43 Unspecified severe protein-calorie malnutrition; Z68.1 Body mass index [BMI] 19.9 or less, adult; R62.7 Adult failure to thrive; E51.2 Wernicke's encephalopathy; R15.9 Full incontinence of feces; R32 Unspecified urinary incontinence; Z79.02 Long term (current) use of antithrombotics/antiplatelets; I10 Essential (primary) hypertension; Z79.899 Other long term (current) drug therapy
CPT/HCPCS: 36415; 51702; 70450; 72100; 72131; 74177; 80053; 80305; 81001; 82803; 82962; 83605; 83690; 85025; 87040; 87077; 87086; 87088; 87186; 94640; 97116; 97162; 99285; C9803; G0378; Q9967; U0003; U0005

== ENCOUNTER 2022-04-07 15:11 | Observation (INO) | payer BC, SELFPAY ==
[2022-04-07 15:12] VITALS: BP 144/68; PULSE 90; RESP 18; TEMP 36.7; O2SAT 96; BMI 21.5
[2022-04-07 16:05] LABS: Chloride 101 mmol/L (98-107); Sodium 135 mmol/L (136-145)
[2022-04-07 16:06] LABS: Basophils % 0.6 % (0.1-2.0); Eosinophils # 0.1 K/mm3 (0.0-0.4); Eosinophils % 1.2 % (0.1-12.0); Hematocrit 32.6 % (42.0-52.0); Hemoglobin 11.5 g/dL (14.1-18.0); Lymphocytes # 1.1 K/mm3 (0.7-4.5); Lymphocytes % 22.3 % (10-50); Mean Corpuscular HGB Conc 35.3 g/dL (31.8-35.4); Mean Corpuscular Hemoglobin 34.7 pg (27.0-31.2); Mean Corpuscular Volume 98.3 fl (80-94); Mean Platelet Volume 7.9 fl (7.4-10.4); Monocytes # 0.5 K/mm3 (0.1-1.0); Monocytes % 10.2 % (1.7-9.3); Neutrophils # 3.1 K/mm3 (1.8-7.8); Neutrophils % 65.7 % (37.0-80.0); Platelet Count 173 K/mm3 (142-424); Red Blood Count 3.32 M/mm3 (4.60-6.20); Red Cell Distribution Width 15.3 % (11.5-17.5); White Blood Count 4.7 K/mm3 (4.8-10.8)
[2022-04-07 16:08] LABS: Alanine Aminotransferase 14 U/L (12-78); Albumin Level 3.4 g/dl (3.5-5.0); Albumin/Globulin Ratio 1.3 (1.1-1.8); Alkaline Phosphatase 73 U/L (38-126); Aspartate Amino Transferase 25 U/L (17-59); Bilirubin,Total 0.5 mg/dl (0.2-1.3); Blood Urea Nitrogen 7 mg/dl (9-20); Carbon Dioxide 31 mmol/L (22.0-30.0); Creatinine Clearance Estimated 75 mL/min (50-200); Estimated Glomerular Filt Rate 115 ml/min (>60); GFR (African American) 139 ML/MIN (>60); Globulin 2.7 g/dL (1.3-3.2); Total Protein,Serum 6.1 g/dl (6.3-8.2)
[2022-04-07 16:09] LABS: Calcium 9.1 mg/dl (8.4-10.2); Glucose 79 mg/dl (74-100)
--- NOTE | 2022-04-07 17:37 | HMH.EDAMS ---
Discharge Plan Disposition Patient Disposition: Admitted As Inpatient Condition: Fair Prescriptions Prescriptions: No Action atorvastatin 40 mg tablet 40 mg PO HS Combivent Respimat 20-100 mcg/actuation mist 1 puff INHALATION QID Dulera 100-5 mcg/actuation HFA aerosol inhaler 2 puff INHALATION BID haloperidol 5 mg tablet 10 mg PO TID hydroxyzine HCl 50 mg tablet 50 mg PO Q6HP PRN (Reason: Anxiety) loperamide 2 mg capsule 2 mg PO Q4HP PRN (Reason: Diarrhea) Rx Instructions: administer after each loose stool until symptoms controlled; do not exceed 8 mg per 24 hrs promethazine 25 mg tablet 25 mg PO Q6HP PRN (Reason: Nausea) divalproex 500 MG tablet,delayed release (DR/EC) 500 mg PO BID ranolazine 500 MG tablet extended release 12 hr 500 mg PO BID metoprolol tartrate 25 MG tablet 12.5 mg PO BID sertraline 100 MG tablet 150 mg PO DAILY isosorbide mononitrate 30 MG tablet 30 mg PO DAILY famotidine 20 MG tablet 20 mg PO BID acetaminophen 325 MG tablet 325 mg PO Q6HP PRN (Reason: As Needed For Fever Or Pain) benztropine 1 MG tablet 1 mg PO BID aspirin 81 MG tablet,chewable 81 mg PO DAILY paliperidone 6 MG tablet extended release 24 hr 12 mg PO DAILY ticagrelor 90 MG tablet 90 mg PO BID polyethylene glycol 3350 [Miralax] 17 gram powder in packet 17 g PO DAILY sennosides [senna] 8.6 mg tablet 8.6 mg PO DAILY Referrals Follow up/Referrals: Arthur Baker MD [Primary Care Provider] - See instructions Clinical Impressions Clinical Impression: Encephalopathy, Schizo-affective schizophrenia, CAD (coronary artery disease), Acute delirium Discharge ED Provider: Henri Jeter Altered Mental Status HPI General Chief Complaint: Altered Mental Status Stated Complaint: CONFUSION Time Seen by Provider: 04/07/22 17:18 Mode of Arrival: EMS Source of Information: EMS and Medical Record Limitations: Altered Mental Status Description of Symptoms (Recalled from ER Triage Doc. by RN): staff c/o pt eating imaginary food. [facility] pt was eating his blanket. Pt unable to follow commands. PT is arousable History of Present Illness HPI narrative: The patient is a resident of [facility]. Brought in by ambulance. Patient staff there reported him eating imaginary food . EMS noted him trying to eat his blanket. He is continuing that behavior in the emergency department. He is chewing on his gown ties in the room while I am speaking to him. He is a poor historian, appears encephalopathic, unable to give any accurate history. He has a history of schizophrenia and psychosis noted. Noted to have been admitted here to the hospital March 13 for encephalopathy. Related Data Home Medications Medication Instructions Recorded Confirmed divalproex 500 mg tablet,delayed 500 mg PO BID Seizures 05/22/17 03/13/22 release haloperidol 5 mg tablet 10 mg PO TID MOOD 08/10/18 03/13/22 atorvastatin 40 mg tablet 40 mg PO HS Cholesterol 11/10/18 03/13/22 ipratropium 20 mcg-albuterol 100 1 puff INHALATION QID Breathing 03/26/19 03/13/22 mcg/actuation mist for inhalation problems (Combivent Respimat) mometasone-formoterol HFA 100 2 puff INHALATION BID Breathing 03/26/19 03/13/22 mcg-5 mcg/actuation aerosol problems inhaler (Dulera) ranolazine 500 mg tablet,extended 500 mg PO BID Chest pain 04/10/19 03/13/22 release,12 hr metoprolol tartrate 25 mg tablet 12.5 mg PO BID Hypertension 04/17/19 03/13/22 sertraline 100 mg tablet 150 mg PO DAILY Depression 07/18/20 03/13/22 acetaminophen 325 mg tablet 325 mg PO Q6HP PRN As Needed For 03/13/21 03/13/22 Fever Or Pain aspirin 81 mg chewable tablet 81 mg PO DAILY heart health 03/13/21 03/13/22 benztropine 1 mg tablet 1 mg PO BID Tremors 03/13/21 03/13/22 famotidine 20 mg tablet 20 mg PO BID acid reflux 03/13/21 03/13/22 isosorbide mononitrate 30 mg 30 m
[2022-04-07 17:38] LABS: Microscopic, Urine URINE MICROSCOPIC (MICROSCOPIC)
[2022-04-07 17:43] LABS: Appearance,Urine CLEAR (Clear); Bilirubin,Urine Negative (Negative); Blood, Urine TRACE-I (Negative); Color,Urine YELLOW (Yellow); Glucose,Urine (UA) Negative (Negative); Ketones,Urine Negative (Negative); Leukocyte Esterase,Urine Negative (Negative); Nitrate,Urine Negative (Negative); Protein,Urine Negative (Negative); Urobilinogen,Urine 0.2 EU/dl (0.2)
[2022-04-07 17:43] LABS: Valproic Acid, (Depakene) 53.2 ug/ml (50-100)
[2022-04-07 17:52] LABS: Ammonia < 9 umol/L (9-30)
[2022-04-07 17:53] LABS: Barbiturates Screen,Urine Negative ng/ml (<200); Benzodiazepines Screen,Urine Negative ng/ml (<200)
[2022-04-07 17:54] LABS: Amphetamine/Metha Screen,Urine Negative ng/ml (<1000); Cannabinoid Screen,Urine Negative ng/ml (<50)
[2022-04-07 17:55] LABS: Cocaine Screen,Urine Negative ng/ml (<300)
[2022-04-07 17:56] LABS: Methadone Screen,Urine Negative ng/ml (<300); Opiate Screen,Urine Negative ng/ml (<300)
[2022-04-07 17:57] LABS: Phencyclidine Screen,Urine Negative ng/ml (<25)
--- NOTE | 2022-04-07 18:26 | XR_ITS ---
PROCEDURE INFORMATION: Exam: XR Chest Exam date and time: 04/07/2022 6:59 PM Age: 61 years old Clinical indication: Other: Psych clearance AMS TECHNIQUE: Imaging protocol: Radiologic exam of the chest. Views: 1 view. COMPARISON: CR XR CHEST PORTABLE 03/08/2022 1:06 PM FINDINGS: Lungs: Atelectasis or infiltrate developing in the left lung base. Pleural spaces: Unremarkable. No pleural effusion. No pneumothorax. Heart/Mediastinum: Median sternotomy wires and pericardial clips. Bones/joints: See Heart/Mediastinum finding. IMPRESSION: Atelectasis or infiltrate left lung base.
--- NOTE | 2022-04-07 18:26 | ECG_ITS ---
APPROVED REPORT Exam: Resting ECG HR:112 bpm ECG Measurements Heart Rate 112 AXES MN 144 P 41 QRSd 170 QRS 46 QT 343 T 64 QTc 409 Conclusion SINUS TACHYCARDIA LEFT ATRIAL ENLARGEMENT [-0.15mV P-WAVE IN V1/V2] INTRAVENTRICULAR CONDUCTION DELAY [130+ ms QRS DURATION] MARKED ST ELEVATION, CONSIDER INFERIOR INJURY [MARKED ST ELEVATION W/O NORMALLY INFLECTED T-WAVE IN II/aVF] ACUTE MS WARNING: DATA QUALITY MAY AFFECT INTERPRETATION UNCONFIRMED REPORT Electronically signed by : Tenzin Tovar MD 04/08/2022 19:46:07
[2022-04-07 18:32] LABS: Coronavirus 19, PCR Not Detected (NotDetected); Influenza A, PCR Not Detected (NotDetected); Influenza B, PCR Not Detected (NotDetected)
--- NOTE | 2022-04-07 18:59 | PC.NURSE ---
carolee owen called for possible transfer, advised to send reports labs ekg and covid, ekg attempted pt is very agitated uncooperative unable top obtain ekg.
[2022-04-07 19:05] VITALS: BP 133/73
--- NOTE | 2022-04-07 19:06 | PC.NURSE ---
unable to get ekg at this time due to pt corporation
--- NOTE | 2022-04-07 20:00 | PC.NURSE ---
RON Valles at bedside for pt safety. Pt very uncooperative and unsteady on his feet. He attempts to walk around ED and will not leave gown on. Pt unwilling to follow commands.
--- NOTE | 2022-04-07 21:14 | PC.NURSE ---
spoke with toshia at [facility] and they are unable to accept pt because he needs a high level of care
--- NOTE | 2022-04-07 22:33 | EXP.HP ---
History of Present Illness *Admission Date: 04/07/22 *Reason for visit:: Acute Delirum *History of present illness: Mr. Muro is a 61-year-old male who is a resident of a local Assisted living facility. He has a past medical history that is positive for Schizo-affective Disorder, History of Psychosis, COPD, Anxiety Disorder, Hyperlipidemia, Failure to Thrive. He presents to [facility] due to acute onset of confusion outside his normal. Per records reviewed at the facility he was eating his clothes and covers and not acting himself. Work-up in the ER was negative for any acute medical findings. Psychiatric facilities were called and due to his acute delirium would not accept the patient for transfer. The patient will be admitted with initial impression of Acute Delirium. 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 In the ER he received Haldol and Ativan. We will continue Haldol prn. [facility] Medical History Abnormal stress test Acquired hammer toes of both feet COPD (chronic obstructive pulmonary disease) Diabetes mellitus, type 2 Dizziness History of chest pain History of heart attack Hyperlipidemia Onychomycosis Pain in both feet Psychosis Schizophrenia Surgical History Hx of CABG Family History Other No significant family history Social History (Updated 04/08/22 @ 01:01 by Bridgett Fernandez RN) Smoking Status: Current every day smoker tobacco type: cigarettes packs per day: 1 second hand exposure: No alcohol intake: never substance use type: denies use current occupational status: retired Travel in the last 8 weeks: None household members: other housing: assisted living facility caffeine: Yes Review of Systems Review of Systems Review of systems:: unable to obtain Meds Home Medications and Allergies Home Medications Medication Instructions Recorded Confirmed Type divalproex 500 mg tablet,delayed 500 mg PO BID Seizures 05/22/17 04/08/22 History release haloperidol 5 mg tablet 5 mg PO TID MOOD 08/10/18 04/08/22 History atorvastatin 40 mg tablet 40 mg PO HS Cholesterol 11/10/18 04/08/22 History ipratropium 20 mcg-albuterol 100 1 puff INHALATION QID Breathing 03/26/19 04/08/22 History mcg/actuation mist for inhalation problems (Combivent Respimat) ranolazine 500 mg tablet,extended 500 mg PO BID Chest pain 04/10/19 04/08/22 History release,12 hr metoprolol tartrate 25 mg tablet 12.5 mg PO BID Hypertension 04/17/19 04/08/22 History sertraline 100 mg tablet 150 mg PO DAILY Depression 07/18/20 04/08/22 History acetaminophen 325 mg tablet 325 mg PO Q6HP PRN As Needed For 03/13/21 04/08/22 History Fever Or Pain aspirin 81 mg chewable tablet 81 mg PO DAILY heart health 03/13/21 04/08/22 History benztropine 1 mg tablet 1 mg PO BID Tremors 03/13/21 04/08/22 History famotidine 20 mg tablet 20 mg PO BID acid reflux 03/13/21 04/08/22 History isosorbide mononitrate 30 mg 30 mg PO DAILY Hypertension 03/13/21 04/08/22 History tablet,extended release 24 hr paliperidone 6 mg tablet,extended 12 mg PO DAILY MOOD 03/13/21 04/08/22 History release 24 hr hydroxyzine HCl 50 mg tablet 50 mg PO Q6HP PRN Anxiety 03/28/21 04/08/22 History loperamide 2 mg capsule 2 mg PO Q4HP PRN Diarrhea 03/28/21 04/08/22 History promethazine 25 mg tablet 25 mg PO Q6HP PRN Nausea 03/28/21 04/08/22 History ticagrelor 90 mg tablet 90 mg PO BID PLATELET INHIBITOR 12/16/21 04/08/22 History diazepam 5 mg tablet 5 mg PO BID Anxiety 04/08/22 04/08/22 History diphenhydramine HCl 25 mg capsule 25 mg PO TID PRN allergies 04/08/22 04/08/22 History (Banophen) guaifenesin 100 mg/5 mL oral syrup 200 mg PO Q4H PRN Cough 04/08/22 04/08/22 History ibuprofen 800 mg tablet 800 mg PO Q8H PRN Pain 04/08/22 04/08/22 History mometasone-formoterol HFA 100 2
[2022-04-07 23:00] VITALS: BP 133/73; PULSE 90; RESP 16; TEMP 36.7; O2SAT 96
[2022-04-07 23:15] VITALS: BP 144/93; PULSE 79; RESP 17; TEMP 36.5; O2SAT 98; BMI 19.2
--- NOTE | 2022-04-07 23:15 | PC.NURSE ---
PT ARRIVED TO FLOOR ACCOMPANIED BY STAFF AT 2314.
--- NOTE | 2022-04-07 23:21 | XR_ITS ---
PROCEDURE INFORMATION: Exam: XR Left Tibia and Fibula Exam date and time: 04/08/2022 12:11 AM Age: 61 years old Clinical indication: Other: Erythema left lower extremity TECHNIQUE: Imaging protocol: Radiologic exam of the Left tibia and fibula. Views: 2 views. COMPARISON: CR XR FOOT LT MIN 3V 02/04/2022 9:21 AM FINDINGS: Bones/joints: Diffuse bone demineralization. Osteophytosis and eburnation of the articulating structures of the ankle and knee. Calcifications within the medial and lateral menisci. Internal fixation trace within the femoral diaphysis. Soft tissues: Normal. Vasculature: Metallic clips along the medial soft tissues likely from saphenous vein harvesting. IMPRESSION: No acute fracture is identified. Osteopenia/osteoporosis. 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 Chondrocalcinosis within the medial and lateral menisci. Metallic clips along the medial soft tissues likely from saphenous vein harvesting. Internal fixation trace within the femoral diaphysis.
[2022-04-08 04:00] VITALS: BP 105/66; PULSE 77; RESP 20; TEMP 36.6; O2SAT 94
[2022-04-08 05:00] VITALS: BMI 17.9
--- NOTE | 2022-04-08 06:16 | PC.NURSE ---
Combivent not given due to Pt delirious and unable to follow direction. Bilateral breath sounds Clear and equal, RR 16, HR 81, SPO2 96% on room air. Pt has no Respiratory distress noted, will continue to monitor.
--- NOTE | 2022-04-08 06:40 | PC.NURSE ---
pt admitted this shift. altered mental status. very combative, restless. Haldol and valium given per mar with little success. GREIGE GOODS INSPECTOR notified, soft wrist restraints ordered, warehouse order picker was at bedside to assist with restraint initiation. pt has been 1:1 observation since arriving to the floor.
--- NOTE | 2022-04-08 07:30 | PC.NURSE ---
pt noted to be delusional and in psychosis upon admission to the unit. multiple nursing staff in room with pt attempting to redirect unsuccessfully. Pt has multiple skin tears to BUE and has bruising through out body that was present prior to admission. pt unable to follow commands and has had multiple episodes of bowel incontinence. he has no awareness of his personal safety or the safety of others. Spoke with MD. New orders received
--- NOTE | 2022-04-08 07:33 | HMH.PHAINT1 ---
Pharmacy Intervention Comments: Medication reconciliation completed via chart review and MAR from Custodial Facility. -Sherry Tran, PharmD Candidate 2022
[2022-04-08 08:00] VITALS: BP 116/66; PULSE 87; RESP 24; TEMP 36.8; O2SAT 100
--- NOTE | 2022-04-08 10:01 | PC.NURSE ---
assisted patient to restroom at this time. no complaints. mumled speech at this time. drifts to sleep at times, ut wakes quickly. remains restless but at this time cooperative
--- NOTE | 2022-04-08 10:37 | CARE MANAGER ---
Current Medications Acetaminophen (Acetaminophen 325mg Tab) 325 mg PO Q6HP PRN PRN Reason: As Needed For Fever Or Pain Stop: 05/07/22 22:46 Last Admin: 04/08/22 03:36 Dose: 325 mg Albuterol/Ipratropium (Combivent 20mcg/100mcg Respimat Inhaler) 1 puff IH QIDRT FERNANDA Stop: 05/08/22 08:59 Aspirin (Aspirin 81mg Chewable Tablet) 81 mg PO DAILY FERNANDA Stop: 05/08/22 08:59 Atorvastatin Calcium (Atorvastatin 40mg Tablet) 40 mg PO HS FERNANDA Stop: 05/08/22 20:59 Benztropine Mesylate (Benztropine 1mg Tablet) 1 mg PO BID FERNANDA Stop: 05/08/22 08:59 Cephalexin HCl (Cephalexin 500mg Capsule) 500 mg PO Q6H FERNANDA Stop: 04/21/22 23:29 Last Admin: 04/08/22 05:56 Dose: 500 mg Diazepam (Diazepam 10mg/2ml Syringe) 5 mg IV Q12HP PRN PRN Reason: anxiety/agitation Stop: 05/07/22 22:48 Divalproex Sodium (Divalproex 500mg (Delayed-Release) Tablet) 500 mg PO BID FERNANDA Stop: 05/08/22 08:59 Famotidine (Famotidine 20mg Tablet) 20 mg PO BID FERNANDA Stop: 05/08/22 08:59 Haloperidol (Haloperidol 5 Mg Tablet) 10 mg PO TID FERNANDA Stop: 05/08/22 08:59 Last Admin: 04/08/22 08:49 Dose: 10 mg Hydroxyzine Pamoate (Hydroxyzine Pamoate 25mg Capsule) 50 mg PO Q6HP PRN PRN Reason: Anxiety Stop: 05/08/22 08:31 Isosorbide Mononitrate (Isosorbide [place] 30mg Tab.Er.24h) 30 mg PO DAILY FERNANDA Stop: 05/08/22 08:59 Loperamide HCl (Loperamide 2mg Capsule) 2 mg PO Q4HP PRN PRN Reason: Diarrhea Stop: 05/07/22 22:46 Metoprolol Tartrate (Metoprolol Tartrate 25mg Tablet) 12.5 mg PO BID FERNANDA Stop: 05/08/22 08:59 Non-Formulary Medication (Mometasone-Formoterol [Dulera]) 2 puff IH BID [facility] Stop: 05/08/22 08:59 Non-Formulary Medication (Paliperidone) 12 mg PO DAILY FERNANDA Stop: 05/08/22 08:59 Polyethylene Glycol (Polyethylene Glycol 3350 17 Gm Packet) 17 gm PO DAILY FERNANDA Stop: 05/08/22 08:59 Promethazine HCl (Promethazine 25mg Tablet) 25 mg PO Q6HP PRN PRN Reason: Nausea Stop: 05/07/22 22:46 Ranolazine (Ranolazine 500mg Er Tablet) 500 mg PO BID [facility] Stop: 05/08/22 08:59 Sennosides (Senna 8.6mg Tablet) 8.6 mg PO DAILY FERNANDA Stop: 05/08/22 08:59 Sertraline HCl (Sertraline 100mg Tablet) 150 mg PO DAILY [facility] Stop: 05/08/22 08:59 Sodium Chloride (Sodium Chloride 0.9% 10ml Vial) 10 ml IV NEEDED PRN PRN Reason: to Dilute Lorazepam inj Stop: 05/07/22 21:03 Ticagrelor (Ticagrelor 90mg Tablet) 90 mg PO BID FERNANDA Stop: 05/08/22 08:59
--- NOTE | 2022-04-08 11:24 | PC.NURSE ---
patient remains agitated. new iv placed during this time did attempt to hit at and bite staff.
[2022-04-08 11:46] VITALS: BMI 17.9
[2022-04-08 11:56] VITALS: BP 130/79; PULSE 76; RESP 22; TEMP 36.7; O2SAT 98
--- NOTE | 2022-04-08 12:40 | PC.NURSE ---
patient has remained one on one. at this time patient is doing okay. allowed staff to dress skin tears on bilateral arms. telfa and tegaderm placed on r hand and forearm and l hand and forearm. tolerated well. has been up and down to the bathroom. unsteady on feet. sitting up in bed eating lunch and tolerating this well. in better spirits speaking with staff.
--- NOTE | 2022-04-08 12:48 | PC.NURSE ---
pt is much more alert this afternoon. He was able to feed himself lunch and asked for a cup of coffee. He is not as combative. 1:1 continues
--- NOTE | 2022-04-08 13:17 | PC.NURSE ---
Patient ambulated to restroom with standby assist without difficulty, not combative at this time.
--- NOTE | 2022-04-08 14:24 | PC.NURSE ---
1400 Patient ambulated to restroom without difficultly , bed linens changed at this time
[2022-04-08 16:00] VITALS: BP 144/78; PULSE 80; RESP 20; TEMP 36.9; O2SAT 97
--- NOTE | 2022-04-08 16:30 | CARE MANAGER ---
Addendum entered by Nadya Og RN 04/09/22 10:39: Spoke with Ale this morning, patient is back at baseline. She sent a staff member up to assess and patient can be discharged back to [facility] today. I will attempt to set him up with [facility], but someone from [facility] will come get him if I am unable to set up the bus. Patient discharging today. Original Note: Patient admitted to us from [facility]. I spoke with Ale Beckham today, who stated that she has sent in paperwork to start the guardianship process (about 2 weeks ago). Patient is very confused and unable to be deemed competent to make his own decisions, which unfortunately means that he will be unable to transfer at this time to [facility] in [place] (which is where felt was appropriate). Patient is much more calm this afternoon and Ale came up to assess him. She stated that if he improved a little more, they could take him back. Unfortunately, he is not able to go back at this time, but we plan to reassess in the am.
--- NOTE | 2022-04-08 18:00 | EXP.ACUTE.PN ---
Subjective *Date: 04/08/22 *Time: 18:10 Interval history: Through the morning he has become much more cooperative and pleasant. Answer some questions appropriately but has tangential speech with other questions. Sitting calmly asking for a cup of coffee on repeat interview. Oriented to self. Following commands and directions. No longer requiring restraints. Has one-on-one care with staff/sitter. Denies shortness of breath, chest pain, nausea or vomiting. Requesting food. Complaining of some mild discomfort on his arms from restraints. Stable on room air. Tolerating oral medication and nutrition Medical Exam Vital signs and Labs for Last 24 Hours: Vital Signs Temp Pulse Pulse Resp BP BP Pulse Ox 04/08/22 16:00 98.5 F 80 20 144/78 H 97 04/08/22 11:56 98.1 F 76 22 130/79 98 04/08/22 08:00 98.3 F 87 24 116/66 100 04/08/22 04:00 97.8 F 77 20 105/66 L 94 L 04/07/22 23:15 97.7 F 79 17 144/93 H 98 04/07/22 23:00 98.0 F 90 16 133/73 04/07/22 19:05 133/73 Intake and Output 04/08/22 04/08/22 04/08/22 07:59 15:59 23:59 Intake Total 260 / 260 Output Total 300 / 300 Balance -300 / -40 260 / -40 Intake: Intake, Oral Amount 260 / 260 Output: Output, Urine Amount 300 / 300 Other: Number of Voids 2 1 Number of Unmeasured Voids 1 1 2 Number of Bowel Movements 0 Weight 56.954 kg 56.95 kg Patient Weight 04/08/22 23:59 Weight 56.95 kg Laboratory Results - last 24 hr 04/07/22 17:32: SARS-CoV-2 (PCR) Not detected, Influenza A Untype (PCR) Not detected, Influenza Type B (PCR) Not detected I & O for Labs for Last 24 Hours: Intake & Output 04/05/22 04/06/22 04/07/22 04/08/22 23:59 23:59 23:59 23:59 Intake Total 260 / 260 Output Total 300 / 300 Balance -40 / -40 Weight 61.037 kg 56.95 kg Constitutional: Present no acute distress, cachectic, chronically ill appearing and disheveled Head: Present atraumatic and normocephalic ENT: Present normal exam Neck: Present normal inspection Respiratory: Present CTA bilaterally and normal respiratory effort; Absent rhonchi, wheezes or crackles Cardiac: Present Reg Rate and Rhythm GI: Present normal bowel sounds; Absent tenderness Extremities: Present normal inspection and full ROM Comment:: ecchymosis Skin: Present intact; Absent erythema Neuro: Present Grossly Intact, alert, awake and moves all extremities; Absent oriented x 3 Assessment and Plan *Assessment and plan (1) Schizoaffective disorder: Status: Acute Category: Medical Code(s): F25.9 - Schizoaffective disorder, unspecified (2) Delirium: Status: Acute Category: Medical Code(s): R41.0 - Disorientation, unspecified (3) CAD (coronary artery disease): Status: Acute Category: Medical Code(s): I25.10 - Atherosclerotic heart disease of [place] coronary artery without angina pectoris (4) COPD (chronic obstructive pulmonary disease): Status: Acute Category: Medical Code(s): J44.9 - Chronic obstructive pulmonary disease, unspecified (5) Hyperlipidemia: Status: Acute Category: Medical Code(s): E78.5 - Hyperlipidemia, unspecified (6) Failure to thrive: Status: Acute Category: Medical (7) Protein calorie malnutrition: Status: Chronic Category: Medical Code(s): E46 - Unspecified protein-calorie malnutrition Plan 61-year-old male with past medical history of Schizo-affective disorder, history of Psychosis, CAD, COPD, Hyperlipidemia and Failure to Thrive presents with acute change in mental status. Showing gradual improvement over the course of the day. More calm and cooperative. Evaluated by staff at [facility]. Not back to a level of alertness/orientation that would warrant returning home yet. Tolerating good p.o. intake. Taking medications by mouth. Problems addressed as f
--- NOTE | 2022-04-08 19:00 | PC.NURSE ---
pt has become much more alert and appropraite as the shift has progressed. was able to take all medications po. follows commands. still confused but not combative. gait is steady
[2022-04-08 20:00] VITALS: BP 110/66; PULSE 76; RESP 19; TEMP 36.4; O2SAT 99
[2022-04-09 04:00] VITALS: BP 127/67; PULSE 66; RESP 17; TEMP 36.7; O2SAT 100
[2022-04-09 04:52] VITALS: BMI 19.3
--- NOTE | 2022-04-09 05:00 | PC.NURSE ---
pt remains in 1:1 observation by hospital staff. he is alert to self and place this morning. he is slightly confused, but very pleasant. he has ambulated to the bathroom with standby assist and tolerated well. pt appeared anxious and reported anxiety last night and was medicated per jul. Lung sounds clear. Skin tears and bruises noted to BUE.
[2022-04-09 07:52] VITALS: BP 118/66; PULSE 70; RESP 15; TEMP 36.6; O2SAT 98
--- NOTE | 2022-04-09 15:25 | EXP.DC.SUM ---
General Admission date:: 04/07/22 Discharge date: 04/09/22 HPI HPI HPI: Mr. Muro is a 61-year-old male who is a resident of a local Assisted living facility. He has a past medical history that is positive for Schizo-affective Disorder, History of Psychosis, COPD, Anxiety Disorder, Hyperlipidemia, Failure to Thrive. He presents to [facility] due to acute onset of confusion outside his normal. Per records reviewed at the facility he was eating his clothes and covers and not acting himself. Work-up in the ER was negative for any acute medical findings. Psychiatric facilities were called and due to his acute delirium would not accept the patient for transfer. The patient will be admitted with initial impression of Acute Delirium. ticker maintainer will be placed at bedside. In the ER he received Haldol and Ativan. We will continue Haldol prn. Hospital Course Hospital Course Hospital Course: Patient was admitted for acute delirium and was started on psychotropic medications. He received Haldol 10 mg 3 times a day and Valium 2 times daily. Following morning after admission he became much more cooperative and pleasant began answering questions appropriately. He is following commands and directions. Temporarily required restraints and one-to-one sitter. However, these requirements were removed. Patient remained cooperative and did not require a sitter or restraints for greater than 24 hours. Patient was tolerating p.o. intake and had adequate diet intake. He was determined back to his baseline and able to return to [facility]. Recommend follow-up with primary psychiatrist. This discharge took greater than 30 minutes to perform. Exam Data for Last 24 hours Vital signs and Labs for Last 24 Hours: Temp Pulse Resp BP Pulse Ox 97.9 F 70 15 118/66 98 04/09/22 07:52 04/09/22 07:52 04/09/22 07:52 04/09/22 07:52 04/09/22 07:52 I & O for Last 24 hours: Intake & Output 04/06/22 04/07/22 04/08/22 04/09/22 23:59 23:59 23:59 23:59 Intake Total 635 / 635 1340 / 1340 Output Total 300 / 300 300 / 300 Balance 335 / 335 1040 / 1040 Weight 61.037 kg 56.95 kg 61.292 kg Constitutional Constitutional: no acute distress and cooperative *Routine Respiratory Exam Respiratory: Present accessory muscle use and normal respiratory effort; Absent respiratory distress *Routine Cardiovascular Exam Cardiovascular: Present RRR, Normal S1 and Normal S2; Absent murmur or gallop *Routine Abdominal Exam Abdominal: Present soft; Absent tenderness *Routine Extremities Exam Extremities: Present full ROM Comments: calf discoloration *Routine Neurological Exam Neurological: Present alert and oriented X3 Routine Psychiatric Exam Psychiatric: Present cooperative and good insight; Absent suicidal ideation, homicidal ideation, auditory hallucinations, visual hallucinations or agitated DS: Diagnosis Discharge Diagnosis (1) Schizoaffective disorder: Status: Acute (2) Delirium: Status: Acute (3) CAD (coronary artery disease): Status: Acute (4) COPD (chronic obstructive pulmonary disease): Status: Acute (5) Hyperlipidemia: Status: Acute (6) Failure to thrive: Status: Acute (7) Protein calorie malnutrition: Status: Chronic Meds Home Medications and Allergies Home Medications Medication Instructions Recorded Confirmed Type divalproex 500 mg tablet,delayed 500 mg PO BID Seizures 05/22/17 04/08/22 History release haloperidol 5 mg tablet 5 mg PO TID MOOD 08/10/18 04/08/22 History atorvastatin 40 mg tablet 40 mg PO HS Cholesterol 11/10/18 04/08/22 History ipratropium 20 mcg-albuterol 100 1 puff INHALATION QID Breathing 03/26/19 04/08/22 History mcg/actuation mist for inhalation problems (Combivent Respimat) ranolazine 500 mg tablet,extended 500 mg PO BID Chest pain 04/10/19 04/08/22 History release,12 hr metoprolol tartrate
--- NOTE | 2022-04-09 15:46 | PC.NURSE ---
called and relayed to [facility] about medication changes
== END 2022-04-09 17:23 ==
LOC: ER 21:29 → 2ND 22:52
PROVIDERS: Admitting Provider Student in an Organized Health Care Education/Training Program; Emergency Provider Emergency Medicine; PCP Emergency Medicine; Visit Provider Student in an Organized Health Care Education/Training Program
DX: R41.0 Disorientation, unspecified (principal); Z78.1 Physical restraint status; R62.7 Adult failure to thrive; F25.9 Schizoaffective disorder, unspecified; R45.1 Restlessness and agitation; I25.10 Atherosclerotic heart disease of native coronary artery without angina pectoris; J44.9 Chronic obstructive pulmonary disease, unspecified; E78.5 Hyperlipidemia, unspecified; E46 Unspecified protein-calorie malnutrition; Z68.1 Body mass index [BMI] 19.9 or less, adult; Z20.822 Contact with and (suspected) exposure to COVID-19; F17.210 Nicotine dependence, cigarettes, uncomplicated; Z79.01 Long term (current) use of anticoagulants; Z79.899 Other long term (current) drug therapy
CPT/HCPCS: 71045; 73590; 80053; 80164; 80305; 81001; 82140; 85025; 87040; 93005; 94640; 99285; C9803; G0378; U0003; U0005

== ENCOUNTER 2022-06-17 12:49 | Emergency (ER) | payer BC, SELFPAY ==
[2022-06-17 12:59] VITALS: BP 105/68; PULSE 82; RESP 17; TEMP 37; O2SAT 99; BMI 22.6
--- NOTE | 2022-06-17 13:07 | HMH.EDFALL ---
Discharge Plan Disposition Patient Disposition: Home, Self-Care Condition: Fair Prescriptions Prescriptions: No Action atorvastatin 40 mg tablet 40 mg PO HS Combivent Respimat 20-100 mcg/actuation mist 1 puff INHALATION QID hydroxyzine HCl 50 mg tablet 50 mg PO Q6HP PRN (Reason: Anxiety) loperamide 2 mg capsule 2 mg PO Q4HP PRN (Reason: Diarrhea) Rx Instructions: administer after each loose stool until symptoms controlled; do not exceed 8 mg per 24 hrs promethazine 25 mg tablet 25 mg PO Q6HP PRN (Reason: Nausea) haloperidol 5 mg tablet 5 mg PO BID 30 Days Qty: 60 0RF divalproex 500 MG tablet,delayed release (DR/EC) 500 mg PO BID ranolazine 500 MG tablet extended release 12 hr 500 mg PO BID metoprolol tartrate 25 MG tablet 12.5 mg PO BID sertraline 100 MG tablet 150 mg PO DAILY isosorbide mononitrate 30 MG tablet 30 mg PO DAILY famotidine 20 MG tablet 20 mg PO BID acetaminophen 325 MG tablet 325 mg PO Q6HP PRN (Reason: As Needed For Fever Or Pain) benztropine 1 MG tablet 1 mg PO BID aspirin 81 MG tablet,chewable 81 mg PO DAILY paliperidone 6 MG tablet extended release 24 hr 12 mg PO DAILY ticagrelor 90 MG tablet 90 mg PO BID ibuprofen 800 mg Tablet 800 mg PO Q8H PRN (Reason: Pain) diphenhydramine HCl [Banophen] 25 mg Capsule 25 mg PO TID PRN (Reason: allergies) guaifenesin 100 mg/5 mL Syrup 200 mg PO Q4H PRN (Reason: Cough) diazepam 5 mg Tablet 5 mg PO BID Dulera 100-5 mcg/actuation Hfa Aerosol Inhaler 2 puff INHALATION BID Activity Restrictions/Add. Instructions Additional Instructions/Restrictions: Stop drinking alcohol. Take all medications as prescribed. Follow-up with your primary care doctor within 1 week. Return to the emergency department if you feel worse in any way. Clinical Impressions Clinical Impression: Schizo-affective schizophrenia, Alcohol abuse Instructions Patient Instructions: DI for Seizure Disorder -- Adult, DI for Seizure (Not Epilepsy/Seizure Disorder), DI for Seizure Disorder -- Child Discharge ED Provider: Christopher Chan [facility] General Chief Complaint: Fall Stated Complaint: possible seizure Time Seen by Provider: 06/17/22 13:05 Mode of Arrival: EMS Source of Information: Patient Limitations: Altered Mental Status Description of Symptoms (Recalled from ER Triage Doc. by RN): Pt reports drinking a half pint of bourbon over the weekend , and EMS called today by facility staff for reported seizure, however, pt alert and oriented to baseline without postictal period, and incontinent of urine per reported baseline History of Present Illness HPI Narrative: The patient was witnessed falling to the ground. He recovered without any postictal symptoms. He is now alert. He has a history of schizophrenia and alcoholism. He states that he drank on Friday. He denies any injuries. There is an abrasion to his right eyebrow. The patient states that it was any surgical procedure. He denies any other symptoms. Related Data Home Medications Medication Instructions Recorded Confirmed divalproex 500 mg tablet,delayed 500 mg PO BID Seizures 05/22/17 04/08/22 release atorvastatin 40 mg tablet 40 mg PO HS Cholesterol 11/10/18 04/08/22 ipratropium 20 mcg-albuterol 100 1 puff INHALATION QID Breathing 03/26/19 04/08/22 mcg/actuation mist for inhalation problems (Combivent Respimat) ranolazine 500 mg tablet,extended 500 mg PO BID Chest pain 04/10/19 04/08/22 release,12 hr metoprolol tartrate 25 mg tablet 12.5 mg PO BID Hypertension 04/17/19 04/08/22 sertraline 100 mg tablet 150 mg PO DAILY Depression 07/18/20 04/08/22 acetaminophen 325 mg tablet 325 mg PO Q6HP PRN As Needed For 03/13/21 04/08/22 Fever Or Pain aspirin 81 mg chewable tablet 81 mg PO DAILY heart health 03/13/21 04/08/22 benztropine 1 mg tablet 1 mg PO BID [place]
--- NOTE | 2022-06-17 13:11 | CT_ITS ---
FINAL REPORT CLINICAL HISTORY: Fall/head injury-- LAST FRIDAY- BRUISE OVER RIGHT EYE COMPARISON: February 2022 FINDINGS: Axial images of the head were obtained without contrast. Coronal reformatted images were also obtained. This study was performed with techniques to keep radiation doses as low as reasonably achievable (ALARA). Individualized dose reduction techniques using automated exposure control or adjustment of mA and/or kV according to the patient''s size were employed. There is generalized age-appropriate atrophy. Periventricular low-attenuation areas are seen consistent with mild chronic ischemic changes. There is no evidence of intracranial hemorrhage or mass. There is no evidence of acute infarct. There is no evidence of shift of the midline structures. No skull abnormality is seen on the bone window images. IMPRESSION: Atrophy and mild periventricular chronic ischemic changes. No acute intracranial abnormality identified. Reviewed, Interpreted and Dictated by Crow Hannon III, MD Transcribed by Lance Fishman Authenticated and [facility]
--- NOTE | 2022-06-17 13:52 | PC.NURSE ---
Pt's head scan result negative and offering PO challenge
--- NOTE | 2022-06-17 14:23 | PC.NURSE ---
Jocelynn Arevalo, with [facility] given update and request to send transport for patient to return following imminent disposition
[2022-06-17 14:45] VITALS: BP 134/81; PULSE 81; RESP 17; TEMP 36.8; O2SAT 97
--- NOTE | 2022-06-17 14:45 | PC.NURSE ---
[facility] HERE TO TRANSPORT PT BACK TO FACILITY
== END 2022-06-17 14:44 | disposition home or self-care (01) ==
PROVIDERS: Emergency Provider Emergency Medicine
DX: R56.9 Unspecified convulsions (principal); F25.9 Schizoaffective disorder, unspecified; F10.10 Alcohol abuse, uncomplicated; J44.9 Chronic obstructive pulmonary disease, unspecified; E11.9 Type 2 diabetes mellitus without complications; Z86.79 Personal history of other diseases of the circulatory system; I25.2 Old myocardial infarction; E78.5 Hyperlipidemia, unspecified; F17.210 Nicotine dependence, cigarettes, uncomplicated; Z95.1 Presence of aortocoronary bypass graft
CPT/HCPCS: 70450; 99284

== ENCOUNTER 2022-07-17 00:30 | Emergency (ER) | payer BC, SELFPAY ==
[2022-07-17 00:30] VITALS: BP 130/69; PULSE 74; RESP 16; TEMP 37.3; O2SAT 100; BMI 21.7
--- NOTE | 2022-07-17 00:37 | PC.NURSE ---
ER notified of pt presenting s/s
--- NOTE | 2022-07-17 00:43 | CT_ITS ---
PROCEDURE INFORMATION: Exam: CT Cervical Spine Without Contrast Exam date and time: 07/17/2022 1:08 AM Age: 62 years old Clinical indication: Injury or trauma; Fall TECHNIQUE: Imaging protocol: Computed tomography of the cervical spine without contrast. Radiation optimization: All CT scans at this facility use at least one of these dose optimization techniques: automated exposure control; mA and/or kV adjustment per patient size (includes targeted exams where dose is matched to clinical indication); or iterative reconstruction. REPORTING DATA: Count of CT and Cardiac NM exams in prior 12 months: This patient has received 11 known CTs and 0 known cardiac nuclear medicine studies in the 12 months prior to the current study. COMPARISON: CT ANGIO NECK 02/02/2022 1:06 PM FINDINGS: Bones/joints: No acute fracture or subluxation. [id number] degenerative changes throughout the cervical spine. No severe spinal stenosis. Lungs: Lung apices are normal. Soft tissues: A 1.5 cm sebaceous cyst again noted in the subcutaneous tissues of the posterior neck. IMPRESSION: No acute findings.
--- NOTE | 2022-07-17 00:43 | CT_ITS ---
PROCEDURE INFORMATION: Exam: CT Maxillofacial Without Contrast Exam date and time: 07/17/2022 1:10 AM Age: 62 years old Clinical indication: Injury or trauma; Fall TECHNIQUE: Imaging protocol: Computed tomography of the face without contrast. Radiation optimization: All CT scans at this facility use at least one of these dose optimization techniques: automated exposure control; mA and/or kV adjustment per patient size (includes targeted exams where dose is matched to clinical indication); or iterative reconstruction. REPORTING DATA: Count of CT and Cardiac NM exams in prior 12 months: This patient has received 11 known CTs and 0 known cardiac nuclear medicine studies in the 12 months prior to the current study. COMPARISON: CT HEAD/BRAIN WO CON 07/17/2022 1:05 AM FINDINGS: Orbital cavities: Orbits are normal. Globes are unremarkable. Bones/joints: No acute fracture or dislocation. 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 Paranasal sinuses: Normal. No air-fluid levels. Soft tissues: Unremarkable. IMPRESSION: No acute findings.
--- NOTE | 2022-07-17 00:43 | CT_ITS ---
PROCEDURE INFORMATION: Exam: CT Head Without Contrast Exam date and time: 07/17/2022 1:05 AM Age: 62 years old Clinical indication: Injury or trauma; Fall TECHNIQUE: Imaging protocol: Computed tomography of the head without contrast. Radiation optimization: All CT scans at this facility use at least one of these dose optimization techniques: automated exposure control; mA and/or kV adjustment per patient size (includes targeted exams where dose is matched to clinical indication); or iterative reconstruction. REPORTING DATA: Count of CT and Cardiac NM exams in prior 12 months: This patient has received 11 known CTs and 0 known cardiac nuclear medicine studies in the 12 months prior to the current study. COMPARISON: CT HEAD/BRAIN WO CON 06/17/2022 1:20 PM FINDINGS: Brain: No acute infarct, hemorrhage, or obvious mass lesion. Age appropriate diffuse cerebral volume loss. Mild chronic white matter changes, likely to be chronic small vessel ischemic changes. Cerebral ventricles: No ventriculomegaly. Paranasal sinuses: Visualized sinuses are unremarkable. No fluid levels. Mastoid air cells: Visualized mastoid air cells are well aerated. Bones/joints: Unchanged. No acute fracture. Soft tissues: Unremarkable. IMPRESSION: No acute intracranial abnormality.
--- NOTE | 2022-07-17 01:01 | PC.NURSE ---
pt to Ct via wheelchair
--- NOTE | 2022-07-17 01:01 | PC.NURSE ---
pt to ct via stretcher
--- NOTE | 2022-07-17 01:08 | XR_ITS ---
PROCEDURE INFORMATION: Exam: XR Chest Exam date and time: 07/17/2022 1:30 AM Age: 62 years old Clinical indication: Injury or trauma; Fall; Blunt trauma (contusions or hematomas) TECHNIQUE: Imaging protocol: Radiologic exam of the chest. Views: 1 view. Total images: 1 COMPARISON: CR XR CHEST PORTABLE 04/07/2022 6:59 PM FINDINGS: Lungs: Chronic minor bibasilar interstitial coarsening. No acute infiltrate, airspace consolidation, or vascular congestion. Pleural spaces: Unremarkable. No pleural effusion. No pneumothorax. Heart/Mediastinum: Unremarkable. No cardiomegaly. No mediastinal widening or hilar enlargement. Vasculature: Tortuous atherosclerotic thoracic aorta. Bones/joints: Status post median sternotomy. Other findings: Slight rotation to the right. IMPRESSION: 1. No radiographically acute cardiopulmonary process. 2. Chronic findings.
--- NOTE | 2022-07-17 01:08 | HMH.EDFALL ---
Discharge Plan Disposition Patient Disposition: Home, Self-Care Chief Complaint: Fall Prescriptions Prescriptions: No Action atorvastatin 40 mg tablet 40 mg PO HS Combivent Respimat 20-100 mcg/actuation mist 1 puff INHALATION QID hydroxyzine HCl 50 mg tablet 50 mg PO Q6HP PRN (Reason: Anxiety) loperamide 2 mg capsule 2 mg PO Q4HP PRN (Reason: Diarrhea) Rx Instructions: administer after each loose stool until symptoms controlled; do not exceed 8 mg per 24 hrs promethazine 25 mg tablet 25 mg PO Q6HP PRN (Reason: Nausea) haloperidol 5 mg tablet 5 mg PO BID 30 Days Qty: 60 0RF divalproex 500 MG tablet,delayed release (DR/EC) 500 mg PO BID ranolazine 500 MG tablet extended release 12 hr 500 mg PO BID metoprolol tartrate 25 MG tablet 12.5 mg PO BID sertraline 100 MG tablet 150 mg PO DAILY isosorbide mononitrate 30 MG tablet 30 mg PO DAILY famotidine 20 MG tablet 20 mg PO BID acetaminophen 325 MG tablet 325 mg PO Q6HP PRN (Reason: As Needed For Fever Or Pain) benztropine 1 MG tablet 1 mg PO BID aspirin 81 MG tablet,chewable 81 mg PO DAILY paliperidone 6 MG tablet extended release 24 hr 12 mg PO DAILY ticagrelor 90 MG tablet 90 mg PO BID ibuprofen 800 mg Tablet 800 mg PO Q8H PRN (Reason: Pain) diphenhydramine HCl [Banophen] 25 mg Capsule 25 mg PO TID PRN (Reason: allergies) guaifenesin 100 mg/5 mL Syrup 200 mg PO Q4H PRN (Reason: Cough) diazepam 5 mg Tablet 5 mg PO BID Dulera 100-5 mcg/actuation Hfa Aerosol Inhaler 2 puff INHALATION BID Referrals Follow up/Referrals: Arthur Baker MD [Primary Care Provider] - See instructions Clinical Impressions Clinical Impression: Fall, Contusion of face, Concussion, Schizo-affective schizophrenia Instructions Patient Instructions: How to Prevent Falls Discharge ED Provider: Olivia (ED)Arthur HPI General Chief Complaint: Fall Stated Complaint: Fall Time Seen by Provider: 07/17/22 01:08 Mode of Arrival: EMS Source of Information: EMS and Medical Record Limitations: pt only answered a few yes/no questions Description of Symptoms (Recalled from ER Triage Doc. by RN): per ems report they were told per [facility] staff pt fell out of bed. Pt has laceration/abrasion to R eyebrow area, no active bleeding upon arrival to ED. Pt drowsy but alertable, wont answer all questions. when asked pt states does not know how he fell out of bed. History of Present Illness HPI Narrative: fell oob at custodial with facial abrasion - no specific c/o and has no reported etoh - pt poor historian MD complaint: fall Onset (ago): hour(s) Fall from: out of bed Fall witnessed: no Place fall occurred: other (custodial ) Loss of consciousness: none Prolonged down time: no Context: history of frequent falls Location of injury: face Severity: moderate Related Data Home Medications Medication Instructions Recorded Confirmed divalproex 500 mg tablet,delayed 500 mg PO BID Seizures 05/22/17 04/08/22 release atorvastatin 40 mg tablet 40 mg PO HS Cholesterol 11/10/18 04/08/22 ipratropium 20 mcg-albuterol 100 1 puff INHALATION QID Breathing 03/26/19 04/08/22 mcg/actuation mist for inhalation problems (Combivent Respimat) ranolazine 500 mg tablet,extended 500 mg PO BID Chest pain 04/10/19 04/08/22 release,12 hr metoprolol tartrate 25 mg tablet 12.5 mg PO BID Hypertension 04/17/19 04/08/22 sertraline 100 mg tablet 150 mg PO DAILY Depression 07/18/20 04/08/22 acetaminophen 325 mg tablet 325 mg PO Q6HP PRN As Needed For 03/13/21 04/08/22 Fever Or Pain aspirin 81 mg chewable tablet 81 mg PO DAILY heart health 03/13/21 04/08/22 benztropine 1 mg tablet 1 mg PO BID Tremors 03/13/21 04/08/22 famotidine 20 mg tablet 20 mg PO BID acid reflux 03/13/21 04/08/22 isosorbide mononitrate 30 mg 30 mg PO DAILY Hypertension 03/13/21 04/08/22
--- NOTE | 2022-07-17 01:09 | XR_ITS ---
PROCEDURE INFORMATION: Exam: XR Pelvis Exam date and time: 07/17/2022 1:30 AM Age: 62 years old Clinical indication: Injury or trauma; Fall; Blunt trauma (contusions or hematomas); Does not apply; Pelvic region; Prior surgery TECHNIQUE: Imaging protocol: Radiologic exam of the pelvis. Views: 1 or 2 view. Total images: 1 COMPARISON: CT ABDOMEN PELVIS W CON 03/13/2022 3:29 PM FINDINGS: Bones/joints: Intramedullary trace left femur. No acute fracture or joint dislocation. Mild degenerative changes bilateral hips. No widening of the pubic symphysis or sacroiliac joints. No concerning bone lesions or calcifications. Soft tissues: Unremarkable soft tissues. IMPRESSION: 1. No acute osseous abnormality. 2. Symmetric mild degenerative changes bilateral hips. 3. Intramedullary trace left femur.
--- NOTE | 2022-07-17 01:26 | PC.NURSE ---
Pt back from CT
--- NOTE | 2022-07-17 01:26 | PC.NURSE ---
Pt incontinent of bladder while in CT pt cleaned up and changed
[2022-07-17 01:30] VITALS: BP 121/78; PULSE 77; O2SAT 100
[2022-07-17 02:00] VITALS: BP 125/77; PULSE 74; O2SAT 100
--- NOTE | 2022-07-17 02:18 | PC.NURSE ---
Pt resting comfortably in bed with eyes closed. No needs voiced.
[2022-07-17 02:31] VITALS: BP 150/81; PULSE 69; RESP 18; O2SAT 100
--- NOTE | 2022-07-17 02:51 | PC.NURSE ---
in rom at this time
[2022-07-17 03:01] VITALS: BP 120/59; PULSE 77; RESP 18; O2SAT 99
[2022-07-17 03:35] VITALS: BP 120/59; PULSE 77; RESP 18; TEMP 37.3; O2SAT 99
== END 2022-07-17 03:35 | disposition home or self-care (01) ==
PROVIDERS: Emergency Provider Emergency Medicine; PCP Emergency Medicine
DX: S06.0X0A Concussion without loss of consciousness, initial encounter (principal); S00.83XA Contusion of other part of head, initial encounter; F25.9 Schizoaffective disorder, unspecified; W06.XXXA Fall from bed, initial encounter; Z82.49 Family history of ischemic heart disease and other diseases of the circulatory system; M20.41 Other hammer toe(s) (acquired), right foot; M20.42 Other hammer toe(s) (acquired), left foot; J44.9 Chronic obstructive pulmonary disease, unspecified; E11.9 Type 2 diabetes mellitus without complications; I25.2 Old myocardial infarction; E78.5 Hyperlipidemia, unspecified; Z95.1 Presence of aortocoronary bypass graft
CPT/HCPCS: 71045; 72170; 99285

== ENCOUNTER 2023-02-09 02:32 | Emergency (ER) | payer BC, SELFPAY ==
[2023-02-09] VITALS (13 sets, daily range): BP systolic 109–168; BP diastolic 62–94; PULSE 64–79; RESP 14–20; TEMP 36.4–36.8; O2SAT 95–100; BMI 23.6
--- NOTE | 2023-02-09 02:36 | XR_ITS ---
PROCEDURE INFORMATION: Exam: XR Chest Exam date and time: 02/09/2023 3:17 AM Age: 62 years old Clinical indication: Other: AMS TECHNIQUE: Imaging protocol: Radiologic exam of the chest. Views: 1 view. COMPARISON: CR XR CHEST AP 07/17/2022 1:30 AM FINDINGS: Lungs: Hyperinflated upper lung zones suggestive of COPD. No consolidation. Pleural spaces: No costophrenic angle blunting. No pneumothorax. Heart/Mediastinum: Heart size upper limits of normal given the portable AP technique. Prior CABG. Vasculature: Atherosclerotic tortuosity of the thoracic aorta. Bones/joints: Sternotomy wires are seen. IMPRESSION: 1. Hyperinflated upper lung zones suggestive of COPD. 2. Atherosclerotic vascular disease and prior CABG.
--- NOTE | 2023-02-09 02:36 | CT_ITS ---
PROCEDURE INFORMATION: Exam: CT Head Without Contrast Exam date and time: 02/09/2023 3:07 AM Age: 62 years old Clinical indication: Stroke-like symptoms; Altered mental status/memory loss; Additional info: AMS TECHNIQUE: Imaging protocol: Computed tomography of the head without contrast. Radiation optimization: All CT scans at this facility use at least one of these dose optimization techniques: automated exposure control; mA and/or kV adjustment per patient size (includes targeted exams where dose is matched to clinical indication); or iterative reconstruction. Other technique: STROKE PROTOCOL was implemented. REPORTING DATA: Count of CT and Cardiac NM exams in prior 12 months: This patient has received 8 known CTs and 0 known cardiac nuclear medicine studies in the 12 months prior to the current study. COMPARISON: CT HEAD/BRAIN WO CON 07/17/2022 1:05 AM FINDINGS: Limitations: Significant motion artifact noted with repeat images obtained. Brain: Prominence of the sulci consistent with diffuse atrophy. No mass effect or midline shift. Periventricular and subcortical white matter low-attenuation consistent with chronic small vessel ischemic changes. No evidence of acute intracranial hemorrhage. Cerebral ventricles: Ventricular prominence proportional to sulci. No hydrocephalus. Paranasal sinuses: Mild sinus mucosal thickening without sinus fluid or air fluid level. Mastoid air cells: No acute abnormality. No significant mastoid effusion. Bones/joints: No acute osseous abnormality. No acute fracture. Soft tissues: No significant soft tissue abnormalities. IMPRESSION: Diffuse atrophy and chronic/remote ischemic changes without evidence of superimposed acute infarct, hemorrhage or mass-effect at this time. ASSESSMENT: ASPECTS (Parisa Stroke Program Early CT Score) is 10.
--- NOTE | 2023-02-09 02:42 | CT_ITS ---
PROCEDURE INFORMATION: Exam: CT Cervical Spine Without Contrast Exam date and time: 02/09/2023 3:12 AM Age: 62 years old Clinical indication: Other: AMS; Additional info: AMS, possible fall. Tech notes: patient unable to hold still for exam best images possible at this time TECHNIQUE: Imaging protocol: Computed tomography of the cervical spine without contrast. Radiation optimization: All CT scans at this facility use at least one of these dose optimization techniques: automated exposure control; mA and/or kV adjustment per patient size (includes targeted exams where dose is matched to clinical indication); or iterative reconstruction. REPORTING DATA: Count of CT and Cardiac NM exams in prior 12 months: This patient has received 8 known [address]s and 0 known cardiac nuclear medicine studies in the 12 months prior to the current study. COMPARISON: CT CERVICAL SPINE WO CON 07/17/2022 1:08 AM FINDINGS: Nondiagnostic study secondary to extensive motion artifact. IMPRESSION: Nondiagnostic study secondary to extensive motion artifact. If persistent clinical concern consider repeat scanning when patient can cooperate with positioning.
--- NOTE | 2023-02-09 02:43 | HMH.EDGENADL ---
Discharge Plan Disposition Patient Disposition: Xfer Other Condition: Good Prescriptions Prescriptions: No Action atorvastatin 40 mg tablet 40 mg PO HS Combivent Respimat 20-100 mcg/actuation mist 1 puff INHALATION QID hydroxyzine HCl 50 mg tablet 50 mg PO Q6HP PRN (Reason: Anxiety) loperamide 2 mg capsule 2 mg PO Q4HP PRN (Reason: Diarrhea) Rx Instructions: administer after each loose stool until symptoms controlled; do not exceed 8 mg per 24 hrs promethazine 25 mg tablet 25 mg PO Q6HP PRN (Reason: Nausea) divalproex 500 MG tablet,delayed release (DR/EC) 500 mg PO BID ranolazine 500 MG tablet extended release 12 hr 500 mg PO BID metoprolol tartrate 25 MG tablet 12.5 mg PO BID sertraline 100 MG tablet 150 mg PO DAILY isosorbide mononitrate 30 MG tablet 30 mg PO DAILY famotidine 20 MG tablet 20 mg PO BID acetaminophen 325 MG tablet 325 mg PO Q6HP PRN (Reason: As Needed For Fever Or Pain) benztropine 1 MG tablet 1 mg PO BID aspirin 81 MG tablet,chewable 81 mg PO DAILY paliperidone 6 MG tablet extended release 24 hr 12 mg PO DAILY ticagrelor 90 MG tablet 90 mg PO BID ibuprofen 800 mg Tablet 800 mg PO Q8H PRN (Reason: Pain) diphenhydramine HCl [Banophen] 25 mg Capsule 25 mg PO TID PRN (Reason: allergies) guaifenesin 100 mg/5 mL Syrup 200 mg PO Q4H PRN (Reason: Cough) diazepam 5 mg Tablet 5 mg PO BID Dulera 100-5 mcg/actuation Hfa Aerosol Inhaler 2 puff INHALATION BID haloperidol 5 mg tablet 5 mg PO BID Referrals Follow up/Referrals: Provider,Referral, MD [Primary Care Provider] - See instructions Activity Restrictions/Add. Instructions Additional Instructions/Restrictions: Please continue taking your medications at home as prescribed, especially your seizure medications. Follow-up over the next 48 hours with your primary care provider. Return to the emergency department for new or worsening symptoms. Clinical Impressions Clinical Impression: Breakthrough seizure Instructions Patient Instructions: Seizure Disorder -- Adult, DI for Altered Mental Status Discharge ED Provider: Tonia Harris General Adult HPI General Chief complaint: Altered Mental Status Stated complaint: AMS Time Seen by Provider: 09/24/23 02:36 Mode of Arrival: EMS Source of Information: Patient Limitations: No Limitations Description of Symptoms (Recalled from ER Triage Doc. by RN): reported per staff at his retirement that he wasn't acting normal, was incoherent and was jerking . Patient alert to name and location. VSS. Afebrile at presentation. History of Present Illness HPI narrative: This patient is a 62-year-old male presenting from [facility] who has a history of schizophrenia, remote history of alcohol abuse, diabetes, hypertension, hyperlipidemia, CAD status post CABG, COPD, failure to thrive, and protein calorie malnutrition presenting to the emergency department for evaluation with EMS with concern for altered mental status. According to [facility] facility and EMS, the patient was on the ground and had urinated on himself. He appeared to have shaking and jerking movements and was incoherent. They helped him up at the facility and called EMS. In route, patient's fingerstick blood glucose was 102. He was alert and attempting to sit up and get off of the stretcher, requiring multiple attempts at redirection to get him to lie down. They note that he was confused in route. Patient does not contribute to history given altered mental status. According to medical record review, the patient has previously been on multiple medications, however we called and spoke with his facility and they noted that he is only taking Imodium as needed for diarrhea. They deny use of any other medications. On medical record review, he has previously been on Depakote as needed for seizures, diazepam, aspi
[2023-02-09 02:47] LABS: Microscopic, Urine URINE MICROSCOPIC (MICROSCOPIC)
--- NOTE | 2023-02-09 02:47 | PC.NURSE ---
call placed to resp, spoke with Will. Advised of VBG order. blood obtained per EMS job captain and sent to lab
[2023-02-09 02:50] LABS: Basophils % 0.7 % (0.1-2.0); Eosinophils # 0.2 K/mm3 (0.0-0.4); Eosinophils % 4.4 % (0.1-12.0); Hematocrit 47.3 % (42.0-52.0); Hemoglobin 14.8 g/dL (14.1-18.0); Lymphocytes # 2.5 K/mm3 (0.7-4.5); Lymphocytes % 46.4 % (10-50); Mean Corpuscular HGB Conc 31.3 g/dL (31.8-35.4); Mean Corpuscular Hemoglobin 30.2 pg (27.0-31.2); Mean Corpuscular Volume 96.6 fl (80-94); Mean Platelet Volume 7.5 fl (7.4-10.4); Monocytes # 0.5 K/mm3 (0.1-1.0); Monocytes % 9.9 % (1.7-9.3); Neutrophils # 2.1 K/mm3 (1.8-7.8); Neutrophils % 38.5 % (37.0-80.0); Platelet Count 240 K/mm3 (142-424); Red Cell Distribution Width 15.1 % (11.5-17.5); White Blood Count 5.5 K/mm3 (4.8-10.8)
[2023-02-09 02:51] LABS: Appearance,Urine CLEAR (Clear); Bilirubin,Urine Negative (Negative); Blood, Urine TRACE-I (Negative); Color,Urine YELLOW (Yellow); Glucose,Urine (UA) Negative (Negative); Ketones,Urine Negative (Negative); Leukocyte Esterase,Urine Negative (Negative); Nitrate,Urine Negative (Negative); PH,Urine 7.5 (5.0-8.5); Protein,Urine Negative (Negative); Urobilinogen,Urine 0.2 EU/dl (0.2)
--- NOTE | 2023-02-09 02:51 | PC.NURSE ---
Corrine EMT-P spoke with staff who is verifying medication at this time.
[2023-02-09 02:52] LABS: Chloride 109 mmol/L (98-107); Potassium 3.9 mmoL/L (3.5-5.1); Sodium 138 mmol/L (136-145)
[2023-02-09 02:54] LABS: Blood Urea Nitrogen 11 mg/dl (9-20); Creatinine Clearance Estimated 79 mL/min (50-200); Estimated Glomerular Filt Rate 86 ml/min (>60); GFR (African American) 103 ML/MIN (>60)
[2023-02-09 02:55] LABS: Alanine Aminotransferase 17 U/L (12-78); Albumin Level 3.5 g/dl (3.5-5.0); Albumin/Globulin Ratio 1.2 (1.1-1.8); Alkaline Phosphatase 63 U/L (38-126); Anion Gap 9.9 mEq/L (5-15); Aspartate Amino Transferase 24 U/L (17-59); Bilirubin,Total 0.2 mg/dl (0.2-1.3); Calcium 8.5 mg/dl (8.4-10.2); Carbon Dioxide 23 mmol/L (22.0-30.0); Creatine Kinase 112 U/L (55-170); Glucose 99 mg/dl (74-100); Total Protein,Serum 6.5 g/dl (6.3-8.2)
[2023-02-09 02:57] LABS: POC Glucose,Bedside 106 (70-110)
[2023-02-09 02:58] LABS: Acetaminophen < 10 ug/ml (10-30); Salicylate < 1.0 mg/dL (2.0-20.0)
[2023-02-09 02:58] LABS: VBG Base Excess -6.3 mmol/L (-2.4-2.3); VBG HCO3 19.3 mmol/L (23-30); VBG PCO2 35.3 mmol/L (35-51); VBG PH 7.36 mmol/L (7.31-7.41); VBG PO2 110.9 mmol/L (28-40); VBG Total CO2 20.4 mmol/L (23-27)
[2023-02-09 03:02] LABS: Squamous Epithelial Cell,Urine Occasional #/hpf (0-5); WBC,Urine Occasional #/hpf (0-3)
[2023-02-09 03:02] LABS: Ethyl Alcohol < 10 mg/dl (0-10)
[2023-02-09 03:03] LABS: Amphetamine/Metha Screen,Urine Negative ng/ml (<1000); Benzodiazepines Screen,Urine Negative ng/ml (<200)
[2023-02-09 03:04] LABS: Barbiturates Screen,Urine Negative ng/ml (<200)
[2023-02-09 03:05] LABS: Cannabinoid Screen,Urine Negative ng/ml (<50); Methadone Screen,Urine Negative ng/ml (<300)
[2023-02-09 03:06] LABS: Cocaine Screen,Urine Negative ng/ml (<300)
[2023-02-09 03:07] LABS: Opiate Screen,Urine Negative ng/ml (<300); Phencyclidine Screen,Urine Negative ng/ml (<25)
[2023-02-09 03:21] LABS: Troponin I < 0.01 ng/ml (0.00-0.034)
[2023-02-09 04:07] LABS: Lactic Acid 6.5 mmol/L (0.7-2.1)
--- NOTE | 2023-02-09 04:12 | PC.NURSE ---
Lorna from the lab called with a critical lab value. Lactic Acid 6.5. and RN made aware. CR
--- NOTE | 2023-02-09 04:14 | PC.NURSE ---
critical value of Lactate 6.[address] Harris no new orders at this time
--- NOTE | 2023-02-09 05:31 | ECG_ITS ---
APPROVED REPORT Exam: Resting ECG HR:67 bpm ECG Measurements Heart Rate 67 AXES OK 152 P 65 QRSd 103 QRS 32 QT 394 T 69 QTc [address] ELEVATION, CONSIDER INFERIOR INJURY [MARKED ST ELEVATION W/O NORMALLY INFLECTED T-WAVE IN II/aVF] ACUTE AK UNCONFIRMED REPORT Electronically signed by : Tenzin Tovar MD 02/11/2023 20:09:28
[2023-02-09 07:04] LABS: Lactic Acid 1.1 mmol/L (0.7-2.1)
[2023-02-09 07:17] LABS: Troponin I 0.01 ng/ml (0.00-0.034)
--- NOTE | 2023-02-09 07:17 | PC.NURSE ---
Spoke with Jessica at [facility]. She advised they would have to text their information technology audit manager and see what she wanted them to do about getting the pt a ride.
--- NOTE | 2023-02-09 07:19 | PC.NURSE ---
[facility] REQUESTED FOR PT
--- NOTE | 2023-02-09 07:25 | PC.NURSE ---
[facility] SET-UP FOR PT
--- NOTE | 2023-02-09 07:31 | PC.NURSE ---
Spoke with [employer], she was going to try and find an officer who would give pt a ride back to [facility].
--- NOTE | 2023-02-09 07:38 | PC.NURSE ---
Pt provided with urinal
--- NOTE | 2023-02-09 07:52 | PC.NURSE ---
Called Luis back about finding pt a ride. Jessica advised It will be 10 or 10:30 that's when the substitute bus driver is scheduled. Charge nurse notified.
[2023-02-09 07:54] LABS: Reflex Lactic Add Lactic Reflex
--- NOTE | 2023-02-09 09:15 | PC.NURSE ---
Helped pt get changed into new set of clothes. Also given new brief d/t soiled brief.Total bed changed and cleaned floors in pt's room. He was given pepsi and ice chips, also
--- NOTE | 2023-02-09 10:06 | PC.NURSE ---
SPOKE WITH JUSTA LEY THE FUR STRETCHER OF [facility], STATES SHE LIVES 1 HOUR AWAY AND SHE IS NOT ABLE TO GET PT BACK TO [facility], SHE WILL CALL OTHER STAFF RETURN CALL FROM STATES JUSTA SOMEONE WILL INSTRUCTIONAL TECHNOLOGY DIRECTOR PT IN ABOUT 20 MINUTES
--- NOTE | 2023-02-09 10:08 | PC.NURSE ---
Ale Beckham called back stated she was paying someone to come get pt in approx 20 min
== END 2023-02-09 10:15 | disposition other institution (70) ==
PROVIDERS: Emergency Provider Emergency Medicine
DX: G40.919 Epilepsy, unspecified, intractable, without status epilepticus (principal); R41.82 Altered mental status, unspecified; F20.9 Schizophrenia, unspecified; E11.9 Type 2 diabetes mellitus without complications; I10 Essential (primary) hypertension; E78.5 Hyperlipidemia, unspecified; I25.10 Atherosclerotic heart disease of native coronary artery without angina pectoris; J44.9 Chronic obstructive pulmonary disease, unspecified; I25.2 Old myocardial infarction; F17.210 Nicotine dependence, cigarettes, uncomplicated
CPT/HCPCS: 70450; 71045; 72125; 80053; 80305; 80329; 81001; 82550; 82803; 82962; 83605; 84484; 85025; 93005; 96360; 99285

== ENCOUNTER 2023-03-24 21:23 | Observation (INO) | payer BC, SELFPAY ==
[2023-03-24 21:23] VITALS: BP 130/91; PULSE 73; RESP 13; TEMP 37.1; O2SAT 96; BMI 19.3
[2023-03-24 21:27] VITALS: BP 130/91; PULSE 80; O2SAT 97
[2023-03-24 21:30] VITALS: BP 130/68; PULSE 76; RESP 14; O2SAT 98
--- NOTE | 2023-03-24 21:35 | ECG_ITS ---
APPROVED REPORT Exam: Resting ECG HR:67 bpm ECG Measurements Heart Rate 67 AXES MD 146 P 87 QRSd 98 QRS 43 QT 424 T 89 QTc 439 Conclusion SINUS RHYTHM LOW QRS VOLTAGE IN PRECORDIAL LEADS Old septal changes ABNORMAL ECG UNCONFIRMED REPORT Electronically signed by : Tenzin Tovar MD 03/26/2023 21:15:29
[2023-03-24 21:41] VITALS: BP 127/72; RESP 13
[2023-03-24 21:58] LABS: Microscopic, Urine URINE MICROSCOPIC (MICROSCOPIC)
--- NOTE | 2023-03-24 22:01 | PC.NURSE ---
patient gone to CT at this time.
[2023-03-24 22:04] LABS: Basophils % 0.8 % (0.1-2.0); Eosinophils # 0.1 K/mm3 (0.0-0.4); Eosinophils % 3.4 % (0.1-12.0); Hematocrit 40.7 % (42.0-52.0); Hemoglobin 13.8 g/dL (14.1-18.0); Lymphocytes # 1.4 K/mm3 (0.7-4.5); Lymphocytes % 33.2 % (10-50); Mean Corpuscular Hemoglobin 33.3 pg (27.0-31.2); Mean Platelet Volume 7.6 fl (7.4-10.4); Monocytes # 0.4 K/mm3 (0.1-1.0); Monocytes % 8.8 % (1.7-9.3); Neutrophils # 2.2 K/mm3 (1.8-7.8); Neutrophils % 53.8 % (37.0-80.0); Platelet Count 195 K/mm3 (142-424); Red Blood Count 4.15 M/mm3 (4.60-6.20); Red Cell Distribution Width 14.4 % (11.5-17.5); White Blood Count 4.1 K/mm3 (4.8-10.8)
--- NOTE | 2023-03-24 22:07 | HMH.EDGENADL ---
Discharge Plan Disposition Patient Disposition: Admitted Chief Complaint: Altered Mental Status Prescriptions Prescriptions: No Action atorvastatin 40 mg tablet 40 mg PO HS Combivent Respimat 20-100 mcg/actuation mist 1 puff inhalation QID donepezil 10 mg tablet 10 mg PO DAILY isosorbide mononitrate 60 mg tablet extended release 24 hr 60 mg PO DAILY furosemide 20 mg tablet 20 mg PO DAILY megestrol 20 mg tablet 20 mg PO BID loperamide 2 mg tablet 2 mg PO Q4H PRN Rx Instructions: administer after each loose stool until symptoms controlled; do not exceed 8 mg per 24 hrs guaifenesin [Siltussin SA] 100 mg/5 mL liquid 200 mg PO Q4H PRN Brilinta 90 mg tablet 90 mg PO BID Dulera 100-5 mcg/actuation HFA aerosol inhaler See Rx Instructions .ROUTE .COMPLEX Qty: 13 11RF Dose Instruction: INHALE 2 PUFFS BY MOUTH TWICE DAILY (RINSE MOUTH WITH WATER AFTER USE) Rx Instructions: INHALE 2 PUFFS BY MOUTH TWICE DAILY (RINSE MOUTH WITH WATER AFTER USE) divalproex 500 MG tablet,delayed release (DR/EC) 500 mg PO BID ranolazine 500 MG tablet extended release 12 hr 500 mg PO BID metoprolol tartrate 25 MG tablet 12.5 mg PO BID sertraline 100 MG tablet 150 mg PO DAILY famotidine 20 MG tablet 20 mg PO BID acetaminophen 325 MG tablet 325 mg PO Q6HP PRN (Reason: As Needed For Fever Or Pain) aspirin 81 MG tablet,chewable 81 mg PO DAILY paliperidone 6 MG tablet extended release 24 hr 12 mg PO DAILY benztropine 1 mg tablet 2 mg PO BID ibuprofen 800 mg Tablet 800 mg PO Q8H PRN (Reason: Pain) haloperidol 5 mg tablet 5 mg PO BID Referrals Follow up/Referrals: Provider,Referral, MD [Primary Care Provider] - See instructions Clinical Impressions Clinical Impression: AMS (altered mental status) Instructions Patient Instructions: DI for Altered Mental Status Discharge ED Provider: Zhen Garcia General Adult HPI General Chief complaint: Altered Mental Status Stated complaint: altered mental status Time Seen by Provider: 03/24/23 21:24 Mode of Arrival: EMS Source of Information: EMS Limitations: Altered Mental Status Description of Symptoms (Recalled from ER Triage Doc. by RN): [facility] facility called with genralized weakness, ams, hx of seizures, upon triage fbs was 192, pt unable answer loc questions History of Present Illness HPI narrative: Is a 62-year-old male with history of seizure disorder, hypertension, hyperlipidemia, schizophrenia, diabetes, COPD, CAD presenting with altered mental status. Found that [facility] with generalized weakness. Fingerstick glucose almost 200. Patient unable to answer basic questions or contribute to history. Related Data Home Medications Medication Instructions Recorded Confirmed divalproex 500 mg tablet,delayed 500 mg PO BID Seizures 05/22/17 02/12/23 release atorvastatin 40 mg tablet 40 mg PO HS Cholesterol 11/10/18 02/12/23 ipratropium 20 mcg-albuterol 100 1 puff inhalation QID Breathing 03/26/19 02/12/23 mcg/actuation mist for inhalation problems (Combivent Respimat) ranolazine 500 mg tablet,extended 500 mg PO BID Chest pain 04/10/19 02/12/23 release,12 hr metoprolol tartrate 25 mg tablet 12.5 mg PO BID Hypertension 04/17/19 02/12/23 sertraline 100 mg tablet 150 mg PO DAILY Depression 07/18/20 02/12/23 acetaminophen 325 mg tablet 325 mg PO Q6HP PRN As Needed For 03/13/21 02/12/23 Fever Or Pain aspirin 81 mg chewable tablet 81 mg PO DAILY heart health 03/13/21 02/12/23 famotidine 20 mg tablet 20 mg PO BID acid reflux 03/13/21 02/12/23 paliperidone 6 mg tablet,extended 12 mg PO DAILY MOOD 03/13/21 02/12/23 release 24 hr ibuprofen 800 mg tablet 800 mg PO Q8H PRN Pain 04/08/22 02/12/23 haloperidol 5 mg tablet 5 mg PO BID behavior 02/09/23 02/12/23 benztropine 1 mg tablet 2 mg PO BID Tremors 02/12/23
[2023-03-24 22:08] LABS: Alanine Aminotransferase 25 U/L (12-78); Albumin Level 3.7 g/dl (3.5-5.0); Albumin/Globulin Ratio 1.2 (1.1-1.8); Alkaline Phosphatase 63 U/L (38-126); Anion Gap 13.3 mEq/L (5-15); Aspartate Amino Transferase 29 U/L (17-59); Bilirubin,Total 0.6 mg/dl (0.2-1.3); Blood Urea Nitrogen 9 mg/dl (9-20); Carbon Dioxide 22 mmol/L (22.0-30.0); Chloride 107 mmol/L (98-107); Creatinine Clearance Estimated 70 mL/min (50-200); Estimated Glomerular Filt Rate 98 ml/min (>60); GFR (African American) 119 ML/MIN (>60); Glucose 159 mg/dl (74-100); Potassium 3.3 mmoL/L (3.5-5.1); Sodium 139 mmol/L (136-145); Total Protein,Serum 6.7 g/dl (6.3-8.2)
[2023-03-24 22:15] LABS: Ethyl Alcohol < 10 mg/dl (0-10); Salicylate < 1.0 mg/dL (2.0-20.0)
--- NOTE | 2023-03-24 22:16 | PC.NURSE ---
received call from ulises avila who stated she couldn't get patient to lay still for scan. ulises pineda attempted to hold his head steady but wasn't successful.
--- NOTE | 2023-03-24 22:19 | PC.NURSE ---
patient return to room
[2023-03-24 22:22] LABS: VBG HCO3 21.5 mmol/L (23-30); VBG Oxygen Saturation 86.9 % (50-70); VBG PCO2 39.1 mmol/L (35-51); VBG PH 7.36 mmol/L (7.31-7.41); VBG PO2 55.3 mmol/L (28-40); VBG Total CO2 22.7 mmol/L (23-27)
[2023-03-24 22:32] LABS: Appearance,Urine Clear (Clear); Bilirubin,Urine Negative (Negative); Blood, Urine Trace (Negative); Color,Urine Yellow (Yellow); Glucose,Urine (UA) Negative (Negative); Ketones,Urine Negative (Negative); Nitrate,Urine Negative (Negative); Protein,Urine Negative (Negative); Urobilinogen,Urine 0.2 EU/dl (0.2)
[2023-03-24 22:33] LABS: Leukocyte Esterase,Urine Negative (Negative)
[2023-03-24 22:38] LABS: Amphetamine/Metha Screen,Urine Negative ng/ml (<1000); Barbiturates Screen,Urine Negative ng/ml (<200)
[2023-03-24 22:38] LABS: Troponin I < 0.01 ng/ml (0.00-0.034)
[2023-03-24 22:39] LABS: Benzodiazepines Screen,Urine Negative ng/ml (<200)
[2023-03-24 22:40] LABS: Cannabinoid Screen,Urine Negative ng/ml (<50); Cocaine Screen,Urine Negative ng/ml (<300)
[2023-03-24 22:41] LABS: Methadone Screen,Urine Negative ng/ml (<300)
[2023-03-24 22:42] LABS: Opiate Screen,Urine Negative ng/ml (<300); Phencyclidine Screen,Urine Negative ng/ml (<25)
[2023-03-24 22:45] VITALS: BP 104/70; PULSE 67; RESP 11; O2SAT 98
[2023-03-24 22:50] LABS: Bacteria,Urine 1+ /lpf
--- NOTE | 2023-03-24 23:07 | PC.NURSE ---
Call made to transfer and pumphouse operator chief for bed assignment and patient admission
--- NOTE | 2023-03-24 23:22 | HMH.ITSTN ---
attempted scans, was unable to complete. on hold at this time per md.
[2023-03-24 23:31] LABS: Lactic Acid 1.9 mmol/L (0.7-2.1)
--- NOTE | 2023-03-24 23:42 | PC.NURSE ---
called report to Jillian SNELL on 2nd floor and answered all questions
[2023-03-24 23:44] VITALS: BP 104/70; PULSE 71; RESP 14; TEMP 36.9; O2SAT 95
--- NOTE | 2023-03-24 23:44 | PC.NURSE ---
Attempted to call Luis without answer. Plan to report that patient is going to be admitted to hospital and not returning back to facility tonight.
--- NOTE | 2023-03-24 23:49 | EXP.HP ---
History of Present Illness *Admission Date: 03/24/23 *Reason for visit:: AMS *History of present illness: This is a 62-year-old male from [facility], who's per chart review has apparent history of seizure disorder, hypertension, hyperlipidemia, schizophrenia, diabetes, COPD, CAD brought in with altered mental status. Facility staff referred him with generalized weakness. Despite the patient is arousal to voice data is limited to patient mentation states and does no cooperate. Patient unable to answer basic questions or contribute to history. Admitted for further admission. [facility] Disclaimer: The information contained in this section may have been updated after the patient was seen, as this information can be updated by other users. Medical History Abnormal stress test Acquired hammer toes of both feet COPD (chronic obstructive pulmonary disease) Diabetes mellitus, type 2 Dizziness History of chest pain History of heart attack Hyperlipidemia Onychomycosis Pain in both feet Psychosis Schizophrenia Surgical History Hx of CABG Family History Other No significant family history Social History (Updated 03/25/23 @ 00:15 by Adin Montgomery RN) Smoking Status: Unknown if ever smoked second hand exposure: No alcohol intake: never substance use type: denies use current occupational status: retired Travel in the last 8 weeks: None household members: other housing: assisted living facility caffeine: Yes Review of Systems Review of Systems Review of systems:: unable to obtain Meds Home Medications and Allergies Home Medications Medication Instructions Recorded Confirmed Type divalproex 500 mg tablet,delayed 500 mg PO BID Seizures 05/22/17 03/25/23 History release atorvastatin 40 mg tablet 40 mg PO HS Cholesterol 11/10/18 03/25/23 History ipratropium 20 mcg-albuterol 100 1 puff inhalation QID Breathing 03/26/19 03/25/23 History mcg/actuation mist for inhalation problems (Combivent Respimat) ranolazine 500 mg tablet,extended 500 mg PO BID Chest pain 04/10/19 03/25/23 History release,12 hr metoprolol tartrate 25 mg tablet 12.5 mg PO BID Hypertension 04/17/19 03/25/23 History sertraline 100 mg tablet 200 mg PO DAILY Depression 07/18/20 03/25/23 History acetaminophen 325 mg tablet 325 mg PO Q6HP PRN As Needed For 03/13/21 03/25/23 History Fever Or Pain aspirin 81 mg chewable tablet 81 mg PO DAILY heart health 03/13/21 03/25/23 History famotidine 20 mg tablet 20 mg PO BID acid reflux 03/13/21 03/25/23 History paliperidone 6 mg tablet,extended 12 mg PO DAILY MOOD 03/13/21 03/25/23 History release 24 hr ibuprofen 800 mg tablet 800 mg PO Q8H PRN Pain 04/08/22 03/25/23 History benztropine 1 mg tablet 2 mg PO BID Tremors 02/12/23 03/25/23 History furosemide 20 mg tablet 20 mg PO DAILY 02/12/23 03/25/23 History guaifenesin 100 mg/5 mL oral 200 mg PO Q4HP PRN drainage 02/12/23 03/25/23 History liquid (Siltussin SA) loperamide 2 mg tablet 2 mg PO Q4H PRN Diarrhea 02/12/23 03/25/23 History megestrol 20 mg tablet 20 mg PO DAILY 02/12/23 03/25/23 History ticagrelor 90 mg tablet (Brilinta) 90 mg PO BID 02/12/23 03/25/23 History haloperidol 5 mg tablet 5 mg PO BID behavior 30 days #60 03/25/23 Rx tabs isosorbide mononitrate 30 mg 30 mg PO DAILY 03/25/23 03/25/23 History tablet,extended release 24 hr mometasone-formoterol HFA 100 2 puff inhalation BID 03/25/23 03/25/23 History mcg-5 mcg/actuation aerosol inhaler (Dulera) promethazine 25 mg tablet 25 mg PO Q6H PRN Nausea And 03/25/23 03/25/23 History Vomiting New Prescriptions to Start Prescriptions: Dinesh Luke Allergies Allergy/AdvReac Type Severity Reaction Status Date / Time No Known Allergies Allergy Verified 0
--- NOTE | 2023-03-24 23:57 | PC.NURSE ---
Patient arrived to floor via stretcher at 23:54.
[2023-03-25 00:16] VITALS: BP 116/70; PULSE 70; RESP 24; TEMP 36.6; O2SAT 93; BMI 18.7
[2023-03-25 01:50] LABS: Troponin I < 0.01 ng/ml (0.00-0.034)
[2023-03-25 04:00] VITALS: BP 125/66; PULSE 72; RESP 20; TEMP 36.8; O2SAT 99; BMI 18.7
[2023-03-25 05:01] LABS: Troponin I < 0.01 ng/ml (0.00-0.034)
[2023-03-25 05:05] LABS: Basophils % 0.5 % (0.1-2.0); Eosinophils # 0.2 K/mm3 (0.0-0.4); Eosinophils % 3.6 % (0.1-12.0); Hematocrit 40.8 % (42.0-52.0); Hemoglobin 13.5 g/dL (14.1-18.0); Lymphocytes # 1.5 K/mm3 (0.7-4.5); Lymphocytes % 35.3 % (10-50); Mean Corpuscular Hemoglobin 32.4 pg (27.0-31.2); Mean Corpuscular Volume 98.1 fl (80-94); Mean Platelet Volume 7.7 fl (7.4-10.4); Monocytes # 0.4 K/mm3 (0.1-1.0); Monocytes % 9.6 % (1.7-9.3); Neutrophils # 2.2 K/mm3 (1.8-7.8); Platelet Count 212 K/mm3 (142-424); Red Blood Count 4.15 M/mm3 (4.60-6.20); Red Cell Distribution Width 14.5 % (11.5-17.5); White Blood Count 4.4 K/mm3 (4.8-10.8)
[2023-03-25 05:07] LABS: Chloride 110 mmol/L (98-107); Potassium 3.3 mmoL/L (3.5-5.1); Sodium 141 mmol/L (136-145)
[2023-03-25 05:09] LABS: Blood Urea Nitrogen 8 mg/dl (9-20); Creatinine Clearance Estimated 68 mL/min (50-200); Estimated Glomerular Filt Rate 114 ml/min (>60); GFR (African American) 138 ML/MIN (>60)
[2023-03-25 05:10] LABS: Alanine Aminotransferase 19 U/L (12-78); Albumin Level 3.6 g/dl (3.5-5.0); Albumin/Globulin Ratio 1.2 (1.1-1.8); Alkaline Phosphatase 71 U/L (38-126); Anion Gap 9.3 mEq/L (5-15); Aspartate Amino Transferase 26 U/L (17-59); Bilirubin,Total 0.6 mg/dl (0.2-1.3); Calcium 8.3 mg/dl (8.4-10.2); Carbon Dioxide 25 mmol/L (22.0-30.0); Globulin 2.9 g/dL (1.3-3.2); Glucose 98 mg/dl (74-100); Total Protein,Serum 6.5 g/dl (6.3-8.2)
[2023-03-25 08:00] VITALS: BP 144/79; PULSE 66; RESP 18; TEMP 36.4; O2SAT 99
--- NOTE | 2023-03-25 08:15 | EXP.DC.SUM ---
General Admission date:: 03/24/23 Discharge date: 03/25/23 HPI HPI HPI: This is a 62-year-old male from [facility], who's per chart review has apparent history of seizure disorder, hypertension, hyperlipidemia, schizophrenia, diabetes, COPD, CAD brought in with altered mental status. Facility staff referred him with generalized weakness. Despite the patient is arousal to voice data is limited to patient mentation states and does no cooperate. Patient unable to answer basic questions or contribute to history. Admitted for further admission. Hospital Course Hospital Course Hospital Course: 62-year-old male from [facility], who's chart review has apparent history of seizure disorder, hypertension, hyperlipidemia, schizophrenia, diabetes, COPD, CAD brought in with altered mental status. on arrival extensive work up was conducted to clear the reason of his AMS, including toxicology. and CT of the head. findings are grossly unremarkable other than mild hyperkalemia. Patient frankly encephalopathic and confused however. Not stable to return back to his facility initially. Was admitted overnight and improved by morning. Concern for polypharmacy and oversedation. Stable to discharge back to [facility]. Problems addressed as follows: -AMS/ Acute encephalopathy: More likely toxic secondary to medications. Medications were held after admission, patient cleared and improved to baseline. Have made slight medication changes consistent with decreasing his Haldol as I am concerned that he is oversedated at this time on his 7.53 times a day dosage. Recommend decreasing that to 5 mg twice daily. No seizures during admission. Tolerating p.o. intake. Ambulating independently. Back to baseline mentation and function. Recommend continuing all other home medications. Stable for discharge. Exam Data for Last 24 hours Vital signs and Labs for Last 24 Hours: Temp Pulse Resp BP Pulse Ox O2 Del Method 98.2 F 72 20 125/66 99 Room Air 03/25/23 04:00 03/25/23 04:00 03/25/23 04:00 03/25/23 04:00 03/25/23 04:00 03/25/23 07:00 Laboratory Results - last 24 hr 03/24/23 21:35: WBC 4.1 L, RBC 4.15 L, Hgb 13.8 L, Hct 40.7 L, MCV 98.0 H, MCH 33.3 H, MCHC 34.0, RDW 14.4, Plt Count 195, MPV 7.6, Neut % (Auto) 53.8, Lymph % (Auto) 33.2, [place] % (Auto) 8.8, Eos % (Auto) 3.4, Baso % (Auto) 0.8, Neut # (Auto) 2.2, Lymph # (Auto) 1.4, [place] # (Auto) 0.4, Eos # (Auto) 0.1, Baso # (Auto) 0.0, APTT 28.0, Sodium 139, Potassium 3.3 L, Chloride 107, Carbon Dioxide 22, Anion Gap 13.3, BUN 9, Creatinine 0.80, Estimated Creat Clear 70, Estimated GFR 98, Est GFR ( Amer) 119, Glucose 159 H, Lactate 1.9, Calcium 9.0, Total Bilirubin 0.6, AST 29, ALT 25, Alkaline Phosphatase 63, Troponin I < 0.01, Total Protein 6.7, Albumin 3.7, Globulin 3.0, Albumin/Globulin Ratio 1.2, TSH 2.70, Salicylates < 1.0 L, Plasma/Serum Alcohol < 10 03/24/23 21:45: Urine Color Yellow, Urine Appearance Clear, Urine pH 7.0, Ur Specific [place] 1.010, Urine Protein Negative, Urine Glucose (UA) Negative, Urine Ketones Negative, Urine Blood Trace, Urine Nitrate Negative, Urine Bilirubin Negative, Urine Urobilinogen 0.2, Ur Leukocyte Esterase Negative, Urine WBC 5-10, Ur Squamous Epith Cells 3-5, Urine Bacteria 1+, Urine Opiates Screen Negative, Urine Methadone Screen Negative, Ur Barbituates Screen Negative, Ur Phencyclidine Scrn Negative, Ur Amphetamines Screen Negative, U Benzodiazepines Scrn Negative, Urine Cocaine Screen Negative, U Marijuana (THC) Screen Negative 03/24/23 22:08: VBG pH 7.36, VBG pCO2 39.1, VBG pO2 55.3 H, VBG HCO3 21.5 L, VBG Total CO2 22.7 L, VBG O2 Saturation 86.9 H, VBG Base Excess -4.0 L 03/25/23 01:20: Troponin I < 0.01 03/25/23 04:30: WBC 4.4 L, RBC 4.15 L, Hgb 13.5 L, Hct 40.8 L, MCV 98.1 H, MCH 32.4 H, MCHC 33.0, RDW 14.5, Plt Count 212, MPV 7.7, Neut % (Auto) 51.0, Lymph % (Auto) 35.3, [place] % (Auto) 9.6 H, Eos % (Auto) 3.6, Baso % (Auto) 0
--- NOTE | 2023-03-25 08:30 | SW/DCPLANNER ---
This patient currently resides at [facility]. The plan is for patient to return today. Nursing staff (Nancy) stated that patient is ambulating independently in hallways. I have updated Ale fma/ [facility] regarding discharge plans. I will set up [employer] once patient is medically stable for discharge.
--- NOTE | 2023-03-25 11:05 | PC.NURSE ---
CALLED REPORT TO [place] AT [facility].
[2023-03-25 12:28] LABS: POC Glucose,Bedside 96 (70-110)
--- NOTE | 2023-03-28 14:01 | CARE MANAGER ---
Attempted to contact patient x2 related to hospital discharge. Left voicemail message. ALIS Pfeiffer
== END 2023-03-25 13:38 | disposition home or self-care (01) ==
LOC: ER 23:09 → 2ND 03-25 00:06
PROVIDERS: Nurse Practitioner Family; Admitting Provider Internal Medicine Adolescent Medicine; Emergency Provider Emergency Medicine; PCP Emergency Medicine; Visit Provider Internal Medicine Adolescent Medicine
DX: G93.49 Other encephalopathy (principal); F25.0 Schizoaffective disorder, bipolar type; I25.10 Atherosclerotic heart disease of native coronary artery without angina pectoris; E11.59 Type 2 diabetes mellitus with other circulatory complications; I10 Essential (primary) hypertension; E78.5 Hyperlipidemia, unspecified; F10.10 Alcohol abuse, uncomplicated; Z79.899 Other long term (current) drug therapy
CPT/HCPCS: 36415; 80053; 80305; 80329; 81001; 82803; 82962; 83605; 84443; 84484; 85025; 85730; 93005; 99285; G0378

== ENCOUNTER 2023-04-08 23:34 | Inpatient (IN) | payer BC, SELFPAY ==
[2023-04-08 23:26] VITALS: BP 145/84; PULSE 70; RESP 18; TEMP 36.8; O2SAT 100; BMI 21.2
--- NOTE | 2023-04-08 23:44 | XR_ITS ---
PROCEDURE INFORMATION: Exam: XR Right Foot Exam date and time: 04/08/2023 11:48 PM Age: 62 years old Clinical indication: Condition or disease; Other: Ischemic ulcer 2nd toe TECHNIQUE: Imaging protocol: Radiologic exam of the right foot. Views: 3 or more views. Total images: 3 COMPARISON: CR XR FOOT RT MIN 3V 02/04/2022 9:21 AM FINDINGS: Bones/joints: Severe osteopenia compromising radiographic assessment. No acute fracture or joint dislocation. Mild degenerative arthropathy diffusely affecting the tarsal articulations, tarsometatarsal joints, metatarsophalangeal joints and interphalangeal joints of all 5 toes. Remote deformities distal tibia and fibula. 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 Soft tissues: Diffuse soft tissue swelling and edema. Soft tissue ulceration distal 2nd toe. No soft tissue emphysema or foreign body. IMPRESSION: 1. No acute osseous abnormality. 2. Chronic findings. 3. If concern for osteomyelitis, recommend follow-up nonemergent MRI.
[2023-04-08 23:50] LABS: Basophils % 0.4 % (0.1-2.0); Eosinophils # 0.2 K/mm3 (0.0-0.4); Eosinophils % 2.6 % (0.1-12.0); Hematocrit 40.6 % (42.0-52.0); Hemoglobin 13.5 g/dL (14.1-18.0); Lymphocytes # 1.6 K/mm3 (0.7-4.5); Lymphocytes % 23.3 % (10-50); Mean Corpuscular HGB Conc 33.3 g/dL (31.8-35.4); Mean Corpuscular Hemoglobin 32.2 pg (27.0-31.2); Mean Corpuscular Volume 96.8 fl (80-94); Mean Platelet Volume 7.3 fl (7.4-10.4); Monocytes # 0.6 K/mm3 (0.1-1.0); Monocytes % 9.2 % (1.7-9.3); Neutrophils # 4.3 K/mm3 (1.8-7.8); Neutrophils % 64.6 % (37.0-80.0); Platelet Count 230 K/mm3 (142-424); Red Blood Count 4.19 M/mm3 (4.60-6.20); Red Cell Distribution Width 14.3 % (11.5-17.5); White Blood Count 6.6 K/mm3 (4.8-10.8)
[2023-04-08 23:52] LABS: Chloride 101 mmol/L (98-107); Potassium 3.4 mmoL/L (3.5-5.1); Sodium 131 mmol/L (136-145)
[2023-04-08 23:54] LABS: Blood Urea Nitrogen 12 mg/dl (9-20); Creatinine Clearance Estimated 69 mL/min (50-200); Estimated Glomerular Filt Rate 98 ml/min (>60); GFR (African American) 119 ML/MIN (>60)
[2023-04-08 23:55] LABS: Alanine Aminotransferase 19 U/L (12-78); Albumin Level 4.1 g/dl (3.5-5.0); Albumin/Globulin Ratio 1.3 (1.1-1.8); Alkaline Phosphatase 65 U/L (38-126); Anion Gap 9.4 mEq/L (5-15); Aspartate Amino Transferase 28 U/L (17-59); Bilirubin,Total 0.4 mg/dl (0.2-1.3); Calcium 8.5 mg/dl (8.4-10.2); Carbon Dioxide 24 mmol/L (22.0-30.0); Globulin 3.1 g/dL (1.3-3.2); Glucose 110 mg/dl (74-100); Total Protein,Serum 7.2 g/dl (6.3-8.2)
[2023-04-08 23:56] LABS: INR 1.01 (0.9-1.1); Prothrombin Time 10.9 seconds (10.1-12.5)
[2023-04-09] VITALS (7 sets, daily range): BP systolic 96–160; BP diastolic 49–92; PULSE 67–79; RESP 10–20; TEMP 36.7–36.9; O2SAT 93–99; BMI 21.0
[2023-04-09] LABS: C-Reactive Protein 33.9 mg/L (0-4)
--- NOTE | 2023-04-09 00:16 | HMH.EDGENADL ---
Discharge Plan Disposition Patient Disposition: Admitted Clinical Impressions Clinical Impression: Cellulitis, Ulcer of right second toe Discharge ED Provider: Jamie Estrella General Adult HPI General Chief complaint: Extremity Problem,Nontraumatic Stated complaint: necrotic toe Time Seen by Provider: 04/08/23 23:37 Mode of Arrival: EMS Source of Information: EMS Limitations: Physical Limitations Description of Symptoms (Recalled from ER Triage Doc. by RN): Per ems, pt reports right 2nd toe pain X2 days, worseing today. Per EMS, staff at [facility] stated they noted pt limping today and called EMS for necrotic toe. Pt has hx of type 2 DM, non-insulin dependent. +3-4 pitting edema noted to RLE. Bilat DP pulses palpated. Redness, edema, and eschar/ulcer noted to R second toe. Pt poor historian. History of Present Illness HPI narrative: 62-year-old male, history of schizoaffective disorder, kkt-hiintyf-uxuqxwgxw diabetes, hypertension, hyperlipidemia, intermittent lower extremity claudication presents with ischemic ulcer and redness to the right second toe. Is a intermediate resident. He was noted by staff to be limping the last couple of days. They noticed the skin changes tonight and sent him to the ER for further evaluation. Patient is alert and interactive but is a very poor historian. He is on multiple sedating and antipsychotic medications. He reports no acute concerns at this time. Related Data Home Medications Medication Instructions Recorded Confirmed divalproex 500 mg tablet,delayed 500 mg PO BID Seizures 05/22/17 04/09/23 release atorvastatin 40 mg tablet 40 mg PO HS Cholesterol 11/10/18 04/09/23 ranolazine 500 mg tablet,extended 500 mg PO BID Chest pain 04/10/19 04/09/23 release,12 hr metoprolol tartrate 25 mg tablet 12.5 mg PO BID Hypertension 04/17/19 04/09/23 sertraline 100 mg tablet 200 mg PO DAILY Depression 07/18/20 04/09/23 aspirin 81 mg chewable tablet 81 mg PO DAILY heart health 03/13/21 04/09/23 famotidine 20 mg tablet 20 mg PO BID acid reflux 03/13/21 04/09/23 paliperidone 6 mg tablet,extended 12 mg PO DAILY MOOD 03/13/21 04/09/23 release 24 hr benztropine 1 mg tablet 2 mg PO BID Tremors 02/12/23 04/09/23 furosemide 20 mg tablet 20 mg PO DAILY 02/12/23 04/09/23 megestrol 20 mg tablet 20 mg PO DAILY 02/12/23 04/09/23 ticagrelor 90 mg tablet (Brilinta) 90 mg PO BID 02/12/23 04/09/23 isosorbide mononitrate 30 mg 30 mg PO DAILY 03/25/23 04/09/23 tablet,extended release 24 hr mometasone-formoterol HFA 100 2 puff inhalation BID 03/25/23 04/09/23 mcg-5 mcg/actuation aerosol inhaler (Dulera) donepezil 10 mg tablet 10 mg PO HS 04/09/23 04/09/23 ipratropium 18 mcg-albuterol 103 20 - 100 spray inhalation QID 04/09/23 04/09/23 mcg/actuation aerosol inhaler Previous Rx's Medication Instructions Recorded haloperidol 5 mg tablet 5 mg PO BID behavior 30 days #60 03/25/23 tabs Allergies Allergy/AdvReac Type Severity Reaction Status Date / Time No Known Allergies Allergy Verified 02/12/23 09:45 [facility] Disclaimer: The information contained in this section may have been updated after the patient was seen, as this information can be updated by other users. Medical History Abnormal stress test Acquired hammer toes of both feet COPD (chronic obstructive pulmonary disease) Diabetes mellitus, type 2 Dizziness History of chest pain History of heart attack Hyperlipidemia Onychomycosis Pain in both feet Psychosis Schizophrenia Surgical History Hx of CABG Family History Other No significant family history Social History (Updated 04/09/23 @ 04:32 by Bridgett Fernandez RN) Smoking Status: Unknown if ever smoked second hand exposure: No alcohol intake: never substance use type: denies use current occupational sta
[2023-04-09 00:19] LABS: Erythrocyte Sedimentation Rate 20 mm/hr (0-20)
--- NOTE | 2023-04-09 00:34 | PC.NURSE ---
Hospitalist in room talking with patient .
--- NOTE | 2023-04-09 00:44 | EXP.HP ---
History of Present Illness *Admission Date: 04/09/23 *Reason for visit:: toe pain *History of present illness: This is a 62-year-old male, from [facility] living home with history of schizoaffective disorder, owu-lpkrxsg-zjsexvjod diabetes, hypertension, hyperlipidemia, intermittent lower extremity claudication brought in by EMS after facility referred him for ischemic ulcer and redness to the right second toe. He was noted by staff to be limping the last couple of days. They noticed the skin changes tonight and sent him to the ER for further evaluation. Patient is alert and interactive but is a very poor historian, therefore data mostly collected from ER documentation and report from referring facility. He is on multiple sedating and antipsychotic medications. He reports no acute concerns at this time. Admitted for treatment and management [facility] Disclaimer: The information contained in this section may have been updated after the patient was seen, as this information can be updated by other users. Medical History Abnormal stress test Acquired hammer toes of both feet COPD (chronic obstructive pulmonary disease) Diabetes mellitus, type 2 Dizziness History of chest pain History of heart attack Hyperlipidemia Onychomycosis Pain in both feet Psychosis Schizophrenia Surgical History Hx of CABG Family History Other No significant family history Social History (Updated 04/09/23 @ 04:32 by Bridgett Fernandez RN) Smoking Status: Unknown if ever smoked second hand exposure: No alcohol intake: never substance use type: denies use current occupational status: retired Travel in the last 8 weeks: None household members: other housing: assisted living facility caffeine: Yes Review of Systems Review of Systems Review of systems:: pertinent systems reviewed and negative unless documented below Meds Home Medications and Allergies Home Medications Medication Instructions Recorded Confirmed Type divalproex 500 mg tablet,delayed 500 mg PO BID Seizures 05/22/17 04/09/23 History release atorvastatin 40 mg tablet 40 mg PO HS Cholesterol 11/10/18 04/09/23 History ranolazine 500 mg tablet,extended 500 mg PO BID Chest pain 04/10/19 04/09/23 History release,12 hr metoprolol tartrate 25 mg tablet 12.5 mg PO BID High Blood Pressure 04/17/19 04/09/23 History sertraline 100 mg tablet 200 mg PO DAILY Mood 07/18/20 04/09/23 History aspirin 81 mg chewable tablet 81 mg PO DAILY heart health 03/13/21 04/09/23 History famotidine 20 mg tablet 20 mg PO BID acid reflux 03/13/21 04/09/23 History paliperidone 6 mg tablet,extended 12 mg PO DAILY Mood 03/13/21 04/09/23 History release 24 hr furosemide 20 mg tablet 20 mg PO DAILY Fluid 02/12/23 04/09/23 History megestrol 20 mg tablet 20 mg PO DAILY Appetite Stimulant 02/12/23 04/09/23 History ticagrelor 90 mg tablet (Brilinta) 90 mg PO BID Platelet Inhibitor 02/12/23 04/09/23 History haloperidol 5 mg tablet 5 mg PO BID behavior 30 days #60 03/25/23 04/09/23 Rx tabs isosorbide mononitrate 30 mg 30 mg PO DAILY High Blood Pressure 03/25/23 04/09/23 History tablet,extended release 24 hr mometasone-formoterol HFA 100 2 puff inhalation BID Breathing 03/25/23 04/09/23 History mcg-5 mcg/actuation aerosol Problems inhaler (Dulera) benztropine 2 mg tablet 2 mg PO BID Tremors 04/09/23 04/09/23 History donepezil 10 mg tablet 10 mg PO HS Memory 04/09/23 04/09/23 History ipratropium 20 mcg-albuterol 100 1 puff inhalation QID Breathing 04/09/23 04/09/23 History mcg/actuation mist for inhalation Problems (Combivent Respimat) New Prescriptions to Start Prescriptions: Allergies Allergy/AdvReac Type Severity Reaction Status Date / Time No Known Allergies Allergy Verified 02/12/23 09:45 Exam
--- NOTE | 2023-04-09 00:44 | PC.NURSE ---
Report called to Chayo SNELL on med/surg at this time.
--- NOTE | 2023-04-09 02:12 | PC.NURSE ---
pt arrived to the floor via stretcher @01:12
--- NOTE | 2023-04-09 04:35 | PC.NURSE ---
admission limited due to pt. altered mental status.
--- NOTE | 2023-04-09 05:34 | PC.NURSE ---
Patient arrived to unit at 0112 via stretcher from ED. Patient is alert to self, patient would intermittently answer yes and no questions, at times he would just lay his head back, close his eyes and not say a word. Patient noted to be restless and grabbing at his foot, financial writer asked if he was in pain and he shook his head yes and said yes, patient noted with a grimace look on his face, moaning and rocking back and forth while grabbing at his foot. PRN pain medication given as ordered with effectiveness. Patient is currently laying in bed with eyes closed, bed in lowest position with proper foot wear on and call light in reach. Assessment to follow.
[2023-04-09 07:01] LABS: POC Glucose,Bedside 89 (70-110)
--- NOTE | 2023-04-09 07:05 | PC.WOUNDNOTE ---
Rt 2nd toe
--- NOTE | 2023-04-09 07:38 | SW/DCPLANNER ---
Addendum entered by Emily Ortega 04/09/23 11:26: I have updated Ale w/ Luis Multani that patient could be ready for discharge tomorrow pending no setbacks w/ plans to follow up w/ POD outpatient. Ale at first stated that they would not have transportation if medically stable for discharge tomorrow. I contacted [facility] and they will not be transporting patient's tomorrow. Once I contacted Ale back w/ this information she stated that she would work w/ me on transportation for this patient if medically stable tomorrow. Original Note: This patient currently resides at [facility]. Per Ale fam/ Luis Multani patient does make decisions for himself. I will continue to follow up w/ Ale at [facility] until patient is medically stable for discharge. Discharge date is unknown at this time.
--- NOTE | 2023-04-09 07:45 | P.CONPHA_ITS ---
Pharmacy Intervention Comments: MEDICATION RECONCILIATION COMPLETED ON PATIENT USING MAR FROM RESIDENTIAL. -NEREIDA HAMILTON, RIOSD
--- NOTE | 2023-04-09 07:45 | HMH.PHAINT1 ---
Pharmacy Intervention Comments: MEDICATION RECONCILIATION COMPLETED ON PATIENT USING MAR FROM [facility]ARE HOME. -NEREIDA HAMILTON, RIOSD
--- NOTE | 2023-04-09 08:03 | PC.NURSE ---
Pt. is combative this morning and not cooperative with his care. Md. Brewer notified he is agitated and will not stay still in the bed for his ordered tests this morning. Sitter is now in the room with the patient. Charge nurse is aware.
[2023-04-09 08:53] LABS: Basophils % 0.3 % (0.1-2.0); Eosinophils # 0.1 K/mm3 (0.0-0.4); Eosinophils % 2.6 % (0.1-12.0); Hematocrit 38.1 % (42.0-52.0); Hemoglobin 12.8 g/dL (14.1-18.0); Lymphocytes # 1.2 K/mm3 (0.7-4.5); Lymphocytes % 28.9 % (10-50); Mean Corpuscular HGB Conc 33.5 g/dL (31.8-35.4); Mean Corpuscular Hemoglobin 32.6 pg (27.0-31.2); Mean Corpuscular Volume 97.4 fl (80-94); Mean Platelet Volume 7.4 fl (7.4-10.4); Monocytes # 0.4 K/mm3 (0.1-1.0); Monocytes % 9.3 % (1.7-9.3); Neutrophils # 2.5 K/mm3 (1.8-7.8); Neutrophils % 58.8 % (37.0-80.0); Platelet Count 222 K/mm3 (142-424); Red Blood Count 3.91 M/mm3 (4.60-6.20); Red Cell Distribution Width 14.3 % (11.5-17.5); White Blood Count 4.2 K/mm3 (4.8-10.8)
--- NOTE | 2023-04-09 08:53 | EXP.PHA.CONS ---
Pharmacy Consult Date: 04/09/23 Time: 08:53 Referring provider: DR. WOODS Reason for Consult:: VANCOMYCIN DOSING Allergies Allergy/AdvReac Type Severity Reaction Status Date / Time No Known Allergies Allergy Verified 02/12/23 09:45 Home Medications Medication Instructions Recorded Confirmed Type divalproex 500 mg tablet,delayed 500 mg PO BID Seizures 05/22/17 04/09/23 History release atorvastatin 40 mg tablet 40 mg PO HS Cholesterol 11/10/18 04/09/23 History ranolazine 500 mg tablet,extended 500 mg PO BID Chest pain 04/10/19 04/09/23 History release,12 hr metoprolol tartrate 25 mg tablet 12.5 mg PO BID High Blood Pressure 04/17/19 04/09/23 History sertraline 100 mg tablet 200 mg PO DAILY Mood 07/18/20 04/09/23 History aspirin 81 mg chewable tablet 81 mg PO DAILY heart health 03/13/21 04/09/23 History famotidine 20 mg tablet 20 mg PO BID acid reflux 03/13/21 04/09/23 History paliperidone 6 mg tablet,extended 12 mg PO DAILY Mood 03/13/21 04/09/23 History release 24 hr furosemide 20 mg tablet 20 mg PO DAILY Fluid 02/12/23 04/09/23 History megestrol 20 mg tablet 20 mg PO DAILY Appetite Stimulant 02/12/23 04/09/23 History ticagrelor 90 mg tablet (Brilinta) 90 mg PO BID Platelet Inhibitor 02/12/23 04/09/23 History haloperidol 5 mg tablet 5 mg PO BID behavior 30 days #60 03/25/23 04/09/23 Rx tabs isosorbide mononitrate 30 mg 30 mg PO DAILY High Blood Pressure 03/25/23 04/09/23 History tablet,extended release 24 hr mometasone-formoterol HFA 100 2 puff inhalation BID Breathing 03/25/23 04/09/23 History mcg-5 mcg/actuation aerosol Problems inhaler (Dulera) benztropine 2 mg tablet 2 mg PO BID Tremors 04/09/23 04/09/23 History donepezil 10 mg tablet 10 mg PO HS Memory 04/09/23 04/09/23 History ipratropium 20 mcg-albuterol 100 1 puff inhalation QID Breathing 04/09/23 04/09/23 History mcg/actuation mist for inhalation Problems (Combivent Respimat) New Prescriptions to Start Prescriptions: Height: 1.73 m Weight: 63.095 kg Laboratory Results:: Laboratory Results - last 24 hr 04/08/23 23:20: WBC 6.6, RBC 4.19 L, Hgb 13.5 L, Hct 40.6 L, MCV 96.8 H, MCH 32.2 H, MCHC 33.3, RDW 14.3, Plt Count 230, MPV 7.3 L, Neut % (Auto) 64.6, Lymph % (Auto) 23.3, [place] % (Auto) 9.2, Eos % (Auto) 2.6, Baso % (Auto) 0.4, Neut # (Auto) 4.3, Lymph # (Auto) 1.6, [place] # (Auto) 0.6, Eos # (Auto) 0.2, Baso # (Auto) 0.0, ESR 20, PT 10.9, INR 1.01, APTT 31.0 H, Sodium 131 L, Potassium 3.4 L, Chloride 101, Carbon Dioxide 24, Anion Gap 9.4, BUN 12, Creatinine 0.80, Estimated Creat Clear 69, Estimated GFR 98, Est GFR ( Amer) 119, Glucose 110 H, Lactate 1.0, Calcium 8.5, Total Bilirubin 0.4, AST 28, ALT 19, Alkaline Phosphatase 65, C-Reactive Protein 33.9 H, Total Protein 7.2, Albumin 4.1, Globulin 3.1, Albumin/Globulin Ratio 1.3 04/09/23 06:25: POC Glucose 89 Medical History: Medical History (Updated 04/09/23 @ 01:33 by Jamie Estrella MD) Abnormal stress test Acquired hammer toes of both feet COPD (chronic obstructive pulmonary disease) Diabetes mellitus, type 2 Dizziness History of chest pain History of heart attack Hyperlipidemia Onychomycosis Pain in both feet Psychosis Schizophrenia Assessment and Plan Assessment and plan all Dx Assessment and Plan for all problems:: Pharmacokinetic dosing service Date: Time: Objective: Patient: Floor: Age: 62 yo Serum creatinine: 0.80 mg/dL Height: 68.1 Inches Weight (kg): 63.1 Assessment: IBW (kg): 68.63 Dosing wt(kg): 63.1 Estimated Creatinine clearance (ml/min): 85.4 CRCL method: Cockcroft and Gault using ibw(default). Drug selected: Vancomycin Loading dose (mg): Vd (liters): 50.5 (factor used: 0.8 L/kg) Stewart (hr-1): 0.075 Half life (hrs): 9.24 CLvanco=?? 3.787 L/hr Recommended dose: 1000 mg Interval: 1
[2023-04-09 08:56] LABS: Alanine Aminotransferase 17 U/L (12-78); Albumin Level 3.3 g/dl (3.5-5.0); Albumin/Globulin Ratio 1.1 (1.1-1.8); Alkaline Phosphatase 67 U/L (38-126); Anion Gap 8.7 mEq/L (5-15); Aspartate Amino Transferase 24 U/L (17-59); Bilirubin,Total 0.6 mg/dl (0.2-1.3); Blood Urea Nitrogen 7 mg/dl (9-20); Calcium 7.9 mg/dl (8.4-10.2); Carbon Dioxide 21 mmol/L (22.0-30.0); Chloride 111 mmol/L (98-107); Creatinine Clearance Estimated 68 mL/min (50-200); Estimated Glomerular Filt Rate 114 ml/min (>60); GFR (African American) 138 ML/MIN (>60); Globulin 2.9 g/dL (1.3-3.2); Glucose 95 mg/dl (74-100); Potassium 3.7 mmoL/L (3.5-5.1); Sodium 137 mmol/L (136-145); Total Protein,Serum 6.2 g/dl (6.3-8.2)
--- NOTE | 2023-04-09 09:06 | EXP.POD.CONS ---
History of Present Illness *Admission Date: 04/09/23 *History of present illness: This is a 62-year-old male, from [facility] living home with history of schizoaffective disorder, siz-vpkjxfs-apnqhldbt diabetes, hypertension, hyperlipidemia, intermittent lower extremity claudication brought in by EMS after facility referred him for ischemic ulcer and redness to the right second toe. He was noted by staff to be limping the last couple of days. They noticed the skin changes tonight and sent him to the ER for further evaluation. Patient is alert and interactive but is a very poor historian, therefore data mostly collected from ER documentation and report from referring facility. He is on multiple sedating and antipsychotic medications. He reports no acute concerns at this time. Admitted for treatment and management. Podiatry consult: Reviewed HPI above. Consulted for right second distal toe diabetic ulcer with exposed bone. No ascending cellulitis. At the bedside patient irritable and trying to stand. Poor historian. Unable to ascertain information directly from the patient. Patient was seen and plan of care discussed with hospitalist Dr. Brewer. [facility] Disclaimer: The information contained in this section may have been updated after the patient was seen, as this information can be updated by other users. Medical History Abnormal stress test Acquired hammer toes of both feet COPD (chronic obstructive pulmonary disease) Diabetes mellitus, type 2 Dizziness History of chest pain History of heart attack Hyperlipidemia Onychomycosis Pain in both feet Psychosis Schizophrenia Surgical History Hx of CABG Family History Other No significant family history Social History (Updated 04/09/23 @ 04:32 by Bridgett Fernandez RN) Smoking Status: Unknown if ever smoked second hand exposure: No alcohol intake: never substance use type: denies use current occupational status: retired Travel in the last 8 weeks: None household members: other housing: assisted living facility caffeine: Yes Review of Systems Review of Systems Review of systems:: pertinent systems reviewed and negative unless documented below *Cardiovascular Cardiovascular: Reports system reviewed and no additional complaints, except as documented *Respiratory Respiratory: Reports system reviewed and no additional complaints, except as documented *Gastrointestinal Gastrointestinal: Reports system reviewed and no additional complaints, except as documented *Genitourinary Genitourinary: Reports system reviewed and no additional complaints, except as documented *Musculoskeletal Musculoskeletal: Reports system reviewed and no additional complaints, except as documented Integumentary/Breasts Skin/Breast: Reports skin ulcer and Reports wounds (R 2nd toe) *Neurologic Neurologic: Reports system reviewed and no additional complaints, except as documented and Reports behavioral changes Psychiatric Psychiatric: Reports behavioral changes and Reports irritability Meds Home Medications and Allergies Home Medications Medication Instructions Recorded Confirmed Type divalproex 500 mg tablet,delayed 500 mg PO BID Seizures 05/22/17 04/09/23 History release atorvastatin 40 mg tablet 40 mg PO HS Cholesterol 11/10/18 04/09/23 History ranolazine 500 mg tablet,extended 500 mg PO BID Chest pain 04/10/19 04/09/23 History release,12 hr metoprolol tartrate 25 mg tablet 12.5 mg PO BID High Blood Pressure 04/17/19 04/09/23 History sertraline 100 mg tablet 200 mg PO DAILY Mood 07/18/20 04/09/23 History aspirin 81 mg chewable tablet 81 mg PO DAILY heart health 03/13/21 04/09/23 History famotidine 20 mg tablet 20 mg PO BID acid reflux 03/13/21 04/09/23 History paliperidone 6 mg tablet,extended 12 mg PO DAILY Mood 1
[2023-04-09 14:59] LABS: POC Glucose,Bedside 77 (70-110)
--- NOTE | 2023-04-09 15:05 | PC.NURSE ---
Pt. has pulled out both of his iv's.
[2023-04-09 16:33] LABS: POC Glucose,Bedside 71 (70-110)
[2023-04-09 20:27] LABS: Vancomycin,Peak 20.9 ug/ml (11-39)
[2023-04-09 23:30] LABS: POC Glucose,Bedside 66 (70-110)
[2023-04-10 03:59] VITALS: BMI 21.1
[2023-04-10 04:32] VITALS: BP 112/68; PULSE 80; RESP 24; O2SAT 95
[2023-04-10 05:57] LABS: POC Glucose,Bedside 77 (70-110)
--- NOTE | 2023-04-10 06:17 | PC.NURSE ---
Pt has been resistive of care restless and agitated for the most part of the shift, Pt has complained of pain periodically throughout the shift and has been treated with pain medications which seem to relieve pain and calm the pt for a short time, Pt is calm and resting well at this time.
--- NOTE | 2023-04-10 06:18 | PC.NURSE ---
PATIENT IS ORIENTED TO SELF. CONFUSED. RESTLESS AND COMBATIVE AT TIMES. 1:1 OBSERVATION. BILAT WRIST RESTRAINTS IN USE ALONG WITH MITTENS TO PREVENT PATIENT PULLING IV OUT. SIDE RAILS PADED. NO SIZURE ACTIVITY NOTED. WAS ABLE TO TAKE HIS HS MEDS WITH PUDDING/ AND JUICE. FSBS THIS AM WAS 77.
--- NOTE | 2023-04-10 07:46 | EXP.ACUTE.PN ---
Subjective *Date: 04/10/23 *Time: 10:49 Interval history: Patient has had waxing and waning delirium overnight. Showing slow response to treatment. Has been in restraints. Restraints reevaluated every 8 hours. Reevaluated on morning rounds at 9 AM. Continues to require/necessitate restraints in the setting of agitation and risk for self-harm. Patient stable on room air with normal vitals. Medical Exam Vital signs and Labs for Last 24 Hours: Vital Signs Pulse Resp BP Pulse Ox O2 Del Method 04/10/23 06:47 Room Air 04/10/23 04:56 Room Air 04/10/23 04:32 80 24 112/68 95 Room Air 04/10/23 03:00 Room Air 04/10/23 01:00 Room Air 04/09/23 23:00 Room Air 04/09/23 21:00 Room Air 04/09/23 20:00 95 Room Air 04/09/23 17:40 Room Air 04/09/23 16:22 Room Air 04/09/23 14:40 Room Air 04/09/23 12:26 Room Air 04/09/23 16:00 67 10 L 96/49 L 99 Room Air 04/09/23 09:54 Room Air 04/09/23 09:00 Room Air 04/09/23 08:00 97 Room Air Intake and Output 04/09/23 04/09/23 04/10/23 15:59 23:59 07:59 Intake Total 400 / 1010 490 / 1010 1408 / 1408 Output Total 0 / 1 1 / 1 0 / 0 Balance 400 / 1009 489 / 1009 1408 / 1408 Intake: Intake, Oral Amount 240 / 360 240 / 240 Intake, Total IV Amount 400 / 650 250 / 650 1168 / 1168 0.9 % Sodium Chloride 1000ML 1, 400 / 400 918 / 918 000 ml @ 100 mls/hr IV .Q10H FERNANDA Rx#:[id number] Vancomycin HCl 1,000 mg In 0.9 250 / 250 250 / 250 % Sodium Chloride 250 ml @ 125 mls/hr IV Q12H FERNANDA Rx#:[id number] Output: Output, Urine Amount 0 / 1 1 / 1 0 / 0 Other: Number of Unmeasured Voids 1 2 1 Number of Urine Attends/Diapers 3 Weight 63.095 kg 63.248 kg Patient Weight 04/10/23 23:59 Weight 63.248 kg Laboratory Results - last 24 hr 04/09/23 08:25: WBC 4.2 L D, RBC 3.91 L, Hgb 12.8 L, Hct 38.1 L, MCV 97.4 H, MCH 32.6 H, MCHC 33.5, RDW 14.3, Plt Count 222, MPV 7.4, Neut % (Auto) 58.8, Lymph % (Auto) 28.9, [place] % (Auto) 9.3, Eos % (Auto) 2.6, Baso % (Auto) 0.3, Neut # (Auto) 2.5, Lymph # (Auto) 1.2, [place] # (Auto) 0.4, Eos # (Auto) 0.1, Baso # (Auto) 0.0, Sodium 137, Potassium 3.7, Chloride 111 H, Carbon Dioxide 21 L, Anion Gap 8.7, BUN 7 L D, Creatinine 0.70, Estimated Creat Clear 68, Estimated GFR 114, Est GFR ( Amer) 138, Glucose 95, Calcium 7.9 L, Total Bilirubin 0.6, AST 24, ALT 17, Alkaline Phosphatase 67, Total Protein 6.2 L, Albumin 3.3 L D, Globulin 2.9, Albumin/Globulin Ratio 1.1 04/09/23 14:28: Vancomycin Trough 8.0 04/09/23 14:52: POC Glucose 77 04/09/23 16:26: POC Glucose 71 04/09/23 19:22: Vancomycin Peak 20.9 04/09/23 20:02: POC Glucose 66 L 04/10/23 05:50: POC Glucose 77 I & O for Labs for Last 24 Hours: Intake & Output 04/07/23 04/08/23 04/09/23 04/10/23 23:59 23:59 23:59 23:59 Intake Total 890 / 1010 1408 / 1408 Output Total 0 / 0 Balance 889 / 1009 1408 / 1408 Weight 63.503 kg 63.095 kg 63.248 kg Constitutional: Present mild distress, cachectic, chronically ill appearing, disheveled, combative and agitated Head: Present atraumatic and normocephalic ENT: Present normal exam Neck: Present normal inspection Respiratory: Present CTA bilaterally and normal respiratory effort; Absent rhonchi, wheezes or crackles Cardiac: Present Reg Rate and Rhythm GI: Present normal bowel sounds; Absent tenderness Extremities: Present normal inspection and full ROM Comment:: ecchymosis Skin: Present intact; Absent erythema Neuro: Present Grossly Intact, alert, awake and moves all extremities; Absent oriented x 3 Assessment and Plan *Assessment and plan (1) Right second toe ulcer: Status: Acute Qualifiers: Non-pressure ulcer stage: unspecified non-pressure ulcer stage Qualified Code(s): L97.519 - Non-pressure chronic ulcer of other part of right foot with unspecified severity Category: Medical Code(s): L97.519 - Non-pre
[2023-04-10 09:19] LABS: MANUAL DIFFERENTIAL MANUAL DIFFERENTIAL (MANUAL DIFF)
[2023-04-10 09:30] LABS: Blood Urea Nitrogen 12 mg/dl (9-20); Calcium 8.6 mg/dl (8.4-10.2); Carbon Dioxide 26 mmol/L (22.0-30.0); Chloride 111 mmol/L (98-107); Creatinine Clearance Estimated 69 mL/min (50-200); Estimated Glomerular Filt Rate 98 ml/min (>60); GFR (African American) 119 ML/MIN (>60); Glucose 85 mg/dl (74-100); Sodium 143 mmol/L (136-145)
[2023-04-10 09:37] LABS: Basophils # 0.1 K/mm3 (0-0.2); Basophils % 0.8 % (0.1-2.0); Eosinophils # 0.1 K/mm3 (0.0-0.4); Hematocrit 42.7 % (42.0-52.0); Hemoglobin 13.9 g/dL (14.1-18.0); Lymphocytes # 1.3 K/mm3 (0.7-4.5); Lymphocytes % 21.2 % (10-50); Mean Corpuscular HGB Conc 32.7 g/dL (31.8-35.4); Mean Corpuscular Volume 97.9 fl (80-94); Mean Platelet Volume 7.4 fl (7.4-10.4); Monocytes # 0.6 K/mm3 (0.1-1.0); Monocytes % 10.1 % (1.7-9.3); Neutrophils # 4.1 K/mm3 (1.8-7.8); Neutrophils % 66.9 % (37.0-80.0); Platelet Count 257 K/mm3 (142-424); Red Blood Count 4.36 M/mm3 (4.60-6.20); Red Cell Distribution Width 14.2 % (11.5-17.5); White Blood Count 6.2 K/mm3 (4.8-10.8)
[2023-04-10 11:11] LABS: Lymphocytes % 32 % (10-50); Monocytes % 7 % (2-9); Neutrophils % 61 % (42-76); Platelet Estimate Normal; RBC Morphology Normal; Total Cells Counted 100
[2023-04-10 11:31] LABS: POC Glucose,Bedside 88 (70-110)
[2023-04-10 11:36] VITALS: BP 103/46; PULSE 77; TEMP 37.1; O2SAT 96
--- NOTE | 2023-04-10 13:15 | PC.WOUNDNOTE ---
Skin tear noted with blister below it to (R) wrist
--- NOTE | 2023-04-10 15:26 | PC.NURSE ---
Pt has been very anxious,restless and confused this shift. Alert to self only. He is resistive to care and follows very few commands. Pt has resisted soft wrist restraints by pulling arms constantly. He also has tried multiple times pulling and pushing causing shearing to himself. Pt noted to have multiple bruising to chest and arms upon assessment. He also has skin tears to wrists with a blister noted to RUTomas. MD aware. DSGs placed to BUE to skin areas at risk or compromised. Wrist restraints and hand mitts assessed. Pt is 1:1. He is incontinent and has a brief on. Turned/repositioned as neede or as pt will allow. Appetite fair this afternoon. He is currently sleeping at this time. Safety measures in place.
--- NOTE | 2023-04-10 16:53 | PC.NURSE ---
Addendum entered by Tiffani Diaz RN 04/10/23 18:24: Pt does not have IV. aware. Original Note: Restraints reassessed and replaced. New DSGs placed to wrists. Preventive measures such as DSGs and padding placed to elbows and bony prominences for precaution.
[2023-04-10 17:10] VITALS: BP 117/82; PULSE 84; RESP 24; TEMP 36.6; O2SAT 96
--- NOTE | 2023-04-10 17:44 | EXP.EVENT.NO ---
Re-evaluated need for restraints. Continues to be delirious and agitated, pulling at IV's. Presents harm to self and risk of imminent danger. Continue restraints.
[2023-04-10 17:54] LABS: POC Glucose,Bedside 129 (70-110)
[2023-04-10 19:49] VITALS: BP 119/52; PULSE 76; RESP 18; TEMP 37.1; O2SAT 95
[2023-04-10 20:00] VITALS: O2SAT 95
[2023-04-10 20:53] LABS: POC Glucose,Bedside 115 (70-110)
--- NOTE | 2023-04-11 00:14 | PC.NURSE ---
patient oriented to person, place. cooperative. more coherent. wrist restraints removed. will have 1;1 continued until patient shows stability ongoing.
[2023-04-11 04:00] VITALS: BP 124/69; PULSE 57; RESP 18; TEMP 36.7; O2SAT 98; BMI 21.5
--- NOTE | 2023-04-11 05:25 | PC.NURSE ---
0525 1:1 MONITORING STOPPED PATIENT MORE COHERENT AND COOPERATIVE. BED ALARM ON.
[2023-04-11 05:59] LABS: POC Glucose,Bedside 95 (70-110)
[2023-04-11 06:50] LABS: MANUAL DIFFERENTIAL MANUAL DIFFERENTIAL (MANUAL DIFF)
[2023-04-11 07:08] LABS: Basophils % 0.5 % (0.1-2.0); Eosinophils # 0.1 K/mm3 (0.0-0.4); Hematocrit 38.6 % (42.0-52.0); Hemoglobin 12.9 g/dL (14.1-18.0); Lymphocytes # 1.8 K/mm3 (0.7-4.5); Lymphocytes % 28.3 % (10-50); Mean Corpuscular HGB Conc 33.5 g/dL (31.8-35.4); Mean Corpuscular Hemoglobin 32.3 pg (27.0-31.2); Mean Corpuscular Volume 96.4 fl (80-94); Mean Platelet Volume 7.7 fl (7.4-10.4); Monocytes # 0.6 K/mm3 (0.1-1.0); Monocytes % 8.8 % (1.7-9.3); Neutrophils # 3.9 K/mm3 (1.8-7.8); Neutrophils % 60.5 % (37.0-80.0); Platelet Count 226 K/mm3 (142-424); Red Blood Count 4.01 M/mm3 (4.60-6.20); Red Cell Distribution Width 14.2 % (11.5-17.5); White Blood Count 6.4 K/mm3 (4.8-10.8)
[2023-04-11 07:11] LABS: Anion Gap 6.4 mEq/L (5-15); Blood Urea Nitrogen 10 mg/dl (9-20); Calcium 7.8 mg/dl (8.4-10.2); Carbon Dioxide 24 mmol/L (22.0-30.0); Chloride 102 mmol/L (98-107); Creatinine Clearance Estimated 70 mL/min (50-200); Estimated Glomerular Filt Rate 137 ml/min (>60); GFR (African American) 165 ML/MIN (>60); Glucose 82 mg/dl (74-100); Potassium 3.4 mmoL/L (3.5-5.1); Sodium 129 mmol/L (136-145)
[2023-04-11 07:30] LABS: Lymphocytes % 41 % (10-50); Monocytes % 6 % (2-9); Neutrophils % 53 % (42-76); Platelet Estimate Normal; RBC Morphology Normal; Total Cells Counted 100
[2023-04-11 07:34] VITALS: BP 116/73; PULSE 64; RESP 18; TEMP 37; O2SAT 98
--- NOTE | 2023-04-11 09:24 | CT_ITS ---
FINAL REPORT TECHNIQUE: Thin section axial CT images with coronal and sagittal reformats were performed. This study was performed with techniques to keep radiation doses as low as reasonably achievable (ALARA). Individualized dose reduction techniques using automated exposure control or adjustment of mA and/or kV according to the patient''s size were employed. CLINICAL HISTORY: eval right foot second digit for osteo COMPARISON: None FINDINGS: There is a chronic deformity of the distal tibia, likely chronic fracture. Osteopenia is noted. There is mild and moderate degenerative change. There is a probable erosion of the distal tip of the second distal phalanx worrisome for osteomyelitis in this region. There is soft tissue swelling of the second digit. IMPRESSION: Findings in the second distal phalanx worrisome for osteomyelitis. Reviewed, Interpreted and Dictated by Crow Hannon III, MD Transcribed by Elvira Camarena Authenticated and [facility]
[2023-04-11 10:51] LABS: POC Glucose,Bedside 118 (70-110)
[2023-04-11 15:05] VITALS: BP 116/68; PULSE 55; RESP 18; TEMP 36.6; O2SAT 96
[2023-04-11 15:51] LABS: POC Glucose,Bedside 94 (70-110)
--- NOTE | 2023-04-11 17:48 | EXP.ACUTE.PN ---
Subjective *Date: 04/11/23 *Time: 17:48 Interval history: Patient came out of restraints last night at midnight. Slept well. Appears at baseline mentation this morning. Ate breakfast. Cooperative and answering questions appropriately. Taking meds by mouth. No fever, chest pain, shortness of breath. Asking questions about his toe. Medical Exam Vital signs and Labs for Last 24 Hours: Vital Signs Temp Pulse Resp BP Pulse Ox O2 Del Method 04/11/23 15:05 97.8 F 55 L 18 116/68 96 Room Air 04/11/23 07:34 98.6 F 64 18 116/73 98 Room Air 04/11/23 06:34 Room Air 04/11/23 04:00 98.0 F 57 L 18 124/69 98 Room Air 04/11/23 05:00 Room Air 04/11/23 03:00 Room Air 04/11/23 00:52 Room Air 04/10/23 23:00 Room Air 04/10/23 21:00 Room Air 04/10/23 20:00 95 Room Air 04/10/23 19:49 98.7 F 76 18 119/52 L 95 Room Air 04/10/23 18:29 Room Air Intake and Output 04/11/23 04/11/23 04/11/23 07:59 15:59 23:59 Intake Total 1200 / 1920 360 / 1920 360 / 1920 Output Total 275 / 275 Balance 1200 / 1645 85 / 1645 360 / 1645 Intake: Intake, Oral Amount 1200 / 1920 360 / 1920 360 / 1920 Output: Output, Urine Amount 275 / 275 Other: Number of Unmeasured Voids 0 Number of Bowel Movements 1 Weight 64.41 kg Patient Weight 04/11/23 23:59 Weight 64.41 kg Laboratory Results - last 24 hr 04/10/23 17:25: POC Glucose 129 H 04/10/23 20:46: POC Glucose 115 H 04/11/23 04:56: POC Glucose 95 04/11/23 06:04: WBC 6.4, RBC 4.01 L, Hgb 12.9 L, Hct 38.6 L, MCV 96.4 H, MCH 32.3 H, MCHC 33.5, RDW 14.2, Plt Count 226, MPV 7.7, Neut % (Auto) 60.5, Lymph % (Auto) 28.3, Coffee % (Auto) 8.8, Eos % (Auto) 2.0, Baso % (Auto) 0.5, Neut # (Auto) 3.9, Lymph # (Auto) 1.8, Coffee # (Auto) 0.6, Eos # (Auto) 0.1, Baso # (Auto) 0.0, Total Counted 100, Neutrophils % (Manual) 53, Lymphocytes % (Manual) 41, Monocytes % (Manual) 6, Platelet Estimate Normal, RBC Morphology Normal, Sodium 129 L, Potassium 3.4 L, Chloride 102, Carbon Dioxide 24, Anion Gap 6.4, BUN 10, Creatinine 0.60 L D, Estimated Creat Clear 70, Estimated GFR 137, Est GFR ( Amer) 165 D, Glucose 82, Calcium 7.8 L 04/11/23 10:41: POC Glucose 118 H 04/11/23 15:44: POC Glucose 94 I & O for Labs for Last 24 Hours: Intake & Output 04/08/23 04/09/23 04/10/23 04/11/23 23:59 23:59 23:59 23:59 Intake Total 890 / 1010 3052 / 3892 1920 / 1920 Output Total 0 / 0 275 / 275 Balance 889 / 1009 3052 / 3892 1645 / 1645 Weight 63.503 kg 63.095 kg 63.248 kg 64.41 kg Constitutional: Present no acute distress, cachectic, chronically ill appearing, disheveled, combative and agitated Head: Present atraumatic and normocephalic ENT: Present normal exam Neck: Present normal inspection Respiratory: Present CTA bilaterally and normal respiratory effort; Absent rhonchi, wheezes or crackles Cardiac: Present Reg Rate and Rhythm GI: Present normal bowel sounds; Absent tenderness Extremities: Present normal inspection and full ROM Comment:: ecchymosis Skin: Present intact; Absent erythema Comment:: Bruising of wrists Neuro: Present Grossly Intact, alert, awake, oriented x 3 and moves all extremities Assessment and Plan *Assessment and plan (1) Right second toe ulcer: Status: Acute Qualifiers: Non-pressure ulcer stage: unspecified non-pressure ulcer stage Qualified Code(s): L97.519 - Non-pressure chronic ulcer of other part of right foot with unspecified severity Category: Medical Code(s): L97.519 - Non-pressure chronic ulcer of other part of right foot with unspecified severity (2) Electrolyte depletion: Status: Acute Category: Medical Code(s): E87.8 - Other disorders of electrolyte and fluid balance, not elsewhere classified (3) Intermittent claudication: Status: Acute Category: Medical Code(s): I73.9 - Peripheral vascular disease, unspecified (4) Bianka
--- NOTE | 2023-04-11 18:30 | INFXCTL.NOTE ---
Patient walked with nursing staff 4 times this shift 1 assist. Patient back to baseline this shift
[2023-04-11 20:00] VITALS: BP 110/70; PULSE 67; RESP 16; TEMP 36.9; O2SAT 98
[2023-04-11 20:38] LABS: POC Glucose,Bedside 126 (70-110)
[2023-04-12 04:00] VITALS: BP 92/54; PULSE 55; RESP 17; TEMP 36.6; O2SAT 93; BMI 22.3
--- NOTE | 2023-04-12 05:31 | PC.NURSE ---
Patient has had a good night. Patient got a shower, and dressing on bilateral arms were changed, also iodine was placed on the R 2nd tow. The patient has been continent through the night and did have a BM. No other issues noted
[2023-04-12 05:32] LABS: POC Glucose,Bedside 84 (70-110)
[2023-04-12 06:25] VITALS: BMI 22.3
--- NOTE | 2023-04-12 07:07 | EXP.DC.SUM ---
General Admission date:: 04/09/23 Discharge date: 04/12/23 HPI HPI HPI: This is a 62-year-old male, from [place] assisting living home with history of schizoaffective disorder, yzs-hexoedr-dvxsutlor diabetes, hypertension, hyperlipidemia, intermittent lower extremity claudication brought in by EMS after facility referred him for ischemic ulcer and redness to the right second toe. He was noted by staff to be limping the last couple of days. They noticed the skin changes tonight and sent him to the ER for further evaluation. Patient is alert and interactive but is a very poor historian, therefore data mostly collected from ER documentation and report from referring facility. He is on multiple sedating and antipsychotic medications. He reports no acute concerns at this time. Admitted for treatment and management. Podiatry consult: Reviewed HPI above. Consulted for right second distal toe diabetic ulcer with exposed bone. No ascending cellulitis. At the bedside patient irritable and trying to stand. Poor historian. Unable to ascertain information directly from the patient. Patient was seen and plan of care discussed with hospitalist Dr. Brewer. Hospital Course Hospital Course Hospital Course: 62-year-old male, from [place] assisting living home with history of schizoaffective disorder, okg-mvwuzps-roeoziavm diabetes, hypertension, hyperlipidemia, intermittent lower extremity claudication brought in by EMS after facility referred him for ischemic ulcer and redness to the right second toe. Appears to have osteomyelitis of the distal phalange of his second toe on right foot. Initially had delirium/psychosis. Mentation gradually improved over 36 hours with adjustments of medications. Initially necessitated restraints and has been out of restraints and back to baseline mentation for over 36 hours prior to discharge. Will continue oral antibiotics for the infection in his foot. Adjustments made to his psychiatric medications. Stable to return back to personal care setting with close follow-up with podiatry in the coming week for amputation of toe. Problems addressed during hospitalization as follows Schizoaffective disorder Delirium/psychosis, resolved -Patient had acute delirium. Necessitated significant doses of Haldol and Valium. Finally improved and his mentation after some good rest and necessitating restraints for proximately 36 hours. Adjustments made to his regimen with addition of Valium. Haldol reduced back to twice daily as he will resume his paliperidone upon arrival to his personal-[facility]. No other adjustments to psychiatric medications at this time. Medication sent to [facility] pharmacy. As he is back to baseline mentation for the past 36 hours, he is stable to discharge. Was unable to consent to procedure due to his delirium and therefore we plan to bring him back as an outpatient for surgical intervention on his foot. -Right second toe ulcer: -Osteomyelitis of distal phalange right second toe -Cellulitis: Improving CT obtained of right foot. Personally reviewed. Shows erosion of distal phalange and second toe. Consistent with osteomyelitis. White cell count stable at 6.4. Podiatry was consulted. Initiated on doxycycline 100 mg twice daily. No signs of systemic infection. Stable to discharge home with return outpatient this week for amputation. Exam Data for Last 24 hours Vital signs and Labs for Last 24 Hours: Temp Pulse Resp BP Pulse Ox O2 Del Method 97.9 F 55 L 17 92/54 L 93 L Room Air 04/12/23 04:00 04/12/23 04:00 04/12/23 04:00 04/12/23 04:00 04/12/23 04:00 04/12/23 06:57 Laboratory Results - last 24 hr 04/11/23 06:04: WBC 6.4, RBC 4.01 L, Hgb 12.9 L, Hct 38.6 L, MCV 96.4 H, MCH 32.3 H, MCHC 33.5, RDW 14.2, Plt Count 226, MPV 7.7, Neut % (Auto) 60.5, Lymph % (Auto) 28.3, Becker % (Auto) 8.8, Eos % (Auto) 2.0, Baso % (Auto) 0.5, Neut # (Auto) 3.9, Lymph # (Auto) 1.8, Becker # (Auto) 0.6, E
[2023-04-12 07:09] LABS: MANUAL DIFFERENTIAL MANUAL DIFFERENTIAL (MANUAL DIFF)
[2023-04-12 07:23] LABS: Basophils % 0.3 % (0.1-2.0); Eosinophils # 0.2 K/mm3 (0.0-0.4); Eosinophils % 3.8 % (0.1-12.0); Hematocrit 40.1 % (42.0-52.0); Hemoglobin 13.4 g/dL (14.1-18.0); Lymphocytes % 33.4 % (10-50); Mean Corpuscular HGB Conc 33.5 g/dL (31.8-35.4); Mean Corpuscular Hemoglobin 32.4 pg (27.0-31.2); Mean Corpuscular Volume 96.5 fl (80-94); Mean Platelet Volume 7.9 fl (7.4-10.4); Monocytes # 0.4 K/mm3 (0.1-1.0); Monocytes % 6.1 % (1.7-9.3); Neutrophils # 3.4 K/mm3 (1.8-7.8); Neutrophils % 56.4 % (37.0-80.0); Platelet Count 230 K/mm3 (142-424); Red Blood Count 4.15 M/mm3 (4.60-6.20); Red Cell Distribution Width 14.1 % (11.5-17.5); White Blood Count 6.1 K/mm3 (4.8-10.8)
[2023-04-12 07:30] LABS: Carbon Dioxide 24 mmol/L (22.0-30.0); Chloride 104 mmol/L (98-107)
[2023-04-12 07:31] LABS: Anion Gap 5.9 mEq/L (5-15); Blood Urea Nitrogen 10 mg/dl (9-20); Creatinine Clearance Estimated 72 mL/min (50-200); Estimated Glomerular Filt Rate 137 ml/min (>60); GFR (African American) 165 ML/MIN (>60); Glucose 106 mg/dl (74-100); Potassium 3.9 mmoL/L (3.5-5.1); Sodium 130 mmol/L (136-145)
[2023-04-12 07:53] VITALS: BP 175/67; PULSE 99; RESP 19; TEMP 37; O2SAT 99
[2023-04-12 08:20] VITALS: PULSE 99; O2SAT 90
--- NOTE | 2023-04-12 10:32 | PC.NURSE ---
Report given to staff at [facility] at 1030. 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
[2023-04-12 13:49] LABS: Eosinophils % 2 % (0-3); Lymphocytes % 32 % (10-50); Monocytes % 11 % (2-9); Neutrophils % 55 % (42-76); Platelet Estimate Normal; RBC Morphology Normal; Total Cells Counted 100
--- NOTE | 2023-04-14 08:50 | SW/DCPLANNER ---
I received an order for home health services for this patient. Patient currently resides at [facility] and not a candidate for home health services due to [facility]. Patient does have a follow up appointment w/ POD tomorrow and I have updated Abdon in POD regarding situation. Abdon stated that once he is evaluated MD they will set up outpatient wound at [facility] vs surgery.
[2023-04-15 09:58] LABS: Free Valproic Acid (Depakote) 23.1
== END 2023-04-12 10:50 | disposition home health service (06) | DRG 638 ==
LOC: ER 23:44 → 2ND 04-09 00:45
PROVIDERS: Nurse Practitioner Family; Podiatrist; Admitting Provider Internal Medicine Adolescent Medicine; Emergency Provider Emergency Medicine; PCP Emergency Medicine; Visit Provider Internal Medicine Adolescent Medicine
DX: E87.1 Hypo-osmolality and hyponatremia (principal); E11.69 Type 2 diabetes mellitus with other specified complication; L03.115 Cellulitis of right lower limb; M86.9 Osteomyelitis, unspecified; L97.919 Non-pressure chronic ulcer of unspecified part of right lower leg with unspecified severity; E11.621 Type 2 diabetes mellitus with foot ulcer; L97.514 Non-pressure chronic ulcer of other part of right foot with necrosis of bone; I73.9 Peripheral vascular disease, unspecified; L97.519 Non-pressure chronic ulcer of other part of right foot with unspecified severity; I25.10 Atherosclerotic heart disease of native coronary artery without angina pectoris; I10 Essential (primary) hypertension; Z95.1 Presence of aortocoronary bypass graft; F10.10 Alcohol abuse, uncomplicated; E87.6 Hypokalemia; Z78.1 Physical restraint status; F25.9 Schizoaffective disorder, unspecified; E11.622 Type 2 diabetes mellitus with other skin ulcer; E11.51 Type 2 diabetes mellitus with diabetic peripheral angiopathy without gangrene
CPT/HCPCS: 36415; 73630; 73700; 80048; 80053; 80165; 80202; 82962; 83605; 85007; 85014; 85018; 85025; 85048; 85049; 85610; 85651; 85730; 86140; 87040; 99285; J2543; J3370

== ENCOUNTER 2023-04-13 05:30 | Emergency (ER) | payer BC, SELFPAY ==
[2023-04-13 05:30] VITALS: BP 119/63; PULSE 66; RESP 20; TEMP 36.4; O2SAT 100; BMI 22.1
--- NOTE | 2023-04-13 05:34 | HMH.EDGENADL ---
Discharge Plan Disposition Patient Disposition: Home, Self-Care Prescriptions Prescriptions: New benztropine 2 mg tablet 2 mg PO BID Qty: 90 0RF No Action megestrol 20 mg tablet 20 mg PO DAILY isosorbide mononitrate 30 mg Tablet Extended Release 24 Hr 30 mg PO DAILY sertraline 100 MG tablet 200 mg PO DAILY aspirin 81 MG tablet,chewable 81 mg PO DAILY paliperidone 6 MG tablet extended release 24 hr 12 mg PO DAILY donepezil 10 mg Tablet 10 mg PO Referrals Follow up/Referrals: Arthur Baker MD [Primary Care Provider] - See instructions Activity Restrictions/Add. Instructions Additional Instructions/Restrictions: I believe that your tremor and movement issues are related to the antipsychotic medications that you are prescribed. This is called drug-induced parkinsonism. If possible, I recommend that you reduce the dosage of the medications in consultation with the physician who prescribes your antipsychotics. Please begin taking benztropine that has been prescribed, it is a medication that can help with the side effects of the medications you are taking. 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 Patient is an extremely poor historian. The facility where he resides reports that he has been slower and more shaky than normal. While in the hospital he was given Haldol and had adjustments in his antipsychotic medications. Patient was previously on benztropine but is no longer on menstrual pain. Patient has no acute complaints related to his toe or other symptoms, just reports that he feels shaky. Related Data Home Medications Medication Instructions Recorded Confirmed sertraline 100 mg tablet 200 mg PO DAILY Mood 07/18/20 04/13/23 aspirin 81 mg chewable tablet 81 mg PO DAILY heart health 03/13/21 04/13/23 paliperidone 6 mg tablet,extended 12 mg PO DAILY Mood 03/13/21 04/13/23 release 24 hr megestrol 20 mg tablet 20 mg PO DAILY Appetite Stimulant 02/12/23 04/13/23 isosorbide mononitrate 30 mg 30 mg PO DAILY High Blood Pressure 03/25/23 04/13/23 tablet,extended release 24 hr donepezil 10 mg tablet 10 mg PO HS Memory 04/09/23 04/13/23 Previous Rx's Medication Instructions Recorded benztropine 2 mg tablet 2 mg PO BID #90 tabs 04/13/23 Allergies Allergy/AdvReac Type Severity Reaction Status Date / Time No Known Allergies Allergy Verified 02/12/23 09:45 [facility] Disclaimer: The information contained in this section may have been updated after the patient was seen, as this information can be updated by other users. Medical History Abnormal stress test Acquired hammer toes of both feet COPD (chronic obstructive pulmonary disease) Diabetes mellitus, type 2 Dizziness History of chest pain History of heart attack Hyperlipidemia Onychomycosis Pain in both feet Psychosis Schizophrenia Surgical History Hx of CABG Family History Other No significant family history Social History (Updated 04/09/23 @ 04:32 by Bridgett Fernandez RN) Smoking Status: Current every day smoker tobacco type: cigarettes packs per day: 1 second hand exposure: No alcohol intake: never substance use type: denies use current occupational status: retired Travel in the last 8 weeks: None household me
[2023-04-13 05:54] LABS: POC Glucose,Bedside 75 (70-110)
[2023-04-13 06:31] VITALS: BP 123/72; PULSE 69; O2SAT 100
--- NOTE | 2023-04-13 06:39 | PC.NURSE ---
wrapped patient in antibiotic/petroleum gauze on the blistered areas and also rapped with cling wrap and franko bandage.
--- NOTE | 2023-04-13 08:55 | PC.NURSE ---
called again for pt transport they advised they left at 830
--- NOTE | 2023-04-13 09:26 | PC.NURSE ---
[facility] here for pt
[2023-04-13 09:33] VITALS: BP 123/72; PULSE 69; RESP 20; TEMP 36.4; O2SAT 100
== END 2023-04-13 09:33 | disposition home or self-care (01) ==
PROVIDERS: Emergency Provider Emergency Medicine; PCP Emergency Medicine
DX: G21.19 Other drug induced secondary parkinsonism (principal); E11.9 Type 2 diabetes mellitus without complications; I11.9 Hypertensive heart disease without heart failure; I25.10 Atherosclerotic heart disease of native coronary artery without angina pectoris; J44.9 Chronic obstructive pulmonary disease, unspecified; E78.5 Hyperlipidemia, unspecified; F20.9 Schizophrenia, unspecified; F17.210 Nicotine dependence, cigarettes, uncomplicated
CPT/HCPCS: 82962; 96372; 99283

== ENCOUNTER 2023-04-17 08:56 | Day surgery (SDC) | payer BC, SELFPAY ==
[2023-04-15 16:49] VITALS: BMI 20.2
[2023-04-17] MEDS: LACTATED RINGERS 1000ML 1,000 ML 25 ML IV (09:17)
[2023-04-17 09:33] VITALS: BP 117/79; PULSE 82; RESP 18; TEMP 36.6; O2SAT 99
[2023-04-17 09:37] LABS: POC Glucose,Bedside 90 (70-110)
[2023-04-17 09:50] LABS: Basophils % 0.4 % (0.1-2.0); Eosinophils # 0.2 K/mm3 (0.0-0.4); Eosinophils % 3.1 % (0.1-12.0); Hematocrit 40.8 % (42.0-52.0); Hemoglobin 13.4 g/dL (14.1-18.0); Lymphocytes # 1.5 K/mm3 (0.7-4.5); Lymphocytes % 24.8 % (10-50); Mean Corpuscular HGB Conc 32.8 g/dL (31.8-35.4); Mean Corpuscular Hemoglobin 32.5 pg (27.0-31.2); Monocytes # 0.4 K/mm3 (0.1-1.0); Monocytes % 5.8 % (1.7-9.3); Neutrophils % 65.9 % (37.0-80.0); Platelet Count 262 K/mm3 (142-424); Red Blood Count 4.12 M/mm3 (4.60-6.20); Red Cell Distribution Width 14.4 % (11.5-17.5); White Blood Count 6.1 K/mm3 (4.8-10.8)
[2023-04-17 09:59] LABS: Alanine Aminotransferase 23 U/L (12-78); Albumin Level 3.5 g/dl (3.5-5.0); Albumin/Globulin Ratio 1.1 (1.1-1.8); Alkaline Phosphatase 65 U/L (38-126); Aspartate Amino Transferase 24 U/L (17-59); Bilirubin,Total 0.5 mg/dl (0.2-1.3); Blood Urea Nitrogen 11 mg/dl (9-20); Calcium 8.3 mg/dl (8.4-10.2); Carbon Dioxide 25 mmol/L (22.0-30.0); Chloride 108 mmol/L (98-107); Creatinine Clearance Estimated 67 mL/min (50-200); Estimated Glomerular Filt Rate 98 ml/min (>60); GFR (African American) 119 ML/MIN (>60); Globulin 3.1 g/dL (1.3-3.2); Glucose 92 mg/dl (74-100); Sodium 137 mmol/L (136-145); Total Protein,Serum 6.6 g/dl (6.3-8.2)
--- NOTE | 2023-04-17 10:01 | P.PNANES_ITS ---
[facility] Disclaimer: The information contained in this section may have been updated after the patient was seen, as this information can be updated by other users. Medical History Abnormal stress test Acquired hammer toes of both feet COPD (chronic obstructive pulmonary disease) Diabetes mellitus, type 2 Dizziness History of chest pain History of heart attack Hyperlipidemia Onychomycosis Pain in both feet Psychosis Schizophrenia Surgical History Hx of CABG Family History Other No significant family history Social History Smoking Status: Current every day smoker tobacco type: cigarettes packs per day: 1 second hand exposure: No alcohol intake: never substance use type: denies use current occupational status: retired Travel in the last 8 weeks: None household members: other housing: assisted living facility caffeine: Yes [facility] Anesthesia Checklist Patient Identification Patient Identification: Arm Band Structural Data Admitted From: Home Planned Operative Procedure/s: Right 2nd Toe Amputation Consent for Planned Operative Procedure(s) Verified: Yes Verified Documents: Surgical Consent and History and Physical NPO Status Verified Time NPO: 00:00 Additional verifications Anesthesia Reactions: No Hx Blood Transfusions: Yes Blood Transfusion Reaction: No Airway Assessment Mallampati Score:: Class II C-Spine Mobility Assessed: Yes TMJ Mobility Assessed: Yes Dentition: Edentulous Neurological Assessment Level of Consciousness: Awake and Alert Anesthesia Plan Anesthesia Risk discussed: Yes Anesthesia Plan: Verified ASA Class: III Anesthesia Type: MAC
[2023-04-17 10:05] LABS: C-Reactive Protein 20.4 mg/L (0-4)
[2023-04-17] MEDS: CEFEPIME HCL 1 GM in 0.9 % SODIUM CHLORIDE 50 ML IV (10:34)
[2023-04-17] MEDS: VANCOMYCIN HCL 1,000 MG in 0.9 % SODIUM CHLORIDE 250 ML 125 MG IV (10:48)
[2023-04-17] MEDS: GENTAMICIN 80 MG/2 ML VIAL (10:51)
[2023-04-17] MEDS: BUPIVACAINE 0.5% 30ML VIAL 150 MG (10:51)
--- NOTE | 2023-04-17 11:24 | EXP.OP.NOTE ---
Date of procedure: 04/17/23 Pre-op Diagnosis:: Right second toe osteomyelitis Right second toe DFU Nail dystrophy Bilateral foot calluses Post-op Diagnosis:: Same Procedure performed:: Right second toe partial amputation Callus debridement x 4 Nail debridement x 9 Surgeon:: Joan Brown DPM [employer]INE OPERATOR:: Other (Enrique Roger) Anesthesia: MAC and local (0.5% siena plain) Estimated blood loss (mL): 5 Clinical Note:: 62-year-old diabetic male with right second toe ulcer who had recent [facility] admission from 04/09 - 04/12/2023. At the time of the admission patient was unable to tolerate ABIs or MRI and unable to sign his own consent due to altered mental status. Patient was discharged in stable condition to follow-up outpatient. We discussed conservative versus surgical treatment options for the diabetic foot ulcer and osteomyelitis. Conservative treatment options include local wound care, oral and IV antibiotics, change in shoe wear, taping/padding, and off-loading. We discussed surgical intervention for amputation of the right second toe. Patient understands that there is a chance that the toes can migrate to fill the gap or the foot may change shape after surgery. Patient also understands that they could have wound healing complications including delayed healing and infection. We discussed that if the wound does not heal, it is possible that they may need a more proximal amputation and could result in further loss of digits, loss of partial foot or loss of leg. We discussed the risks and benefits in great detail. Other surgical risks include: prolonged pain and swelling, further infection requiring oral or IV antibiotics, delay in healing of soft tissue or bone, nerve or blood vessel damage, CRPS/RSD, DVT, anesthesia complications, and even . All questions answered. Patient verbalized understanding. Consent obtained. Operative findings:: Right distal second toe ulcer noted. Toe has localized edema, minimal erythema. Ulcer does probe full-thickness to the level of the bone, 0.5x0.5x1cm. No purulence or drainage, no wound culture taken. Distal phalanx completely eroded. Middle phalanx was soft and crumbly at the head with mild malodor. Proximal phalanx head appeared to be intact with no evidence of cortical erosions or osteomyelitis. Infection seem localized to the tip of the toe. Elongated thick fungal toenails x10. Right sub first, fifth sub metatarsal calluses. Left sub first and third metatarsal calluses. Calluses had no underlying ulcer postdebridement. Operative note:: On this date and time patient was deemed an appropriate surgical candidate. With informed consent signed, the patient was taken to the operating theater. The patient was positioned supine. MAC anesthesia was induced. No tourniquet used. Pre-op right second toe block given with 10 cc 0.5% marcaine plain. Bilateral feet prep with Betadine. IV vancomycin and cefepime infused. Nail debridement x 9: Elongated thick yellow dystrophic nails were debrided with a nail nipper without complication. Callus debridement x 4: Right subfirst and fifth metatarsal calluses and left subfirst and third metatarsal calluses sharply debrided through skin with 15 blade. No underlying ulcerations noted. Mild bleeding from the left foot calluses. Triple antibiotic ointment and a Band-Aid applied to the left foot. Right 2nd irrigation and debridement, partial digit amputation: The right lower extremity was reprepped and drapped in normal sterile fashion. A fish mouth incision was mapped out around the middle phalanx base. Utilizing a 15 blade dissection was carried down sharply to the level of the bone around the medial phalanx which was disarticulated from the proximal phalanx. The distal phalanx bone was soft and crumbly and had a mild malodor to it. The distal toe including the phalanx and ulcer was sent to pathology. Middle phalanx was soft and crumbly. Portion of it was cut and sent for bone culture and the other part was sent for bone pathology. Attention was then directed to the proximal phalanx. The head of the proximal phalanx head was intact with no cortical erosions, discoloration or obvious signs of osteomyelitis. Next gentamicin irrigation was used to flush the wound. The wound was reexplored and no further signs of infection noted. Bleeding controlled. No vessels ligated with electrocautery or tied as there was minimal to no blood loss. Vicryl used to close tissue over the head of the phalanx. Prolene was used to close skin in an interrupted simple suture fashion. 10 cc 0.5% marcaine plain injected into right foot. The wounds were cleansed. Betadine, dry sterile dressing was then applied to the right foot. The patient was awoken from anesthesia and transferred to recovery with vital signs stable and neurovascular status intact. Patient tolerated procedure anesthesia well without complication Discharge/Plan: Patient is to maintain dressing clean dry and intact unless foot gets wet then change. Right foot: betadine soaked gauze, dry gauze, zac, franko. Left foot: triple abx ointment and band-aide. Partial weight bearing to the right heel in post op shoe. FWB to left foot. Obtain post op films, right foot, 3 views. Follow up in one week. Condition: stable Disposition: same day Specimens:: Right second toe path Right second toe middle phalanx bone path Right second toe middle phalanx bone culture Complications:: None
[2023-04-17 11:28] VITALS: BP 131/87; PULSE 81; RESP 14; TEMP 36.6; O2SAT 98
--- NOTE | 2023-04-17 11:30 | XR_ITS ---
FINAL REPORT CLINICAL HISTORY: Post op amp right foot 2nd digit COMPARISON: None FINDINGS: RIGHT FOOT 3 views of the right foot were obtained. Status post amputation of the 2nd mid and distal phalanges. Overlying dressing obscures visualization. The bones are osteopenic. There is no acute fracture or dislocation. Visualized joint spaces are normally aligned. Soft tissues are unremarkable. IMPRESSION: Postoperative changes from amputation 2nd digit. Reviewed, Interpreted and Dictated by Felipe Mcallister MD Transcribed by Elvira Camarena Authenticated and [facility]
[2023-04-17 11:38] VITALS: BP 129/81; PULSE 80; RESP 16; O2SAT 100
[2023-04-17 11:48] VITALS: BP 138/74; PULSE 78; RESP 16; O2SAT 100
[2023-04-17 11:58] VITALS: BP 113/74; PULSE 91; RESP 18; O2SAT 98
[2023-04-17 12:02] LABS: Erythrocyte Sedimentation Rate 26 mm/hr (0-20)
[2023-04-17 12:20] VITALS: BP 112/82; PULSE 81; RESP 18; O2SAT 98
== END 2023-04-17 12:20 | disposition home or self-care (01) ==
PROVIDERS: PCP Emergency Medicine; Visit Provider Podiatrist
PROC: (CPT 28820; principal; 2023-04-17 10:30)
DX: E11.621 Type 2 diabetes mellitus with foot ulcer (principal); L97.514 Non-pressure chronic ulcer of other part of right foot with necrosis of bone; J44.9 Chronic obstructive pulmonary disease, unspecified; E78.5 Hyperlipidemia, unspecified; F17.210 Nicotine dependence, cigarettes, uncomplicated; Z79.899 Other long term (current) drug therapy; M86.271 Subacute osteomyelitis, right ankle and foot; L60.3 Nail dystrophy; L84 Corns and callosities
CPT/HCPCS: 28820; G0127; 73630; 80053; 82962; 85025; 85651; 86140; 88304; 96374; J0692; J2405; J3370

== ENCOUNTER 2023-05-25 20:27 | Observation (INO) | payer BC, SELFPAY ==
[2023-05-25] VITALS (7 sets, daily range): BP systolic 88–140; BP diastolic 46–84; PULSE 76–96; RESP 14–16; TEMP 36.6; O2SAT 95–98; BMI 21.2
--- NOTE | 2023-05-25 20:29 | CT_ITS ---
PROCEDURE INFORMATION: Exam: CT Head Without Contrast Exam date and time: 05/25/2023 11:53 PM Age: 62 years old Clinical indication: Other: AMS TECHNIQUE: Imaging protocol: Computed tomography of the head without contrast. Radiation optimization: All CT scans at this facility use at least one of these dose optimization techniques: automated exposure control; mA and/or kV adjustment per patient size (includes targeted exams where dose is matched to clinical indication); or iterative reconstruction. COMPARISON: 1. CT HEAD/BRAIN WO CON 07/17/2022 1:[address] HEAD/BRAIN WO CON 02/09/2023 3:07 AM FINDINGS: Limitations: The examination is limited by patient motion. Brain: There is mild enlargement CSF containing spaces consistent with global parenchymal volume loss. No acute intracranial hemorrhage. No evidence of large acute territorial infarct or significant cerebral edema. No midline shift or significant mass effect. Cerebral ventricles: No hydrocephalus. Paranasal sinuses: The paranasal sinuses are clear. Mastoid air cells: The mastoid air cells are clear. Auditory system: Debris within the bilateral external auditory canals. Orbital cavities: The orbits are unremarkable. Bones/joints: No acute fracture. Unchanged alignment of the left TMJ. Soft tissues: 1.8 cm simple appearing densities within the superficial fat over the posterior aspect cervical spine level of C2 likely represent sebaceous cysts. IMPRESSION: 1. No acute intracranial hemorrhage or large territorial infarct recommend correlation with history/physical exam and if clinical concern persists consider further evaluation with MRI. 2. Other findings as above.
[2023-05-25] MEDS: haloperidoL 5 MG TABLET PO (20:36)
[2023-05-25] MEDS: diazePAM 5MG TABLET 5 MG PO (20:36)
--- NOTE | 2023-05-25 20:40 | ED_ITS ---
Discharge Plan Disposition Patient Disposition: Admitted Condition: Good Prescriptions Prescriptions: No Action megestrol 20 mg tablet 20 mg PO DAILY diazepam 5 mg tablet 5 mg PO BID Patient Comments: 5 mg orally twice a day for 30 days Dulera 100-5 mcg/actuation HFA aerosol inhaler 1 puff inhalation DAILY Patient Comments: INHALE 2 PUFFS BY MOUTH TWICE DAILY (RINSE MOUTH WITH WATER AFTER USE) doxycycline hyclate 100 mg capsule 100 mg PO BID 10 Days Qty: 20 0RF levofloxacin 500 mg tablet 500 mg PO Q24H 14 Days Qty: 10 0RF ibuprofen 600 mg tablet 600 mg PO TID PRN (Reason: pain) 30 Days Qty: 90 0RF mupirocin 2 % ointment 1 applic topical BID 21 Days Qty: 22 1RF Rx Instructions: Apply to affected area up to twice daily isosorbide mononitrate 30 mg Tablet Extended Release 24 Hr 30 mg PO DAILY benztropine 2 mg tablet 2 mg PO BID Qty: 90 0RF sertraline 100 MG tablet 200 mg PO DAILY paliperidone 6 MG tablet extended release 24 hr 12 mg PO DAILY donepezil 10 mg Tablet 10 mg PO HS diazepam 5 mg tablet 5 mg PO BID Patient Comments: 5 mg orally twice a day for 30 days Referrals Follow up/Referrals: Provider,Referral, [Primary Care Provider] - See instructions Clinical Impressions Clinical Impression: AMS (altered mental status) Qualifiers: Coma depth: Tha coma 9-12 Coma timing: at arrival to emergency department Instructions Patient Instructions: DI for Altered Mental Status Discharge ED Provider: Jamie Estrella General Adult HPI <Jamie Estrella MD - Last Filed: 05/25/23 23:22> General Chief complaint: Altered Mental Status Stated complaint: AMS Time Seen by Provider: 05/25/23 20:28 Mode of Arrival: EMS Source of Information: EMS and Law Enforcement Limitations: No Limitations Description of Symptoms (Recalled from ER Triage Doc. by RN): pt arrives via [facility] from [place], [facility] is also present. PD and EMS report they were called because pt had AMS, was hitting and biting. Reportedly pt ran out of his diazepam 3d ago. pt has a hx of schizophrenia. pt also arrived with a skin tear on his RFA from hand cuffs. pt is unable to answer any questions. History of Present Illness HPI narrative: 62-year-old male, history of schizophrenia/schizoaffective disorder, parkinsonism, diabetes, hypertension, coronary artery disease, nutrition, history of alcohol abuse presents with altered mental status from [place]. Patient reportedly was altered, was hitting and biting. Per report, patient has not had Valium in the last 3 days because they ran out while they were changing providers. Unclear if patient is still taking his antipsychotics. On arrival patient lays there and does not answer any questions when left alone. Patient is aggressive when agitated. Patient has nonsensical vocalizations. Patient sustained a skin tear to the right wrist from the handcuffs that the police had to use in order to get him here Related Data Home Medications Medication Instructions Recorded Confirmed sertraline 100 mg tablet 200 mg PO DAILY Mood 07/18/20 05/21/23 paliperidone 6 mg tablet,extended 12 mg PO DAILY Mood 03/13/21 05/21/23 release 24 hr megestrol 20 mg tablet 20 mg PO DAILY Appetite Stimulant 02/12/23 05/21/23 isosorbide mononitrate 30 mg 30 mg PO DAILY High Blood Pressure 03/25/23 05/21/23 tablet,extended release 24 hr donepezil 10 mg tablet 10 mg PO HS Memory 04/09/23 05/21/23 diazepam 5 mg tablet 5 mg PO BID 04/15/23 05/21/23 mometasone-formoterol HFA 100 1 puff inhalation DAILY 04/15/23 05/21/23 mcg-5 mcg/actuation aerosol inhaler (Dulera) diazepam 5 mg tablet 5 mg PO BID 05/25/23 05/25/23 Previous Rx's Medication Instructions Recorded benztropine 2 mg tablet 2 mg PO BID #90 tabs 04/13/23 doxycycline hyclate 100 mg capsule 100 mg PO BID 10 days #20 caps 04/15/23 ibuprofen 600 mg tablet 600 mg PO TID PRN pain 30 days #90 04/24/23 tabs levofloxacin 500 mg tablet 500 mg PO Q24H infection 2 weeks 04/24/23 #10 tabs mupirocin 2 % topical ointment 1 applic topical BID cellulitis 3 05/21/23 weeks #22 grams Allergies Allergy/AdvReac Type Severity Reaction Status Date / Time No Known Allergies Allergy Verified 05/21/23 09:14 [facility] <Jamie Estrella MD - Last Filed: 05/25/23 23:22> [facility] Disclaimer: The information contained in this section may have been updated after the patient was seen, as this information can be updated by other users. Medical History Abnormal stress test Acquired hammer toes of both feet COPD (chronic obstructive pulmonary disease) Diabetes mellitus, type 2 Dizziness History of chest pain History of heart attack Hyperlipidemia Onychomycosis Pain in both feet Psychosis Schizophrenia Surgical History Hx of CABG S/P CABG (coronary artery bypass graft) Family History Other No significant family history Social History Smoking Status: Unknown if ever smoked second hand exposure: No alcohol intake: never substance use type: denies use current occupational status: retired Travel in the last 8 weeks: None household members: other housing: assisted living facility caffeine: Yes <Jamie Estrella MD - Last Filed: 05/25/23 23:22> ROS Obtained: Yes unobtainable due to mental status Physical Exam <Jamie Estrella MD - Last Filed: 05/25/23 23:22> General General appearance: cachectic and other (Unkempt, aggressive when interacting with) Head Head exam: atraumatic and normocephalic Eye Eye exam: Present normal appearance, PERRL and EOMI ENT ENT exam: Present normal oropharynx and normal external ear exam Neck Neck exam: Present normal inspection and full ROM Chest Chest inspection: Present normal inspection and symmetric chest wall rise; Absent tenderness Respiratory Respiratory exam: Present normal lung sounds bilaterally; Absent respiratory distress Cardiovascular Cardiovascular exam: Present regular rate and normal rhythm Abdominal Exam Abdominal exam: Present soft; Absent distention, tenderness or guarding Extremities Exam Extremities exam: Present other (Right second toe status post resection, no obvious cellulitis in the area, generalized muscle wasting noted) Back Exam Back exam: Present normal inspection; Absent tenderness Neurological Exam Neurological exam: Present other (Moving all extremities spontaneously, no obvious strength deficit. Intact sensation all extremities. Nonsensical vocalizations, patient is alternatively sleeping or agitated.) Skin Skin exam: Present warm, dry and other (Skin tears noted) Lymphatic Lymphatic Findings: no adenopathy Medical Decision Making <Jamie Estrella MD - Last Filed: 05/25/23 23:22> Medical Records Medical records reviewed: Yes I reviewed the patient's medical records. Garcia Inquiry Pt receiving controlled substance: No Garcia was queried for this patient: No Vital Signs: 05/25/23 20:26 05/25/23 21:01 05/25/23 21:30 Temperature 97.9 F Temperature Source Oral Pulse Rate 96 H Pulse Rate [Left] 95 H Respiratory Rate 14 Blood Pressure 128/79 107/66 L Blood Pressure [Right Arm] 123/84 Blood Pressure Mean 89 Blood Pressure Mean [Right Arm] 97 Blood Pressure Source [Right Arm] Automatic Cuff Blood Pressure Position [Right Arm] Sitting 02 Sat by Pulse Oximetry 97 98 Oxygen Delivery Method 05/25/23 22:16 05/25/23 22:30 05/25/23 23:00 Temperature Temperature Source Pulse Rate 91 H 84 81 Pulse Rate [Left] Respiratory Rate 16 Blood Pressure 140/76 88/51 L 91/46 L Blood Pressure [Right Arm] Blood Pressure Mean 60 Blood Pressure Mean [Right Arm] Blood Pressure Source [Right Arm] Blood Pressure Position [Right Arm] 02 Sat by Pulse Oximetry 97 95 97 Oxygen Delivery Method Room Air 05/25/23 23:30 05/26/23 00:01 Temperature Temperature Source Pulse Rate 76 93 H Pulse Rate [Left] Respiratory Rate 14 12 Blood Pressure 94/59 L 116/70 Blood Pressure [Right Arm] Blood Pressure Mean 69 Blood Pressure Mean [Right Arm] Blood Pressure Source [Right Arm] Blood Pressure Position [Right Arm] 02 Sat by Pulse Oximetry 97 98 Oxygen Delivery Method Room Air Lab Data Lab results reviewed: Yes I reviewed the patient's lab results. Lab Results 05/25/23 21:58: VBG pH 7.35, VBG pCO2 39.5, VBG pO2 36.0, VBG HCO3 21.2 L, VBG Total CO2 22.4 L, VBG O2 Saturation 65.0, VBG Base Excess -4.4 L 05/25/23 22:16: WBC 6.4, RBC 3.86 L, Hgb 12.4 L, Hct 36.6 L, MCV 94.9 H, MCH 32.1 H, MCHC 33.8, RDW 14.6, Plt Count 238, MPV 8.0, Neut % (Auto) 61.9, Lymph % (Auto) 24.5, [place] % (Auto) 11.0 H, Eos % (Auto) 2.0, Baso % (Auto) 0.6, Neut # (Auto) 3.9, Lymph # (Auto) 1.6, [place] # (Auto) 0.7, Eos # (Auto) 0.1, Baso # (Auto) 0.0, Sodium 137, Potassium 4.1, Chloride 106, Carbon Dioxide 23, Anion Gap 12.1, BUN 9, Creatinine 0.80, Estimated Creat Clear 69, Estimated GFR 98, Est GFR ( Amer) 119, Glucose 89, Calcium 8.5, Total Bilirubin 0.7, AST 32, ALT 19, Alkaline Phosphatase 70, Total Protein 6.5, Albumin 3.7, Globulin 2.8, Albumin/Globulin Ratio 1.3, Salicylates < 1.0 L, Urine Opiates Screen Negative, Urine Methadone Screen Negative, Acetaminophen < 10 L, Ur Barbituates Screen Negative, Ur Phencyclidine Scrn Negative, Ur Amphetamines Screen Negative, U Benzodiazepines Scrn Negative, Urine Cocaine Screen Negative, U Marijuana (THC) Screen Negative, Plasma/Serum Alcohol < 10 05/25/23 22:16 05/25/23 22:16 Orders (Tests/Meds): ED MEDICATIONS Generic Name Dose Route Start Last Admin Trade Name Freq PRN Reason Stop Dose Admin Sodium Chloride 10 ml 05/26/23 00:17 Sodium Chloride 0.9% 10ml Vial IV 06/25/23 00:16 NEEDED PRN to Dilute Lorazepam inj Discontinued Medications Generic Name Dose Route Start Last Admin Trade Name Freq PRN Reason Stop Dose Admin Diazepam 5 mg 05/25/23 20:27 05/25/23 20:36 Diazepam 5mg Tablet PO 05/25/23 20:28 5 mg ONCE ONE Administration Droperidol 5 mg 05/25/23 23:14 05/25/23 23:26 Droperidol 5mg/2ml Vial IV 05/25/23 23:15 5 mg ONCE ONE Administration Haloperidol 5 mg 05/25/23 20:28 05/25/23 20:36 Haloperidol 5 Mg Tablet PO 05/25/23 20:29 5 mg ONCE ONE Administration Lorazepam 2 mg 05/25/23 21:50 Lorazepam 2mg/Ml Vial IV 05/25/23 21:51 ONCE ONE ORDERS Category Date Time Status CT head/brain wo con Stat Cat Scan 05/25/23 20:29 Completed Acetaminophen Stat Lab 05/25/23 22:16 Completed Blood alcohol [Ethyl Alcohol] Stat Lab 05/25/23 22:16 Completed Complete Blood Count Auto Diff Stat Lab 05/25/23 22:16 Completed Comprehensive Metabolic Panel Stat Lab 05/25/23 22:16 Completed Drug Screen,Urine Stat Lab 05/25/23 22:16 Completed Salicylate Stat Lab 05/25/23 22:16 Completed VBG [Venous Blood Gas] Stat RT 05/25/23 21:58 Completed ECG Request Stat Y 05/25/23 21:57 Ordered Medical Decision Narrative: 62-year-old male with history of schizoaffective disorder on antipsychotics, history of alcohol abuse, history of parkinsonism, coronary artery disease, hypertension, hyperlipidemia presents with altered mental status and agitation at [place]. Patient has not had Valium for the last 3 days, was previously on a chronically. History was obtained via conversation with EMS, chart review, police. On arrival, patient is afebrile, hemodynamically stable, mental status with GCS 10, moving all extremities spontaneously,. Full physical exam performed and significant for no obvious traumatic findings besides skin tear on right wrist from handcuffs. Differential includes but is not limited to intoxication, withdrawal, intr acranial pathology, UTI, sepsis, Patient was given 5 mg p.o. Valium, 5 mg p.o. Haldol for symptomatic management and correction of underlying abnormalities. We attempted CT but were unsuccessful. Patient given 2 of IV Ativan workup initiated including CBC CMP VBG salicylate Tylenol UDS CT head ekg. On re-evaluation, patient remained stable but uncooperative. Laboratory workup independently interpreted by me and significant for nonactionable VBG, no significant electrolyte derangement, alcohol negative, Tylenol salicylates negative, UDS negative.. EKG independently interpreted by me and significant for rate of 84, sinus rhythm, QTc of 424.. Given patient history, exam and workup, patient's presentation most likely represents undifferentiated altered mental status, may be related to medication change. At this time care signed out to oncoming physician with plan for droperidol and CT imaging. Patient will need to be admitted for altered mental status. <Tonia Harris, DO - Last Filed: 05/26/23 01:08> Vital Signs: 05/25/23 20:26 05/25/23 21:01 05/25/23 21:30 Temperature 97.9 F Temperature Source Oral Pulse Rate 96 H Pulse Rate [Left] 95 H Respiratory Rate 14 Blood Pressure 128/79 107/66 L Blood Pressure [Right Arm] 123/84 Blood Pressure Mean 89 Blood Pressure Mean [Right Arm] 97 Blood Pressure Source [Right Arm] Automatic Cuff Blood Pressure Position [Right Arm] Sitting 02 Sat by Pulse Oximetry 97 98 Oxygen Delivery Method 05/25/23 22:16 05/25/23 22:30 05/25/23 23:00 Temperature Temperature Source Pulse Rate 91 H 84 81 Pulse Rate [Left] Respiratory Rate 16 Blood Pressure 140/76 88/51 L 91/46 L Blood Pressure [Right Arm] Blood Pressure Mean 60 Blood Pressure Mean [Right Arm] Blood Pressure Source [Right Arm] Blood Pressure Position [Right Arm] 02 Sat by Pulse Oximetry 97 95 97 Oxygen Delivery Method Room Air 05/25/23 23:30 05/26/23 00:01 Temperature Temperature Source Pulse Rate 76 93 H Pulse Rate [Left] Respiratory Rate 14 12 Blood Pressure 94/59 L 116/70 Blood Pressure [Right Arm] Blood Pressure Mean 69 Blood Pressure Mean [Right Arm] Blood Pressure Source [Right Arm] Blood Pressure Position [Right Arm] 02 Sat by Pulse Oximetry 97 98 Oxygen Delivery Method Room Air Lab Data Lab Results 05/25/23 21:58: VBG pH 7.35, VBG pCO2 39.5, VBG pO2 36.0, VBG HCO3 21.2 L, VBG Total CO2 22.4 L, VBG O2 Saturation 65.0, VBG Base Excess -4.4 L 05/25/23 22:16: WBC 6.4, RBC 3.86 L, Hgb 12.4 L, Hct 36.6 L, MCV 94.9 H, MCH 32.1 H, MCHC 33.8, RDW 14.6, Plt Count 238, MPV 8.0, Neut % (Auto) 61.9, Lymph % (Auto) 24.5, [place] % (Auto) 11.0 H, Eos % (Auto) 2.0, Baso % (Auto) 0.6, Neut # (Auto) 3.9, Lymph # (Auto) 1.6, [place] # (Auto) 0.7, Eos # (Auto) 0.1, Baso # (Auto) 0.0, Sodium 137, Potassium 4.1, Chloride 106, Carbon Dioxide 23, Anion Gap 12.1, BUN 9, Creatinine 0.80, Estimated Creat Clear 69, Estimated GFR 98, Est GFR ( Amer) 119, Glucose 89, Calcium 8.5, Total Bilirubin 0.7, AST 32, ALT 19, Alkaline Phosphatase 70, Total Protein 6.5, Albumin 3.7, Globulin 2.8, Albumin/Globulin Ratio 1.3, Salicylates < 1.0 L, Urine Opiates Screen Negative, Urine Methadone Screen Negative, Acetaminophen < 10 L, Ur Barbituates Screen Negative, Ur Phencyclidine Scrn Negative, Ur Amphetamines Screen Negative, U Benzodiazepines Scrn Negative, Urine Cocaine Screen Negative, U Marijuana (THC) Screen Negative, Plasma/Serum Alcohol < 10 Orders (Tests/Meds): ED MEDICATIONS Generic Name Dose Route Start Last Admin Trade Name Freq PRN Reason Stop Dose Admin Sodium Chloride 10 ml 05/26/23 00:17 Sodium Chloride 0.9% 10ml Vial IV 06/25/23 00:16 NEEDED PRN to Dilute Lorazepam inj Discontinued Medications Generic Name Dose Route Start Last Admin Trade Name Freq PRN Reason Stop Dose Admin Diazepam 5 mg 05/25/23 20:27 05/25/23 20:36 Diazepam 5mg Tablet PO 05/25/23 20:28 5 mg ONCE ONE Administration Droperidol 5 mg 05/25/23 23:14 05/25/23 23:26 Droperidol 5mg/2ml Vial IV 05/25/23 23:15 5 mg ONCE ONE Administration Haloperidol 5 mg 05/25/23 20:28 05/25/23 20:36 Haloperidol 5 Mg Tablet PO 05/25/23 20:29 5 mg ONCE ONE Administration Lorazepam 2 mg 05/25/23 21:50 Lorazepam 2mg/Ml Vial IV 05/25/23 21:51 ONCE ONE ORDERS Category Date Time Status CT head/brain wo con Stat Cat Scan 05/25/23 20:29 Completed Acetaminophen Stat Lab 05/25/23 22:16 Completed Blood alcohol [Ethyl Alcohol] Stat Lab 05/25/23 22:16 Completed Complete Blood Count Auto Diff Stat Lab 05/25/23 22:16 Completed Comprehensive Metabolic Panel Stat Lab 05/25/23 22:16 Completed Drug Screen,Urine Stat Lab 05/25/23 22:16 Completed Salicylate Stat Lab 05/25/23 22:16 Completed VBG [Venous Blood Gas] Stat RT 05/25/23 21:58 Completed ECG Request Stat Y 05/25/23 21:57 Ordered Medical Decision Narrative: 62-year-old male with history of schizoaffective disorder on antipsychotics, history of alcohol abuse, history of parkinsonism, coronary artery disease, hypertension, hyperlipidemia presents with altered mental status and agitation at [place]. Patient has not had Valium for the last 3 days, was previously on a chronically. History was obtained via conversation with EMS, chart review, police. On arrival, patient is afebrile, hemodynamically stable, mental status with GCS 10, moving all extremities spontaneously,. Full physical exam performed and significant for no obvious traumatic findings besides skin tear on right wrist from handcuffs. Differential includes but is not limited to intoxication, withdrawal, intracranial pathology, UTI, sepsis, Patient was given 5 mg p.o. Valium, 5 mg p.o. Haldol for symptomatic management and correction of underlying abnormalities. We attempted CT but were unsuccessful. Patient given 2 of IV Ativan workup initiated including CBC CMP VBG salicylate Tylenol UDS CT head ekg. On re-evaluation, patient remained stable but uncooperative. Laboratory workup independently interpreted by me and significant for nonactionable VBG, no significant electrolyte derangement, alcohol negative, Tylenol salicylates negative, UDS negative.. EKG independently interpreted by me and significant for rate of 84, sinus rhythm, QTc of 424.. Given patient history, exam and workup, patient's presentation most likely represents undifferentiated altered mental status, may be related to medication change. At this time care signed out to oncoming physician with plan for droperidol and CT imaging. Patient will need to be admitted for altered mental status. Steven. DO: On my assessment of the patient, he is somnolent from receiving medications that were given for cooperation with CT scan. He was given drope ridol as well as Ativan. He is in no acute distress with reassuring vital signs. Labs were unremarkable and CT scan of the head did not demonstrate any acutely concerning abnormalities. I feel his mental status changes likely related to his medication changes. Given his mental status change, I called and had an interactive discussion with the hospitalist who admitted the patient in stable condition for further evaluation and management. Procedures <Jamie Estrella MD - Last Filed: 05/25/23 23:22> Risk/Benefits of Procedure(s) Were Explained: Yes Critical Care <Jamie Estrella MD - Last Filed: 05/25/23 23:22> Critical Care Time Critical Care Time: Yes Attestation: On 05/25/23, the high probability of a clinically significant, sudden or life threatening deterioration of the following system(s) psychiatric required my full and direct attention, intervention and personal management. The time I documented below is in addition to time spent performing reported procedures but includes the following listed in this critical care notation. Total Time Total Critical Care Time: 40
--- NOTE | 2023-05-25 21:37 | ECG_ITS ---
APPROVED REPORT Exam: Resting ECG HR:84 bpm ECG Measurements Heart Rate 84 AXES NE 144 P 149 QRSd 97 QRS -26 QT 383 T 149 QTc 424 Conclusion ECTOPIC ATRIAL RHYTHM POSSIBLE LEFT ATRIAL ENLARGEMENT [-0.1mV P-WAVE IN V1/V2] LOW QRS VOLTAGE IN PRECORDIAL LEADS [QRS DEFLECTION < 1.0 mV IN CHEST LEADS] SEPTAL MYOCARDIAL INFARCTION , OF INDETERMINATE AGE [40+ ms Q WAVE IN V1/V2] PROBABLE LATERAL MYOCARDIAL INFARCTION , OF INDETERMINATE AGE [35 ms Q WAVE IN I/aVL/V5/V6] ABNORMAL ECG UNCONFIRMED REPORT Electronically signed by : Tenzin Tovar MD 05/26/2023 17:48:20
[2023-05-25] MEDS: LORazepam 2MG/ML VIAL 2 MG IV (22:12)
[2023-05-25 22:25] LABS: VBG Base Excess -4.4 mmol/L (-2.4-2.3); VBG HCO3 21.2 mmol/L (23-30); VBG PCO2 39.5 mmol/L (35-51); VBG PH 7.35 mmol/L (7.31-7.41); VBG Total CO2 22.4 mmol/L (23-27)
[2023-05-25 22:29] LABS: Chloride 106 mmol/L (98-107); Potassium 4.1 mmoL/L (3.5-5.1); Sodium 137 mmol/L (136-145)
[2023-05-25 22:31] LABS: Alanine Aminotransferase 19 U/L (12-78); Aspartate Amino Transferase 32 U/L (17-59); Blood Urea Nitrogen 9 mg/dl (9-20); Creatinine Clearance Estimated 69 mL/min (50-200); Estimated Glomerular Filt Rate 98 ml/min (>60); GFR (African American) 119 ML/MIN (>60)
[2023-05-25 22:32] LABS: Acetaminophen < 10 ug/ml (10-30); Albumin Level 3.7 g/dl (3.5-5.0); Albumin/Globulin Ratio 1.3 (1.1-1.8); Alkaline Phosphatase 70 U/L (38-126); Anion Gap 12.1 mEq/L (5-15); Basophils % 0.6 % (0.1-2.0); Bilirubin,Total 0.7 mg/dl (0.2-1.3); Calcium 8.5 mg/dl (8.4-10.2); Carbon Dioxide 23 mmol/L (22.0-30.0); Eosinophils # 0.1 K/mm3 (0.0-0.4); Globulin 2.8 g/dL (1.3-3.2); Glucose 89 mg/dl (74-100); Hematocrit 36.6 % (42.0-52.0); Hemoglobin 12.4 g/dL (14.1-18.0); Lymphocytes # 1.6 K/mm3 (0.7-4.5); Lymphocytes % 24.5 % (10-50); Mean Corpuscular HGB Conc 33.8 g/dL (31.8-35.4); Mean Corpuscular Hemoglobin 32.1 pg (27.0-31.2); Mean Corpuscular Volume 94.9 fl (80-94); Monocytes # 0.7 K/mm3 (0.1-1.0); Neutrophils # 3.9 K/mm3 (1.8-7.8); Neutrophils % 61.9 % (37.0-80.0); Platelet Count 238 K/mm3 (142-424); Red Blood Count 3.86 M/mm3 (4.60-6.20); Red Cell Distribution Width 14.6 % (11.5-17.5); Salicylate < 1.0 mg/dL (2.0-20.0); Total Protein,Serum 6.5 g/dl (6.3-8.2); White Blood Count 6.4 K/mm3 (4.8-10.8)
[2023-05-25 22:46] LABS: Ethyl Alcohol < 10 mg/dl (0-10)
[2023-05-25 22:54] LABS: Amphetamine/Metha Screen,Urine Negative ng/ml (<1000); Barbiturates Screen,Urine Negative ng/ml (<200); Benzodiazepines Screen,Urine Negative ng/ml (<200); Cannabinoid Screen,Urine Negative ng/ml (<50); Cocaine Screen,Urine Negative ng/ml (<300); Methadone Screen,Urine Negative ng/ml (<300); Opiate Screen,Urine Negative ng/ml (<300); Phencyclidine Screen,Urine Negative ng/ml (<25)
[2023-05-25] MEDS: droPERidol 5MG/2ML VIAL 5 MG IV (23:26)
[2023-05-26] VITALS (16 sets, daily range): BP systolic 93–134; BP diastolic 51–94; PULSE 69–93; RESP 11–20; TEMP 36.4–37.1; O2SAT 93–100
--- NOTE | 2023-05-26 02:05 | EXP.HP ---
History of Present Illness *Admission Date: 05/26/23 *Reason for visit:: Altered mental status *History of present illness: This is a 62-year-old male with past medical history of Parkinson's, alcohol abuse, CAD, schizoaffective disorder, diabetes who presents to the emergency department today with altered mental status. Patient resides at [facility] and police and fire were called today due to patient having altered mental status. He was noted to be biting and hitting people. He reportedly ran out of his diazepam approximately 3 days ago with medications. Per reports, they are changing providers and has not had his medicine. It is unclear if he is still on his antipsychotics. On arrival he would not answer any questions when left alone but was agitated and combative when approached. He has nonsensical vocalizations. He required several medications in the emergency department for sedation. Emergency department workup mostly unremarkable. He required Ativan, Haldol and Valium. He did obtain head CT and it was negative. Infectious workup was negative given patient's profound altered mental status, he will be admitted for further evaluation. [facility] Disclaimer: The information contained in this section may have been updated after the patient was seen, as this information can be updated by other users. Medical History Abnormal stress test Acquired hammer toes of both feet COPD (chronic obstructive pulmonary disease) Diabetes mellitus, type 2 Dizziness History of chest pain History of heart attack Hyperlipidemia Onychomycosis Pain in both feet Psychosis Schizophrenia Surgical History Hx of CABG S/P CABG (coronary artery bypass graft) Family History Other No significant family history Social History Smoking Status: Unknown if ever smoked second hand exposure: No alcohol intake: never substance use type: denies use current occupational status: retired Travel in the last 8 weeks: None household members: other housing: assisted living facility caffeine: Yes Review of Systems Review of Systems Review of systems:: unable to obtain Meds Home Medications and Allergies Home Medications Medication Instructions Recorded Confirmed Type sertraline 100 mg tablet 200 mg PO DAILY Mood 07/18/20 05/21/23 History paliperidone 6 mg tablet,extended 12 mg PO DAILY Mood 03/13/21 05/21/23 History release 24 hr megestrol 20 mg tablet 20 mg PO DAILY Appetite Stimulant 02/12/23 05/21/23 History isosorbide mononitrate 30 mg 30 mg PO DAILY High Blood Pressure 03/25/23 05/21/23 History tablet,extended release 24 hr donepezil 10 mg tablet 10 mg PO HS Memory 04/09/23 05/21/23 History benztropine 2 mg tablet 2 mg PO BID #90 tabs 04/13/23 05/21/23 Rx diazepam 5 mg tablet 5 mg PO BID 04/15/23 05/21/23 History doxycycline hyclate 100 mg capsule 100 mg PO BID 10 days #20 caps 04/15/23 05/21/23 Rx mometasone-formoterol HFA 100 1 puff inhalation DAILY 04/15/23 05/21/23 History mcg-5 mcg/actuation aerosol inhaler (Hanna) ibuprofen 600 mg tablet 600 mg PO TID PRN pain 30 days #90 04/24/23 05/21/23 Rx tabs levofloxacin 500 mg tablet 500 mg PO Q24H infection 2 weeks 04/24/23 05/21/23 Rx #10 tabs mupirocin 2 % topical ointment 1 applic topical BID cellulitis 3 05/21/23 05/21/23 Rx weeks #22 grams diazepam 5 mg tablet 5 mg PO BID 05/25/23 05/25/23 History New Prescriptions to Start Prescriptions: Allergies Allergy/AdvReac Type Severity Reaction Status Date / Time No Known Allergies Allergy Verified 05/21/23 09:14 Exam Data for Last 24 hours Vital signs and Labs for Last 24 Hours: Temp Pulse Resp BP Pulse Ox O2 Del Method 97.9 F 82 14 105/59 L 97 Room Air 05/25/23 20:26 05/26/23 01:00 05/26/23 01:30 05/26/23 01:30 05/26/23 01:30 05/26/23 01:30 Laboratory Results - last 24 hr 05/25/23 21:58: VBG pH 7.35, VBG pCO2 39.5, VBG pO2 36.0, VBG HCO3 21.2 L, VBG Total CO2 22.4 L, VBG O2 Saturation 65.0, VBG Base Excess -4.4 L 05/25/23 22:16: WBC 6.4, RBC 3.86 L, Hgb 12.4 L, Hct 36.6 L, MCV 94.9 H, MCH 32.1 H, MCHC 33.8, RDW 14.6, Plt Count 238, MPV 8.0, Neut % (Auto) 61.9, Lymph % (Auto) 24.5, [place] % (Auto) 11.0 H, Eos % (Auto) 2.0, Baso % (Auto) 0.6, Neut # (Auto) 3.9, Lymph # (Auto) 1.6, [place] # (Auto) 0.7, Eos # (Auto) 0.1, Baso # (Auto) 0.0, Sodium 137, Potassium 4.1, Chloride 106, Carbon Dioxide 23, Anion Gap 12.1, BUN 9, Creatinine 0.80, Estimated Creat Clear 69, Estimated GFR 98, Est GFR ( Amer) 119, Glucose 89, Calcium 8.5, Total Bilirubin 0.7, AST 32, ALT 19, Alkaline Phosphatase 70, Total Protein 6.5, Albumin 3.7, Globulin 2.8, Albumin/Globulin Ratio 1.3, Salicylates < 1.0 L, Urine Opiates Screen Negative, Urine Methadone Screen Negative, Acetaminophen < 10 L, Ur Barbituates Screen Negative, Ur Phencyclidine Scrn Negative, Ur Amphetamines Screen Negative, U Benzodiazepines Scrn Negative, Urine Cocaine Screen Negative, U Marijuana (THC) Screen Negative, Plasma/Serum Alcohol < 10 I & O for Last 24 hours: Intake & Output 05/23/23 05/24/23 05/25/23 05/26/23 23:59 23:59 23:59 23:59 Weight 63.503 kg Constitutional Constitutional: no acute distress *Routine HEENT Exam Head: Present other Eye: Present other ENT: Present other *Routine Respiratory Exam Respiratory: Present normal respiratory effort Comments: Patient is sedated but visible rise and fall of chest wall. Lungs are clear to auscultation. *Routine Cardiovascular Exam Cardiovascular: Present murmur and other Comments: Deferred *Routine Abdominal Exam Abdominal: Present other Comments: Deferred *Routine Rectal Exam Rectal:: deferred *Routine Genitalia Exam Genitalia:: deferred *Routine Extremities Exam Extremities: Present full ROM Comments: Deferred *Routine Skin Exam Skin: Present intact Comments: Small skin tear to elbow *Routine Neurological Exam Neurological: Present altered mental status and moving all extremities Assessment and Plan *Assessment and plan (1) AMS (altered mental status): Status: Acute Qualifiers: Coma depth: [place] coma 9-12 Coma timing: at arrival to emergency department Category: Medical Code(s): R41.82 - Altered mental status, unspecified (2) Parkinsonism due to drugs: Status: Acute Category: Medical Code(s): G21.19 - Other drug induced secondary parkinsonism (3) Schizoaffective disorder: Status: Acute Qualifiers: Schizoaffective disorder type: unspecified Qualified Code(s): F25.9 - Schizoaffective disorder, unspecified Category: Medical Code(s): F25.9 - Schizoaffective disorder, unspecified Plan This is a 62-year-old male with past medical history of Parkinson's, schizoaffective, recent osteomyelitis is being admitted for further evaluation of combativeness and altered mental status patient underwent surgery of his right second toe ulcer with exposed bone on 04/17/2023. Unable to assess patient's foot at this time given severe combativeness. Will require further evaluation once calm. Per reports patient is been out of his Valium and is unclear if he has been taking his antipsychotics. Altered mental status Schizoaffective disorder Will restart patient on home medication i.e. Valium, benzatropine and sertraline. Do not have paliperidone on formulary. Every 4 hours neurochecks Reorient as needed History of osteomyelitis of right toe Will need further evaluation of surgical site. Had surgery in March. He was seen at Dr. Ashraf office on 05/21 for follow up and was noted to be free of erythema or drainage. Eschar tissue debrided but healing DVT PPx SCDS when able FUll code
--- NOTE | 2023-05-26 04:50 | PC.NURSE ---
[facility] hospitalist notified that patient is not getting IV saline due to restless and pulling at lines.
--- NOTE | 2023-05-26 05:17 | PC.NURSE ---
Rounded on patient, patient resting at this time.
--- NOTE | 2023-05-26 11:55 | SW/DCPLANNER ---
Patient currently resides at [facility]: updated information has been faxed to Ale. Discharge date is unknown at this time. I will continue to follow up w/ Ale at [facility] until medically stable for discharge.
--- NOTE | 2023-05-26 12:56 | HMH.PHAINT1 ---
Pharmacy Intervention Comments: Home med list verified with MAR sent from [facility].
[2023-05-26] MEDS: HALOPERIDOL LACTATE 5 MG/ML VIAL 2 MG IM (12:58)
[2023-05-26] MEDS: diazePAM 5MG TABLET 5 MG PO ×2 (13:56→20:40)
[2023-05-26] MEDS: BENZTROPINE 1MG TABLET 1 MG PO ×2 (13:57→20:40)
[2023-05-26] MEDS: SERTRALINE 100MG TABLET 200 MG PO (13:57)
[2023-05-26] MEDS: ACETAMINOPHEN 325MG TAB 650 MG PO (23:24)
[2023-05-27 04:00] VITALS: BP 121/70; PULSE 65; RESP 16; TEMP 36.9; O2SAT 100; BMI 21.1
[2023-05-27] MEDS: ACETAMINOPHEN 325MG TAB 650 MG PO (07:03)
[2023-05-27 08:00] VITALS: BP 140/80; PULSE 62; RESP 18; TEMP 36.7; O2SAT 100
[2023-05-27] MEDS: diazePAM 5MG TABLET 5 MG PO (08:16)
[2023-05-27] MEDS: BENZTROPINE 1MG TABLET 1 MG PO (08:16)
[2023-05-27] MEDS: SERTRALINE 100MG TABLET 200 MG PO (08:16)
--- NOTE | 2023-05-27 10:51 | P.DS_ITS ---
General Admission date:: 05/26/23 Discharge date: 05/27/23 HPI HPI HPI: This is a 62-year-old male with past medical history of Parkinson's, alcohol abuse, CAD, schizoaffective disorder, diabetes who presents to the emergency department today with altered mental status. Patient resides at [facility] and police and fire were called today due to patient having altered mental status. He was noted to be biting and hitting people. He reportedly ran out of his diazepam approximately 3 days ago with medications. Per reports, they are changing providers and has not had his medicine. It is unclear if he is still on his antipsychotics. On arrival he would not answer any questions when left alone but was agitated and combative when approached. He has nonsensical vocalizations. He required several medications in the emergency department for sedation. Emergency department workup mostly unremarkable. He required Ativan, Haldol and Valium. He did obtain head CT and it was negative. Infectious workup was negative given patient's profound altered mental status, he will be admitted for further evaluation. Hospital Course Hospital Course Hospital Course: This is a 62-year-old male with past medical history of Parkinson's, schizoaffective, recent osteomyelitis is being admitted for further evaluation of combativeness and altered mental status patient underwent surgery of his right second toe ulcer with exposed bone on 04/17/2023. Unable to assess patient's foot at this time given severe combativeness. Will require further evaluation once calm. Per reports patient is been out of his Valium and is unclear if he has been taking his antipsychotics. Initially frankly confused and altered. Resumed home medications and patient returned to baseline mentation. Stable for discharge home. Tolerating p.o. medications. Problems addressed as follows: Altered mental status Schizoaffective disorder Patient's Valium and been discontinued for 3 days. Developed acute altered mental status. Suspect his encephalopathy was secondary to medication changes. Will restart patient on home medication including his Valium, benzatropine and sertraline. Do not have paliperidone on formulary. By morning, patient is oriented at baseline. Stable for discharge back to personal skilled nursing. Medication sent for 1 month. Recommend continuing at his personal-skilled nursing. History of osteomyelitis of right toe He was seen at Dr. Ashraf office on 05/21 for follow up and was noted to be free of erythema or drainage. Eschar tissue debrided but healing Continue remainder of home medications. Exam Data for Last 24 hours Vital signs and Labs for Last 24 Hours: Temp Pulse Resp BP Pulse Ox O2 Del Method 98.1 F 62 18 140/80 100 Room Air 05/27/23 08:00 05/27/23 08:00 05/27/23 08:00 05/27/23 08:00 05/27/23 08:00 05/27/23 08:00 I & O for Last 24 hours: Intake & Output 05/24/23 05/25/23 05/26/23 05/27/23 23:59 23:59 23:59 23:59 Intake Total 870 / 870 960 / 960 Output Total 500 / 500 1100 / 1100 Balance 370 / 370 -140 / -140 Weight 63.503 kg 63.248 kg Constitutional Constitutional: no acute distress, thin, chronically ill appearing and cooperative *Routine HEENT Exam Head: Present normocephalic and atraumatic Eye: Present EOMI and PERRL ENT: Present mucous membranes moist *Routine Neck Exam Neck: Present supple, full ROM and trachea midline; Absent JVD, lymphadenopathy or thyromegaly *Routine Respiratory Exam Respiratory: Present CTA bilaterally and normal respiratory effort; Absent respiratory distress *Routine Cardiovascular Exam Cardiovascular: Present RRR, Normal S1 and Normal S2; Absent murmur *Routine Abdominal Exam Abdominal: Present soft and normoactive bowel sounds; Absent tenderness, distended or rebound *Routine Extremities Exam Extremities: Present full ROM; Absent edema or tenderness Comments: Erosion on distal end of second toe on right foot. No rafa drainage. Abrasions and bruises to wrists. Bandaging in place *Routine Skin Exam Skin: Present intact, dry and warm; Absent rash *Routine Neurological Exam Neurological: Present alert, moving all extremities, vision grossly intact and hearing grossly intact; Absent oriented X3, sensory deficit, motor deficit or altered mental status Routine Psychiatric Exam Psychiatric: Present cooperative and anxious; Absent good judgment DS: Diagnosis Discharge Diagnosis (1) AMS (altered mental status): Status: Acute Code(s): R41.82 - Altered mental status, unspecified Qualifiers: Coma depth: [place] coma 9-12 Coma timing: at arrival to emergency department (2) Parkinsonism due to drugs: Status: Acute Code(s): G21.19 - Other drug induced secondary parkinsonism (3) Schizoaffective disorder: Status: Acute Code(s): F25.9 - Schizoaffective disorder, unspecified Qualifiers: Schizoaffective disorder type: unspecified Qualified Code(s): F25.9 - Schizoaffective disorder, unspecified Meds Home Medications and Allergies Home Medications Medication Instructions Recorded Confirmed Type sertraline 100 mg tablet 200 mg PO DAILY 07/18/20 05/26/23 History paliperidone 6 mg tablet,extended 12 mg PO DAILY 03/13/21 05/26/23 History release 24 hr megestrol 20 mg tablet 20 mg PO DAILY 02/12/23 05/26/23 History isosorbide mononitrate 30 mg 30 mg PO DAILY 03/25/23 05/26/23 History tablet,extended release 24 hr benztropine 2 mg tablet 2 mg PO BID #90 tabs 04/13/23 05/26/23 Rx mometasone-formoterol HFA 100 2 puff inhalation BID 04/15/23 05/26/23 History mcg-5 mcg/actuation aerosol inhaler (Dulera) aspirin 81 mg chewable tablet 81 mg PO DAILY 05/26/23 05/26/23 History atorvastatin 40 mg tablet 40 mg PO HS 05/26/23 05/26/23 History divalproex 500 mg tablet,delayed 500 mg PO BID 05/26/23 05/26/23 History release doxepin 10 mg capsule 10 mg PO HS 05/26/23 05/26/23 History famotidine 20 mg tablet 20 mg PO BID 05/26/23 05/26/23 History furosemide 20 mg tablet 20 mg PO DAILY 05/26/23 05/26/23 History ipratropium 20 mcg-albuterol 100 1 puff inhalation QID 05/26/23 05/26/23 History mcg/actuation mist for inhalation (Combivent Respimat) metoprolol tartrate 25 mg tablet 12.5 mg PO BID 05/26/23 05/26/23 History ranolazine 500 mg tablet,extended 500 mg PO BID 05/26/23 05/26/23 History release,12 hr ticagrelor 90 mg tablet 90 mg PO BID 05/26/23 05/26/23 History diazepam 5 mg tablet 5 mg PO BID 30 days #60 tabs 05/27/23 Rx New Prescriptions to Start Prescriptions: diazepam Osman,Dinesh Allergies Allergy/AdvReac Type Severity Reaction Status Date / Time No Known Allergies Allergy Verified 05/21/23 09:14 Discharge Plan Disposition Patient Disposition: Home, Self-Care Condition: Fair Follow up Plan Prescriptions/Medication Reconciliation: Continued megestrol 20 mg tablet 20 mg PO DAILY Dulera 100-5 mcg/actuation HFA aerosol inhaler 2 puff inhalation BID isosorbide mononitrate 30 mg Tablet Extended Release 24 Hr 30 mg PO DAILY benztropine 2 mg tablet 2 mg PO BID Qty: 90 0RF sertraline 100 MG tablet 200 mg PO DAILY paliperidone 6 MG tablet extended release 24 hr 12 mg PO DAILY atorvastatin 40 mg Tablet 40 mg PO HS doxepin 10 mg Capsule 10 mg PO HS aspirin 81 mg Tablet,Chewable 81 mg PO DAILY furosemide 20 mg Tablet 20 mg PO DAILY divalproex 500 mg Tablet,Delayed Release (Dr/Ec) 500 mg PO BID famotidine 20 mg Tablet 20 mg PO BID metoprolol tartrate 25 mg Tablet 12.5 mg PO BID ranolazine 500 mg Tablet Extended Release 12 Hr 500 mg PO BID ticagrelor 90 mg Tablet 90 mg PO BID Combivent Respimat 20-100 mcg/actuation Mist 1 puff INHALATION QID diazepam 5 mg tablet 5 mg PO BID 30 Days Qty: 60 0RF Problem Reconciliation Problems Reviewed?: Yes Patient Discharge Instructions ACTIVITY: Continue current activity DIET: continue same diet Patient Instructions: DI for Altered Mental Status Providers Primary Care Provider: Provider,Referral Admit Provider: Jessica Pan Attending Provider: Bandar Valdivia
[2023-05-27] MEDS: DIVALPROEX 500MG (Delayed-Release) TABLET 500 MG PO (10:59)
--- NOTE | 2023-05-27 12:57 | SW/DCPLANNER ---
I have arranged [facility] for this patient.
[2023-05-27] MEDS: GABAPENTIN 100MG CAPSULE 100 MG PO (13:04)
== END 2023-05-27 17:35 | disposition home or self-care (01) ==
LOC: ER 05-26 01:07 → ICU 05-26 08:45 → 2ND 05-26 16:32
PROVIDERS: Admitting Provider Nurse Practitioner Acute Care; Emergency Provider Emergency Medicine; Visit Provider Internal Medicine
DX: R41.82 Altered mental status, unspecified (principal); E11.9 Type 2 diabetes mellitus without complications; I10 Essential (primary) hypertension; F25.9 Schizoaffective disorder, unspecified; G21.19 Other drug induced secondary parkinsonism; Z95.1 Presence of aortocoronary bypass graft
CPT/HCPCS: 70450; 80053; 80307; 80329; 82803; 85025; 93005; 99291; G0378; J1790

== ENCOUNTER 2023-06-01 13:50 | Emergency (ER) | payer BC, SELFPAY ==
[2023-06-01 13:50] VITALS: BP 110/62; PULSE 77; RESP 18; TEMP 37.3; O2SAT 99; BMI 21.7
--- NOTE | 2023-06-01 14:29 | PC.NURSE ---
Pt provided with sandwich, chips, and drink
--- NOTE | 2023-06-01 15:09 | PC.NURSE ---
Spoke with Iraida at [facility] and advised pt was ready to return. Iraida advised They would find someone to come get him.
--- NOTE | 2023-06-01 15:16 | PC.NURSE ---
Dr. Little at [facility] for pt eval.
--- NOTE | 2023-06-01 15:16 | HMH.EDGENADL ---
Discharge Plan Disposition Patient Disposition: er [facility] Chief Complaint: Altered Mental Status Prescriptions Prescriptions: No Action megestrol 20 mg tablet 20 mg PO DAILY Dulera 100-5 mcg/actuation HFA aerosol inhaler 2 puff inhalation BID isosorbide mononitrate 30 mg Tablet Extended Release 24 Hr 30 mg PO DAILY benztropine 2 mg tablet 2 mg PO BID Qty: 90 0RF sertraline 100 MG tablet 200 mg PO DAILY paliperidone 6 MG tablet extended release 24 hr 12 mg PO DAILY atorvastatin 40 mg Tablet 40 mg PO HS doxepin 10 mg Capsule 10 mg PO HS aspirin 81 mg Tablet,Chewable 81 mg PO DAILY furosemide 20 mg Tablet 20 mg PO DAILY divalproex 500 mg Tablet,Delayed Release (Dr/Ec) 500 mg PO BID famotidine 20 mg Tablet 20 mg PO BID metoprolol tartrate 25 mg Tablet 12.5 mg PO BID ranolazine 500 mg Tablet Extended Release 12 Hr 500 mg PO BID ticagrelor 90 mg Tablet 90 mg PO BID Combivent Respimat 20-100 mcg/actuation Mist 1 puff INHALATION QID diazepam 5 mg tablet 5 mg PO BID 30 Days Qty: 60 0RF Referrals Follow up/Referrals: Provider,Referral, MD [Primary Care Provider] - See instructions Activity Restrictions/Add. Instructions Additional Instructions/Restrictions: At this time it was felt you are safe to be discharged home. If new or worsening symptoms please do not hesitate to return the emergency department. Clinical Impressions Clinical Impression: Schizo-affective schizophrenia Discharge ED Provider: Toyn Little General Adult HPI General Chief complaint: Altered Mental Status Stated complaint: Weakness Time Seen by Provider: 06/01/23 15:06 Mode of Arrival: EMS Source of Information: EMS Limitations: No Limitations Description of Symptoms (Recalled from ER Triage Doc. by RN): [facility] nurse called to report patient is not acting like himself. Reports patient has been incoherant, alert but not oriented. Nurse states patient has been urinating on himself. Nurse reports this started today but was sent out last week for similar episodes. History of Present Illness HPI narrative: Patient is a 62-year-old male with past medical history of diabetes, psychosis, schizophrenia, recent mission for encephalopathy given medication discontinuation who presents emergency department for encephalopathy. History is largely obtained by [facility] report. Patient has been intermittently urinating inappropriately, grabbing for objects that are not there causing them to have him referred here for continued evaluation. Of note patient was recently admitted to the hospital where he was restarted on multiple psychiatric medications and sedative hypnotics, most importantly diazepam which she has been on for multiple decades. Patient has no acute complaints at this time and is oriented to to self and place. Related Data Home Medications Medication Instructions Recorded Confirmed sertraline 100 mg tablet 200 mg PO DAILY 07/18/20 05/26/23 paliperidone 6 mg tablet,extended 12 mg PO DAILY 03/13/21 05/26/23 release 24 hr megestrol 20 mg tablet 20 mg PO DAILY 02/12/23 05/26/23 isosorbide mononitrate 30 mg 30 mg PO DAILY 03/25/23 05/26/23 tablet,extended release 24 hr mometasone-formoterol HFA 100 2 puff inhalation BID 04/15/23 05/26/23 mcg-5 mcg/actuation aerosol inhaler (Dulera) aspirin 81 mg chewable tablet 81 mg PO DAILY 05/26/23 05/26/23 atorvastatin 40 mg tablet 40 mg PO HS 05/26/23 05/26/23 divalproex 500 mg tablet,delayed 500 mg PO BID 05/26/23 05/26/23 release doxepin 10 mg capsule 10 mg PO HS 05/26/23 05/26/23 famotidine 20 mg tablet 20 mg PO BID 05/26/23 05/26/23 furosemide 20 mg tablet 20 mg PO DAILY 05/26/23 05/26/23 ipratropium 20 mcg-albuterol 100 1 puff inhalation QID 05/26/23 05/26/23 mcg/actuation mist for inhalation (Combivent Respimat) metoprolol tartrate 25 mg tablet 12.5 mg PO BID 05/26/23 05/26/23 ranolazine 500 mg tablet,extended 500 mg PO BID 05/26/23 05/26/23 release,12 hr ticagrelor 90 mg tablet 90 mg PO BID 05/26/23 05/26/23 Previous Rx's Medication Instructions Recorded benztropine 2 mg tablet 2 mg PO BID #90 tabs 04/13/23 diazepam 5 mg tablet 5 mg PO BID 30 days #60 tabs 05/27/23 Allergies Allergy/AdvReac Type Severity Reaction Status Date / Time No Known Allergies Allergy Verified 05/21/23 09:14 [facility] Disclaimer: The information contained in this section may have been updated after the patient was seen, as this information can be updated by other users. Medical History Abnormal stress test Acquired hammer toes of both feet COPD (chronic obstructive pulmonary disease) Diabetes mellitus, type 2 Dizziness History of chest pain History of heart attack Hyperlipidemia Onychomycosis Pain in both feet Psychosis Schizophrenia Surgical History Hx of CABG S/P CABG (coronary artery bypass graft) Family History Other No significant family history Social History Smoking Status: Former smoker tobacco type: cigarettes packs per day: 1 second hand exposure: No alcohol intake: never substance use type: denies use current occupational status: retired Travel in the last 8 weeks: None household members: other housing: assisted living facility caffeine: Yes ROS Obtained: Yes Systems reviewed as appropriate & no additional complaints except as documented Physical Exam General General appearance: alert and in no apparent distress Head Head exam: atraumatic and normocephalic Eye Eye exam: Present PERRL and EOMI ENT ENT exam: Present mucous membranes moist Neck Neck exam: Present normal inspection Chest Chest inspection: Present normal inspection and symmetric chest wall rise Respiratory Respiratory exam: Present normal lung sounds bilaterally; Absent respiratory distress Cardiovascular Cardiovascular exam: Present regular rate and normal rhythm Abdominal Exam Abdominal exam: Present soft; Absent tenderness Extremities Exam Extremities exam: Present normal inspection Neurological Exam Neurological exam: Present alert and CN II-XII intact; Absent motor sensory deficit Psychiatric Psychiatric exam: Present other (Tangential conversation, redirectable.) Skin Skin exam: Present warm and dry Medical Decision Making Garcia Inquiry Pt receiving controlled substance: No Vital Signs: 06/01/23 13:50 Temperature 99.2 F Temperature Source Oral Pulse Rate [Right] 77 Respiratory Rate 18 Blood Pressure [Right Arm] 110/62 Blood Pressure Mean [Right Arm] 78 Blood Pressure Source [Right Arm] Automatic Cuff 02 Sat by Pulse Oximetry 99 Oxygen Delivery Method Room Air Medical Decision Narrative: In summary patient is a 62-year-old male with past medical history described above presents emergency department for evaluation of reported cephalopathy. Patient is hemodynamically stable and nontoxic-appearing upon arrival, afebrile. Patient does have a strange affect however is oriented and has known schizoaffective disorder. Fingerstick blood glucose is nonactionable, no concern for DKA. Patient has no acute complaints. The case was discussed with internal medicine who evaluated the patient given that he was recently discharged from here. Patient is at his baseline. Given this with a nonfocal exam workup with labs and imaging was considered but will be deferred. This is likely patient's known chronic medical conditions and are confounded by the fact that patient has had multiple medication adjustments lately. It is imperative that patient remains on his diazepam which will be communicated to [facility] staff. Patient was discharged in stable condition. Critical Care Critical Care Time Critical Care Time: No
--- NOTE | 2023-06-01 15:20 | PC.NURSE ---
fsbs 138
--- NOTE | 2023-06-01 15:35 | PC.NURSE ---
NOTIFIED STAFF AT [facility] THAT PT IS READY FOR DISCHARGE. TRYING TO FIND A RIDE PT
--- NOTE | 2023-06-01 16:19 | EXP.MED.CON ---
History of Present Illness *Admission Date: 06/01/23 *Reason for visit:: confusion *History of present illness: This is a 62-year-old male with past medical history of Parkinson's, alcohol abuse, CAD, schizoaffective disorder, diabetes who presents to the emergency department today with altered mental status. [facility] nurse reportedly called the ER and said patient was not acting himself. He was incoherent. Alert but not oriented. He was sent to the ER for further evaluation. Just recently admitted last week for encephalopathy and psychosis. He recently had his medications changed and his Valium had been held for a few days. After resuming this medication he showed improvement back to baseline mentation. He has been taking this medication per his report. ER evaluated Mr. Muro and he appears to be at his baseline mentation. Medicine was consulted to give second opinion as we have more interaction with Mr. Muro and no his level of function. He is alert and oriented to self and place. Does have tangential speech but does not appear frankly psychotic or altered significantly from his baseline. He is otherwise at his baseline level of function, ambulatory, interactive on conversation. Denies any pain, shortness of breath, headache, nausea or vomiting at this time. [facility] Disclaimer: The information contained in this section may have been updated after the patient was seen, as this information can be updated by other users. Medical History Abnormal stress test Acquired hammer toes of both feet COPD (chronic obstructive pulmonary disease) Diabetes mellitus, type 2 Dizziness History of chest pain History of heart attack Hyperlipidemia Onychomycosis Pain in both feet Psychosis Schizophrenia Surgical History Hx of CABG S/P CABG (coronary artery bypass graft) Family History No significant family history Social History Smoking Status: Former smoker tobacco type: cigarettes packs per day: 1 second hand exposure: No alcohol intake: never substance use type: denies use current occupational status: retired Travel in the last 8 weeks: None household members: other housing: assisted living facility caffeine: Yes Review of Systems Review of Systems Review of systems (narrative): 14 point ROS performed, pertinent positives and negatives as per HPI Exam Data for Last 24 hours Vital signs and Labs for Last 24 Hours: Temp Pulse Resp BP Pulse Ox O2 Del Method 99.2 F 77 18 110/62 99 Room Air 06/01/23 13:50 06/01/23 13:50 06/01/23 13:50 06/01/23 13:50 06/01/23 13:50 06/01/23 13:50 I & O for Last 24 hours: Intake & Output 05/29/23 05/30/23 05/31/23 06/01/23 23:59 23:59 23:59 23:59 Weight 72.575 kg Constitutional Constitutional: no acute distress, thin, chronically ill appearing and cooperative *Routine HEENT Exam Head: Present normocephalic and atraumatic Eye: Present EOMI and PERRL ENT: Present mucous membranes moist *Routine Neck Exam Neck: Present supple, full ROM and trachea midline; Absent JVD, lymphadenopathy or thyromegaly *Routine Respiratory Exam Respiratory: Present CTA bilaterally and normal respiratory effort; Absent respiratory distress *Routine Cardiovascular Exam Cardiovascular: Present RRR, Normal S1 and Normal S2; Absent murmur *Routine Abdominal Exam Abdominal: Present soft and normoactive bowel sounds; Absent tenderness, distended or rebound *Routine Extremities Exam Extremities: Present full ROM; Absent edema or tenderness *Routine Skin Exam Skin: Present intact, dry and warm; Absent rash *Routine Neurological Exam Neurological: Present alert, oriented X3, moving all extremities, vision grossly intact and hearing grossly intact; Absent sensory deficit, motor deficit or altered mental status Comments: oriented to self and place Routine Psychiatric Exam Psychiatric: Present cooperative and anxious; Absent good judgment Comments: tangential speech Meds Home Medications and Allergies Home Medications Medication Instructions Recorded Confirmed Type sertraline 100 mg tablet 200 mg PO DAILY 07/18/20 05/26/23 History paliperidone 6 mg tablet,extended 12 mg PO DAILY 03/13/21 05/26/23 History release 24 hr megestrol 20 mg tablet 20 mg PO DAILY 02/12/23 05/26/23 History isosorbide mononitrate 30 mg 30 mg PO DAILY 03/25/23 05/26/23 History tablet,extended release 24 hr benztropine 2 mg tablet 2 mg PO BID #90 tabs 04/13/23 05/26/23 Rx mometasone-formoterol HFA 100 2 puff inhalation BID 04/15/23 05/26/23 History mcg-5 mcg/actuation aerosol inhaler (Dulera) aspirin 81 mg chewable tablet 81 mg PO DAILY 05/26/23 05/26/23 History atorvastatin 40 mg tablet 40 mg PO HS 05/26/23 05/26/23 History divalproex 500 mg tablet,delayed 500 mg PO BID 05/26/23 05/26/23 History release doxepin 10 mg capsule 10 mg PO HS 05/26/23 05/26/23 History famotidine 20 mg tablet 20 mg PO BID 05/26/23 05/26/23 History furosemide 20 mg tablet 20 mg PO DAILY 05/26/23 05/26/23 History ipratropium 20 mcg-albuterol 100 1 puff inhalation QID 05/26/23 05/26/23 History mcg/actuation mist for inhalation (Combivent Respimat) metoprolol tartrate 25 mg tablet 12.5 mg PO BID 05/26/23 05/26/23 History ranolazine 500 mg tablet,extended 500 mg PO BID 05/26/23 05/26/23 History release,12 hr ticagrelor 90 mg tablet 90 mg PO BID 05/26/23 05/26/23 History diazepam 5 mg tablet 5 mg PO BID 30 days #60 tabs 05/27/23 Rx New Prescriptions to Start Prescriptions: Allergies Allergy/AdvReac Type Severity Reaction Status Date / Time No Known Allergies Allergy Verified 05/21/23 09:14 Results Labs Labs: All other labs normal. 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 insulin use: without long-term use Diabetes mellitus complication status: with circulatory complication Diabetes mellitus complication detail: with other circulatory complications Qualified Code(s): E11.59 - Type 2 diabetes mellitus with other circulatory complications Category: Medical Code(s): E11.9 - Type 2 diabetes mellitus without complications (3) HTN (hypertension): Status: Chronic Qualifiers: Hypertension type: unspecified Qualified Code(s): I10 - Essential (primary) hypertension Category: Medical Code(s): I10 - Essential (primary) hypertension (4) Protein calorie malnutrition: Status: Chronic Category: Medical Code(s): E46 - Unspecified protein-calorie malnutrition (5) Parkinsonism due to drugs: Status: Acute Category: Medical Code(s): G21.19 - Other drug induced secondary parkinsonism Plan On evaluation, Mr. Muro appears to be more or less at his baseline level of function. He is independent. Interacts appropriately with me. On discussion with ER physician, I feel that Mr. Muro is more or less at his baseline level of alertness and orientation and stable to discharge back to his [facility]. Reviewed his vitals which were normal with blood pressure 114/70, heart rate 77, respiratory rate 17, afebrile. Patient states he has been taking his medications including his Valium. Strongly recommend continuing his Valium in conjunction with his divalproex, paliperidone, and Zoloft for mentation/mood disorder. No adjustments made to medications today. Personally sent a 1 month refill of his Valium at discharge last week, will need his new clinician in the outpatient setting to continue this medication.
--- NOTE | 2023-06-01 16:19 | PC.NURSE ---
Attempted to call [facility] twice. No answer at this time.
--- NOTE | 2023-06-01 16:21 | PC.NURSE ---
Spoke with Ale Damon, Social Welfare Clerk of [facility], she advised she would call [facility]
[2023-06-01 16:54] VITALS: BP 114/70; PULSE 77; RESP 18; TEMP 36.4; O2SAT 99
== END 2023-06-01 16:56 ==
PROVIDERS: Emergency Provider Emergency Medicine
DX: F25.9 Schizoaffective disorder, unspecified (principal); E11.59 Type 2 diabetes mellitus with other circulatory complications; I10 Essential (primary) hypertension; E46 Unspecified protein-calorie malnutrition; G21.19 Other drug induced secondary parkinsonism
CPT/HCPCS: 99283

== ENCOUNTER 2024-05-27 05:49 | Emergency (ER) | payer OTHER, SELFPAY ==
[2024-05-27] VITALS (12 sets, daily range): BP systolic 120–172; BP diastolic 81–95; PULSE 76–108; RESP 10–18; TEMP 37.1; O2SAT 95–98; BMI 29.0
--- NOTE | 2024-05-27 05:34 | CT_ITS ---
PROCEDURE INFORMATION: Exam: CT Head Without Contrast Exam date and time: 05/27/2024 6:14 AM Age: 63 years old Clinical indication: Altered mental status/memory loss; Additional info: AMS TECHNIQUE: Imaging protocol: Computed tomography of the head without contrast. Radiation optimization: All CT scans at this facility use at least one of these dose optimization techniques: automated exposure control; mA and/or kV adjustment per patient size (includes targeted exams where dose is matched to clinical indication); or iterative reconstruction. COMPARISON: CT HEAD/BRAIN WO CON 05/25/2023 11:53 PM FINDINGS: Brain: Intracranial calcified atherosclerotic disease. Diffuse parenchymal atrophy. Periventricular white matter hypoattenuation similar to prior comparisons, likely scheduling representative of chronic microvascular disease. Stable appearance of the cerebellar hemispheres bilaterally. Cerebral ventricles: Ex vacuo dilation of the ventricles and CSF spaces. Paranasal sinuses: Scattered mucosal thickening of the visualized sinuses. Mastoid air cells: Visualized mastoid air cells are well aerated. Bones: No acute or aggressive osseous abnormality. Soft tissues: Questionable left supraorbital contusion. IMPRESSION: 1. No acute intracranial findings. 2. Questionable left supraorbital contusion, correlate clinically.
--- NOTE | 2024-05-27 05:35 | XR_ITS ---
PROCEDURE INFORMATION: Exam: XR Chest Exam date and time: 05/27/2024 6:19 AM Age: 63 years old Clinical indication: Other: AMS TECHNIQUE: Imaging protocol: Radiologic exam of the chest. Views: 1 view. COMPARISON: CR XR CHEST PORTABLE 01/18/2024 6:40 AM FINDINGS: Lungs: Basilar lung markings indicative of scarring/atelectasis. No focal consolidation. Pleural spaces: Unremarkable. No pleural effusion. No pneumothorax. Heart/Mediastinum: Unremarkable. No cardiomegaly. Bones/joints: Status post sternotomy. Soft tissues: Postprocedural changes of the chest. Other findings: Patient is rotated. IMPRESSION: No acute cardiopulmonary findings.
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
--- NOTE | 2024-05-27 05:40 | ECG_ITS ---
APPROVED REPORT Exam: Resting ECG HR:80 bpm ECG Measurements Heart Rate 80 AXES DE 152 P 68 QRSd 116 QRS 8 QT 384 T 74 QTc 420 Conclusion SINUS RHYTHM MODERATE INTRAVENTRICULAR CONDUCTION DELAY [110+ ms QRS DURATION] NONSPECIFIC T-WAVE ABNORMALITY BORDERLINE ECG UNCONFIRMED REPORT Electronically signed by : STEPHANIE LAU, 05/28/2024 05:42:30
[2024-05-27 06:16] LABS: Lactate Venous 1.2 mmol/L (0.4-2.0); VBG Base Excess -3.1 mmol/L (-2.4-2.3); VBG HCO3 23.2 mmol/L (23-30); VBG Oxygen Saturation 69.9 % (50-70); VBG PH 7.31 mmol/L (7.31-7.41); VBG PO2 41.1 mmol/L (28-40); VBG Total CO2 24.6 mmol/L (23-27)
[2024-05-27 06:19] LABS: Coronavirus 19, PCR Not Detected (NotDetected); Influenza A, PCR Not Detected (NotDetected); Influenza B, PCR Not Detected (NotDetected)
[2024-05-27 06:19] LABS: Basophils % 0.7 % (0.1-2.0); Eosinophils # 0.1 K/mm3 (0.0-0.4); Eosinophils % 2.4 % (0.1-12.0); Hematocrit 40.3 % (42.0-52.0); Hemoglobin 13.1 g/dL (14.1-18.0); Lymphocytes # 1.2 K/mm3 (0.7-4.5); Mean Corpuscular HGB Conc 32.5 g/dL (31.8-35.4); Mean Corpuscular Hemoglobin 30.2 pg (27.0-31.2); Mean Corpuscular Volume 92.9 fl (80-94); Mean Platelet Volume 9.2 fl (7.4-10.4); Monocytes # 0.5 K/mm3 (0.1-1.0); Monocytes % 8.3 % (1.7-9.3); Neutrophils # 3.9 K/mm3 (1.8-7.8); Neutrophils % 67.4 % (37.0-80.0); Platelet Count 225 K/mm3 (142-424); Red Blood Count 4.34 M/mm3 (4.60-6.20); Red Cell Distribution Width 13.6 % (11.5-17.5); White Blood Count 5.8 K/mm3 (4.8-10.8)
[2024-05-27] MEDS: LACTATED RINGERS 1000ML 1,000 ML 999 ML IV (06:25)
[2024-05-27 06:27] LABS: Alanine Aminotransferase 22 U/L (12-78); Albumin/Globulin Ratio 1.4 (1.1-1.8); Alkaline Phosphatase 58 U/L (38-126); Anion Gap 8.1 mEq/L (5-15); Aspartate Amino Transferase 27 U/L (17-59); Bilirubin,Total 0.3 mg/dl (0.2-1.3); Blood Urea Nitrogen 13 mg/dl (9-20); Calcium 9.5 mg/dl (8.4-10.2); Carbon Dioxide 30 mmol/L (22.0-30.0); Chloride 105 mmol/L (98-107); Creatinine Clearance Estimated 87 mL/min (50-200); Estimated Glomerular Filt Rate 75 ml/min (>60); GFR (African American) 91 ML/MIN (>60); Globulin 2.9 g/dL (1.3-3.2); Glucose 101 mg/dl (74-100); Potassium 4.1 mmoL/L (3.5-5.1); Sodium 139 mmol/L (136-145); Total Protein,Serum 6.9 g/dl (6.3-8.2)
[2024-05-27 06:31] LABS: Magnesium 2.1 mg/dl (1.6-2.3)
--- NOTE | 2024-05-27 08:12 | PC.NURSE ---
calling radiology regarding CT read still not being complete; Megan is going to contact [facility]. SNOWDEN aware
--- NOTE | 2024-05-27 08:23 | PC.NURSE ---
HALLEY SNOWDEN aware that radiology reads are back
--- NOTE | 2024-05-27 08:26 | PC.NURSE ---
HALLEY SNOWDEN at for update on POC; reassessing of patient.
[2024-05-27 08:53] LABS: Microscopic, Urine URINE MICROSCOPIC (MICROSCOPIC)
[2024-05-27 09:25] LABS: Appearance,Urine CLEAR (Clear); Bilirubin,Urine Negative (Negative); Blood, Urine Negative (Negative); Color,Urine YELLOW (Yellow); Glucose,Urine (UA) Negative (Negative); Ketones,Urine Negative (Negative); Leukocyte Esterase,Urine Negative (Negative); Nitrate,Urine Negative (Negative); PH,Urine 6.5 (5.0-8.5); Protein,Urine Negative (Negative); Urobilinogen,Urine 0.2 EU/dl (0.2)
[2024-05-27 09:27] LABS: Amphetamine/Metha Screen,Urine Negative ng/ml (<1000)
[2024-05-27 09:28] LABS: Barbiturates Screen,Urine Negative ng/ml (<200); Benzodiazepines Screen,Urine Positive ng/ml (<200)
[2024-05-27 09:29] LABS: Cannabinoid Screen,Urine Negative ng/ml (<50)
[2024-05-27 09:30] LABS: Cocaine Screen,Urine Negative ng/ml (<300); Methadone Screen,Urine Negative ng/ml (<300)
[2024-05-27 09:31] LABS: Opiate Screen,Urine Negative ng/ml (<300)
[2024-05-27 09:32] LABS: Phencyclidine Screen,Urine Negative ng/ml (<25)
--- NOTE | 2024-05-27 09:44 | PC.NURSE ---
Called pt's pharmacy, [facility], and confirmed pt home med list.
[2024-05-27 10:03] LABS: RBC,Urine Occasional #/hpf (0-3)
--- NOTE | 2024-05-27 10:09 | PC.NURSE ---
Called [facility] for possible transfer to their facility, the medical side sent me to [facility] facility, and asked for us to send note, labs, imaging, and face-sheet to their transfer line . Confirmation page received.
[2024-05-27 10:14] LABS: Creatine Kinase 223 U/L (55-170)
[2024-05-27 10:31] LABS: Free T4 (Free Thyroxine) 1.67 ng/dl (0.78-2.19)
[2024-05-27 10:45] LABS: Thyroid Stimulating Hormone 4.82 uIU/mL (0.465-4.68)
--- NOTE | 2024-05-27 11:06 | PC.NURSE ---
pt finsihed with breakfast tray; ate 80%. Call light within reach, no other needs at this time
--- NOTE | 2024-05-27 11:40 | PC.NURSE ---
[facility] would not answer. Called [facility] as they have the spanish moss picker vehicle as pt is ready to be d/c
== END 2024-05-27 12:10 | disposition home or self-care (01) ==
PROVIDERS: Emergency Medicine; Emergency Provider Student in an Organized Health Care Education/Training Program
DX: G21.19 Other drug induced secondary parkinsonism (principal); R41.82 Altered mental status, unspecified; R11.10 Vomiting, unspecified; R04.0 Epistaxis; R04.2 Hemoptysis
CPT/HCPCS: 70450; 71045; 80053; 80307; 81001; 82550; 82803; 83735; 84439; 84443; 85025; 87636; 93005; 96360; 99284; J7120